=== PATIENT | male | born 1950 | race Caucasian/White ===

== ENCOUNTER 2018-02-08 08:37 | Inpatient (IN) | payer OTHER, MEDICARE, SELFPAY ==
[2018-02-08] VITALS (17 sets, daily range): BP systolic 133–189; BP diastolic 62–98; PULSE 56–96; RESP 14–20; TEMP 36.4–37; O2SAT 93–100; BMI 35.9; BMI 38.8
--- NOTE | 2018-02-08 08:41 | ED.RN ---
called for ekg from triage. pt to room 1. triage completed by this rn after pt taken to room
--- NOTE | 2018-02-08 08:42 | NURSING ---
NO OLD EKGS
--- NOTE | 2018-02-08 08:43 | EKG12_ITS ---
Test Reason : CP Blood Pressure : / mmHG Vent. Rate : 093 BPM Atrial Rate : 093 BPM P-R Int : 228 ms QRS Dur : 082 ms QT Int : 382 ms P-R-T Axes : 041 049 -09 degrees QTc Int : 474 ms Sinus rhythm with 1st degree A-V block Low voltage QRS Borderline ECG Confirmed by PURNIMA LIN, JONATHON ([id number]), industrial editor SYEDA TORRES ([id number] on 02/10/2018 11:57:46 AM Referred By: VITO Confirmed By:JONATHON FELTON MD
--- NOTE | 2018-02-08 08:53 | RAD_ITS ---
STUDY: X-RAY CHEST REASON FOR EXAM: Male, 67 years old. Chest pain. TECHNIQUE: Single AP portable view of the chest. COMPARISON: None. FINDINGS: EKG electrodes are seen. The lungs are clear and expanded. There is no demonstrated pleural abnormality. There is mild cardiac enlargement. Normal mediastinum and chika. Normal visualized pulmonary arteries. There is atherosclerotic calcification of the aortic arch with tortuosity. There are diffuse degenerative changes of the visualized thoracic spine. Normal visualized ribs, clavicles, and shoulders. There is no demonstrated abnormality of the visualized soft tissue structures of the upper abdomen. RAD/Chest 1 View (Portable) IMPRESSION: Mild cardiomegaly. The lungs are clear. Electronically Signed: Yang Walker MD at 9:10 EST Tel [phone], Service support ,
[2018-02-08 09:13] LABS: Absolute Lymphocyte Count 1.46 X10^3/ul (0.83-4.51); Basophil# 0.04 X10^3/uL; Basophil% 0.7 % (0-1); Eosinophil# 0.14 X10^3/uL; Eosinophils% 2.3 % (0-5); Hematocrit 48.7 % (40-54); Hemoglobin 16.6 g/dl (13.0-16.5); Lymphocyte # 1.46 X10^3/ul (4.0); Lymphocyte % 24.1 % (19-41); Mean Corp Hgb Conc 34.1 g/gl (32-36); Mean Corpuscular Hgb 31.4 pg (27.0-32.0); Mean Corpuscular Volume 92.2 fL (80-94); Mean Platelet Vol. 10.4 fl (6.2-12.0); Monocyte% 6.6 % (0-10); Neutrophil # 4.01 X10^3/uL (2.7-7.7); Platelet Count 194 K/mm3 (150-450); RBC Distribution Width CV 12.3 % (11.6-14.6); RBC Distribution Width SD 41.5 fl (35.1-43.9); Red Blood Count 5.28 M/mm3 (4.6-6.2); White Blood Count 6.1 K/mm3 (4.4-11.0)
[2018-02-08 09:15] LABS: POSITIVE COUNT NO; POSITIVE DIFFERENTIAL NO; POSITIVE MORPHOLOGY NO
[2018-02-08] MEDS: Aspirin 81 MG TAB.CHEW 324 MG PO (09:29)
[2018-02-08] MEDS: cloNIDine HCl 0.1 MG Tablet 0.2 MG PO (09:29)
[2018-02-08] MEDS: Morphine 4 MG/ML Syringe IV (09:29)
[2018-02-08] MEDS: Ondansetron 4 MG/2 ML Vial IV (09:29)
[2018-02-08 09:30] LABS: Anion Gap 12 (5-15); BUN 10 mg/dL (7-18); BUN/Creat Ratio 7.3 RATIO (10-20); Calcium,Total 8.9 mg/dL (8.5-10.1); Chloride 103 mmol/L (98-107); Creatinine, Serum 1.37 mg/dL (0.70-1.30); EST Glomerular Filtration Rate 55 mL/min (>60); Est Glom Filt Rate - Afr Amer 66 mL/min (>60); Estimated Creatinine Clearance 52.54 ml/min; Glucose 115 mg/dL (74-106); Potassium 4.1 mmol/L (3.5-5.1); Sodium Level 140 mmol/L (136-145)
--- NOTE | 2018-02-08 10:26 | NURSING ---
DR LEBRON FOR ER
--- NOTE | 2018-02-08 10:29 | ED.DCSUM_ITS ---
- ER Visit Summary Date of Service: 02/08/18 Chief Complaint: [] cp On and off for 3 weeks worse today History of Present Illness: The patient is a 67 M [] hypertension hyperlipidemia reports for the last 3 weeks he has had intermittent chest pain for unspecified reasons. He has history of hypertension hyperlipidemia is well controlled he is had no fever no cough no exertional symptoms today had another episode of chest pain that persisted he came in for evaluation, on arrival however his chest pain is markedly improved he has no history of GA PE or DVT his bowel bladder habits normal his review of systems are negative for fever cough numbness weakness or paresthesias Physical Examination: [] 180/93 General, no distress resting comfortably HEENT is generally unremarkable The neck is supple no adenopathy Cardiovascular, regular rate and rhythm Lungs, clear bilateral Abdomen, soft nontender Extremities, no clubbing cyanosis or edema Neurologic, awake alert answering questions appropriately moving all 4 extremities Test Results: [] Emergency Department Course and Treatment: [] EKG shows a sinus rhythm nothing acute, there was one episode on the monitor that could have been artifact versus a narrow complex 10 beat run were trying to determine that of the monitor retrieval system staff are trying to access that system if there is any signs of a dysrhythmia will be on the chart his vital signs and all labs are unremarkable except his troponin returns elevated to 0.07 he remains asymptomatic I spoke with the hospitalist we were contacting cardiology the plan at this time is to admit for further management Treatment Plan: [] Disposition: [] Admit stable Impression: [] chest pain, abnormal troponin, history of hypertension hyperlip idemia This note was generated with Viki dictation software. It may contain incorrect words, spelling, and punctuation that were not noted in review of the chart prior to signing ED Disposition - Plan for ED Patient: Chief Complaint: Chest Pain Referrals: Adrian Carlton MD [Primary Care Provider] -
--- NOTE | 2018-02-08 10:37 | NURSING ---
DR CAMPOS FOR ER DOC
--- NOTE | 2018-02-08 10:37 | NURSING ---
115 HAWAE CP, ABNORMAL TROP, HYPERTENSION
--- NOTE | 2018-02-08 10:38 | HP.PCM_ITS ---
Problem List (1) Chest pain Status: Acute (2) Essential (primary) hypertension Status: Chronic (3) Sleep apnea with use of continuous positive airway pressure (CPAP) Status: Chronic (4) BMI over 35 Status: Chronic History of Present Illness Date of Admission: 02/08/18 Chief Complaint: Chest pain The patient is a 67 year old M past medical history significant for essential hypertension (previously on DEIDRE inhibitors which he voluntarily quit because of persistent cough), obstructive sleep apnea on CPAP at night who presented with chest pain. Onset of symptoms 3 weeks prior to patient's admission. Chest pain has been intermittent. Patient initially thought he had bronchitis prescribed Z-Paulino by PCP however symptoms did not improve. Pain is described as tightness located in the retrosternal region. Patient did not relate the pain to any activity. Denied any radiation of the pain. Denied any lightheadedness no nausea no vomiting. He presented to the emergency department where his initial set of cardiac enzymes came back in the indeterminate zone. EKG however did not show any features consistent with ischemia. He was admitted to a monitored bed for subsequent management Past Medical History Past Medical History (Chronic Problems): Chronic Problems Essential (primary) hypertension (Chronic) Sleep apnea with use of continuous positive airway pressure (CPAP) (Chronic) BMI over 35 (Chronic) Allergies No Known Allergies Allergy (Verified 02/08/18 08:41) Home Medications: Ambulatory Orders Medication Instructions Recorded NK 02/08/18 Smoking Status: Former smoker - *Family History Paternal History Items: - - Parkinson's disease Review of Systems Constitutional: Denies: Anorexia, Chills, Fever, Night Sweats, Weight Change HEENT: Denies: Head Aches, Sinus Congestion, Sinus Drainage Cardiovascular: Reports: Chest Pain, Chest Tightness. Denies: Orthopnea, Palpitations, Paroxysmal Noc. Dyspnea Respiratory: Denies: Cough, Shortness of breath at rest, Shortness of breath upon exertion, Sputum production Gastrointestinal: Denies: Abdominal Pain, Hematemesis, Hematochezia, Nausea, Melena, Vomiting Genitourinary: Denies: Dysuria, Frequency, Hematuria, Urgency Musculoskeletal: Denies: Joint Pain, Joint Tenderness Skin: Denies: Rash Neurological: Denies: Focal weakness, Numbness, Tingling Psychiatric: Denies: Homicidal Ideations, Suicidal Ideations Hematologic/ Lymphatic: Denies: Easy Bruising, Easy Bleeding VTE Information - Inpt Only VTE Present on Admission: No VTE Mechan Device Prophylaxis: Knee High LINH Hose VTE Pharm Prophylaxis ordered?: Yes Patient Problems: Active and Suspected Problems Chest pain (Acute) Objective: GENERAL: cooperative HEENT: Atraumatic; moist oral mucosa EYES; Anicteric, Normal Conjunctiva NECK; supple, normal thyroid, no distended JVD. RESPIRATORY: Diminished to auscultation bilaterally, CARDIOVASCULAR: Regular S1 S2, no audible murmurs GI: soft, non-tender, normoactive bowel sounds, : No Renal angle tenderness; EXTREMITIES: No edema, no clubbing, no cyanosis. MUSCULOSKELETAL: No Joint Tenderness; no muscle waisting NEURO: Awake; no lateralizing signs. SKIN: No Rash PSYCH; Normal affect - Physical Exam Vital Signs Temp Pulse Resp BP Pulse Ox 97.5 F L 90 18 189/93 H 93 02/08/18 08:38 02/08/18 10:09 02/08/18 10:09 02/08/18 10:09 02/08/18 10:09 Oxygen Flow Rate (L/min) 2 Oxygen Delivery Method Nasal Cannula Weight: 113.398 kg Body Mass Index (BMI) 35.9 Laboratory Tests Past 24 Hrs 02/08/18 02/08/18 09:00 09:00 WBC 6.1 RBC 5.28 Hgb 16.6 H Hct 48.7 MCV 92.2 MCH 31.4 MCHC 34.1 RDW 12.3 RDW Differential 41.5 Plt Count 194 MPV 10.4 Immature Gran % (Auto) 0.300 Neut % (Auto) 66.0 Lymph % (Auto) 24.1 [place] % (Auto) 6.6 Eos % (Auto) 2.3 Baso % (Auto) 0.7 Absolute Neuts (auto) 4.0 Absolute Lymphs (auto) 1.46 Total Counted Not Reportable Sodium 140 Potassium 4.1 Chloride 103 Carbon Dioxide 25.0 Anion Gap 12 BUN 10 Creatinine 1.37 H Estim Creat Clear Calc 52.54 Est GFR (MDRD) Af Amer 66 Est GFR (MDRD) Non-Af 55 L BUN/Creatinine Ratio 7.3 L Glucose 115 H Calcium 8.9 Troponin I 0.067 H Assessment/Plan All Active Problems Chest pain (Acute) Patient is a 67-year-old gentleman presenting with chest pain 1. Chest pain: Patient has been admitted to a monitored bed treatment initiated with low molecular weight heparin, statin therapy, aspirin as well as beta- blockers. Subsequent serial cardiac enzymes ordered in addition to 2D echo. Consultation was placed to cardiology Case discussed with Dr. Pichardo 2. Essential hypertension: Patient was previously on DEIDRE inhibitors which he did quit because of persistent cough did initiate beta-blockers on admission in addition to hydralazine as needed 3. Obstructive sleep apnea patient is on CPAP at night 4. Morbid obesity with BMI of 35.9 lifestyle modification including weight loss advised 5. DVT prophylaxis on Lovenox Code Visit OBSV E&M: 14087 Initial observation care L3
--- NOTE | 2018-02-08 10:45 | NURSING ---
DR LEBRON IN ROOM
--- NOTE | 2018-02-08 11:07 | ECHOD_ITS ---
Reason For Study: Chest Pain Procedure This was a 2D Doppler, Color Flow transthoracic echocardiogram. Technically difficult due to patient body habitus. Contrast injection was performed. Exam performed portable in patient room. Left Ventricle Normal LV size. Moderate concentric left ventricular hypertrophy. Left ventricular systolic function is normal. The estimated ejection fraction is 60 %. Stage 1 diastolic dysfunction. No regional wall motion abnormalities noted. Right Ventricle Normal right ventricle. Normal systolic function. Atria The left atrium is not well visualized. The right atrium is not well visualized. Mitral Valve Mitral valve not well visualized. Tricuspid Valve The tricuspid valve is not well visualized. Aortic Valve The aortic valve is not well visualized. Pulmonic Valve The pulmonic valve is not well visualized. Great Vessels Normal aortic root. The pulmonary artery is normal size. Normal inferior vena cava. Pericardium/Pleural No pericardial effusion. Medication Diluted definity 6ml given slow IV push to enhance endocardial definition. MMode/2D Measurements & Calculations LVIDd: 3.9 cm IVSd: 1.6 cm LVOT diam: 2.0 cm LVIDs: 2.5 cm LVPWd: 1.7 cm FS: 34.8 % LVOT area: 3.1 cm2 Ao root diam: 3.5 cm Time Measurements MV dec time: 0.28 sec Doppler Measurements & Calculations MV E max conor: 81.5 cm/sec Lat Peak E' Conro: 7.6 cm/sec Med Peak E' Conor: 10.6 cm/sec MV A max conor: 112.1 cm/sec E/E' lat: 10.8 E/E' med: 7.7 MV E/A: 0.73 MV V2 max: 123.3 cm/sec MV P1/2t max conor: 83.8 cm/sec Ao V2 max: 210.3 cm/sec MV max P.1 mmHg MV P1/2t: 108.5 msec Ao max P.8 mmHg MV V2 mean: 62.0 cm/sec Ao V2 mean: 131.4 cm/sec MV mean P.8 mmHg MV dec slope: 226.2 cm/sec2 Ao mean P.3 mmHg MV V2 VTI: 34.5 cm MVA(P1/2t): 2.0 cm2 Ao V2 VTI: 40.2 cm MVA(VTI): 2.4 cm2 UNIQUE(I,D): 2.1 cm2 UNIQUE(V,D): 1.9 cm2 LV V1 max: 132.7 cm/sec SV(LVOT): 82.9 ml PA V2 max: 85.7 cm/sec LV V1 max P.1 mmHg LV V1 mean P.7 mmHg LV V1 mean: 87.2 cm/sec LV V1 VTI: 27.0 cm Interpretation Summary Normal LV size. Moderate concentric left ventricular hypertrophy. Left ventricular systolic function is normal. The estimated ejection fraction is 60 %. Stage 1 diastolic dysfunction. Contrast injection was performed. Ordering Physician: Christian Solano Referring Physician: Adrian Carlton Performed By: Hola Lam RCS
--- NOTE | 2018-02-08 11:39 | PCM.CONS.C ---
Problem List (1) Chest pain Status: Acute (2) Essential (primary) hypertension Status: Chronic (3) Sleep apnea with use of continuous positive airway pressure (CPAP) Status: Chronic (4) BMI over 35 Status: Chronic Reason for Consult Date of Consultation: 02/08/18 History of Present Illness: The patient is a 67 year old M, morbidly obese, nondiabetic, former smoker who quit around 35 years ago, with obstructive sleep apnea diagnosed about 6 years ago and compliant with CPAP, no previous coronary artery disease, who previously developed what sounds like bronchitis and was prescribed a Z-Paulino which resolved his chest pressure symptoms. Over the last 2 weeks or so the patient has had left-sided chest tightness which he describes as a heaviness, non-pleuritic, and nonexertional. This morning he noted his symptoms to a nurse coworker, and he was noted to be diaphoretic as well. His blood pressure was found to be in the 180s and he was sent to the emergency room here [facility]. In the emergency room an EKG was performed which showed normal sinus rhythm, low voltage, first-degree AV block, no acute changes. Initial troponin was 0.067, and the patient's blood pressure has been treated but not optimized as of yet. The patient is currently chest pain-free. On further history he has never had a heart catheterization, is a nondiabetic, no positive family history of premature coronary disease. Patient had recently been started on lisinopril 10 mg daily by his PCP for hypertension, but discontinued it due to dry hacking cough. [] Past Medical History Allergies/Adverse Reactions: Allergies No Known Allergies Allergy (Verified 02/08/18 08:41) Home Medications: Ambulatory Orders Medication Instructions Recorded NK 02/08/18 Past Medical History (Chronic Problems): Chronic Problems Essential (primary) hypertension (Chronic) Sleep apnea with use of continuous positive airway pressure (CPAP) (Chronic) BMI over 35 (Chronic) - *Family History Paternal History Items: - - Parkinson's disease Smoking Status: Former smoker Review of Systems - Review of Systems General: Denies: Fever, Night Sweats, Fatigue Cardiovascular: Reports: Chest Discomfort, Chest Discomfort at Rest, Chest Pressure, Chest Tightness, Shortness of Breath. Denies: Orthopnea, PND, Peripheral Edema, Palpitations, Lightheadedness, Dizziness, Near Syncope, Syncope Respiratory: Denies: Cough, Sputum Production, Hemoptysis Gastrointestinal: Denies: Hematemesis, Hematochezia, Melena Genitourinary: Denies: Dysuria, Hematuria Skin: Denies: Rash Subjectve: Patient laying in bed, no acute distress. Objective: Vital Signs Temp Pulse Resp BP Pulse Ox 98.0 F 88 14 162/92 H 97 02/08/18 11:10 02/08/18 11:10 02/08/18 11:10 02/08/18 11:10 02/08/18 11:10 Oxygen Flow Rate (L/min) 2 Oxygen Delivery Method Nasal Cannula Weight: 270 lb 8.115 oz Body Mass Index (BMI) 38.8 General: Awake, Alert, Oriented x 3 HEENT: PERRL, EOMI, Sclera Non Icteric Neck: Supple, Good ROM, No Lymph Node Enlargement Lungs: Clear to auscultation Cardiovascular: Regular Rhythm, Normal S1, Normal S2, No Murmurs, No Rubs, No Gallops 02/08/18 09:00: WBC 6.1, RBC 5.28, Hgb 16.6 H, Hct 48.7, MCV 92.2, MCH 31.4, MCHC 34.1, RDW 12.3, RDW Differential 41.5, Plt Count 194, MPV 10.4, Immature Gran % (Auto) 0.300, Neut % (Auto) 66.0, Lymph % (Auto) 24.1, [place] % (Auto) 6.6, Eos % (Auto) 2.3, Baso % (Auto) 0.7, Absolute Neuts (auto) 4.0, Total Counted Not Reportable 02/08/18 09:00: Sodium 140, Potassium 4.1, Chloride 103, Carbon Dioxide 25.0, Anion Gap 12, BUN 10, Creatinine 1.37 H, Est GFR (MDRD) Af Amer 66, Est GFR (MDRD) Non-Af 55 L, BUN/Creatinine Ratio 7.3 L, Glucose 115 H, Calcium 8.9, Troponin I 0.067 H Rhythm: EKG: As above ECHO: Pending Stress Test: Pending Cardiac Cath: PCI: CT Surgery: Holter monitor: EPS: PPM: CXR: Chest CT Scan: Assessment/Plan 1. chest pain: Patient presents with atypical, nonexertional chest tightness, which is nonradiating, with mild associated shortness of breath and diaphoresis superimposed upon significant hypertension with systolic pressures at least in the 180s. Patient was treated with baby aspirin, sublingual nitroglycerin, and his EKG showed no acute changes. He is currently chest pain-free. His blood pressure is not quite optimized. At this point I recommend baby aspirin 81 mg p.o. daily, starting him on Lopressor 25 mg p.o. twice daily, and Hyzaar 50 mg / 12.5 mg p.o. daily. In addition recommend a 2D echo with Doppler, and if his LV function is normal, would recommend a walking treadmill echocardiogram assuming his troponins are negative x3. If his troponins escalate, or if his LV function is found to be abnormal, I would forego the stress test and refer him for catheterization. Should the patient require catheterization or if his troponins become abnormal, I would recommend loading him with Plavix 300 mg x1 followed by 75 mg a day. Assuming the patient does not develop a dry cough from Cozaar as needed with lisinopril, and will continue his Hyzaar medications going forward particular given his diastolic blood pressure. 2. Hyperlipidemia: Recommend obtaining a fasting lipid profile. His LDL is greater than 130 would recommend treating with statin based medications. 3. Obstructive sleep apnea: Patient is just started a new CPAP mask as his other ones were not successful although he has had CPAP for the past 6 years. This may assist with his hypertension as well. 4. Discussed with Dr. Solano. Thank you very much for the opportunity to participate in the cardiac care of your patient. Consultation time took place between 11 and 11:30 AM. Code Visit Inpatient E&M: 00121 Init Hosp L2
--- NOTE | 2018-02-08 12:09 | CASEMGMT ---
According to the MMO website, the following are in-network tertiary facilities: [facility], [facility], [facility], [facility], [facility], [place], [facility], and . Carolee HDZ CM
[2018-02-08] MEDS: hydroCHLOROthiazide 12.5mg 12.5 MG PO (13:45)
[2018-02-08] MEDS: Metoprolol Tartrate 25 MG Tablet PO ×2 (13:45→23:20)
[2018-02-08] MEDS: Losartan Potassium 50 MG Tablet PO (13:45)
[2018-02-08 15:39] LABS: Thyroid Stim Hormone (TSH) 1.24 uIU/mL (0.358-3.74)
[2018-02-08] MEDS: Clopidogrel Bisulfate 300 MG Tablet PO (16:20)
[2018-02-08 17:08] LABS: BNP,B-Type NATRIURETIC PEPTIDE 76.5 pg/mL (0-100)
[2018-02-08 17:11] LABS: D-Dimer Quantitative (DVT/PE) 0.31 FEU/ug/m (0.27-0.49)
[2018-02-08] MEDS: Nitroglycerin Oint 1 INCH PACKET TRANSDERM. ×2 (17:14→23:21)
[2018-02-08] MEDS: Famotidine 20 MG Tablet PO (22:05)
[2018-02-08] MEDS: Enoxaparin 120 MG/0.8 ML Syringe 110 MG SC (22:05)
[2018-02-08] MEDS: Atorvastatin Calcium 80 MG Tablet PO (22:05)
[2018-02-09] VITALS (17 sets, daily range): BP systolic 128–152; BP diastolic 62–83; PULSE 47–65; RESP 12–20; TEMP 36.6–37; O2SAT 93–98
[2018-02-09] MEDS: Nitroglycerin Oint 1 INCH PACKET TRANSDERM. ×3 (05:24→17:35)
[2018-02-09 07:45] LABS: AST(SGOT) 19 U/L (15-37); Alanine Aminotransfer ALT/SGPT 27 U/L (16-61); Alkaline Phosphatase 77 U/L (45-117); Anion Gap 7 (5-15); BUN 12 mg/dL (7-18); BUN/Creat Ratio 11.1 RATIO (10-20); Calcium,Total 8.2 mg/dL (8.5-10.1); Chloride 102 mmol/L (98-107); Creatinine, Serum 1.08 mg/dL (0.70-1.30); EST Glomerular Filtration Rate 72 mL/min (>60); Est Glom Filt Rate - Afr Amer 87 mL/min (>60); Estimated Creatinine Clearance 66.65 ml/min; Globulin 3.5 g/dL (2.2-4.2); Glucose 108 mg/dL (74-106); Potassium 4.4 mmol/L (3.5-5.1); Protein, Total 6.5 g/dL (6.4-8.2); Sodium Level 136 mmol/L (136-145)
--- NOTE | 2018-02-09 09:04 | PN_ITS ---
Patient Problems: Active and Suspected Problems Chest pain (Acute) Subjective: Patient is a 67-year-old gentleman presenting with chest pain patient was admitted to a monitored bed for subsequent evaluation and management. Serial cardiac enzymes obtained came back consistent with acute non-STEMI. Patient was reported to be bradycardic during the evening his metoprolol dose subsequently adjusted Objective: GENERAL: cooperative HEENT: Atraumatic; moist oral mucosa EYES; Anicteric, Normal Conjunctiva NECK; supple, normal thyroid, no distended JVD. RESPIRATORY: Diminished to auscultation bilaterally, CARDIOVASCULAR: Regular S1 S2, no audible murmurs GI: soft, non-tender, normoactive bowel sounds, : No Renal angle tenderness; EXTREMITIES: No edema, no clubbing, no cyanosis. MUSCULOSKELETAL: No Joint Tenderness; no muscle waisting NEURO: Awake; no lateralizing signs. SKIN: No Rash PSYCH; Normal affect Vitals/I&O's: Vital Signs Temp Pulse Resp BP Pulse Ox 98.4 F 54 L 13 139/75 H 93 02/09/18 05:15 02/09/18 07:00 02/09/18 05:15 02/09/18 05:15 02/09/18 07:05 Oxygen Flow Rate (L/min) 2 Oxygen Delivery Method Room Air Weight: 122.7 kg Body Mass Index (BMI) 38.8 Intake and Output for Last 24 Hours 02/07/18 02/08/18 02/09/18 23:59 23:59 23:59 Intake Total 1470 / 1470 200 / 200 Balance 1470 / 1470 200 / 200 Laboratory Results 02/08/18 09:00: WBC 6.1, RBC 5.28, Hgb 16.6 H, Hct 48.7, MCV 92.2, MCH 31.4, MCHC 34.1, RDW 12.3, RDW Differential 41.5, Plt Count 194, MPV 10.4, Immature Gran % (Auto) 0.300, Neut % (Auto) 66.0, Lymph % (Auto) 24.1, [place] % (Auto) 6.6, Eos % (Auto) 2.3, Baso % (Auto) 0.7, Absolute Neuts (auto) 4.0, Absolute Lymphs (auto) 1.46, Total Counted Not Reportable 02/08/18 09:00: Sodium 140, Potassium 4.1, Chloride 103, Carbon Dioxide 25.0, Anion Gap 12, BUN 10, Creatinine 1.37 H, Estim Creat Clear Calc 52.54, Est GFR (MDRD) Af Amer 66, Est GFR (MDRD) Non-Af 55 L, BUN/Creatinine Ratio 7.3 L, Glucose 115 H, Calcium 8.9, Troponin I 0.067 H 02/08/18 12:40: TSH 1.24 02/08/18 12:40: Troponin I 0.141 H 02/08/18 14:59: D-Dimer Quant (PE/DVT) 0.31 02/08/18 14:59: B-Natriuretic Peptide 76.5 02/08/18 15:00: Troponin I 0.265 H 02/08/18 18:20: Troponin I 0.508 H 02/08/18 22:09: Troponin I 0.680 H* 02/09/18 05:27: Sodium 136, Potassium 4.4, Chloride 102, Carbon Dioxide 27.0, Anion Gap 7, BUN 12, Creatinine 1.08, Estim Creat Clear Calc 66.65, Est GFR (MDRD) Af Amer 87, Est GFR (MDRD) Non-Af 72, BUN/Creatinine Ratio 11.1, Glucose 108 H, Calcium 8.2 L, Total Bilirubin 0.40, Direct Bilirubin 0.10, AST 19, ALT 27, Alkaline Phosphatase 77, Troponin I 0.731 H*, Total Protein 6.5, Albumin 3.0 L, Globulin 3.5 Current Medications Al Hydroxide/Mg Hydroxide (Mylanta Ii) 30 ml PO Q6H PRN PRN PRN Reason: Gastric burning Aspirin (Ecotrin) 81 mg PO DAILY@0800 [facility] Atorvastatin Calcium (Lipitor) 80 mg PO QHS [facility] Last Admin: 02/08/18 22:05 Dose: 80 mg Clopidogrel Bisulfate (Plavix) 75 mg PO DAILY [facility] Enoxaparin Sodium (Lovenox) 110 mg 1 mg/kg (110 mg) SC Q12 [facility] Last Admin: 02/08/18 22:05 Dose: 110 mg Famotidine (Pepcid) 20 mg PO BID [facility] Last Admin: 02/08/18 22:05 Dose: 20 mg Hydrochlorothiazide (Hydrochlorothiazide) 12.5 mg PO DAILY [facility] Last Admin: 02/08/18 13:45 Dose: 12.5 mg Losartan Potassium (Cozaar) 50 mg PO DAILY [facility] Last Admin: 02/08/18 13:45 Dose: 50 mg Magnesium Hydroxide (Milk Of Magnesia) 30 ml PO DAILY PRN PRN Reason: Constipation Metoprolol Tartrate (Lopressor (Beta Brandan)) 12.5 mg PO BID [facility] Nitroglycerin (Nitrostat) 0.4 mg SUBLINGUAL Q5M PRN PRN Reason: CHEST PAIN Nitroglycerin (Nitrobid) 1 inch TRANSDERM. Q6 [facility] Last Admin: 02/09/18 05:24 Dose: 1 inch Ondansetron HCl (Zofran) 4 mg IV Q8H PRN PRN PRN Reason: NAUSEA Psyllium Hydrophilic Mucilloid (Metamucil) 1 packet PO DAILY PRN PRN PRN Reason: CONSTIPATION Sodium Chloride () 5 - 30 ml IV UD PRN PRN Reason: SALINE FLUSH Zolpidem Tartrate (Ambien (Generic)) 5 mg PO QHS PRN PRN PRN Reason: INSOMNIA Medical Necessity - Tobacco Use Smoking Status: Former smoker Assessment/Plan All Active Problems Chest pain (Acute) Patient is a 67-year-old gentleman presenting with chest pain patient was admitted to a monitored bed for subsequent evaluation and management. Serial cardiac enzymes obtained came back consistent with acute non-STEMI. 1. Acute non-STEMI: Patient admitted to monitored bed where he is currently being managed per protocol with low molecular weight heparin, statin therapy, beta blockers, ARB, dual antiplatelet consultation was placed to cardiology Case discussed with Dr. Pichardo plan is for patient to undergo left heart catheterization on 02/10/2018 2. Essential hypertension: Patient was previously on DEIDRE inhibitors which he di d quit because of persistent cough did initiate beta-blockers (dose adjusted in view of bradycardia) Dr. Pichardo added HCTZ as well as Cozaar 3. Obstructive sleep apnea patient is on CPAP at night 4. Morbid obesity with BMI of 38 lifestyle modification including weight loss advised 5. DVT prophylaxis on Lovenox Active Medications Al Hydroxide/Mg Hydroxide (Mylanta Ii) 30 ml PO Q6H PRN PRN PRN Reason: Gastric burning Aspirin (Ecotrin) 81 mg PO DAILY@0800 [facility] Atorvastatin Calcium (Lipitor) 80 mg PO QHS [facility] Last Admin: 02/08/18 22:05 Dose: 80 mg Clopidogrel Bisulfate (Plavix) 75 mg PO DAILY [facility] Enoxaparin Sodium (Lovenox) 110 mg 1 mg/kg (110 mg) SC Q12 [facility] Last Admin: 02/08/18 22:05 Dose: 110 mg Famotidine (Pepcid) 20 mg PO BID [facility] Last Admin: 02/08/18 22:05 Dose: 20 mg Hydrochlorothiazide (Hydrochlorothiazide) 12.5 mg PO DAILY [facility] Last Admin: 02/08/18 13:45 Dose: 12.5 mg Losartan Potassium (Cozaar) 50 mg PO DAILY [facility] Last Admin: 02/08/18 13:45 Dose: 50 mg Magnesium Hydroxide (Milk Of Magnesia) 30 ml PO DAILY PRN PRN Reason: Constipation Metoprolol Tartrate (Lopressor (Beta Brandan)) 12.5 mg PO BID [facility] Nitroglycerin (Nitrostat) 0.4 mg SUBLINGUAL Q5M PRN PRN Reason: CHEST PAIN Nitroglycerin (Nitrobid) 1 inch TRANSDERM. Q6 [facility] Last Admin: 02/09/18 05:24 Dose: 1 inch Ondansetron HCl (Zofran) 4 mg IV Q8H PRN PRN PRN Reason: NAUSEA Psyllium Hydrophilic Mucilloid (Metamucil) 1 packet PO DAILY PRN PRN PRN Reason: CONSTIPATION Sodium Chloride () 5 - 30 ml IV UD PRN PRN Reason: SALINE FLUSH Zolpidem Tartrate (Ambien (Generic)) 5 mg PO QHS PRN PRN PRN Reason: INSOMNIA Code Visit Inpatient E&M: 24374 [facility] Hosp L3
[2018-02-09] MEDS: Aspirin E.C. 81 MG Tablet PO (09:06)
[2018-02-09] MEDS: Famotidine 20 MG Tablet PO ×2 (09:06→21:46)
[2018-02-09] MEDS: Clopidogrel Bisulfate 75 MG Tablet PO (09:06)
[2018-02-09] MEDS: Metoprolol Tartrate 25 MG Tablet 12.5 MG PO ×2 (09:07→21:44)
[2018-02-09] MEDS: hydroCHLOROthiazide 12.5mg 12.5 MG PO (09:08)
[2018-02-09] MEDS: Losartan Potassium 50 MG Tablet PO (09:08)
[2018-02-09] MEDS: Enoxaparin 120 MG/0.8 ML Syringe 110 MG SC ×2 (09:13→21:47)
--- NOTE | 2018-02-09 09:19 | PCM.PN.CARD ---
Subjectve: The patient was seen and evaluated. Appears to be doing well. No chest pain since admission. Objective: Vital Signs Temp Pulse Resp BP Pulse Ox 98.4 F 65 13 139/75 H 93 02/09/18 05:15 02/09/18 09:07 02/09/18 05:15 02/09/18 05:15 02/09/18 07:05 Oxygen Flow Rate (L/min) 2 Oxygen Delivery Method Room Air Weight: 270 lb 8.115 oz Body Mass Index (BMI) 38.8 Intake and Output for Last 24 Hours 02/07/18 02/08/18 02/09/18 23:59 23:59 23:59 Intake Total 1470 / 1470 200 / 200 Balance 1470 / 1470 200 / 200 General: Awake, Alert, Oriented x 3 HEENT: PERRL, EOMI, Sclera Non Icteric Neck: Supple, Good ROM, No Lymph Node Enlargement Lungs: Clear to auscultation Cardiovascular: Regular Rhythm, Normal S1, Normal S2, No Murmurs, No Rubs, No Gallops Vascular: No Carotid Bruits, Normal Femoral Pulses, Normal Radial Pulses, Normal Dorsalis Pedal Pulse, Normal Posterior Tibial Pulses Abdomen: Bowel Sounds Present, Soft, Non Tender, No HSM, No Organomegaly Extremities: No Cyanosis, No Clubbing, No edema Lymphatic: No Lymph Node Enlargement Neurological: No Focal Motor or Sensory Deficit Psych/Mental Status: Appropriate 02/08/18 09:00: Sodium 140, Potassium 4.1, Chloride 103, Carbon Dioxide 25.0, Anion Gap 12, BUN 10, Creatinine 1.37 H, Est GFR (MDRD) Af Amer 66, Est GFR (MDRD) Non-Af 55 L, BUN/Creatinine Ratio 7.3 L, Glucose 115 H, Calcium 8.9, Troponin I 0.067 H 02/08/18 12:40: Troponin I 0.141 H 02/08/18 14:59: D-Dimer Quant (PE/DVT) 0.31 02/08/18 14:59: B-Natriuretic Peptide 76.5 02/08/18 15:00: Troponin I 0.265 H 02/08/18 18:20: Troponin I 0.508 H 02/08/18 22:09: Troponin I 0.680 H* 02/09/18 05:27: Sodium 136, Potassium 4.4, Chloride 102, Carbon Dioxide 27.0, Anion Gap 7, BUN 12, Creatinine 1.08, Est GFR (MDRD) Af Amer 87, Est GFR (MDRD) Non-Af 72, BUN/Creatinine Ratio 11.1, Glucose 108 H, Calcium 8.2 L, Total Bilirubin 0.40, Direct Bilirubin 0.10, Troponin I 0.731 H* Rhythm: EKG: ECHO: Stress Test: Cardiac Cath: PCI: CT Surgery: Holter monitor: EPS: PPM: CXR: Chest CT Scan: Medical Necessity - Tobacco Use Smoking Status: Former smoker Assessment/Plan 1. Chest pain- NSTEMI Patient presents with typical, nonexertional chest tightness, which is nonradiating, with mild associated shortness of breath and diaphoresis superimposed upon significant hypertension with systolic pressures at least in the 180s. Patient was treated with baby aspirin, sublingual nitroglycerin, and his EKG showed no acute changes. He is currently chest pain-free. Recommendation at this time would be to proceed with a cardiac catheterization. The risk benefits and alternatives have been explained to him he understands and agrees to proceed. Patient has received loading dose of Plavix and follow-up Plavix. Will continue with low-dose beta-jose g and adjust as appropriate 2. Hyperlipidemia: Will start high intensity statin. 3. Obstructive sleep apnea: Patient is just started a new CPAP mask as his other ones were not successful although he has had CPAP for the past 6 years. This may assist with his hypertension as well. Thank you for allowing me to participate in the care of your patient. Please don't hesitate to call if any issues arise
--- NOTE | 2018-02-09 09:22 | PN.CARD_ITS ---
Subjectve: The patient was seen and evaluated. Appears to be doing well. No chest pain since admission. Objective: Vital Signs Temp Pulse Resp BP Pulse Ox 98.4 F 65 13 139/75 H 93 02/09/18 05:15 02/09/18 09:07 02/09/18 05:15 02/09/18 05:15 02/09/18 07:05 Oxygen Flow Rate (L/min) 2 Oxygen Delivery Method Room Air Weight: 270 lb 8.115 oz Body Mass Index (BMI) 38.8 Intake and Output for Last 24 Hours 02/07/18 02/08/18 02/09/18 23:59 23:59 23:59 Intake Total 1470 / 1470 200 / 200 Balance 1470 / 1470 200 / 200 General: Awake, Alert, Oriented x 3 HEENT: PERRL, EOMI, Sclera Non Icteric Neck: Supple, Good ROM, No Lymph Node Enlargement Lungs: Clear to auscultation Cardiovascular: Regular Rhythm, Normal S1, Normal S2, No Murmurs, No Rubs, No Gallops Vascular: No Carotid Bruits, Normal Femoral Pulses, Normal Radial Pulses, Normal Dorsalis Pedal Pulse, Normal Posterior Tibial Pulses Abdomen: Bowel Sounds Present, Soft, Non Tender, No HSM, No Organomegaly Extremities: No Cyanosis, No Clubbing, No edema Lymphatic: No Lymph Node Enlargement Neurological: No Focal Motor or Sensory Deficit Psych/Mental Status: Appropriate 02/08/18 09:00: Sodium 140, Potassium 4.1, Chloride 103, Carbon Dioxide 25.0, Anion Gap 12, BUN 10, Creatinine 1.37 H, Est GFR (MDRD) Af Amer 66, Est GFR (MDRD) Non-Af 55 L, BUN/Creatinine Ratio 7.3 L, Glucose 115 H, Calcium 8.9, Troponin I 0.067 H 02/08/18 12:40: Troponin I 0.141 H 02/08/18 14:59: D-Dimer Quant (PE/DVT) 0.31 02/08/18 14:59: B-Natriuretic Peptide 76.5 02/08/18 15:00: Troponin I 0.265 H 02/08/18 18:20: Troponin I 0.508 H 02/08/18 22:09: Troponin I 0.680 H* 02/09/18 05:27: Sodium 136, Potassium 4.4, Chloride 102, Carbon Dioxide 27.0, Anion Gap 7, BUN 12, Creatinine 1.08, Est GFR (MDRD) Af Amer 87, Est GFR (MDRD) Non-Af 72, BUN/Creatinine Ratio 11.1, Glucose 108 H, Calcium 8.2 L, Total Bilirubin 0.40, Direct Bilirubin 0.10, Troponin I 0.731 H* Rhythm: EKG: ECHO: Stress Test: Cardiac Cath: PCI: CT Surgery: Holter monitor: EPS: PPM: CXR: Chest CT Scan: Medical Necessity - Tobacco Use Smoking Status: Former smoker Assessment/Plan 1. Chest pain- NSTEMI Patient presents with typical, nonexertional chest tightness, which is nonradiating, with mild associated shortness of breath and diaphoresis superimposed upon significant hypertension with systolic pressures at least in the 180s. Patient was treated with baby aspirin, sublingual nitroglycerin, and his EKG showed no acute changes. He is currently chest pain- free. * Recommendation at this time would be to proceed with a cardiac catheterization. The risk benefits and alternatives have been explained to him he understands and agrees to proceed. * Patient has received loading dose of Plavix and follow-up Plavix. * Will continue with low-dose beta-jose g and adjust as appropriate 2. Hyperlipidemia: * Will start high intensity statin. 3. Obstructive sleep apnea: Patient is just started a new CPAP mask as his other ones were not successful although he has had CPAP for the past 6 years. This may assist with his hypertension as well. Thank you for allowing me to participate in the care of your patient. Please don't hesitate to call if any issues arise
[2018-02-09] MEDS: Atorvastatin Calcium 80 MG Tablet PO (21:48)
[2018-02-09 22:17] LABS: Bacteria 0 SEEN /hpf (None Seen); Mucous, Urine 0 SEEN /hpf (<or=2+); Red Blood Cells-Urine 0 SEEN /hpf (0-5); Squamous Epithelial Cells - UA 0 SEEN /hpf (0-5); White Blood Cells 0 SEEN /hpf (0-5)
[2018-02-09 22:19] LABS: Color, Urine Yellow (Yellow); Glucose, Dipstick Normal (Normal); Ketone-Dipstick Negative (Negative); Leukocyte Esterase-Dipstick Negative /ul (Negative); Nitrite-Dipstick Negative (Negative); Occult Blood-Urine Negative /ul (Negative); Protein-Dipstick Negative (Negative); Specific Gravity, Urine 1.015 (1.002-1.030); Urine Bilirubin Dipstick Negative (Negative); Urine Clarity Clear (Clear); Urine Urobilinogen Normal (Normal)
[2018-02-10] VITALS (84 sets, daily range): BP systolic 90–203; BP diastolic 50–99; PULSE 48–78; RESP 12–20; TEMP 36.3–37.1; O2SAT 93–100
[2018-02-10] MEDS: Nitroglycerin Oint 1 INCH PACKET TRANSDERM. ×3 (00:49→14:24)
--- NOTE | 2018-02-10 05:55 | EKG12_ITS ---
Test Reason : AM EKG Blood Pressure : / mmHG Vent. Rate : 053 BPM Atrial Rate : 053 BPM P-R Int : 232 ms QRS Dur : 084 ms QT Int : 454 ms P-R-T Axes : 021 -12 000 degrees QTc Int : 426 ms Sinus bradycardia with 1st degree A-V block Low voltage QRS Inferior infarct , age undetermined Abnormal ECG Confirmed by PURNIMA LIN, JONATHON ([id number]), photographic editor OR[place]O GILBERT ([id number]) on 02/13/2018 2:23:19 PM Referred By: DR LEBRON Confirmed By:JONATHON FELTON MD
[2018-02-10 06:14] LABS: Absolute Lymphocyte Count 1.34 X10^3/ul (0.83-4.51); Basophil# 0.03 X10^3/uL; Basophil% 0.6 % (0-1); Eosinophil# 0.23 X10^3/uL; Eosinophils% 4.5 % (0-5); Hemoglobin 15.1 g/dl (13.0-16.5); Lymphocyte # 1.34 X10^3/ul (4.0); Lymphocyte % 26.1 % (19-41); Mean Corp Hgb Conc 33.6 g/gl (32-36); Mean Corpuscular Hgb 31.4 pg (27.0-32.0); Mean Corpuscular Volume 93.6 fL (80-94); Mean Platelet Vol. 10.4 fl (6.2-12.0); Monocyte# 0.57 X10^3/uL; Monocyte% 11.1 % (0-10); Neutrophil # 2.95 X10^3/uL (2.7-7.7); Neutrophil % 57.5 % (47-70); Platelet Count 181 K/mm3 (150-450); RBC Distribution Width CV 12.3 % (11.6-14.6); RBC Distribution Width SD 41.7 fl (35.1-43.9); Red Blood Count 4.81 M/mm3 (4.6-6.2); White Blood Count 5.1 K/mm3 (4.4-11.0)
[2018-02-10 06:17] LABS: POSITIVE COUNT NO; POSITIVE DIFFERENTIAL NO; POSITIVE MORPHOLOGY NO
[2018-02-10 06:20] LABS: International Normalized Ratio 1.1; Prothrombin Time (Protime)PT. 14.1 SECONDS (11.7-14.9)
[2018-02-10 06:21] LABS: Partial Thromboplast Time 39.7 Seconds (24.1-36.2)
[2018-02-10 06:48] LABS: Anion Gap 8 (5-15); BUN 15 mg/dL (7-18); Calcium,Total 8.7 mg/dL (8.5-10.1); Chloride 103 mmol/L (98-107); Creatinine, Serum 1.15 mg/dL (0.70-1.30); EST Glomerular Filtration Rate 67 mL/min (>60); Est Glom Filt Rate - Afr Amer 81 mL/min (>60); Glucose 117 mg/dL (74-106); Potassium 4.3 mmol/L (3.5-5.1); Sodium Level 139 mmol/L (136-145)
[2018-02-10] MEDS: 0.9% Normal Saline 1,000 ML 15 ML IV (06:48)
[2018-02-10] MEDS: 0.9% NaCl Peripheral Flush Adult/Peds IV ×2 (06:50→09:25)
[2018-02-10] MEDS: Clopidogrel Bisulfate 75 MG Tablet PO (06:50)
[2018-02-10] MEDS: Losartan Potassium 50 MG Tablet PO (06:51)
[2018-02-10] MEDS: Aspirin E.C. 81 MG Tablet PO (06:51)
--- NOTE | 2018-02-10 07:26 | PN_ITS ---
Patient Problems: Active and Suspected Problems Chest pain (Acute) Subjective: Patient seen scheduled to undergo left heart catheterization this a.m. Had a relatively uneventful night. Objective: GENERAL: cooperative HEENT: Atraumatic; moist oral mucosa EYES; Anicteric, Normal Conjunctiva NECK; supple, normal thyroid, no distended JVD. RESPIRATORY: Diminished to auscultation bilaterally, CARDIOVASCULAR: Regular S1 S2, no audible murmurs GI: soft, non-tender, normoactive bowel sounds, : No Renal angle tenderness; EXTREMITIES: No edema, no clubbing, no cyanosis. MUSCULOSKELETAL: No Joint Tenderness; no muscle waisting NEURO: Awake; no lateralizing signs. SKIN: No Rash PSYCH; Normal affect Vitals/I&O's: Vital Signs Temp Pulse Resp BP Pulse Ox 97.4 F L 51 L 18 158/82 H 98 02/10/18 06:45 02/10/18 06:53 02/10/18 06:45 02/10/18 06:51 02/10/18 06:45 Oxygen Flow Rate (L/min) 2 Oxygen Delivery Method Room Air Weight: 122.7 kg Body Mass Index (BMI) 38.8 Intake and Output for Last 24 Hours 02/08/18 02/09/18 02/10/18 23:59 23:59 23:59 Intake Total 1470 / 1470 1050 / 1050 Balance 1470 / 1470 1050 / 1050 Laboratory Results 02/09/18 05:27: Sodium 136, Potassium 4.4, Chloride 102, Carbon Dioxide 27.0, Anion Gap 7, BUN 12, Creatinine 1.08, Estim Creat Clear Calc 66.65, Est GFR (MDRD) Af Amer 87, Est GFR (MDRD) Non-Af 72, BUN/Creatinine Ratio 11.1, Glucose 108 H, Calcium 8.2 L, Total Bilirubin 0.40, Direct Bilirubin 0.10, AST 19, ALT 27, Alkaline Phosphatase 77, Troponin I 0.731 H*, Total Protein 6.5, Albumin 3.0 L, Globulin 3.5 02/09/18 22:05: Urine Color Yellow, Urine Clarity Clear, Urine pH 5.0, Ur Specific [place] 1.015, Urine Protein Negative, Urine Glucose (UA) Normal, Urine Ketones Negative, Urine Occult Blood Negative, Urine Nitrite Negative, Urine Bilirubin Negative, Urine Urobilinogen Normal, Ur Leukocyte Esterase Negative, Urine RBC 0 SEEN, Urine WBC 0 SEEN, Ur Squamous Epith Cells 0 SEEN, Urine Bacteria 0 SEEN, Urine Mucus 0 SEEN 02/10/18 05:45: WBC 5.1, RBC 4.81, Hgb 15.1, Hct 45.0, MCV 93.6, MCH 31.4, MCHC 33.6, RDW 12.3, RDW Differential 41.7, Plt Count 181, MPV 10.4, Immature Gran % (Auto) 0.200, Neut % (Auto) 57.5, Lymph % (Auto) 26.1, [place] % (Auto) 11.1 H, Eos % (Auto) 4.5, Baso % (Auto) 0.6, Absolute Neuts (auto) 3.0, Absolute Lymphs (auto) 1.34, Total Counted Not Reportable 02/10/18 05:45: PT 14.1, INR 1.1, APTT 39.7 H 02/10/18 05:45: Sodium 139, Potassium 4.3, Chloride 103, Carbon Dioxide 28.0, Anion Gap 8, BUN 15, Creatinine 1.15, Estim Creat Clear Calc 62.60, Est GFR (MDRD) Af Amer 81, Est GFR (MDRD) Non-Af 67, BUN/Creatinine Ratio 13.0, Glucose 117 H, Calcium 8.7 Current Medications Al Hydroxide/Mg Hydroxide (Mylanta Ii) 30 ml PO Q6H PRN PRN PRN Reason: Gastric burning Aspirin (Ecotrin) 81 mg PO DAILY@0800 [facility] Last Admin: 02/10/18 06:51 Dose: 81 mg Atorvastatin Calcium (Lipitor) 80 mg PO QHS [facility] Last Admin: 02/09/18 21:48 Dose: 80 mg Clopidogrel Bisulfate (Plavix) 75 mg PO DAILY [facility] Last Admin: 02/10/18 06:50 Dose: 75 mg Enoxaparin Sodium (Lovenox) 110 mg 1 mg/kg (110 mg) SC Q12 [facility] Last Admin: 02/09/18 21:47 Dose: 110 mg Famotidine (Pepcid) 20 mg PO BID [facility] Last Admin: 02/09/18 21:46 Dose: 20 mg Hydrochlorothiazide (Hydrochlorothiazide) 12.5 mg PO DAILY [facility] Last Admin: 02/09/18 09:08 Dose: 12.5 mg Sodium Chloride () 1,000 mls @ 15 mls/hr IV .Q48H [facility] Last Admin: 02/10/18 06:48 Dose: 15 mls/hr Losartan Potassium (Cozaar) 50 mg PO DAILY [facility] Last Admin: 02/10/18 06:51 Dose: 50 mg Magnesium Hydroxide (Milk Of Magnesia) 30 ml PO DAILY PRN PRN Reason: Constipation Metoprolol Tartrate (Lopressor (Beta Brandan)) 12.5 mg PO BID [facility] Last Admin: 02/10/18 06:53 Dose: Not Given Nitroglycerin (Nitrostat) 0.4 mg SUBLINGUAL Q5M PRN PRN Reason: CHEST PAIN Nitroglycerin (Nitrobid) 1 inch TRANSDERM. Q6 [facility] Last Admin: 02/10/18 06:51 Dose: 1 inch Ondansetron HCl (Zofran) 4 mg IV Q8H PRN PRN PRN Reason: NAUSEA Psyllium Hydrophilic Mucilloid (Metamucil) 1 packet PO DAILY PRN PRN PRN Reason: CONSTIPATION Sodium Chloride () 5 - 30 ml IV UD PRN PRN Reason: SALINE FLUSH Last Admin: 02/10/18 06:50 Dose: 5 ml Zolpidem Tartrate (Ambien (Generic)) 5 mg PO QHS PRN PRN PRN Reason: INSOMNIA Medical Necessity - Tobacco Use Smoking Status: Former smoker Assessment/Plan All Active Problems Chest pain (Acute) Patient is a 67-year-old gentleman presenting with chest pain patient was admitted to a monitored bed for subsequent evaluation and management. Serial cardiac enzymes obtained came back consistent with acute non-STEMI. 1. Acute non-STEMI: Patient admitted to monitored bed where he is currently being managed per protocol with low molecular weight heparin, statin therapy, beta blockers, ARB, dual antiplatelet consultation was placed to cardiology Case discussed with Dr. Pichardo plan is for patient to undergo left heart catheterization on 02/10/2018 2. Essential hypertension: Patient was previously on DEIDRE inhibitors which he did quit because of persistent cough did initiate beta-blockers (dose adjusted in view of bradycardia) Dr. Pichardo added HCTZ as well as Cozaar 3. Obstructive sleep apnea patient is on CPAP at night 4. Morbid obesity with BMI of 38 lifestyle modification including weight loss advised 5. DVT prophylaxis on Lovenox Code Visit Inpatient E&M: 50925 [facility]s Hosp L2
--- NOTE | 2018-02-10 09:26 | NURSING ---
Called report to [facility] in laboratory helper
--- NOTE | 2018-02-10 10:42 | CASEMGMT ---
Insurance Review for [facility] Insurance if transfer is recommended is as follows: Kala Truong, [facility], [facility], [facility], [facility], [place] Reina [employer]ILDER CM
--- NOTE | 2018-02-10 10:50 | NURSING ---
Called report to [facility] in ICU
--- NOTE | 2018-02-10 10:53 | EKG12_ITS ---
Test Reason : Blood Pressure : / mmHG Vent. Rate : 056 BPM Atrial Rate : 056 BPM P-R Int : 228 ms QRS Dur : 086 ms QT Int : 454 ms P-R-T Axes : 045 001 009 degrees QTc Int : 438 ms Sinus bradycardia with 1st degree A-V block Otherwise normal ECG When compared with ECG of 10-FEB-2018 05:40, MANUAL COMPARISON REQUIRED, DATA IS UNCONFIRMED Confirmed by PURNIMA LIN, JONATHON ([id number]), proposal editor [place] GILBERT ([id number]) on 02/14/2018 4:14:10 PM Referred By: Confirmed By:JONATHON FELTON MD
--- NOTE | 2018-02-10 10:59 | CL.I_ITS ---
Patient Name: SANJEEV FARMER Study Date: 02/10/2018 Performing: Johnathan Pichardo MD Ht: 70 inches 178 cm : 1950 Wt: 271.5 lbs 123 kg Age: 67 Gender: male BSA: 2.38 PROCEDURE(S) PERFORMED [id number]/LV [id number] W OR WO PTCA, SINGLE CORONARY ARTERY CLINICAL PROFILE AND CO-MORBIDITIES Indications: ACS > 24 hrs, New Onset Angina <= 2 months, Suspected CAD Heart Failure: None Stress/Imaging Stress/Image Study Performed: No Angina Classification Anginal Classification w/in 2 Weeks: CCS IV CAD Presentations: Unstable angina. Non-STEMI. Symptom onset Date/Time: 02/08/2018 Time Not Avail able Comorbidities/Risk Factors: Hypertension Dyslipidemia CONCLUSIONS Normal LV size, wall motion,and systolic function Single vessel CAD of the proximal RCA Non obstructive coronary arteries Successful PTCA/RUPA proximal RCA with a 3.5 x 16 Promus Synergy, post dilated with a 3.75 x 8 NC ball oon; 85%-->0%, no dissection. RECOMMENDATIONS Referred for immediate PCI Highly recommend quitting all tobacco products Follow up with primary job estimator Risk factor modification ASA Indefinitley Plavix for at least 12 months Routine post interventional care Refer for Outpatient Cardiac Rehab Manual sheath removal per protocol Follow up with Dr. Pichardo Medical management of mid/distal RCA lesions unless or until pt has recurrent symptoms or evidence of inferior ischemia. Successful Mynx closure procedure. DESCRIPTION OF PROCEDURE The patient arrived to the procedure lab. The risks and benefits of the procedure as well as a full d escription of our services here and lack of surgical backup were fully explained to the patient and/o r their significant other prior to the catheterization. The Timeout was completed, verifying the ana ect patient and procedure. The patient's procedural site was prepped and draped in the usual fashion. Local anesthetic was given subcutaneously to right groin region with Lidocaine 2%. Using a modified Seldinger technique, arterial access was obtained via the right femoral artery, a 4Fr sheath was inse rted. Left Coronary Artery selective angiography was performed in multiple views using a 4 Fr. JL5 c atheter. Right Coronary Artery selective angiography was then performed in multiple views using a 4 F r. 3DRC catheter. LV to AO pullback pressures were then recorded. Left Ventriculography was performed in BROWNLEE projection using a 4 Fr. Pigtail catheterThe images were reviewed and options discussed. A decision was then made to proceed with an Intervention, IVUS or other adjunct procedure. Arterial sheath was exchanged for a 6 Fr Sheath. HS 2 Guide catheter was inserted and engaged int o the RCA. BMW Guide wire was advanced to the RCA. 2.0x12 emerge Balloon catheter was advanced across lesion in the right coronary, proximal. PTCA balloon inflated at 10 atms for 17 secs. PTCA balloon i nflated at 10 atms for 9 secs. 3.5x16 synergy Drug Eluting stent was advanced across the lesion in th e right coronary, proximal. Angiogram performed post stent deployment. 3.75x8 NC Emerge Balloon ani ter was advanced across lesion in the right coronary, proximal. Angiogram performed post stent deploy ment. The arterial sheath was pulled and a Mynx closure device was deployed for hemostasis CORONARY ANGIOGRAPHY DOMINANCE: Right Dominant LEFT HEART ASSESSMENT Left Ventricular Ejection Fraction: by LV Gram 65 % LVEDP: 20 mmHg Normal Left Ventricular systolic function Normal LV wall motion LEFT MAIN: Angiographically normal LEFT ANTERIOR DECENDING ARTERY: Mild luminal irregularities less than 30% OSTIAL LAD: 20 % Stenosis CIRCUMFLEX ARTERY: Mild luminal irregularities less than 30% RIGHT CORONARY ARTERY: PROX RCA: 85 % Stenosis MID RCA: Mild luminal irregularities less than 30% DISTAL RCA: 50 % Stenosis INTERVENTION INFORMATION LESION SITE: RCA (Proximal) Lesion Complexity: Non-High/Non-C, lesion at bifurcation: No, thrombus present: No, lesion length: 16 mm, culprit lesion: Yes Pre Stenosis: 85 % Pre intervention MELITON flow: 3 PROCEDURE: Drug Eluting Stent with pre and post dilatation Post Stenosis: 0 % Post intervention MELITON flow: 3 Lesion Devices: Cavazos .014 BMW Vanleer Straight 190cm Medtronic 6 Fr HSII 100cm Guide Catheter Jason Sci EMERGE MR 2.00x12 BALLOON Jason Sci Synergy MR RUPA 3.50x16 Jason Sci NC EMERGE MR 3.75x08 BALLOON COMPLICATIONS No Complications PROCEDURE MEDICATIONS Versed 1 mg IV Oxygen: 2 L/min via nasal cannula Heparin 6000 unit(s) IV 02/10/2018 10:18:52 Nitro 200 mcg IC 02/10/2018 10:20:37 Nitro 200 mcg IC 02/10/2018 10:20:37 IV Bolus: .9 NaCl 250 ml total 02/10/2018 10:38:21 SUMMARY OF HEMODYNAMIC DATA Time AIR REST ECG 09:57:07 AO 140/75 (101) SA 10:10:24 LV 168/-9, 25 10:16:29 LV 167/-15, 21 10:16:36 LVp 166/-16, 20 10:16:41 AOp 165/70 (107) 10:16:46 Signed By Johnathan Pichardo MD On 02/10/2018 10:58:05 AM Johnathan Pichardo MD
--- NOTE | 2018-02-10 11:10 | NURSING ---
in ICU 201 per bed/monitor from laborer cement gun placing, laborer cement gun placing staff in attendance.
--- NOTE | 2018-02-10 11:16 | PN_ITS ---
Patient Problems: Active and Suspected Problems Chest pain (Acute) Subjective: Patient seen and examined. No further chest pain since admission. Underwent cardiac catheterization this morning with PTCA to proximal RCA. - Physical Exam General: Alert, Oriented x3, Cooperative HEENT: Atraumatic, PERRLA, EOMI, Normocephalic Neck: Supple, No JVD, Negative Carotid Bruits Lungs: Clear to auscultation, Normal air movement Cardiovascular: Regular rate, Regular Rhythm, Normal S1, Normal S2, No murmurs Abdomen: Bowel Sounds Present, Soft, Non Tender, Non-Distended, Obese Extremities: No clubbing, No cyanosis, No edema Skin: No rashes, No breakdown, - - Chronic skin changes bilateral lower extremities with hyperpigmentation Musculoskeletal: No Tenderness to Palpation of Joints or Extremities Neurological: Cranial nerves II-XII grossly intact, Neuro grossly intact Psych/Mental Status: Normal Affect, Appropriate Vital Signs Temp Pulse Resp BP Pulse Ox 98.3 F 57 L 16 154/82 H 97 02/10/18 09:26 02/10/18 09:26 02/10/18 09:26 02/10/18 09:26 02/10/18 09:26 Oxygen Flow Rate (L/min) 2 Oxygen Delivery Method Room Air Weight: 270 lb 8.115 oz Body Mass Index (BMI) 38.8 Intake and Output for Last 24 Hours 02/08/18 02/09/18 02/10/18 23:59 23:59 23:59 Intake Total 1470 / 1470 1050 / 1050 Balance 1470 / 1470 1050 / 1050 Laboratory Tests Past 24 Hrs 02/09/18 02/10/18 02/10/18 22:05 05:45 05:45 WBC 5.1 RBC 4.81 Hgb 15.1 Hct 45.0 MCV 93.6 MCH 31.4 MCHC 33.6 RDW 12.3 RDW Differential 41.7 Plt Count 181 MPV 10.4 Immature Gran % (Auto) 0.200 Neut % (Auto) 57.5 Lymph % (Auto) 26.1 [place] % (Auto) 11.1 H Eos % (Auto) 4.5 Baso % (Auto) 0.6 Absolute Neuts (auto) 3.0 Absolute Lymphs (auto) 1.34 Total Counted Not Reportable PT 14.1 INR 1.1 APTT 39.7 H Sodium Potassium Chloride Carbon Dioxide Anion Gap BUN Creatinine Estim Creat Clear Calc Est GFR (MDRD) Af Amer Est GFR (MDRD) Non-Af BUN/Creatinine Ratio Glucose Calcium Urine Color Yellow Urine Clarity Clear Urine pH 5.0 Ur Specific [place] 1.015 Urine Protein Negative Urine Glucose (UA) Normal Urine Ketones Negative Urine Occult Blood Negative Urine Nitrite Negative Urine Bilirubin Negative Urine Urobilinogen Normal Ur Leukocyte Esterase Negative Urine RBC 0 SEEN Urine WBC 0 SEEN Ur Squamous Epith Cells 0 SEEN Urine Bacteria 0 SEEN Urine Mucus 0 SEEN 02/10/18 05:45 WBC RBC Hgb Hct MCV MCH MCHC RDW RDW Differential Plt Count MPV Immature Gran % (Auto) Neut % (Auto) Lymph % (Auto) [place] % (Auto) Eos % (Auto) Baso % (Auto) Absolute Neuts (auto) Absolute Lymphs (auto) Total Counted PT INR APTT Sodium 139 Potassium 4.3 Chloride 103 Carbon Dioxide 28.0 Anion Gap 8 BUN 15 Creatinine 1.15 Estim Creat Clear Calc 62.60 Est GFR (MDRD) Af Amer 81 Est GFR (MDRD) Non-Af 67 BUN/Creatinine Ratio 13.0 Glucose 117 H Calcium 8.7 Urine Color Urine Clarity Urine pH Ur Specific [place] Urine Protein Urine Glucose (UA) Urine Ketones Urine Occult Blood Urine Nitrite Urine Bilirubin Urine Urobilinogen Ur Leukocyte Esterase Urine RBC Urine WBC Ur Squamous Epith Cells Urine Bacteria Urine Mucus Medical Necessity - Tobacco Use Smoking Status: Former smoker Assessment/Plan All Active Problems Chest pain (Acute) 1. NSTEMI/CAD s/p PTCA of proximal RCA-patient underwent cardiac catheterization with stenting to proximal RCA with Dr. Pichardo. Continue aspirin, Plavix, statin, metoprolol. Outpatient follow-up with Dr. Pichardo. 2. Hypertension-stable. Started on HCTZ, metoprolol, Cozaar. 3. Obstructive sleep apnea-continue CPAP nightly. 4. Morbid obesity-encouraged diet and lifestyle modifications. 5. Elevated glucose with prior borderline hemoglobin A1c 6.3% July 2016. Repeat hemoglobin A1c. DVT prophylaxis-Lovenox This patient was seen by MICHAEL Hall under the supervision of Dr. Solano.
[2018-02-10] MEDS: 0.9% Normal Saline 1,000 ML 150 ML IV (11:33)
[2018-02-10 12:20] LABS: Hemoglobin A1c 6.2 % (4.2-6.3)
[2018-02-10] MEDS: Famotidine 20 MG Tablet PO ×2 (12:48→21:40)
[2018-02-10] MEDS: hydroCHLOROthiazide 12.5mg 12.5 MG PO (12:48)
--- NOTE | 2018-02-10 13:25 | CASEMGMT ---
WILDER BARRIENTOS INITIAL ASSESSMENT Face to Face with patient for initial transition planning/care coordination assessment. WILDER BARRIENTOS introduced self and role at [facility]. Pt resting quietly in bed. Awake/alert, willing to participate in assessment. Care providers, pharmacy, and demographics verified. PCP: Dr Adrian Carlton Specialists: Lorna Concepcion [facility]acy:[facility]. Insurance: MMO primary, MCR A Only Prescription Benefit: Yes. MMO Living Will/HPOA: Does not have either. Given AD info packet. [facility] is not interested in talking with SW at this time. LNOK: , Mirta. Living Arrangements: Lives with in 2 story home. 3 steps to enter. has bathroom on main floor and shower is on 2nd floor. Has flight of stairs w/approx 20 steps. States able to navigate. States can sleep on main floor if needed. Transportation: Drives and pt able to provide transportation on d/c. DME: Has rails/grab bars, hand-held shower, cane which he uses just on occasion, and Bipap. Denies DME needs. HHC: [facility] has never used HHC or been to a SNF. Pt wishes to return home and denies needs or concerns on discharge. D/C Plan: Home on Plavix post PCI, with support, and discharge plans in place. CM to follow for any further discharge planning needs that may arise. Venu GHOTRA RN, CM
[2018-02-10] MEDS: Labetalol 100 MG/20 ML Vial IV (13:38)
[2018-02-10 15:26] LABS: ACT Activated Clotting Time 202 sec (74-137)
[2018-02-10] MEDS: Atorvastatin Calcium 80 MG Tablet PO (21:40)
[2018-02-10] MEDS: Zolpidem Tartrate 5 MG Tablet PO (23:41)
[2018-02-11] VITALS (14 sets, daily range): BP systolic 136–194; BP diastolic 54–81; PULSE 59–65; RESP 12–18; TEMP 36.6–36.8; O2SAT 94–100
[2018-02-11 04:54] LABS: Hematocrit 43.3 % (40-54); Hemoglobin 14.3 g/dl (13.0-16.5); Mean Corpuscular Hgb 31.5 pg (27.0-32.0); Mean Corpuscular Volume 95.4 fL (80-94); Mean Platelet Vol. 10.5 fl (6.2-12.0); Platelet Count 161 K/mm3 (150-450); RBC Distribution Width CV 12.4 % (11.6-14.6); RBC Distribution Width SD 42.8 fl (35.1-43.9); Red Blood Count 4.54 M/mm3 (4.6-6.2); White Blood Count 7.5 K/mm3 (4.4-11.0)
[2018-02-11 05:02] LABS: Scan Indicated on CBC? Y/N NO
[2018-02-11 05:03] LABS: Anion Gap 11 (5-15); BUN 13 mg/dL (7-18); BUN/Creat Ratio 13.1 RATIO (10-20); Calcium,Total 8.6 mg/dL (8.5-10.1); Chloride 104 mmol/L (98-107); EST Glomerular Filtration Rate 79 mL/min (>60); Est Glom Filt Rate - Afr Amer 96 mL/min (>60); Estimated Creatinine Clearance 71.99 ml/min; Glucose 104 mg/dL (74-106); Potassium 4.2 mmol/L (3.5-5.1); Sodium Level 139 mmol/L (136-145)
[2018-02-11] MEDS: Losartan Potassium 100 MG Tablet PO (05:40)
--- NOTE | 2018-02-11 07:46 | PN_ITS ---
Patient Problems: Active and Suspected Problems Chest pain (Acute) Subjective: Patient underwent left heart catheterization findings included an 85% proximal RCA lesion for which he underwent PTCA/RUPA. Patient subsequently admitted to the intensive care unit. Patient blood pressure control still remains labile with systolic of 190. Objective: GENERAL: cooperative HEENT: Atraumatic; moist oral mucosa EYES; Anicteric, Normal Conjunctiva NECK; supple, normal thyroid, no distended JVD. RESPIRATORY: Diminished to auscultation bilaterally, CARDIOVASCULAR: Regular S1 S2, no audible murmurs GI: soft, non-tender, normoactive bowel sounds, : No Renal angle tenderness; EXTREMITIES: No edema, no clubbing, no cyanosis. MUSCULOSKELETAL: No Joint Tenderness; no muscle waisting NEURO: Awake; no lateralizing signs. SKIN: No Rash PSYCH; Normal affect Vitals/I&O's: Vital Signs Temp Pulse Resp BP Pulse Ox 98 F 59 L 17 181/74 H 95 02/11/18 00:00 02/11/18 06:00 02/11/18 06:00 02/11/18 06:00 02/11/18 06:00 Oxygen Flow Rate (L/min) 2 Oxygen Delivery Method Room Air Weight: 122.7 kg Body Mass Index (BMI) 38.8 Intake and Output for Last 24 Hours 02/09/18 02/10/18 02/11/18 23:59 23:59 23:59 Intake Total 1050 / 1050 1577 / 1577 526 / 526 Output Total 500 / 500 1200 / 1200 Balance 1050 / 1050 1077 / 1077 -674 / -674 Laboratory Results 02/10/18 05:45: Hemoglobin A1c 6.2 02/10/18 10:35: Activated Clotting Time 202 H 02/11/18 04:35: Sodium 139, Potassium 4.2, Chloride 104, Carbon Dioxide 24.0, Anion Gap 11, BUN 13, Creatinine 1.00, Estim Creat Clear Calc 71.99, Est GFR (MDRD) Af Amer 96, Est GFR (MDRD) Non-Af 79, BUN/Creatinine Ratio 13.1, Glucose 104, Calcium 8.6 02/11/18 04:35: WBC 7.5, RBC 4.54 L, Hgb 14.3, Hct 43.3, MCV 95.4 H, MCH 31.5, MCHC 33.0, RDW 12.4, RDW Differential 42.8, Plt Count 161, MPV 10.5 Current Medications Acetaminophen (Tylenol) 650 mg PO Q6H PRN PRN PRN Reason: Mild Pain (0-2/10) Al Hydroxide/Mg Hydroxide (Mylanta Ii) 30 ml PO Q6H PRN PRN PRN Reason: Gastric burning Aspirin (Ecotrin) 81 mg PO DAILY@0800 PENDING SALE TO [facility] Last Admin: 02/10/18 06:51 Dose: 81 mg Atorvastatin Calcium (Lipitor) 80 mg PO QHS PENDING SALE TO [facility] Last Admin: 02/10/18 21:40 Dose: 80 mg Atropine Sulfate () 0.5 mg IV UD PRN PRN Reason: HR <50 bpm Clopidogrel Bisulfate (Plavix) 75 mg PO DAILY PENDING SALE TO [facility] Last Admin: 02/10/18 06:50 Dose: 75 mg Famotidine (Pepcid) 20 mg PO BID PENDING SALE TO [facility] Last Admin: 02/10/18 21:40 Dose: 20 mg Heparin Sodium (Beef Lung) (Heparin 500 Unit/5 Ml (100/Ml)) 500 unit IV UD PRN PRN Reason: HEPARIN FLUSH Hydrochlorothiazide (Hydrochlorothiazide) 12.5 mg PO DAILY PENDING SALE TO [facility] Last Admin: 02/10/18 12:48 Dose: 12.5 mg Sodium Chloride () 250 mls @ 15 mls/hr IV .[id number] PRN PRN Reason: SALINE FLUSH Nitroglycerin/Dextrose 25 mg/ (N/A) 250 mls @ 3 mls/hr IV .[id number] PENDING SALE TO [facility] Last Admin: 02/10/18 20:34 Dose: 3 mls/hr Lorazepam (Ativan) 1 mg PO Q6H PRN PRN PRN Reason: BACK SPASMS/ANXIETY Losartan Potassium (Cozaar) 50 mg PO DAILY PENDING SALE TO [facility] Last Admin: 02/11/18 04:54 Dose: Not Given Magnesium Hydroxide (Milk Of Magnesia) 30 ml PO DAILY PRN PRN Reason: Constipation Metoclopramide HCl (Reglan) 5 mg IV Q6H PRN PRN Reason: NAUSEA/VOMITING Metoprolol Tartrate (Lopressor (Beta Brandan)) 12.5 mg PO BID PENDING SALE TO [facility] Last Admin: 02/10/18 23:38 Dose: Not Given Morphine Sulfate () 2 mg IV Q4H PRN PRN PRN Reason: Mild back pain (0-2/10) Nitroglycerin (Nitrostat) 0.4 mg SUBLINGUAL Q5M PRN PRN Reason: CHEST PAIN Ondansetron HCl (Zofran) 4 mg IV Q8H PRN PRN PRN Reason: NAUSEA Psyllium Hydrophilic Mucilloid (Metamucil) 1 packet PO DAILY PRN PRN PRN Reason: CONSTIPATION Sodium Chloride () 5 - 30 ml IV UD PRN PRN Reason: SALINE FLUSH Last Admin: 02/10/18 09:25 Dose: 10 ml Sodium Chloride () 500 ml IV BOLUS PRN PRN Reason: VASO-VAGAL PROTOCOL Zolpidem Tartrate (Ambien (Generic)) 5 mg PO QHS PRN PRN PRN Reason: INSOMNIA Last Admin: 02/10/18 23:41 Dose: 5 mg Medical Necessity - Tobacco Use Smoking Status: Former smoker Assessment/Plan All Active Problems Chest pain (Acute) Patient is a 67-year-old gentleman presenting with chest pain patient was admitted to a monitored bed for subsequent evaluation and management. Serial c ardiac enzymes obtained came back consistent with acute non-STEMI. 1. Acute non-STEMI: Patient admitted to monitored bed where he is currently being managed per protocol with low molecular weight heparin, statin therapy, beta blockers, ARB, dual antiplatelet consultation was placed to cardiology Case discussed with Dr. Pichardo . Patient underwent left heart catheterization findings included an 85% proximal RCA lesion for which he underwent PTCA/RUPA. Patient subsequently admitted to the intensive care unit 2. Accelerated hypertension: Patient was previously on DEIDRE inhibitors which he did quit because of persistent cough did initiate beta-blockers (dose adjusted in view of bradycardia) Dr. Pichardo added HCTZ as well as Cozaar 3. Obstructive sleep apnea patient is on CPAP at night 4. Morbid obesity with BMI of 38 lifestyle modification including weight loss advised 5. DVT prophylaxis on Lovenox Active Medications Acetaminophen (Tylenol) 650 mg PO Q6H PRN PRN PRN Reason: Mild Pain (0-2/10) Al Hydroxide/Mg Hydroxide (Mylanta Ii) 30 ml PO Q6H PRN PRN PRN Reason: Gastric burning Aspirin (Ecotrin) 81 mg PO DAILY@0800 PENDING SALE TO [facility] Last Admin: 02/11/18 08:30 Dose: 81 mg Atorvastatin Calcium (Lipitor) 80 mg PO QHS PENDING SALE TO [facility] Last Admin: 02/10/18 21:40 Dose: 80 mg Atropine Sulfate () 0.5 mg IV UD PRN PRN Reason: HR <50 bpm Clopidogrel Bisulfate (Plavix) 75 mg PO DAILY PENDING SALE TO [facility] Last Admin: 02/11/18 08:30 Dose: 75 mg Famotidine (Pepcid) 20 mg PO BID PENDING SALE TO [facility] Last Admin: 02/11/18 08:30 Dose: 20 mg Heparin Sodium (Beef Lung) (Heparin 500 Unit/5 Ml (100/Ml)) 500 unit IV UD PRN PRN Reason: HEPARIN FLUSH Hydrochlorothiazide (Hydrochlorothiazide) 12.5 mg PO DAILY PENDING SALE TO [facility] Last Admin: 02/11/18 08:31 Dose: 12.5 mg Sodium Chloride () 250 mls @ 15 mls/hr IV .[id number] PRN PRN Reason: SALINE FLUSH Nitroglycerin/Dextrose 25 mg/ (N/A) 250 mls @ 3 mls/hr IV .[id number] PENDING SALE TO [facility] Last Admin: 02/10/18 20:34 Dose: 3 mls/hr Lorazepam (Ativan) 1 mg PO Q6H PRN PRN PRN Reason: BACK SPASMS/ANXIETY Losartan Potassium (Cozaar) 50 mg PO DAILY PENDING SALE TO [facility] Last Admin: 02/11/18 04:54 Dose: Not Given Magnesium Hydroxide (Milk Of Magnesia) 30 ml PO DAILY PRN PRN Reason: Constipation Metoclopramide HCl (Reglan) 5 mg IV Q6H PRN PRN Reason: NAUSEA/VOMITING Metoprolol Tartrate (Lopressor (Beta Brandan)) 12.5 mg PO BID PENDING SALE TO [facility] Last Admin: 02/11/18 08:30 Dose: 12.5 mg Morphine Sulfate () 2 mg IV Q4H PRN PRN PRN Reason: Mild back pain (0-2/10) Nitroglycerin (Nitrostat) 0.4 mg SUBLINGUAL Q5M PRN PRN Reason: CHEST PAIN Ondansetron HCl (Zofran) 4 mg IV Q8H PRN PRN PRN Reason: NAUSEA Psyllium Hydrophilic Mucilloid (Metamucil) 1 packet PO DAILY PRN PRN PRN Reason: CONSTIPATION Sodium Chloride () 5 - 30 ml IV UD PRN PRN Reason: SALINE FLUSH Last Admin: 02/10/18 09:25 Dose: 10 ml Sodium Chloride () 500 ml IV BOLUS PRN PRN Reason: VASO-VAGAL PROTOCOL Zolpidem Tartrate (Ambien (Generic)) 5 mg PO QHS PRN PRN PRN Reason: INSOMNIA Last Admin: 02/10/18 23:41 Dose: 5 mg Code Visit Inpatient E&M: [id number] Subs Hosp L3
[2018-02-11] MEDS: Metoprolol Tartrate 25 MG Tablet 12.5 MG PO (08:30)
[2018-02-11] MEDS: Clopidogrel Bisulfate 75 MG Tablet PO (08:30)
[2018-02-11] MEDS: Aspirin E.C. 81 MG Tablet PO (08:30)
[2018-02-11] MEDS: Famotidine 20 MG Tablet PO (08:30)
[2018-02-11] MEDS: hydroCHLOROthiazide 12.5mg 12.5 MG PO ×2 (08:31→09:47)
--- NOTE | 2018-02-11 09:24 | DCINST_ITS ---
- Discharge Diagnoses Current Active Problems: Current Active and Chronic Problems Chest pain (Acute) Essential (primary) hypertension (Chronic) Sleep apnea with use of continuous positive airway pressure (CPAP) (Chronic) BMI over 35 (Chronic) You will use the following diet at home:: Cardiac Discharge Activity: Return to Normal Activity Allergies/Adverse Reactions: Allergies No Known Allergies Allergy (Verified 02/08/18 08:41) Medications to take at Discharge Amlodipine [Norvasc] 10 mg PO DAILY #90 tablet 02/11/18 Aspirin E.C. [Ecotrin] 81 mg PO DAILY@0800 #90 tablet 02/11/18 Atorvastatin Calcium [Lipitor] 80 mg PO QHS #90 tablet 02/11/18 Clopidogrel Bisulfate [Plavix] 75 mg PO DAILY #90 tablet 02/11/18 Hydrochlorothiazide [Hctz] 25 mg PO DAILY #90 tablet 02/11/18 Losartan Potassium [Cozaar] 50 mg PO DAILY #90 tablet 02/11/18 Metoprolol Tartrate [Lopressor (beta jose g)] 12.5 mg PO BID #90 tablet 02/11/18 The following prescriptions were given: Amlodipine [Norvasc] 10 mg PO DAILY #90 tablet Aspirin E.C. [Ecotrin] 81 mg PO DAILY@0800 #90 tablet Atorvastatin Calcium [Lipitor] 80 mg PO QHS #90 tablet Clopidogrel Bisulfate [Plavix] 75 mg PO DAILY #90 tablet Hydrochlorothiazide [Hctz] 25 mg PO DAILY #90 tablet Losartan Potassium [Cozaar] 50 mg PO DAILY #90 tablet Metoprolol Tartrate [Lopressor (beta jose g)] 12.5 mg PO BID #90 tablet Primary Care Physician: Adrian Carlton MD [Primary Care Provider] - Please follow up with your Primary Care Physician in: in 5-7 days Test Results: Test results from this visit will be discussed in further detail at your follow- up appointment, if applicable. Please Follow Up With: Bowen Story MD When: in 2-3 weeks Proposed Discharge Date: 02/11/18
--- NOTE | 2018-02-11 09:24 | PCM.DC.SUM ---
Discharge Date and Diagnosis - Problem List Patient Problems: Active and Suspected Problems NSTEMI (non-ST elevated myocardial infarction) (Acute) Chest pain (Acute) Date of Admission: 02/08/18 Date of Discharge: 02/11/18 - Primary Discharge Diagnosis Active and Suspected Problems NSTEMI (non-ST elevated myocardial infarction) (Acute) Chest pain (Acute) - Secondary Discharge Diagnosis Chronic Problems Essential (primary) hypertension (Chronic) Sleep apnea with use of continuous positive airway pressure (CPAP) (Chronic) BMI over 35 (Chronic) Hospital Course and Treatment Imaging Results: Clinical Impression(s) from Imaging Studies Chest X-Ray 02/08/18 08:53 IMPRESSION: Mild cardiomegaly. The lungs are clear. Electronically Signed: Yang Walker MD at 9:10 EST Tel [phone], Service support , Summary of Care Provided: Patient is a 67-year-old gentleman presenting with chest pain patient was admitted to a monitored bed for subsequent evaluation and management. Serial cardiac enzymes obtained came back consistent with acute non-STEMI. 1. Acute non-STEMI: Patient admitted to monitored bed where he is currently being managed per protocol with low molecular weight heparin, statin therapy, beta blockers, ARB, dual antiplatelet consultation was placed to cardiology Case discussed with Dr. Pichardo . Patient underwent left heart catheterization findings included an 85% proximal RCA lesion for which he underwent PTCA/RUPA. 2. Accelerated hypertension: Patient was previously on CRISTHIAN inhibitors which he did quit because of persistent cough did initiate beta-blockers (dose adjusted in view of bradycardia) Dr. Pichardo added HCTZ as well as Cozaar 3. Obstructive sleep apnea patient is on CPAP at night 4. Morbid obesity with BMI of 38 lifestyle modification including weight loss advised 5. DVT prophylaxis on Lovenox Patient Problems: Active and Suspected Problems NSTEMI (non-ST elevated myocardial infarction) (Acute) Chest pain (Acute) - Physical Exam General: Alert HEENT: Atraumatic Neck: Supple Lungs: Clear to auscultation Neurological: Neuro grossly intact Psych/Mental Status: Normal Affect Vital Signs Temp Pulse Resp BP Pulse Ox 98.2 F 65 14 190/64 H 96 02/11/18 08:00 02/11/18 09:00 02/11/18 09:00 02/11/18 09:00 02/11/18 09:00 Oxygen Flow Rate (L/min) 2 Oxygen Delivery Method Room Air Weight: 122.7 kg Body Mass Index (BMI) 38.8 Intake and Output for Last 24 Hours 02/09/18 02/10/18 02/11/18 23:59 23:59 23:59 Intake Total 1050 / 1050 1577 / 1577 526 / 526 Output Total 500 / 500 1200 / 1200 Balance 1050 / 1050 1077 / 1077 -674 / -674 Laboratory Tests Past 24 Hrs 02/10/18 02/10/18 02/11/18 05:45 10:35 04:35 WBC RBC Hgb Hct MCV MCH MCHC RDW RDW Differential Plt Count MPV Activated Clotting Time 202 H Sodium 139 Potassium 4.2 Chloride 104 Carbon Dioxide 24.0 Anion Gap 11 BUN 13 Creatinine 1.00 Estim Creat Clear Calc 71.99 Est GFR (MDRD) Af Amer 96 Est GFR (MDRD) Non-Af 79 BUN/Creatinine Ratio 13.1 Glucose 104 Hemoglobin A1c 6.2 Calcium 8.6 02/11/18 04:35 WBC 7.5 RBC 4.54 L Hgb 14.3 Hct 43.3 MCV 95.4 H MCH 31.5 MCHC 33.0 RDW 12.4 RDW Differential 42.8 Plt Count 161 MPV 10.5 Activated Clotting Time Sodium Potassium Chloride Carbon Dioxide Anion Gap BUN Creatinine Estim Creat Clear Calc Est GFR (MDRD) Af Amer Est GFR (MDRD) Non-Af BUN/Creatinine Ratio Glucose Hemoglobin A1c Calcium Discharge Diet: Low fat/ Low Cholesterol Discharge Activity: Return to Normal Activity Home Medications: Medications to take at Discharge Amlodipine [Norvasc] 10 mg PO DAILY #90 tablet 02/11/18 Aspirin E.C. [Ecotrin] 81 mg PO DAILY@0800 #90 tablet 02/11/18 Atorvastatin Calcium [Lipitor] 80 mg PO QHS #90 tablet 02/11/18 Clopidogrel Bisulfate [Plavix] 75 mg PO DAILY #90 tablet 02/11/18 Hydrochlorothiazide [Hctz] 25 mg PO DAILY #90 tablet 02/11/18 Losartan Potassium [Cozaar] 50 mg PO DAILY #90 tablet 02/11/18 Metoprolol Tartrate [Lopressor (beta brandan)] 12.5 mg PO BID #90 tablet 02/11/18 Following Prescrptions Were Given to Patient: Amlodipine [Norvasc] 10 mg PO DAILY #90 tablet Aspirin E.C. [Ecotrin] 81 mg PO DAILY@0800 #90 tablet Atorvastatin Calcium [Lipitor] 80 mg PO QHS #90 tablet Clopidogrel Bisulfate [Plavix] 75 mg PO DAILY #90 tablet Hydrochlorothiazide [Hctz] 25 mg PO DAILY #90 tablet Losartan Potassium [Cozaar] 50 mg PO DAILY #90 tablet Metoprolol Tartrate [Lopressor (beta brandan)] 12.5 mg PO BID #90 tablet Primary Care Physician: Adrian Carlton MD [Primary Care Provider] - Please follow up with your Primary Care Physician in: in 5-7 days Please Follow Up With: Bowen Story MD When: in 2-3 weeks Disposition: Home Minutes spent on discharge:: 45 Patient Condition:: Stable Medical Necessity - Tobacco Use Smoking Status: Former smoker Meaningful Use Info Meaningful Use Diagnoses (Choose all that apply): AMI - AMI Aspirin given w/in 24hrs of arrival?: Yes ASA at discharge?: Yes Statins at discharge?: Yes Cristhian/ARB at discharge?: Yes Beta Brandan at discharge?: Yes Done w/ Acute ND measure.: Yes Code Visit Inpatient E&M: 99879 Disch Hosp
--- NOTE | 2018-02-11 09:38 | PN.CARD_ITS ---
Subjectve: Patient seen and evaluated. Has no complaints. Doing well. Objective: Vital Signs Temp Pulse Resp BP Pulse Ox 98.2 F 65 14 190/64 H 96 02/11/18 08:00 02/11/18 09:00 02/11/18 09:00 02/11/18 09:00 02/11/18 09:00 Oxygen Flow Rate (L/min) 2 Oxygen Delivery Method Room Air Weight: 270 lb 8.115 oz Body Mass Index (BMI) 38.8 Intake and Output for Last 24 Hours 02/09/18 02/10/18 02/11/18 23:59 23:59 23:59 Intake Total 1050 / 1050 1577 / 1577 526 / 526 Output Total 500 / 500 1200 / 1200 Balance 1050 / 1050 1077 / 1077 -674 / -674 General: Awake, Alert, Oriented x 3 HEENT: PERRL, EOMI, Sclera Non Icteric Neck: Supple, Good ROM, No Lymph Node Enlargement Lungs: Clear to auscultation Cardiovascular: Regular Rhythm, Normal S1, Normal S2, No Murmurs, No Rubs, No Gallops Vascular: No Carotid Bruits, Normal Femoral Pulses, Normal Radial Pulses, Normal Dorsalis Pedal Pulse, Normal Posterior Tibial Pulses Abdomen: Bowel Sounds Present, Soft, Non Tender, No HSM, No Organomegaly Extremities: No Cyanosis, No Clubbing, No edema Neurological: No Focal Motor or Sensory Deficit 02/10/18 05:45: Hemoglobin A1c 6.2 02/11/18 04:35: Sodium 139, Potassium 4.2, Chloride 104, Carbon Dioxide 24.0, An ion Gap 11, BUN 13, Creatinine 1.00, Est GFR (MDRD) Af Amer 96, Est GFR (MDRD) Non-Af 79, BUN/Creatinine Ratio 13.1, Glucose 104, Calcium 8.6 02/11/18 04:35: WBC 7.5, RBC 4.54 L, Hgb 14.3, Hct 43.3, MCV 95.4 H, MCH 31.5, MCHC 33.0, RDW 12.4, RDW Differential 42.8, Plt Count 161, MPV 10.5 Rhythm: EKG: ECHO: Stress Test: Cardiac Cath: PCI: CT Surgery: Holter monitor: EPS: PPM: CXR: Chest CT Scan: Medical Necessity - Tobacco Use Smoking Status: Former smoker Assessment/Plan 1. Chest pain- NSTEMI Underwent cardiac catheterization which demonstrated high-grade proximal right coronary artery for which he received a drug-eluting stent. This morning appears to be doing well with no EKG changes Hemoglobin within normal limits as well as creatinine. No groin abnormalities noted. Will discharge for outpatient follow-up 2. Hyperlipidemia: * Will start high intensity statin. 3. Obstructive sleep apnea: Patient is just started a new CPAP mask as his other ones were not successful although he has had CPAP for the past 6 years. This may assist with his hypertension as well. 4. Hypertension * Pressure was noted to be elevated through the night as well * Will increase Cozaar to 100 mg a day * Chlor thiazide 25 mg a day * Norvasc 10 mg a day in addition * Continue beta-jose g Thank you for allowing me to participate in the care of your patient. Please don't hesitate to call if any issues arise
[2018-02-11] MEDS: amLODIPine 10 MG Tablet PO (09:47)
--- NOTE | 2018-02-11 10:00 | EKG12_ITS ---
Test Reason : AM EKG Blood Pressure : / mmHG Vent. Rate : 061 BPM Atrial Rate : 061 BPM P-R Int : 228 ms QRS Dur : 084 ms QT Int : 442 ms P-R-T Axes : 041 002 008 degrees QTc Int : 444 ms Sinus rhythm with 1st degree A-V block Low voltage QRS Inferior infarct , age undetermined Abnormal ECG When compared with ECG of 10-FEB-2018 05:40, MANUAL COMPARISON REQUIRED, DATA IS UNCONFIRMED Confirmed by PURNIMA LIN, JONATHON ([id number]), editor newspaper [place] GILBERT ([id number]) on 02/14/2018 4:14:18 PM Referred By: DR LEBRON Confirmed By:JONATHON FELTON MD
--- NOTE | 2018-02-13 11:10 | CRPHASE1 ---
Patient Data/Charges Phase II Referral:: [facility] Start Phase II:: FOLLOWING OFFICE VISIT WITH MANAGER [facility]AMP Risk Factors/Lifestyle Laboratory Values: Cardiac Rehab Phase I Labs Hemoglobin A1c 6.2 % (4.2-6.3) 02/10/18 05:45 Comments:: NOT SEEN. PT ALREADY DISCHARGED. CR BOOKLET GIVEN. Discharge/Home/Social Eval Discharge Disposition: Home
--- NOTE | 2018-02-13 11:13 | CRPHASE1_ITS ---
Patient Data/Charges Phase II Referral:: [facility] Start Phase II:: FOLLOWING OFFICE VISIT WITH INCLUSION SPECIALIST Risk Factors/Lifestyle Laboratory Values: Cardiac Rehab Phase I Labs Hemoglobin A1c 6.2 % (4.2-6.3) 02/10/18 05:45 Comments:: NOT SEEN. PT ALREADY DISCHARGED. CR BOOKLET GIVEN. Discharge/Home/Social Eval Discharge Disposition: Home
--- NOTE | 2018-02-13 11:13 | CRPH1.INSTRU ---
General Education CAD and cardiac anatomy and function:: Not instructed Explanation of diagnoses and procedures:: Not instructed Sign/Symptoms of DE:: Not instructed Antiplatelet therapy: Not instructed Proper use of NTG-SL: Not instructed Emergency procedures and activation of EMS: Not instructed Compliance of all prescribed medications: Not instructed - PT DISCHARGED - NOT SEEN. CR BOOKLET GIVEN. SPOKE WITH PT ON PHONE Smoking Nicotine/Smoking Response Code:: Not instructed Dyslipidemia Dyslipidemia Response Code:: Not instructed Overweight/Obesity Overweight/Obesity:: Not instructed Hypertension Hypertension:: Not instructed Heart Disease Heart Disease Response Code:: Not instructed Diabetes Diabetes:: Not instructed Metabolic Syndrome Metabolic Syndrome Response Code:: Not instructed Sedentary Sedentary Response Code:: Not instructed Stress Stress Response Code:: Not instructed
--- NOTE | 2018-02-13 11:16 | CRPH1.INST_ITS ---
General Education CAD and cardiac anatomy and function:: Not instructed Explanation of diagnoses and procedures:: Not instructed Sign/Symptoms of SC:: Not instructed Antiplatelet therapy: Not instructed Proper use of NTG-SL: Not instructed Emergency procedures and activation of EMS: Not instructed Compliance of all prescribed medications: Not instructed - PT DISCHARGED - NOT SEEN. CR BOOKLET GIVEN. SPOKE WITH PT ON PHONE Smoking Nicotine/Smoking Response Code:: Not instructed Dyslipidemia Dyslipidemia Response Code:: Not instructed Overweight/Obesity Overweight/Obesity:: Not instructed Hypertension Hypertension:: Not instructed Heart Disease Heart Disease Response Code:: Not instructed Diabetes Diabetes:: Not instructed Metabolic Syndrome Metabolic Syndrome Response Code:: Not instructed Sedentary Sedentary Response Code:: Not instructed Stress Stress Response Code:: Not instructed
== END 2018-02-11 11:12 | disposition home or self-care (01) | DRG 247 ==
LOC: ED 10:38 → PCU 10:49 → ICU 02-10 10:47
PROVIDERS: Internal Medicine Cardiovascular Disease; Nurse Practitioner Family; Admitting Provider Internal Medicine; Emergency Provider Emergency Medicine; Family Provider Family Medicine; PCP Family Medicine; Visit Provider Internal Medicine
DX: I21.4 Non-ST elevation (NSTEMI) myocardial infarction (principal); Z68.38 Body mass index [BMI] 38.0-38.9, adult; E66.01 Morbid (severe) obesity due to excess calories; G47.33 Obstructive sleep apnea (adult) (pediatric); I10 Essential (primary) hypertension; Z87.891 Personal history of nicotine dependence; R00.1 Bradycardia, unspecified; I25.110 Atherosclerotic heart disease of native coronary artery with unstable angina pectoris
CPT/HCPCS: 36415; 71045; 80048; 80076; 81001; 83036; 83880; 84443; 84484; 85025; 85027; 85347; 85379; 85610; 85730; 92928; 93005; 93306; 93458; 99152; 99153; 99251; 99285; C1760; J7030; Q9957; A4216; C1725; C1769; C1874; C1887; C1894; C8929; C9600; G0463; J2405; Q9967

== ENCOUNTER → 2018-03-23 09:26 | Outpatient (CLI) | payer OTHER, MEDICARE, SELFPAY ==
[2018-03-01 16:16] VITALS: BMI 36.3
--- NOTE | 2018-03-23 09:45 | PCM.CR.HP2 ---
CR - History & Physical - General Arrival date:: 03/23/18 Arrival time:: 09:46 Date of Referral:: 03/23/18 Date of CR Evaluation:: 03/23/18 Referring Physician: Dr. Jessica Story Primary Diagnosis: NSTEMI, PCI - History of Present Cardiac Event Onset Date: Enter Onset Date of cardiac illnesses in Comment field below Current stable Angina Pectoris:: No Acute Myocardial Infarction within 12 months:: Yes - 02/08/18 NSTEMI Coronary Artery Bypass Graft:: No Heart valve replacement or repair:: No PTCA or coronary stenting:: Yes - 02/08/18 Heart or Heart-Lung Transplant:: No Heart Failure EF <35%:: No Type of Symptoms:: chest tightness Interventions with present event:: PCI, echocardiogram Were there any complications?: no - Medications Home Medications: Ambulatory Orders Medication Instructions Recorded amlodipine 10 mg tablet 10 mg PO DAILY #90 tab 03/01/18 atorvastatin 80 mg tablet 80 mg PO QHS #90 tab 03/01/18 clopidogrel 75 mg tablet 75 mg PO DAILY #90 tab 03/01/18 hydrochlorothiazide 25 mg tablet 25 mg PO DAILY #90 tab 03/01/18 losartan 50 mg tablet 50 mg PO DAILY #90 tab 03/01/18 metoprolol tartrate 25 mg tablet 12.5 mg PO BID #90 tab 03/01/18 aspirin 81 mg tablet,delayed 81 mg PO DAILY@0800 #90 tab 03/20/18 release - Allergies Allergies/Adverse Reactions: Allergies atorvastatin [From Lipitor] Adverse Reaction (Intermediate, Verified 03/01/18 16:17) myalgias rosuvastatin [From Crestor] Adverse Reaction (Intermediate, Verified 03/01/18 16:17) myalgias simvastatin [From Zocor] Adverse Reaction (Intermediate, Verified 03/01/18 16:17) myalgias - Sleep Disorder Evaluation Hx of Sleep Apnea: Yes Do you snore loudly (louder than talking or can be heard through closed doors)?: Yes Do you often feel tired/ fatigued/ sleepy during daytime?: Yes Has anyone observed you stop breathing during sleep?: Yes History of Hypertension (for STOP score): Yes - needs a second opinion on this STOP Results: Positive Advanced Directives - Advanced Directives Power of Network Engineering Advisor: Yes Living Will: No Advance Directives Information Provided: Yes Advance Directives on File: No DNR Order?:: No - MOLST See MOLST form: No Past Medical History - Past Medical Illness Medical History: Past Medical History (Last Reviewed 03/01/18 @ 16:44 by Bowen Story MD) NSTEMI (non-ST elevated myocardial infarction) (Resolved) I21.4 Chest pain (Resolved) R07.9 Essential (primary) hypertension (Chronic) I10 Sleep apnea with use of continuous positive airway pressure (CPAP) (Chronic) G47.30 BMI over 35 (Chronic) - Past Surgical History Surgical History: Past Surgical History (Last Reviewed 03/01/18 @ 16:44 by Bowen Story MD) History of coronary artery stent placement (Resolved) Onset Date: 02/05/18 Z95.5 PTCA/RUPA proximal RCA Surgical History: - - right knee surgery Social History - Smoking History Smoking Status: Former smoker Years Smokin Packs Smoked per Day: 1 Hx Smoking Cessation Date: quit 30 years ago Hx Tobacco Use: Yes - quit chew and cigar occas when had this event Hx Smoking Exposure: No - Alcohol Use Alcohol Usage: Yes - 1 glass red wine daily - Substance Abuse Hx Substance Use: No - Occupation Occupation (List type of work in comments):: Employed Hours worked per day:: 7 - Hobbies, Recreation, Social Activities Hobbies: Sports Recreational Activities: I am able to engage in most, but not all activities Social Environment - Status Marital Status: - Current Living Arrangements Living Environment:: Family - daughter lives with him, Spouse - Children How many children do you have?: 3 Do any of your children live nearby?: Yes - Safety Do you feel safe in your surroundings?: Yes - Assistance Do you need any assistance at home?: no Review of Systems - Review of Systems Hints: Right click = Denies (Slash). Left click = Reports ([place]) Review of Present Symptoms: Reports: Shortness of Breath at Rest - slight at times, Fatigue, Appetite - Normal, Appetite - Special Diet - cardiac, Sleep - Normal. Denies: Shortness of Breath with Exertion, PVD, Operative Discomfort, Angina, Wound Healing, Dizziness/Lightheadedness, Heart Arrhythmia/Irregularities, Sexual Changes - Pain Is Patient Pain Free?: Yes Risk Factor Assessment - Chief Complaint Chief Complaint: cardiac rehab post stent - Pulse Pulse Rate: 63 Pulse Rhythm: Regular - Hypertension How long have you been treated?: 2 years On medication(s)?: yes Blood Pressure Sitting - Right Arm: 140/72 Blood Pressure Sitting - Left Arm: 164/82 - Diabetes Nutrition Referral for Diabetes: No - Obesity Height: 5 ft 10 in Weight:: 253 lb Weight in Pounds: 253.0 lbs Body Mass Index (BMI): 36.3 Desired Body Weight: 200 Realistic Weight Goal (Loss of 1-2 lbs/week): 240 Nutritional Referral for Obesity: Yes - Physical Inactivity Physical Inactivity: None - Risk Stratification Risk Guidelines: Lowest Risk: Risk Factor for Diabetes, Risk Factor for Depression, Moderate Risk: Risk Factor for Smoking, Risk Factor for Dyslipidemia, Risk Factor for Hypertension, Highest Risk: Risk Factor for Obesity, Risk Factor for Sedentary Lifestyle - For Smoking Smoking Risk Guidelines: Smoking Low Risk: None or quit greater than 6 months ago. Smoking Moderate Risk: Smoker or quit 6 months or less ago. Smoking High Risk: Smoker - For Dyslipidemia Dyslipidemia Risk Guidelines: Low Risk: Moderate Risk: High Risk: 15-25% fat 25.1-29% fat >/= 30% fat. <7% sat fat 7-9% sat fat >9% sat fat. <150 mg chol 150-299 mg chol >/= 300 mg chol. LDL <100 LDL 100-129 LDL >/= 130. Chol/HDL ratio <5.0 Chol/HDL ratio 5.0-6.0 Chol/HDL ratio >6.0. Triglycerides <100 Triglycerides 100-149 Triglycerides >/= 150 - For Diabetes Mellitus Diabetes Risk Guidelines: Diabetes Low Risk: HgA1c <6.5% and/or FBG <120. Diabetes Moderate Risk: HgA1c 6.6-7.9% and/or FBG 120-180. Diabetes High Risk: HgA1c >/= 8% and/or FBG >180 - For Obesity/Overweight Obesity/Overweight Risk Guidelines: Obesity Low Risk: BMI <25.0. Obesity Moderate Risk: BMI 25-29.9. Obesity High Risk: BMI >/= 30.0 - For Hypertension Hypertension Risk Guidelines: Hypertension Low Risk: Systolic <120 and Diastolic <80. Hypertension Moderate Risk: Systolic 120-139 and Diastolic 80-89. Hypertension High Risk: Systolic >/= 140 and Diastolic >/= 90 - For Sedentary Lifestyle Sedentary Lifestyle Risk Guidelines: Sedentary Lifestyle Low Risk: >/= 1,500 kcal/week. Sedentary Lifestyle Moderate Risk: 700-1,499 kcal/week. Sedentary Lifestyle High Risk: < 700 kcal/week - For Depression Depression Risk Guidelines: Depression Low Risk: Not clinically depressed. Depression Moderate Risk: Mildly depressed. Depression High Risk: Clinically depressed Motivation - Motivation to Participate On a scale of 1 to 10, how prepared are you to commit to attending program?: 9
[2018-03-23 10:10] VITALS: BP 140/72; BP 164/82; PULSE 63; BMI 36.3
--- NOTE | 2018-03-23 11:00 | PCM.CR.ITP ---
General Information - General Information Admitting Diagnosis: PCI, NSTEMI - Education/Goals Barriers to Learning: None Individual Counseling: Initial Assessment: Nicotine/Smoking, Abnormal Cholesterol Levels, High Blood Pressure, Overweight/Obesity, Hypertension, Sedentary Lifestyle, Family History of Heart Disease (under 65 years) Cardiac Rehabilitation Goals: 1. Maintain the individual as the primary focus of care. 2. To improve the patient's quality of life. 3. Identification of cardiac risk factors and provide cardiac risk factor management. 4. Enhance the psychosocial status of the patient. 5. Reconditioning enough to allow the patient to resume customary activities. 6. Control symptoms of cardiac disease Scale for measuring improvement of personal goals: Enter appropriate number in Comments. 2 = Unchanged. 3 = Slightly Better. 4 = Moderate Improvement. 5 = Met my Goal Personal Goals: Initial Assessment: Improve energy level, Participate in home exercise program, Improve knowledge of cardiac disease, Improve muscle strength and endurance, Improve diet and eating habits (eat healthier), Control risk factors (learn risk factor modification) Exercise - Initial Assessment - Visit Date of Eval: 03/23/18 - Stages of Change Stages of Change:: Action - Exercise Prescription Mode:: Treadmill, Biodyne, Rower, Airdyne, NuStep - Hypertension Do any of the following apply?: Yes - Intervention Home Exercise/Activity Goal:: Moderate Exercise 30 min/day x 5 days/wk - Education Goals:: Warm-up, RPE WIL Scale, S/S, Safe Exercise, Self-Monitoring - Exercise Program Goals Exercise Program Goals: Aerobic Activity >30 min Nutrition - Initial Assessment - Program Goals Nutrition Program Goals: LDL <70. Total Cholesterol <200. HDL >45. Triglycerides <150. HgbA1C <7%. BMI <25 - Visit Date of Assessment:: 03/23/18 - Stages of Change Stages of Change:: Action - Diabetes Diabetes:: No - Weight Management Height: 5 ft 10 in Weight:: 253 lb Weight Goal (kg):: 240 lb Body Fat %:: 36.3 Goal % Body Fat:: 24 - Intervention Referral to dietitian:: Yes Referral to Diabetic Clinic:: No Will attend diet classes:: Yes - Education Gave educational materials for:: Relate diabetes to coronary artery disease, Healthy eating Tobacco - Initial Assessment - Program Goals Tobacco Program Goals: Complete smoking cessation. Attend education classes. Improve Knowledge Test score - Stage of Change Stages of Change:: Maintenance - Learning Barriers Learning Barriers: Ready to Learn - Family Support Do you have family support?: Yes - Tobacco Use Tobacco Use: Chew How long ago did you quit using tobacco products?: Less than 6 months ago Do you use smokeless tobacco?: Yes - quit cigars and chew (occas to rare use) after current event - Intervention Smoking Cessation Referral:: Yes Individual Education/Counseling:: Yes Education Schedule Given:: Yes - Education Gave educational material for:: Tobacco triggers, Coronary artery disease, Risk factors, Sexuality, Medical compliance, Cardiac A&P, Angina signs & symptoms Psychosocial - Initial Assess - Target Goals Target Goals: Assess presence or absence of depression. Using a valid screening tool, maximizes coping skills. Positive support system - Stages of Change Stages of Change:: Maintenance - Psychosocial Test Tool Used:: HANDS Depression Questionnaire - Intervention PS - Interventions: Yes Attend Stress Management Classes, Yes Uses Stress Management Skills, No Referral to Mental Health, No Referral to [facility] Case Management, No Referral to Physician - Education Gave educational materials for:: Coping techniques, Signs & symptoms of depression, Stress management, Relaxation techniques - Patient/Program Goal Preventative Medication(s):: Aspirin, DEIDRE inhibitor, Clopidogrel, Beta jose g, Statin/lipid - Assistive Devices Assistive Devices:: None Fall Risk Assessed:: Yes Patient Health Questionnaire Initial Assessment 1. Little interest or pleasure in doing things: Several days 2. Feeling down, depressed, or hopeless: Not at all 3. Trouble falling or staying asleep, or sleeping too much: Not at all 4. Feeling tired or having little energy: Nearly every day 5. Poor appetite or overeating: Not at all 6. Feeling bad about yourself -- or that you are a failure or have let yourself or your family down: Not at all 7. Trouble concentrating on things, such as reading the newspaper or watching television: Several days 8. Moving or speaking so slowly that other people could have noticed. Or the opposite - being so fidgety or restless that you have been moving around a lot more than usual: Not at all 9. Thoughts that you would be better off , or of hurting yourself in some way: Not at all How difficult have these problems made it for you to do your work, take care of things at home, or get along with other people?: Not difficult at all Total Score: 5 ETHAN-Q SV Test - Statements CAD is a disease of the arteries in the heart: False Examples of risk factors for heart disease: True Angina is chest pain or discomfort: True The benefits of resistance training include: True Eating more meat and dairy products: False Anti-platelet medications such as aspirin are important: True The only effective way to manage stress: False An exercise warm-up slowly increases heart rate: True Prepared, processed foods usually have high sodium: True Depression is common after a heart attack: True The statin medications lower cholesterol: True To control blood pressure, lower the amount of sodium: True If someone gets chest discomfort during walking: False Transfats are partially hydrogenated vegetable oils: True Sleep apnea that is not treated increases the risk: False To control cholesterol, one should become a vegetarian: False Someone knows if he/she is exercising at the right level: True Diabetes cannot be prevented with exercise & health eating: False Stress is a large risk for heart attack: True A diet that can help lower blood pressure is rich in: True - Total Score Total Correct Responses: 20 Self-Efficacy Initial Assessment We would like to know how confident you are in doing certain activities. Please select your confidence level for:: Select your confidence level for the following using the scale 1-10 where 1 is not at all confident and 10 is totally confident. Your score is the average of all 6 responses. Fatigue: How confident are you that you can keep the fatigue caused by your disease from interfering with the things you want to do? Select Number: 9 Physical Discomfort or Pain: How confident are you that you can keep the physical discomfort or pain of your disease from interfering with the things you want to do? Select Number: 9 Emotional Distress: How confident are you that you can keep the emotional distress caused by your disease from interfering with the things you want to do? Select Number: 9 Other Symptoms or Health Problems: How confident are you that you can keep other symptoms or health problems from interfering with the things you want to do? Select Number: 9 Different Tasks and Activities: How confident are you that you can do the different tasks and activities needed to manage your health condition so as to reduce your need to see a doctor? Select Number: 9 Medication: How confident are you that you can do things other than just taking medication to reduce how much your illness affects your everyday life? Select Number: 9 Total Score:: 9 Nutrition Survey - Nutrition Survey Instructions Scoring Instructions: Scoring is as follows: Yes = 1 points. No = 0 point. Patient score that is >/=12 is considered to be at potential nutritional risk and could benefit from a referral to a registered dietitian. - Nutrition Survey Initial Have you lost >10 lbs over the past 2 months without trying?: Yes Are you following a special diet at home for diabetes, low fat, or low salt?: Yes Are you interested in meeting with a dietitian for help understanding your diet?: Yes Do you eat less than 3 meals a day?: Yes Do you eat fatty meats (argueta, sausage, ribs, etc), fried foods, desserts, large amounts of salad dressings, margarine, butter, or cheese most days?: No Do you have food allergies? [Enter types in comment field]: No Do you eat in restaurants more than 3 times a week?: No Do you season food with salt, seasoning salt, or garlic salt?: No Do you used canned, boxed, frozen meals, or soups, seasoning packets?: No Total Score:: 4
== END ==
PROVIDERS: Family Provider Family Medicine; PCP Family Medicine; Referring Provider Internal Medicine Cardiovascular Disease; Visit Provider Internal Medicine Cardiovascular Disease
DX: I25.2 Old myocardial infarction (principal)

== ENCOUNTER 2018-04-19 06:30 | Outpatient (RCR) | payer OTHER, MEDICARE, SELFPAY ==
[2018-03-23 10:10] VITALS: BMI 36.3
== END 2018-04-20 23:59 ==
LOC: CR 06:30
PROVIDERS: Family Provider Family Medicine; PCP Family Medicine; Referring Provider Internal Medicine Cardiovascular Disease; Visit Provider Internal Medicine Cardiovascular Disease
DX: I21.4 Non-ST elevation (NSTEMI) myocardial infarction (principal); Z95.5 Presence of coronary angioplasty implant and graft
CPT/HCPCS: 93798

== ENCOUNTER → 2018-04-28 07:30 | Outpatient (CLI) | payer OTHER, SELFPAY ==
[2018-03-23 10:10] VITALS: BMI 36.3
--- NOTE | 2018-04-28 13:48 | SLEEP ---
Pt is a cardiac rehab patient that contacted me after the sleep cardiac rehab lecture. Mr. Guerrero is s/p stent x 1 and is currently in the middle of his initial cardiac rehab program. He has been wearing CPAP 11 for 6 years. His initial split night study was done at [facility] in 2011. He had consult and f/u titration with Dr. Rothman. He had a retitration at Dr. Rothman's in 2016. Per the pt, he is still on CPAP 11. He was wearing PAP successfully until right before his cardiac event. He stopped wearing PAP then had an M.I. He can't explain exactly why her stopped after so many years of wearing PAP. He felt as though, all of a sudden, all masks were uncomfortable. He has tried several masks from [employer] and is unable to sleep with any of them. He currently wears the Dreamwear medium frame/ medium cushion NASAL mask interface. The pt prefers to sleep supine and he has been sleeping in the supine position for the past month and a half without wearing PAP. Per his , he snores with or without the mask on. His mouth is dropping open when using the nasal mask. The patient was fit with both the Dreamwear medium frame/ medium cushion full face mask and the medium F&P Simplus full face mask. He prefers the medium Simplus. We had a lengthy discussion about the pathophysiology of LARRY and the association between LARRY and CAD. I demonstrated the proper way to fit and adjust the Dreamwear headgear and the medium Simplus. I will call him on Tuesday of next week to see which mask he wants to use, if he was able to use his PAP. I encourage him to sleep off supine with at least 2 pillows. We discussed why side sleep is better than supine for LARRY. We discussed positional therapy techniques and he is agreeable. CPAP of 11 may not be therapeutic anymore for him and/or his central sleep apnea is now worse than his LARRY. He has had major health changes since his last titration. He may benefit from a bilevel titration. He consults with Paul FERRO at [facility] on 07/28/18. If he does not do well this weekend, I may request a titration order from his primary care, Dr. Adrian Carlton at [facility].
== END ==
PROVIDERS: Family Provider Family Medicine; PCP Family Medicine; Referring Provider Internal Medicine Cardiovascular Disease; Visit Provider Internal Medicine Cardiovascular Disease
DX: G47.33 Obstructive sleep apnea (adult) (pediatric) (principal); G47.31 Primary central sleep apnea

== ENCOUNTER 2018-05-17 06:30 | Outpatient (RCR) | payer OTHER, SELFPAY ==
[2018-03-23 10:10] VITALS: BMI 36.3
--- NOTE | 2018-04-26 08:29 | CR.ITP_ITS ---
General Information - General Information Admitting Diagnosis: PCI W/Stent - Education/Goals Cardiac Rehabilitation Goals: 1. Maintain the individual as the primary focus of care. 2. To improve the patient's quality of life. 3. Identification of cardiac risk factors and provide cardiac risk factor management. 4. Enhance the psychosocial status of the patient. 5. Reconditioning enough to allow the patient to resume customary activities. 6. Control symptoms of cardiac disease Scale for measuring improvement of personal goals: Enter appropriate number in Comments. 2 = Unchanged. 3 = Slightly Better. 4 = Moderate Improvement. 5 = Met my Goal Exercise - 30-day Assessment - Visit Date of Eval: 04/26/18 Session #:: 13 - Stages of Change Stages of Change:: Action - Exercise Prescription Mode:: Treadmill, Rower, Airdyne Frequency (x/week): 3 Duration:: 30-45 METs - Progression: 0.5-1 MET as tolerated: 5 Target Heart Rate:: 113-120 Max HR 116 - Hypertension Resting Blood Pressure:: 128/70 Peak Exercise Blood Pressure:: 164/100 - Intervention Home Exercise/Activity Goal:: Sitting Time <3 hrs/day - Education Goals:: Warm-up, RPE WIL Scale, S/S, Safe Exercise, Self-Monitoring - Exercise Program Goals Exercise Program Goals: Aerobic Activity >30 min, B/P <130/80 Nutrition - 30-Day Assessment - Program Goals Nutrition Program Goals: LDL <70. Total Cholesterol <200. HDL >45. Triglycerides <150. HgbA1C <7%. BMI <25 - Visit Date of Eval: 04/26/18 - Stages of Change Stages of Change:: Action - Weight Management Weight:: 119.068 kg - Intervention Referral to dietitian:: No Referral to Diabetic Clinic:: No Will attend diet classes:: Yes - Education Attended class for:: Signs & symptoms of hypoglycemia, Signs & symptoms of hyperglycemia, Relate diabetes to coronary artery disease, Healthy eating Tobacco - Initial Assessment - Program Goals Tobacco Program Goals: Complete smoking cessation. Attend education classes. Improve Knowledge Test score - Learning Barriers Learning Barriers: Ready to Learn Tobacco - 30-Day Assessment - Program Goals Tobacco Program Goals: Complete smoking cessation. Attend education classes. Improve Knowledge Test score - Stage of Change Stages of Change:: Action - Learning Barriers Learning Barriers: Participates in education - Tobacco Use Do you use smokeless tobacco?: No - Pt quit - Intervention Smoking Cessation Referral:: No Individual Education/Counseling:: No Education Schedule Given:: Yes - Education Attended class for:: Tobacco triggers, Coronary artery disease, Risk factors, Sexuality, Medical compliance, Cardiac A&P, Angina signs & symptoms Psychosocial - Initial Assess - Target Goals Target Goals: Assess presence or absence of depression. Using a valid screening tool, maximizes coping skills. Positive support system - Psychosocial Test Tool Used:: HANDS Depression Questionnaire - Assistive Devices Fall Risk Assessed:: Yes Psychosocial - 30-Day Assess - Target Goals Target Goals: Assess presence or absence of depression. Using a valid screening tool, maximizes coping skills. Positive support system - Stages of Change Stages of Change:: Action - Psychosocial Test Tool Used:: HANDS Depression Questionnaire - Intervention PS - Interventions: Yes Attend Stress Management Classes, Yes Uses Stress Management Skills, No Referral to Mental Health, No Referral to [facility] Case Management, No Referral to Physician - Education Attended classes for:: Coping techniques, Signs & symptoms of depression, Stress management, Relaxation techniques - Assistive Devices Assistive Devices:: None Fall Risk Assessed:: Yes Patient Health Questionnaire 30-Day Re-eval Assessment 1. Little interest or pleasure in doing things: Several days 2. Feeling down, depressed, or hopeless: Not at all 3. Trouble falling or staying asleep, or sleeping too much: Nearly every day 4. Feeling tired or having little energy: Not at all 5. Poor appetite or overeating: Not at all 6. Feeling bad about yourself -- or that you are a failure or have let yourself or your family down: Not at all 7. Trouble concentrating on things, such as reading the newspaper or watching television: Several days 8. Moving or speaking so slowly that other people could have noticed. Or the opp osite - being so fidgety or restless that you have been moving around a lot more than usual: Not at all 9. Thoughts that you would be better off , or of hurting yourself in some way: Not at all How difficult have these problems made it for you to do your work, take care of things at home, or get along with other people?: Not difficult at all Total Score: 5 Self-Efficacy 30-Day Re-eval Assessment We would like to know how confident you are in doing certain activities. Please select your confidence level for:: Select your confidence level for the following using the scale 1-10 where 1 is not at all confident and 10 is totally confident. Your score is the average of all 6 responses. Fatigue: How confident are you that you can keep the fatigue caused by your disease from interfering with the things you want to do? Select Number: 9 Physical Discomfort or Pain: How confident are you that you can keep the physical discomfort or pain of your disease from interfering with the things you want to do? Select Number: 9 Emotional Distress: How confident are you that you can keep the emotional distress caused by your disease from interfering with the things you want to do? Select Number: 9 Other Symptoms or Health Problems: How confident are you that you can keep other symptoms or health problems from interfering with the things you want to do? Select Number: 9 Different Tasks and Activities: How confident are you that you can do the different tasks and activities needed to manage your health condition so as to reduce your need to see a doctor? Select Number: 9 Medication: How confident are you that you can do things other than just taking medication to reduce how much your illness affects your everyday life? Select Number: 9 Total Score:: 9
[2018-04-26 08:32] VITALS: BP 128/70; BP 164/100
== END 2018-05-18 23:59 ==
LOC: CR 06:30
PROVIDERS: Family Provider Family Medicine; PCP Family Medicine; Referring Provider Internal Medicine Cardiovascular Disease; Visit Provider Internal Medicine Cardiovascular Disease
DX: I21.4 Non-ST elevation (NSTEMI) myocardial infarction (principal); Z95.5 Presence of coronary angioplasty implant and graft
CPT/HCPCS: 93798

== ENCOUNTER 2018-06-16 06:30 | Outpatient (RCR) | payer OTHER, SELFPAY ==
[2018-03-23 10:10] VITALS: BMI 36.3
[2018-05-19 01:17] VITALS: BP 128/70; BP 164/100
--- NOTE | 2018-05-24 08:23 | PCM.CR.ITP ---
General Information - General Information Admitting Diagnosis: PCI W/Stent - Education/Goals Cardiac Rehabilitation Goals: 1. Maintain the individual as the primary focus of care. 2. To improve the patient's quality of life. 3. Identification of cardiac risk factors and provide cardiac risk factor management. 4. Enhance the psychosocial status of the patient. 5. Reconditioning enough to allow the patient to resume customary activities. 6. Control symptoms of cardiac disease Scale for measuring improvement of personal goals: Enter appropriate number in Comments. 2 = Unchanged. 3 = Slightly Better. 4 = Moderate Improvement. 5 = Met my Goal Exercise - 60-Day Assessment - Visit Date of Eval: 05/24/18 Session #:: 25 - Stages of Change Stages of Change:: Action - Physician Prescribed Exercise Modalities: Treadmill, Rower, Airdyne Frequency (days/week): 3 Duration (Minutes):: 30-45 Intensity: 60-80% age predicted maximum heart rate reserve METs - Progression: 0.5-1.0 MET, RPE 11-14 WEEK: 6.5 Target Heart Rate:: 122-130 Max HR 112 - Hypertension Resting Blood Pressure:: 120/68 Peak Exercise Blood Pressure:: 128/80 - Intervention Home Exercise/Activity Goal:: Sitting Time <3 hrs/day - Education Goals:: Warm-up, RPE WIL Scale, S/S, Safe Exercise, Self-Monitoring - Exercise Program Goals Exercise Program Goals: Aerobic Activity >30 min, B/P <130/80 Nutrition - 60-Day Assessment - Program Goals Nutrition Program Goals: LDL <70. Total Cholesterol <200. HDL >45. Triglycerides <150. HgbA1C <7%. BMI <25 - Visit Date of Eval: 05/24/18 - Stages of Change Stages of Change:: Action - Lipids Has the patient seen the dietitian?: No - Weight Management Weight:: 119.975 kg - Intervention Referral to dietitian:: No Referral to Diabetic Clinic:: No Will attend diet classes:: Yes - Education Attended class for:: Signs & symptoms of hypoglycemia, Signs & symptoms of hyperglycemia, Relate diabetes to coronary artery disease, Healthy eating Tobacco - Initial Assessment - Program Goals Tobacco Program Goals: Complete smoking cessation. Attend education classes. Improve Knowledge Test score - Learning Barriers Learning Barriers: Ready to Learn Tobacco - 60-Day Assessment - Program Goals Tobacco Program Goals: Complete smoking cessation. Attend education classes. Improve Knowledge Test score - Stage of Change Stages of Change:: Action - Learning Barriers Learning Barriers: Participates in education - Family Support Do you have family support?: Yes - Tobacco Use Tobacco Use: Non-smoker - Intervention Smoking Cessation Referral:: No Individual Education/Counseling:: No Education Schedule Given:: Yes - Education Attended class for:: Tobacco triggers, Coronary artery disease, Risk factors, Sexuality, Medical compliance, Cardiac A&P, Angina signs & symptoms Psychosocial - Initial Assess - Target Goals Target Goals: Assess presence or absence of depression. Using a valid screening tool, maximizes coping skills. Positive support system - Psychosocial Test Tool Used:: HANDS Depression Questionnaire - Assistive Devices Fall Risk Assessed:: Yes Psychosocial - 60-Day Assess - Target Goals Target Goals: Assess presence or absence of depression. Using a valid screening tool, maximizes coping skills. Positive support system - Stages of Change Stages of Change:: Action - Psychosocial Test Tool Used:: HANDS Depression Questionnaire - Intervention PS - Interventions: Yes Attend Stress Management Classes, Yes Uses Stress Management Skills, No Referral to Mental Health, No Referral to [facility] Case Management, No Referral to Physician - Education Attended classes for:: Coping techniques, Signs & symptoms of depression, Stress management, Relaxation techniques - Assistive Devices Assistive Devices:: None Fall Risk Assessed:: Yes Patient Health Questionnaire 60-Day Re-eval Assessment 1. Little interest or pleasure in doing things: Several days 2. Feeling down, depressed, or hopeless: Not at all 3. Trouble falling or staying asleep, or sleeping too much: Nearly every day 4. Feeling tired or having little energy: Not at all 5. Poor appetite or overeating: Not at all 6. Feeling bad about yourself -- or that you are a failure or have let yourself or your family down: Not at all 7. Trouble concentrating on things, such as reading the newspaper or watching television: Several days 8. Moving or speaking so slowly that other people could have noticed. Or the opposite - being so fidgety or restless that you have been moving around a lot more than usual: Not at all 9. Thoughts that you would be better off , or of hurting yourself in some way: Not at all How difficult have these problems made it for you to do your work, take care of things at home, or get along with other people?: Not difficult at all Total Score: 5 Self-Efficacy 60-Day Re-eval Assessment We would like to know how confident you are in doing certain activities. Please select your confidence level for:: Select your confidence level for the following using the scale 1-10 where 1 is not at all confident and 10 is totally confident. Your score is the average of all 6 responses. Fatigue: How confident are you that you can keep the fatigue caused by your disease from interfering with the things you want to do? Select Number: 9 Physical Discomfort or Pain: How confident are you that you can keep the physical discomfort or pain of your disease from interfering with the things you want to do? Select Number: 9 Emotional Distress: How confident are you that you can keep the emotional distress caused by your disease from interfering with the things you want to do? Select Number: 9 Other Symptoms or Health Problems: How confident are you that you can keep other symptoms or health problems from interfering with the things you want to do? Select Number: 9 Different Tasks and Activities: How confident are you that you can do the different tasks and activities needed to manage your health condition so as to reduce your need to see a doctor? Select Number: 9 Medication: How confident are you that you can do things other than just taking medication to reduce how much your illness affects your everyday life? Select Number: 9 Total Score:: 9
[2018-05-24 08:31] VITALS: BP 120/68; BP 128/80
== END 2018-06-18 23:59 ==
LOC: CR 06:30
PROVIDERS: Family Provider Family Medicine; PCP Family Medicine; Referring Provider Internal Medicine Cardiovascular Disease; Visit Provider Internal Medicine Cardiovascular Disease
DX: I21.4 Non-ST elevation (NSTEMI) myocardial infarction (principal); Z95.5 Presence of coronary angioplasty implant and graft
CPT/HCPCS: 93798

== ENCOUNTER → 2018-08-21 | Outpatient (CLI) | payer OTHER, SELFPAY ==
[2018-03-23 10:10] VITALS: BMI 36.3
[2018-08-21 10:53] LABS: Absolute Lymphocyte Count 1.22 X10^3/ul (0.83-4.51); Absolute Neutrophil Count 3.1 X10^3/uL (2.0-7.7); Basophil# 0.04 X10^3/uL; Basophil% 0.7 % (0-1); Eosinophils% 5.6 % (0-5); Hematocrit 42.4 % (40-54); Hemoglobin 14.3 g/dl (13.0-16.5); Lymphocyte # 1.22 X10^3/ul (4.0); Lymphocyte % 22.6 % (19-41); Mean Corp Hgb Conc 33.7 g/gl (32-36); Mean Corpuscular Hgb 30.6 pg (27.0-32.0); Mean Corpuscular Volume 90.6 fL (80-94); Mean Platelet Vol. 10.3 fl (6.2-12.0); Monocyte# 0.74 X10^3/uL; Monocyte% 13.7 % (0-10); Neutrophil # 3.08 X10^3/uL (2.7-7.7); Neutrophil % 57.2 % (47-70); Platelet Count 171 K/mm3 (150-450); RBC Distribution Width CV 12.3 % (11.6-14.6); RBC Distribution Width SD 40.1 fl (35.1-43.9); Red Blood Count 4.68 M/mm3 (4.6-6.2); White Blood Count 5.4 K/mm3 (4.4-11.0)
[2018-08-21 11:01] LABS: POSITIVE COUNT NO; POSITIVE DIFFERENTIAL NO; POSITIVE MORPHOLOGY NO
[2018-08-21 11:17] LABS: ALB/GLOB Ratio 0.9 RATIO (0.9-2.4); AST(SGOT) 19 U/L (15-37); Alanine Aminotransfer ALT/SGPT 42 U/L (16-61); Albumin, Serum 3.5 g/dL (3.2-5.0); Alkaline Phosphatase 95 U/L (45-117); Anion Gap 9 (5-15); BUN 16 mg/dL (7-18); Bilirubin, Direct 0.16 mg/dL (0.00-0.30); Calcium,Total 8.7 mg/dL (8.5-10.1); Chloride 103 mmol/L (98-107); Cholesterol 137 mg/dL (200); EST Glomerular Filtration Rate 79 mL/min (>60); Est Glom Filt Rate - Afr Amer 95 mL/min (>60); Globulin 3.9 g/dL (2.2-4.2); Glucose 123 mg/dL (74-106); High Density Lipoprotein 45 mg/dL; Potassium 4.3 mmol/L (3.5-5.1); Protein, Total 7.4 g/dL (6.4-8.2); Sodium Level 140 mmol/L (136-145); Thyroid Stim Hormone (TSH) 1.55 uIU/mL (0.358-3.74); Triglycerides 143 mg/dL; Very Low Density Lipoprotein 29 mg/dL (5-40)
== END | disposition home or self-care (01) ==
LOC: MTLAB 07:44
PROVIDERS: Family Provider Family Medicine; PCP Family Medicine; Referring Provider Nurse Practitioner Family; Visit Provider Nurse Practitioner Family
DX: E78.5 Hyperlipidemia, unspecified (principal); I10 Essential (primary) hypertension
CPT/HCPCS: 36415; 80053; 80061; 82248; 84443; 85025

== ENCOUNTER → 2018-09-20 20:07 | Outpatient (CLI) | payer OTHER, SELFPAY ==
[2018-03-23 10:10] VITALS: BMI 36.3
[2018-08-29 15:09] VITALS: BMI 37.8
== END ==
PROVIDERS: Family Provider Family Medicine; PCP Family Medicine; Referring Provider Nurse Practitioner Family; Visit Provider Nurse Practitioner Family
DX: G47.33 Obstructive sleep apnea (adult) (pediatric) (principal)
CPT/HCPCS: 95811

== ENCOUNTER → 2019-01-09 11:45 | Outpatient (CLI) | payer OTHER, SELFPAY ==
[2018-11-10 08:34] VITALS: BMI 38.9
--- NOTE | 2019-01-09 12:04 | EKG12_ITS ---
Test Reason : PREOP Blood Pressure : / mmHG Vent. Rate : 068 BPM Atrial Rate : 068 BPM P-R Int : 228 ms QRS Dur : 082 ms QT Int : 434 ms P-R-T Axes : 053 -21 007 degrees QTc Int : 461 ms Sinus rhythm with 1st degree A-V block Possible Inferior infarct , age undetermined Abnormal ECG Confirmed by PURNIMA LIN, JONATHON ([id number]), research editor SYEDA TORRES ([id number] on 01/12/2019 10:47:56 AM Referred By: Josue Buckley Confirmed By:JONATHON FELTON MD
[2019-01-09 12:58] LABS: Hematocrit 40.1 % (40-54); Hemoglobin 13.3 g/dL (13.0-16.5); Mean Corp Hgb Conc 33.2 g/dL (32-36); Mean Corpuscular Hgb 30.3 pg (27.0-32.0); Mean Corpuscular Volume 91.3 fL (80-94); Mean Platelet Vol. 10.6 fl (6.2-12.0); Platelet Count 225 K/mm3 (150-450); RBC Distribution Width CV 11.9 % (11.6-14.6); Red Blood Count 4.39 M/mm3 (4.6-6.2); White Blood Count 7.6 K/mm3 (4.4-11.0)
[2019-01-09 13:51] LABS: Anion Gap 7 (5-15); BUN 15 mg/dL (7-18); BUN/Creat Ratio 15.7 RATIO (10-20); Calcium,Total 9.1 mg/dL (8.5-10.1); Chloride 104 mmol/L (98-107); Creatinine, Serum 0.95 mg/dL (0.70-1.30); EST Glomerular Filtration Rate 83 mL/min (>60); Est Glom Filt Rate - Afr Amer 100 mL/min (>60); Glucose 124 mg/dL (74-106); Potassium 3.9 mmol/L (3.5-5.1); Sodium Level 137 mmol/L (136-145)
== END ==
PROVIDERS: Family Provider Family Medicine; PCP Family Medicine; Referring Provider Physician Assistant; Visit Provider Physician Assistant
DX: Z01.810 Encounter for preprocedural cardiovascular examination (principal); Z01.818 Encounter for other preprocedural examination; E11.9 Type 2 diabetes mellitus without complications
CPT/HCPCS: 36415; 80048; 85027; 93005

== ENCOUNTER → 2019-02-22 09:00 | Outpatient (CLI) | payer OTHER, SELFPAY ==
[2018-11-10 08:34] VITALS: BMI 38.9
== END ==
PROVIDERS: Family Provider Family Medicine; PCP Family Medicine; Referring Provider Nurse Practitioner Family; Visit Provider Nurse Practitioner Family
DX: G47.33 Obstructive sleep apnea (adult) (pediatric) (principal)
CPT/HCPCS: 98960; G0463

== ENCOUNTER → 2019-10-15 07:46 | Outpatient (CLI) | payer OTHER, SELFPAY ==
[2019-09-04 14:39] VITALS: BMI 38.0
[2019-10-15 09:12] LABS: AST(SGOT) 14 U/L (15-37); Alanine Aminotransfer ALT/SGPT 32 U/L (16-61); Albumin, Serum 3.5 g/dL (3.2-5.0); Alkaline Phosphatase 83 U/L (45-117); Anion Gap 6 (5-15); BUN 15 mg/dL (7-18); BUN/Creat Ratio 13.2 RATIO (10-20); Bilirubin, Direct 0.16 mg/dL (0.00-0.30); Calcium,Total 8.4 mg/dL (8.5-10.1); Chloride 105 mmol/L (98-107); Cholesterol 142 mg/dL (200); Creatinine, Serum 1.14 mg/dL (0.70-1.30); EST Glomerular Filtration Rate 67 mL/min (>60); Est Glom Filt Rate - Afr Amer 81 mL/min (>60); Globulin 3.6 g/dL (2.2-4.2); Glucose 138 mg/dL (74-106); High Density Lipoprotein 39 mg/dL; Potassium 3.7 mmol/L (3.5-5.1); Protein, Total 7.1 g/dL (6.4-8.2); Sodium Level 136 mmol/L (136-145); Thyroid Stim Hormone (TSH) 1.79 uIU/mL (0.358-3.74); Triglycerides 95 mg/dL; Very Low Density Lipoprotein 19 mg/dL (5-40)
== END ==
PROVIDERS: PCP Family Medicine; Referring Provider Internal Medicine Cardiovascular Disease; Visit Provider Internal Medicine Cardiovascular Disease
DX: E78.00 Pure hypercholesterolemia, unspecified (principal); Z95.5 Presence of coronary angioplasty implant and graft; I10 Essential (primary) hypertension; I21.4 Non-ST elevation (NSTEMI) myocardial infarction; I25.10 Atherosclerotic heart disease of native coronary artery without angina pectoris
CPT/HCPCS: 36415; 80048; 80061; 80076; 84443

== ENCOUNTER → 2020-06-17 14:34 | Outpatient (CLI) | payer OTHER, SELFPAY ==
[2020-06-17 13:53] VITALS: BMI 38.9
[2020-06-17 16:12] LABS: BNP,B-Type NATRIURETIC PEPTIDE 49.5 pg/mL (0-100)
[2020-06-17 16:13] LABS: AST(SGOT) 20 U/L (15-37); Alanine Aminotransfer ALT/SGPT 41 U/L (16-61); Albumin, Serum 3.9 g/dL (3.2-5.0); Alkaline Phosphatase 78 U/L (45-117); Bilirubin, Direct 0.11 mg/dL (0.00-0.30); Cholesterol 205 mg/dL (200); Globulin 3.6 g/dL (2.2-4.2); High Density Lipoprotein 43 mg/dL; Protein, Total 7.5 g/dL (6.4-8.2); Triglycerides 170 mg/dL; Very Low Density Lipoprotein 34 mg/dL (5-40)
== END ==
PROVIDERS: PCP Family Medicine; Referring Provider Internal Medicine Cardiovascular Disease; Visit Provider Internal Medicine Cardiovascular Disease
DX: E78.5 Hyperlipidemia, unspecified (principal); R06.00 Dyspnea, unspecified
CPT/HCPCS: 36415; 80061; 80076; 83880

== ENCOUNTER → 2020-06-25 12:47 | Outpatient (CLI) | payer OTHER, SELFPAY ==
[2020-06-17 13:53] VITALS: BMI 38.9
--- NOTE | 2020-06-25 12:52 | ECHOCS_ITS ---
Reason For Study: CAD Procedure This was a 2D Doppler, Color Flow transthoracic echocardiogram. The study was technically difficult. Exam performed in department. Left Ventricle Normal LV size. Moderate concentric left ventricular hypertrophy. The estimated ejection fraction is 55 %. Mild segmental systolic dysfunction (see wall motion). Infero-Basal: Mildly hypokinetic. Right Ventricle Normal RV size. Normal systolic function. Atria Normal left atrium. Normal right atrium. Mitral Valve Normal mitral valve. Tricuspid Valve Normal tricuspid valve. Aortic Valve Trisinus/trileaflet aortic valve. Mild focal aortic valve calcification. Peak aortic valve gradient 29 mmHg. Mean aortic valve gradient 15 mmHg. Mild aortic stenosis. Mild (1+) aortic valve insufficiency. Pulmonic Valve Normal pulmonic valve. Great Vessels Normal aortic root. The pulmonary artery is normal size. Normal inferior vena cava. Pericardium/Pleural No pericardial effusion. Medication 22 gauge I.V. with prn adaptor inserted into right arm. Diluted definity 3ml given slow IV push to enhance endocardial definition. MMode/2D Measurements & Calculations LVIDd: 4.7 cm IVSd: 1.3 cm LVOT diam: 2.1 cm LVIDs: 3.1 cm LVPWd: 1.3 cm FS: 34.4 % LVOT area: 3.6 cm2 Ao root diam: 3.6 cm LA dimension(2D): 5.1 cm Doppler Measurements & Calculations MV E max conor: 69.6 cm/sec Lat Peak E' Conor: 7.6 cm/sec Med Peak E' Conor: 9.0 cm/sec MV A max conor: 101.3 cm/sec E/E' lat: 9.2 E/E' med: 7.7 MV E/A: 0.69 Ao V2 max: 271.2 cm/sec AI max conor: 410.7 cm/sec LV V1 max: 124.5 cm/sec Ao max P.4 mmHg AI max P.5 mmHg LV V1 max P.2 mmHg Ao V2 mean: 183.9 cm/sec LV V1 mean P.4 mmHg Ao mean P.2 mmHg AI dec slope: 291.3 cm/sec2 LV V1 mean: 87.8 cm/sec Ao V2 VTI: 56.3 cm AI P1/2t: 413.0 msec LV V1 VTI: 29.1 cm UNIQUE(I,D): 1.9 cm2 UNIQUE(V,D): 1.7 cm2 SV(LVOT): 105.0 ml PA V2 max: 89.6 cm/sec ECHO/Echo Complete W/ Contrast Interpretation Summary Normal LV size. The estimated ejection fraction is 55 %. Mild segmental systolic dysfunction (see wall motion). Moderate concentric left ventricular hypertrophy. Mild aortic stenosis. Mild (1+) aortic valve insufficiency. Infero-Basal: Mildly hypokinetic Contrast injection was performed. Ordering Physician: Bowen Story Referring Physician: Adrian Beach Performed By: Lydia Demarco RDCS
== END ==
PROVIDERS: PCP Family Medicine; Referring Provider Internal Medicine Cardiovascular Disease; Visit Provider Internal Medicine Cardiovascular Disease
DX: I25.10 Atherosclerotic heart disease of native coronary artery without angina pectoris (principal)
CPT/HCPCS: 93306; Q9957; A4216; C8929

== ENCOUNTER → 2021-01-05 15:14 | Outpatient (CLI) | payer OTHER, SELFPAY ==
[2021-01-05 18:18] LABS: AST(SGOT) 19 U/L (15-37); Alanine Aminotransfer ALT/SGPT 37 U/L (16-61); Albumin, Serum 3.5 g/dL (3.2-5.0); Alkaline Phosphatase 76 U/L (45-117); Bilirubin, Direct 0.11 mg/dL (0.00-0.30); Cholesterol 195 mg/dL (200); High Density Lipoprotein 37 mg/dL; Protein, Total 7.5 g/dL (6.4-8.2); Triglycerides 197 mg/dL; Very Low Density Lipoprotein 39 mg/dL (5-40)
== END ==
PROVIDERS: PCP Family Medicine; Referring Provider Physician Assistant Medical; Visit Provider Physician Assistant Medical
DX: E78.00 Pure hypercholesterolemia, unspecified (principal); E78.5 Hyperlipidemia, unspecified
CPT/HCPCS: 36415; 80061; 80076

== ENCOUNTER → 2021-10-12 | Outpatient (CLI) | payer OTHER, SELFPAY ==
[2021-10-12 08:20] LABS: AST(SGOT) 29 U/L (15-37); Alanine Aminotransfer ALT/SGPT 43 U/L (16-61); Albumin, Serum 3.3 g/dL (3.2-5.0); Alkaline Phosphatase 71 U/L (45-117); Bilirubin, Direct 0.13 mg/dL (0.00-0.30); Cholesterol 242 mg/dL (200); High Density Lipoprotein 34 mg/dL; Protein, Total 7.3 g/dL (6.4-8.2); Triglycerides 168 mg/dL; Very Low Density Lipoprotein 34 mg/dL (5-40)
== END | disposition home or self-care (01) ==
LOC: LAB 07:22
PROVIDERS: PCP Family Medicine; Referring Provider Physician Assistant Medical; Visit Provider Physician Assistant Medical
DX: E78.00 Pure hypercholesterolemia, unspecified (principal); E78.5 Hyperlipidemia, unspecified
CPT/HCPCS: 36415; 80061; 80076

== ENCOUNTER → 2021-10-15 | Outpatient (CLI) | payer OTHER, SELFPAY ==
--- NOTE | 2021-10-16 07:01 | PFT ---
INTRODUCTION: The patient is a 71-year-old male who presents for pulmonary function studies secondary to a diagnosis of dyspnea. Respiratory therapy reported good patient effort. Bronchodilators were used during testing. INTERPRETATION: Forced expiration spirometry demonstrates the presence of a moderate large airways obstructive ventilatory defect. There was a significant response to aerosolized bronchodilators. Spirograms are of good quality and plateau gradually indicating slow emptying of the lungs. Body plethysmography was performed and revealed an elevated RV to 120% predicted, indicative of underlying air trapping. Diffusing capacity by single breath CO is mildly reduced at 65% of predicted. IMPRESSION: Fully reversible moderate large airways obstructive ventilatory impairment with associated air trapping and mild reduction in diffusing capacity.
== END | disposition home or self-care (01) ==
LOC: PSN 06:48
PROVIDERS: PCP Family Medicine; Referring Provider Nurse Practitioner Acute Care; Visit Provider Nurse Practitioner Acute Care
DX: R06.00 Dyspnea, unspecified (principal)
CPT/HCPCS: 94060; 94726; 94729

== ENCOUNTER → 2021-10-20 | Outpatient (CLI) | payer OTHER, SELFPAY ==
[2021-10-20 17:20] LABS: Anion Gap 5 (5-15); BUN 22 mg/dL (7-18); BUN/Creat Ratio 17.6 RATIO (10-20); Calcium,Total 9.1 mg/dL (8.5-10.1); Chloride 103 mmol/L (98-107); Creatinine, Serum 1.25 mg/dL (0.70-1.30); EST Glomerular Filtration Rate 60 mL/min (>60); Est Glom Filt Rate - Afr Amer 73 mL/min (>60); Glucose 105 mg/dL (74-106); Magnesium 1.9 mg/dL (1.6-2.6); Potassium 3.6 mmol/L (3.5-5.1); Sodium Level 138 mmol/L (136-145); Thyroid Stim Hormone (TSH) 1.49 uIU/mL (0.358-3.74)
== END | disposition home or self-care (01) ==
LOC: LAB 15:15
PROVIDERS: Visit Provider Internal Medicine Cardiovascular Disease
DX: I10 Essential (primary) hypertension (principal); Z95.5 Presence of coronary angioplasty implant and graft
CPT/HCPCS: 36415; 80048; 83735; 84443

== ENCOUNTER → 2021-12-14 | Outpatient (CLI) | payer OTHER, SELFPAY ==
--- NOTE | 2021-12-14 06:03 | ECHOCS_ITS ---
Reason For Study: DYSPNEA Procedure This was a 2D Doppler, Color Flow transthoracic echocardiogram. The study was technically limited. Limited views were obtained. Contrast injection was performed. Exam performed in department. Left Ventricle Normal LV size. Left ventricular systolic function is normal. The estimated ejection fraction is 55 %. Infero-Basal: Hypokinetic. Right Ventricle Normal RV size. Normal systolic function. Atria Normal left atrium. Normal right atrium. Mitral Valve Mitral valve not well visualized. Tricuspid Valve The tricuspid valve is not well visualized. Aortic Valve The aortic valve is not well visualized. Pulmonic Valve The pulmonic valve is not well visualized. Great Vessels Normal aortic root. Pericardium/Pleural No pericardial effusion. Medication 22 gauge I.V. with prn adaptor inserted into right arm. Diluted definity 2ml given slow IV push to enhance endocardial definition. MMode/2D Measurements & Calculations Ao root diam: 3.9 cm LA dimension(2D): 4.3 cm Time Measurements MV dec time: 0.20 sec Doppler Measurements & Calculations MV E max conor: 89.7 cm/sec Lat Peak E' Conor: 7.1 cm/sec Med Peak E' Conor: 7.7 cm/sec MV A max conor: 110.3 cm/sec E/E' lat: 12.6 E/E' med: 11.6 MV E/A: 0.81 MV V2 max: 99.4 cm/sec Ao V2 max: 157.6 cm/sec MV max P.0 mmHg MV dec slope: 458.8 cm/sec2 Ao max P.1 mmHg MV V2 mean: 53.2 cm/sec Ao V2 mean: 108.3 cm/sec MV mean P.3 mmHg Ao mean P.6 mmHg MV V2 VTI: 32.8 cm Ao V2 VTI: 36.8 cm LV V1 max: 90.5 cm/sec PA V2 max: 99.7 cm/sec LV V1 max P.3 mmHg PA V2 mean: 67.1 cm/sec LV V1 mean P.9 mmHg LV V1 mean: 64.8 cm/sec LV V1 VTI: 23.2 cm ECHO/Echo Complete W/ Contrast Interpretation Summary Normal LV size. Left ventricular systolic function is normal. The estimated ejection fraction is 55 %. Infero-Basal: Hypokinetic Contrast injection was performed. Ordering Physician: Bowen Story Referring Physician: Bowen Story Performed By: Silvia Maldonado RCS
--- NOTE | 2021-12-14 10:54 | STRESSREP ---
Stress Test Report Pharmacologic myocardial perfusion stress test. 71-year-old man with a history of shortness of breath. Stress protocol: Resting EKG demonstrates normal sinus rhythm with a rate of 64 bpm normal intervals are noted resting blood pressure is 118/62 mmHg. 0.4 mg of regadenoson was infused per usual protocol followed by Intravenous saline flush injection continuous EKG monitoring was performed. The maximum heart rate attained was 84 bpm which was 57% of max impacted heart rate the maximum workload was 1 metabolic equivalent. At rest there were no ST or T wave changes noted to suggest abnormal flow reserve. At peak infusion nonspecific ST changes were noted with did not meet the criteria for abnormal flow reserve. Myocardial perfusion protocol. 14.3 mCi of technetium 99m sestamibi was injected at rest. 0.4 mg of regadenoson was infused per usual protocol and at peak infusion 44.6 mCi of technetium 99m sestamibi was injected stress images were obtained stress and rest images were reconstructed and compared in the short axis vertical and horizontal long axis. Gated images were also obtained. Perfusion SPECT analysis: Review of the stress images demonstrate normal uptake of tracer noted in all areas of the myocardium. The resting images similar demonstrate normal uptake of tracer noted in all areas of the myocardium. No reversibility is noted to suggest ischemia and no previous infarct is noted. Gated SPECT analysis: The gated ejection fraction is 76%. Conclusion: Normal pharmacologic myocardial perfusion stress test. Preserved ejection fraction.
== END | disposition home or self-care (01) ==
PROVIDERS: PCP Family Medicine; Referring Provider Internal Medicine Cardiovascular Disease; Visit Provider Internal Medicine Cardiovascular Disease
DX: R06.00 Dyspnea, unspecified (principal); R06.02 Shortness of breath; I10 Essential (primary) hypertension; Z95.5 Presence of coronary angioplasty implant and graft
CPT/HCPCS: 78452; 93017; 93306; A9500; Q9957; A4216; C8929; J2785

== ENCOUNTER → 2022-06-03 | Outpatient (CLI) | payer OTHER, SELFPAY ==
[2022-06-03 13:52] LABS: AST(SGOT) 22 U/L (15-37); Alanine Aminotransfer ALT/SGPT 41 U/L (16-61); Albumin, Serum 3.5 g/dL (3.2-5.0); Alkaline Phosphatase 94 U/L (45-117); Bilirubin, Direct 0.16 mg/dL (0.00-0.30); Cholesterol 216 mg/dL (200); High Density Lipoprotein 36 mg/dL; Protein, Total 7.5 g/dL (6.4-8.2); Triglycerides 233 mg/dL; Very Low Density Lipoprotein 47 mg/dL (5-40)
== END | disposition home or self-care (01) ==
PROVIDERS: PCP Family Medicine; Referring Provider Physician Assistant Medical; Visit Provider Physician Assistant Medical
DX: I25.10 Atherosclerotic heart disease of native coronary artery without angina pectoris (principal); Z95.5 Presence of coronary angioplasty implant and graft; I10 Essential (primary) hypertension; E78.5 Hyperlipidemia, unspecified
CPT/HCPCS: 36415; 80061; 80076

== ENCOUNTER → 2022-07-08 | Outpatient (CLI) | payer OTHER, SELFPAY ==
[2022-07-08 15:43] LABS: Absolute Neutrophil Count 4.9 X10^3/uL (2.0-7.7); Basophil# 0.09 X10^3/uL; Basophil% 1.2 % (0-1); Eosinophil# 0.38 X10^3/uL; Eosinophils% 4.9 % (0-5); Hemoglobin 14.7 g/dL (13.0-16.5); Lymphocyte % 21.9 % (19-41); Mean Corpuscular Hgb 31.5 pg (27.0-32.0); Mean Corpuscular Volume 98.7 fL (80-94); Mean Platelet Vol. 10.7 fl (6.2-12.0); Monocyte# 0.66 X10^3/uL; Monocyte% 8.5 % (0-10); NRBC Flagged by Analyzer 0 % (0-5); Neutrophil % 63.2 % (47-70); Platelet Count 243 K/mm3 (150-450); RBC Distribution Width CV 12.9 % (11.6-14.6); RBC Distribution Width SD 46.4 fl (35.1-43.9); Red Blood Count 4.66 M/mm3 (4.6-6.2); White Blood Count 7.8 K/mm3 (4.4-11.0)
[2022-07-08 15:48] LABS: ALB/GLOB Ratio 0.9 RATIO (0.9-2.4); AST(SGOT) 28 U/L (15-37); Alanine Aminotransfer ALT/SGPT 51 U/L (16-61); Albumin, Serum 3.5 g/dL (3.2-5.0); Alkaline Phosphatase 89 U/L (45-117); Anion Gap 4 (5-15); BUN 15 mg/dL (7-18); BUN/Creat Ratio 14.4 RATIO (10-20); Chloride 104 mmol/L (98-107); Creatinine, Serum 1.04 mg/dL (0.70-1.30); EST Glomerular Filtration Rate 74 mL/min (>60); Est Glom Filt Rate - Afr Amer 90 mL/min (>60); Globulin 3.9 g/dL (2.2-4.2); Glucose 154 mg/dL (74-106); Potassium 4.7 mmol/L (3.5-5.1); Protein, Total 7.4 g/dL (6.4-8.2); Sodium Level 134 mmol/L (136-145)
== END | disposition home or self-care (01) ==
PROVIDERS: PCP Family Medicine; Referring Provider Family Medicine; Visit Provider Family Medicine
DX: Z01.818 Encounter for other preprocedural examination (principal)
CPT/HCPCS: 36415; 80053; 85025

== ENCOUNTER → 2022-07-16 | Outpatient (CLI) | payer OTHER, SELFPAY ==
[2022-07-16 16:58] LABS: Hemoglobin A1c 6.2 % (3.8-5.6)
== END | disposition home or self-care (01) ==
LOC: MTLAB 12:45
PROVIDERS: PCP Family Medicine; Referring Provider Family Medicine; Visit Provider Family Medicine
DX: R73.9 Hyperglycemia, unspecified (principal)
CPT/HCPCS: 36415; 83036

== ENCOUNTER → 2022-08-19 | Outpatient (CLI) | payer OTHER, SELFPAY ==
--- NOTE | 2022-08-19 13:14 | CT_ITS ---
CT RIGHT LOWER EXTREMITY WITH 3-D IMAGING CLINICAL INDICATION: POST TRAUMATIC OSTEOARTHRITIS TECHNIQUE: Axial CT images of the RIGHT lower extremity was performed without IV contrast material. Coronal and sagittal reformats were provided. RADIATION DOSAGE (If Supplied By Facility): CTDIvol = ( 18.76 ) mGy, DLP = ( 1475.06 ) mGycm COMPARISON: FINDINGS: Bones: Imaging of the right hip joint was obtained. There is evidence of a acetabular spur along the superior lateral aspect of the acetabulum. Mild degree of joint space narrowing. Imaging of the right knee joint was obtained. There is a [id number] degree of joint space narrowing involving the medial compartment of knee joint with subchondral geodes along the medial femoral condyle with degenerative spur formation. There are 2 tiny well-corticated bony densities in the joint space suggestive joint mice. Minimal joint effusion. Soft Tissues: The deep soft tissue structures are unremarkable. The superficial soft tissues are unremarkable without evidence of edema, hematoma, or foreign body. CT/Extremity Lower without Contra IMPRESSION: Moderate to marked degree of joint space narrowing involving the medial compartment of knee joint with subchondral geodes along the medial femoral condyle with degenerative spur formation. Electronically Signed: Yang Walker MD at 13:58 EDT ,
[2022-08-19 13:42] LABS: Absolute Lymphocyte Count 1.33 X10^3/uL (0.83-4.51); Absolute Neutrophil Count 4.9 X10^3/uL (2.0-7.7); Basophil# 0.07 X10^3/uL; Eosinophil# 0.29 X10^3/uL; Hematocrit 45.3 % (40-54); Hemoglobin 15.2 g/dL (13.0-16.5); Lymphocyte # 1.33 X10^3/ul (0.83-4.51); Lymphocyte % 18.3 % (19-41); Mean Corp Hgb Conc 33.6 g/dL (32-36); Mean Corpuscular Hgb 31.7 pg (27.0-32.0); Mean Corpuscular Volume 94.6 fL (80-94); Mean Platelet Vol. 10.2 fl (6.2-12.0); Monocyte# 0.64 X10^3/uL; Monocyte% 8.8 % (0-10); NRBC Flagged by Analyzer 0 % (0-5); Neutrophil # 4.92 X10^3/uL (2.7-7.7); Neutrophil % 67.6 % (47-70); Platelet Count 220 K/mm3 (150-450); RBC Distribution Width CV 12.8 % (11.6-14.6); RBC Distribution Width SD 44.1 fl (35.1-43.9); Red Blood Count 4.79 M/mm3 (4.6-6.2); White Blood Count 7.3 K/mm3 (4.4-11.0)
[2022-08-19 13:59] LABS: Anion Gap 8 (5-15); BUN 16 mg/dL (7-18); BUN/Creat Ratio 13.4 RATIO (10-20); Calcium,Total 8.9 mg/dL (8.5-10.1); Chloride 103 mmol/L (98-107); Creatinine, Serum 1.19 mg/dL (0.70-1.30); EST Glomerular Filtration Rate 64 mL/min (>60); Est Glom Filt Rate - Afr Amer 77 mL/min (>60); Glucose 127 mg/dL (74-106); Potassium 4.1 mmol/L (3.5-5.1); Sodium Level 138 mmol/L (136-145)
[2022-08-19 14:08] LABS: Hemoglobin A1c 6.4 % (3.8-5.6)
== END | disposition home or self-care (01) ==
PROVIDERS: Physician Assistant; PCP Family Medicine; Referring Provider Orthopaedic Surgery; Visit Provider Orthopaedic Surgery
DX: M17.31 Unilateral post-traumatic osteoarthritis, right knee (principal); E11.9 Type 2 diabetes mellitus without complications; Z01.818 Encounter for other preprocedural examination; Z01.810 Encounter for preprocedural cardiovascular examination
CPT/HCPCS: 36415; 73700; 80048; 83036; 85025; 93005

== ENCOUNTER 2022-09-06 17:31 | Emergency (ER) | payer OTHER, SELFPAY ==
[2022-09-06 17:32] VITALS: BP 125/78; PULSE 75; RESP 17; TEMP 36.6; O2SAT 99; BMI 39.4
[2022-09-06] MEDS: oxyCODONE 5 MG Tablet 10 MG PO (20:14)
[2022-09-06 20:20] LABS: Absolute Lymphocyte Count 1.52 X10^3/uL (0.83-4.51); Absolute Neutrophil Count 6.4 X10^3/uL (2.0-7.7); Basophil# 0.07 X10^3/uL; Basophil% 0.8 % (0-1); Eosinophil# 0.18 X10^3/uL; Hematocrit 38.9 % (40-54); Hemoglobin 12.6 g/dL (13.0-16.5); Lymphocyte # 1.52 X10^3/ul (0.83-4.51); Lymphocyte % 16.7 % (19-41); Mean Corp Hgb Conc 32.4 g/dL (32-36); Mean Corpuscular Hgb 31.7 pg (27.0-32.0); Mean Platelet Vol. 10.2 fl (6.2-12.0); Monocyte# 0.86 X10^3/uL; Monocyte% 9.4 % (0-10); NRBC Flagged by Analyzer 0 % (0-5); Neutrophil # 6.44 X10^3/uL (2.7-7.7); Neutrophil % 70.7 % (47-70); Platelet Count 286 K/mm3 (150-450); RBC Distribution Width CV 12.4 % (11.6-14.6); RBC Distribution Width SD 44.5 fl (35.1-43.9); Red Blood Count 3.97 M/mm3 (4.6-6.2); White Blood Count 9.1 K/mm3 (4.4-11.0)
[2022-09-06 20:38] LABS: Anion Gap 9 (5-15); BUN 41 mg/dL (7-18); BUN/Creat Ratio 21.5 RATIO (10-20); Calcium,Total 9.5 mg/dL (8.5-10.1); Chloride 100 mmol/L (98-107); Creatinine, Serum 1.91 mg/dL (0.70-1.30); EST Glomerular Filtration Rate 37 mL/min (>60); Est Glom Filt Rate - Afr Amer 45 mL/min (>60); Estimated Creatinine Clearance 35.57 ml/min; Glucose 118 mg/dL (74-106); Potassium 3.9 mmol/L (3.5-5.1); Sodium Level 133 mmol/L (136-145)
[2022-09-06 20:41] LABS: Lactic Acid 1.8 mmol/L (0.4-1.9)
--- NOTE | 2022-09-06 20:56 | US_ITS ---
INDICATION: -- PAIN EXAMINATION: Ultrasound US Venous Duplex LE Unilat / Limited TECHNIQUE: Flood scale, pulse wave, and color flow Doppler imaging was performed of the lower extremity venous system. The right greater saphenous, common femoral, femoral, and popliteal veins were interrogated. COMPARISON: CT right lower extremity August 19, 2022. FINDINGS: There is normal compression, augmentation, and signal throughout the visualized deep lower extremity veins. Normal compression and color flow with symmetric waveforms in the left common femoral vein. No mass or fluid collection. Mildly prominent superficial veins suggesting varicosities. Minimal subcutaneous edema posterior to the knee. Prominent reniform shape, right inguinal region lymph nodes without suspicious morphology, cortical thickening or effacement of fatty hilum. US/Venous Duplex Imag/Limited/Uni IMPRESSION: No sonographic evidence of deep venous thrombosis. Mildly prominent superficial vein suggesting varicosities. Minimal subcutaneous edema posterior to the knee. Electronically Signed: Rei Morrison DO at 22:13 EDT ,
--- NOTE | 2022-09-06 22:09 | EX.ED.DYSGE1 ---
HPI History of Present Illness Chief Complaint: Lower Extremity Injury Informant: patient Onset/Context/Timing Onset: Days Narrative Narrative: Patient presents with right leg pain status post knee replacement. He had a right knee replacement on August 30 and has had increasing right leg pain. He had sharp pain behind his knee today and was sent in by orthopedics to ensure no evidence of DVT. Patient denies fever. [facility] Medical History Atherosclerosis of coronary artery of [place] heart without angina pectoris Essential (primary) hypertension History of non-ST elevation myocardial infarction (NSTEMI) (02/08/18) Hyperlipidemia Obesity (BMI 35.0-39.9 without comorbidity) Sleep apnea with use of continuous positive airway pressure (CPAP) Home Medications furosemide 40 mg tablet 40 mg PO DAILY 10/20/21 [History Last Taken Unknown] albuterol sulfate 90 mcg/actuation aerosol inhaler 2 puff inhalation Q4H PRN shortness of breath or wheezing #8.5 grams 11/05/21 [Rx Last Taken Unknown] aspirin 81 mg tablet,delayed release 81 mg PO DAILY #90 tabs 01/18/22 [Rx Last Taken Unknown] clopidogrel 75 mg tablet 75 mg PO DAILY #90 tabs 01/18/22 [Rx Last Taken Unknown] ezetimibe 10 mg tablet (Zetia) 10 mg PO DAILY #30 tabs 06/03/22 [Rx Last Taken Unknown] losartan 100 mg tablet 100 mg PO DAILY #90 tabs 06/22/22 [Rx Last Taken Unknown] metoprolol tartrate 50 mg tablet 50 mg PO BID #180 tabs 06/22/22 [Rx Last Taken Unknown] Allergy/AdvReac Type Severity Reaction Status Date / Time atorvastatin [From Lipitor] AdvReac Intermediate myalgias Verified 09/06/22 17:35 rosuvastatin [From Crestor] AdvReac Intermediate myalgias Verified 09/06/22 17:35 simvastatin [From Zocor] AdvReac Intermediate myalgias Verified 09/06/22 17:35 Family History Father Parkinson disease Surgical History History of coronary artery stent placement (02/10/18) Social History Smoking Status: Former smoker ROS ROS ED Constitutional Constitutional ED: Denies chills or fever(s) Eyes Eyes: Denies change in vision or discharge from eye(s) ENT ENT ED: Denies discharge from eye(s), rhinorrhea or sore throat Cardiovascular Cardiovascular: Denies chest pain or palpitations Respiratory/Chest Respiratory/Chest: Denies cough or dyspnea Gastrointestinal Gastrointestinal: Denies abdominal pain, diarrhea, nausea or vomiting Genitourinary Genitourinary ED: Denies difficulty urinating or dysuria Musculoskeletal Musculoskeletal: Reports extremity pain; Denies back pain Integumentary Denies Abrasions or rash Neurologic Neurologic: Denies headache(s), paresthesias or weakness Psychiatric Psychiatric: Denies anxiety or depression Allergic/Immunologic Allergic/Immunologic ED: Denies lip swelling or urticaria EXAM Physical Exam Const Vital Signs: 09/06/22 17:32 Temperature 97.8 F Temperature Source Temporal Pulse Rate 75 Respiratory Rate 17 Blood Pressure 125/78 H Blood Pressure Mean 93 Pulse Ox 99 Oxygen Delivery Method Room Air Positive well nourished and well developed General Appearance ED: well developed HEENT Reports moist mucous membranes Eyes PERRL and EOMs intact bilaterally Neck no lymphadenopathy Chest Wall inspection of chest normal and palpation of chest normal Resp normal respiratory effort and clear to auscultation bilaterally Cardio regular rate and regular rhythm GI normal to inspection, nondistended, normoactive bowel sounds Extremity Extremity Narrative: Gildardo intact over the anterior right knee. Few small pressure blisters are noted. Mild erythema noted to the lower leg. Good distal pulses. No palpable masses noted over the posterior knee. Neuro oriented x3 Psych mental status grossly normal MDM MDM MDM Narrative Medical decision making narrative: Labwork obtained to evaluate for leukocytosis, anemia, and electrolyte derangement. Venous ultrasound of the right lower extremity obtained to evaluate for DVT. Lab Data Attestation: I reviewed the patient's lab results. Labs: Laboratory Results - last 24 hr 09/06/22 09/06/22 09/06/22 20:05 20:05 20:05 WBC 9.1 RBC 3.97 L Hgb 12.6 L Hct 38.9 L MCV 98.0 H MCH 31.7 MCHC 32.4 RDW Std Deviation 44.5 H RDW Coeff of Daphnie 12.4 Plt Count 286 MPV 10.2 Immature Gran % (Auto) 0.400 Neut % (Auto) 70.7 H Lymph % (Auto) 16.7 L Delta % (Auto) 9.4 Eos % (Auto) 2.0 Baso % (Auto) 0.8 Absolute Neuts (auto) 6.4 Absolute Lymphs (auto) 1.52 Nucleated RBC % 0 Sodium 133 L Potassium 3.9 Chloride 100 Carbon Dioxide 24.0 Anion Gap 9 BUN 41 H Creatinine 1.91 H Estim Creat Clear Calc 35.57 Est GFR (MDRD) Af Amer 45 L Est GFR (MDRD) Non-Af 37 L BUN/Creatinine Ratio 21.5 H Glucose 118 H Lactic Acid 1.8 Calcium 9.5 Treatment and Re-Evaluation :: Right lower extremity ultrasound reveals no evidence of DVT per tech report. CBC was normal white count at 9.1 with no left shift. Chemistry studies significant only for slight bump in creatinine to 1.9. Lactic acid is normal at 1.8. Test results are discussed with patient and family at bedside. I did recommend leg elevation and wrapping as suggested by his orthopedic. Be sure to monitor for erythema and watch for signs of infection. 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 Return instructions provided. Discharge Plan Triage Chief Complaint: Lower Extremity Injury ED Provider: Guillermina Barone Dx/Rx/DC Orders Clinical Impression: Post-op pain Instructions: ED Post Op Wound Check, Pain Prescriptions: No Action furosemide 40 mg tablet 40 mg PO DAILY albuterol sulfate 90 mcg/actuation HFA aerosol inhaler 2 puff inhalation Q4H PRN (Reason: shortness of breath or wheezing) Qty: 8.5 3RF Rx Instructions: administer with spacer clopidogrel 75 mg tablet 75 mg PO DAILY Qty: 90 3RF aspirin 81 mg tablet,delayed release (DR/EC) 81 mg PO DAILY Qty: 90 5RF ezetimibe [Zetia] 10 mg tablet 10 mg PO DAILY Qty: 30 11RF losartan 100 mg tablet 100 mg PO DAILY Qty: 90 3RF metoprolol tartrate 50 mg tablet 50 mg PO BID Qty: 180 3RF Primary Care Provider: Toya Franco Referrals: Toya Franco, DO [Primary Care Provider] - Rei Fernandez DO [Med Staff - Active Staff] - Keep Tracie appointment Disposition Disposition: Home, Self Care
== END 2022-09-06 22:20 | disposition home or self-care (01) ==
PROVIDERS: Emergency Provider Emergency Medicine; PCP Family Medicine; Visit Provider Emergency Medicine
DX: G89.18 Other acute postprocedural pain (principal); I25.10 Atherosclerotic heart disease of native coronary artery without angina pectoris; Z87.891 Personal history of nicotine dependence; E78.5 Hyperlipidemia, unspecified; I10 Essential (primary) hypertension; Z96.651 Presence of right artificial knee joint; M79.604 Pain in right leg; I25.2 Old myocardial infarction; Z79.82 Long term (current) use of aspirin; Z79.02 Long term (current) use of antithrombotics/antiplatelets; Z79.899 Other long term (current) drug therapy; Z95.5 Presence of coronary angioplasty implant and graft
CPT/HCPCS: 80048; 83605; 85025; 93971; 99284; A4216

== ENCOUNTER → 2022-11-10 | Outpatient (CLI) | payer MEDICARE, SELFPAY ==
--- NOTE | 2022-11-10 08:32 | BI_ITS ---
EXAM: Diagnostic bilateral breast mammogram and diagnostic bilateral breast ultrasound REASON FOR EXAM: Male, 72 years old. Bilateral breast pain and palpable lumps for 2 months duration. PERTINENT HISTORY: No reported personal or family history of breast cancer. TECHNIQUE: Digital bilateral breast manjeet (3D mammographic acquisition) in the CC and MLO projections. 2-D mediolateral oblique (MLO) and craniocaudad (CC) views of the bilateral breasts were obtained. CAD: Full Field Digital Mammography with Computer Added Detection was performed. Real-time austin scale and color sonographic images were obtained of the bilateral retroareolar breasts in the clinical area of palpable finding. COMPARISON: None. FINDINGS: Mammogram findings: Breast Composition: The retroareolar bilateral breasts are heterogeneously dense, which may obscure small masses. The remainder of the breasts are almost entirely fatty. Bilateral retroareolar prominent fibroglandular tissue compatible with gynecomastia. No suspicious masses or suspicious calcifications. Ultrasound was obtained of the bilateral retroareolar breasts in the clinical area of concern was obtained. Ultrasound findings: The bilateral retroareolar breasts were assessed in clinical area of concern given palpable finding. Ultrasound findings are consistent with bilateral gynecomastia. No suspicious masses or abnormal fluid collections are identified. BI/DIAG MAMM W/CAD, BILAT IMPRESSION: Mammogram and ultrasound findings are consistent with bilateral gynecomastia. No mammographic evidence for malignancy. No findings to suggest malignancy in the imaged portions of the breast on ultrasound. ASSESSMENT CATEGORY: BIRADS Category 2: Benign. A letter regarding these results will be sent to the patient by the facility within 30 days. Recommendation: No further assessment is recommended. If clinical concerns for enlarging mass or nipple discharge on physical exam, repeat diagnostic ultrasound and mammogram is recommended. Approximately 10% of breast cancers are not detected by mammography. A normal mammogram should not delay biopsy of a clinically suspicious abnormality. Electronically Signed: Kit Whyte DO at 12:52 EDT ,
--- NOTE | 2022-11-10 08:37 | US_ITS ---
EXAM: Diagnostic bilateral breast mammogram and diagnostic bilateral breast ultrasound REASON FOR EXAM: Male, 72 years old. Bilateral breast pain and palpable lumps for 2 months duration. PERTINENT HISTORY: No reported personal or family history of breast cancer. TECHNIQUE: Digital bilateral breast manjeet (3D mammographic acquisition) in the CC and MLO projections. 2-D mediolateral oblique (MLO) and craniocaudad (CC) views of the bilateral breasts were obtained. CAD: Full Field Digital Mammography with Computer Added Detection was performed. Real-time austin scale and color sonographic images were obtained of the bilateral retroareolar breasts in the clinical area of palpable finding. COMPARISON: None. FINDINGS: Mammogram findings: Breast Composition: The retroareolar bilateral breasts are heterogeneously dense, which may obscure small masses. The remainder of the breasts are almost entirely fatty. Bilateral retroareolar prominent fibroglandular tissue compatible with gynecomastia. No suspicious masses or suspicious calcifications. Ultrasound was obtained of the bilateral retroareolar breasts in the clinical area of concern was obtained. Ultrasound findings: The bilateral retroareolar breasts were assessed in clinical area of concern given palpable finding. Ultrasound findings are consistent with bilateral gynecomastia. No suspicious masses or abnormal fluid collections are identified. IMPRESSION: Mammogram and ultrasound findings are consistent with bilateral gynecomastia. No mammographic evidence for malignancy. No findings to suggest malignancy in the imaged portions of the breast on ultrasound. ASSESSMENT CATEGORY: BIRADS Category 2: Benign. A letter regarding these results will be sent to the patient by the facility within 30 days. Recommendation: No further assessment is recommended. If clinical concerns for enlarging mass or nipple discharge on physical exam, repeat diagnostic ultrasound and mammogram is recommended. Approximately 10% of breast cancers are not detected by mammography. A normal mammogram should not delay biopsy of a clinically suspicious abnormality. Electronically Signed: Kit Whyte DO at 12:54 EDT , EXAM: Diagnostic bilateral breast mammogram and diagnostic bilateral breast ultrasound REASON FOR EXAM: Male, 72 years old. Bilateral breast pain and palpable lumps for 2 months duration. PERTINENT HISTORY: No reported personal or family history of breast cancer. TECHNIQUE: Digital bilateral breast manjeet (3D mammographic acquisition) in the CC and MLO projections. 2-D mediolateral oblique (MLO) and craniocaudad (CC) views of the bilateral breasts were obtained. CAD: Full Field Digital Mammography with Computer Added Detection was performed. Real-time austin scale and color sonographic images were obtained of the bilateral retroareolar breasts in the clinical area of palpable finding. COMPARISON: None. FINDINGS: Mammogram findings: Breast Composition: The retroareolar bilateral breasts are heterogeneously dense, which may obscure small masses. The remainder of the breasts are almost entirely fatty. Bilateral retroareolar prominent fibroglandular tissue compatible with gynecomastia. No suspicious masses or suspicious calcifications. Ultrasound was obtained of the bilateral retroareolar breasts in the clinical area of concern was obtained. Ultrasound findings: The bilateral retroareolar breasts were assessed in clinical area of concern given palpable finding. Ultrasound findings are consistent with bilateral gynecomastia. No suspicious masses or abnormal fluid collections are identified. US/Breast Limited Unilateral IMPRESSION: Mammogram and ultrasound findings are consistent with bilateral gynecomastia. No mammographic evidence for malignancy. No findings to suggest malignancy in the imaged portions of the breast on ultrasound. ASSESSMENT CATEGORY: BIRADS Category 2: Benign. A letter regarding these results will be sent to the patient by the facility within 30 days. Recommendation: No further assessment is recommended. If clinical concerns for enlarging mass or nipple discharge on physical exam, repeat diagnostic ultrasound and mammogram is recommended. Approximately 10% of breast cancers are not detected by mammography. A normal mammogram should not delay biopsy of a clinically suspicious abnormality. Electronically Signed: Kit Whyte DO at 12:53 EDT ,
== END | disposition home or self-care (01) ==
PROVIDERS: PCP Family Medicine; Referring Provider Family Medicine; Visit Provider Family Medicine
DX: N64.4 Mastodynia (principal)
CPT/HCPCS: 76642; 77062; 77066; G0279

== ENCOUNTER → 2023-02-15 | Outpatient (CLI) | payer MEDICARE, SELFPAY ==
[2023-02-15 16:08] LABS: AST(SGOT) 20 U/L (15-37); Alanine Aminotransfer ALT/SGPT 31 U/L (16-61); Albumin, Serum 3.9 g/dL (3.2-5.0); Alkaline Phosphatase 106 U/L (45-117); Bilirubin, Direct 0.23 mg/dL (0.00-0.30); Cholesterol 218 mg/dL (200); Globulin 4.2 g/dL (2.2-4.2); High Density Lipoprotein 43 mg/dL; Protein, Total 8.1 g/dL (6.4-8.2); Triglycerides 242 mg/dL; Very Low Density Lipoprotein 48 mg/dL (5-40)
== END | disposition home or self-care (01) ==
LOC: MTLAB 12:52
PROVIDERS: PCP Family Medicine; Referring Provider Physician Assistant Medical; Visit Provider Physician Assistant Medical
DX: E78.5 Hyperlipidemia, unspecified (principal); I25.10 Atherosclerotic heart disease of native coronary artery without angina pectoris
CPT/HCPCS: 36415; 80061; 80076

== ENCOUNTER → 2023-05-20 | Outpatient (CLI) | payer MEDICARE, SELFPAY ==
--- NOTE | 2023-05-20 16:45 | RAD_ITS ---
INDICATION: Hand injury EXAMINATION/TECHNIQUE: X-RAY - RIGHT XR Hand 3 VIEWS COMPARISON: FINDINGS: SOFT TISSUES: Soft tissue swelling of the third digit. No radiopaque foreign body. BONES/JOINTS: No acute fracture or subluxation.. Normal alignment. Mild degenerative changes at the interphalangeal joints.. No sclerotic or destructive changes observed. RAD/Hand Min 3 Views IMPRESSION: Soft tissue swelling of the third digit.. Electronically Signed: Ran Borjas DO at 19:18 EST ,
== END | disposition home or self-care (01) ==
LOC: MTRAD 16:45
PROVIDERS: PCP Family Medicine; Referring Provider Family Medicine; Visit Provider Family Medicine
DX: M79.89 Other specified soft tissue disorders (principal)
CPT/HCPCS: 73130

== ENCOUNTER → 2023-07-13 | Outpatient (CLI) | payer MEDICARE, SELFPAY ==
[2023-07-13 16:16] LABS: Uric Acid 8.8 mg/dL (3.5-7.2)
== END | disposition home or self-care (01) ==
LOC: MTLAB 13:31
PROVIDERS: Orthopaedic Surgery; PCP Family Medicine; Referring Provider Family Medicine; Visit Provider Family Medicine
DX: M10.9 Gout, unspecified (principal)
CPT/HCPCS: 36415; 84550

== ENCOUNTER 2023-07-20 15:33 | Outpatient (CLI) | payer MEDICARE, SELFPAY ==
[2023-07-20 17:44] LABS: Absolute Lymphocyte Count 1.37 X10^3/uL (0.83-4.51); Absolute Neutrophil Count 4.6 X10^3/uL (2.0-7.7); Basophil# 0.06 X10^3/uL; Basophil% 0.9 % (0-1); Eosinophil# 0.26 X10^3/uL; Eosinophils% 3.8 % (0-5); Hematocrit 43.7 % (40-54); Hemoglobin 14.3 g/dL (13.0-16.5); Lymphocyte # 1.37 X10^3/ul (0.83-4.51); Lymphocyte % 19.9 % (19-41); Mean Corp Hgb Conc 32.7 g/dL (32-36); Mean Corpuscular Hgb 31.6 pg (27.0-32.0); Mean Corpuscular Volume 96.7 fL (80-94); Mean Platelet Vol. 10.3 fl (6.2-12.0); Monocyte# 0.58 X10^3/uL; Monocyte% 8.4 % (0-10); NRBC Flagged by Analyzer 0 % (0-5); Neutrophil # 4.59 X10^3/uL (2.7-7.7); Neutrophil % 66.7 % (47-70); Platelet Count 203 K/mm3 (150-450); RBC Distribution Width CV 12.7 % (11.6-14.6); RBC Distribution Width SD 45.2 fl (35.1-43.9); Red Blood Count 4.52 M/mm3 (4.6-6.2); White Blood Count 6.9 K/mm3 (4.4-11.0)
[2023-07-20 18:10] LABS: Vitamin D,25 Hydroxy 19.3 ng/mL
[2023-07-20 18:11] LABS: ALB/GLOB Ratio 0.9 RATIO (0.9-2.4); AST(SGOT) 13 U/L (15-37); Alanine Aminotransfer ALT/SGPT 24 U/L (16-61); Albumin, Serum 3.4 g/dL (3.2-5.0); Alkaline Phosphatase 97 U/L (45-117); Anion Gap 5 (5-15); BUN 19 mg/dL (7-18); BUN/Creat Ratio 13.7 RATIO (10-20); Calcium,Total 8.6 mg/dL (8.5-10.1); Chloride 105 mmol/L (98-107); Cholesterol 260 mg/dL (200); Creatinine, Serum 1.39 mg/dL (0.70-1.30); EST Glomerular Filtration Rate 53 mL/min (>60); Est Glom Filt Rate - Afr Amer 64 mL/min (>60); Globulin 3.8 g/dL (2.2-4.2); Glucose 104 mg/dL (74-106); High Density Lipoprotein 42 mg/dL; Potassium 4.2 mmol/L (3.5-5.1); Protein, Total 7.2 g/dL (6.4-8.2); Sodium Level 140 mmol/L (136-145); Triglycerides 186 mg/dL; Very Low Density Lipoprotein 37 mg/dL (5-40)
[2023-07-20 18:19] LABS: Hemoglobin A1c 6.2 % (3.8-5.6)
== END 2023-07-20 23:59 | disposition home or self-care (01) ==
LOC: MTLAB 15:34
PROVIDERS: PCP Family Medicine; Visit Provider Family Medicine
DX: I10 Essential (primary) hypertension (principal); M10.9 Gout, unspecified; R73.03 Prediabetes
CPT/HCPCS: 36415; 80053; 80061; 82306; 83036; 85025

== ENCOUNTER → 2024-02-01 | Outpatient (CLI) | payer MEDICARE, SELFPAY ==
[2024-02-01 10:42] LABS: AST(SGOT) 16 U/L (15-37); Alanine Aminotransfer ALT/SGPT 24 U/L (16-61); Albumin, Serum 3.3 g/dL (3.2-5.0); Alkaline Phosphatase 108 U/L (45-117); Bilirubin, Direct 0.21 mg/dL (0.00-0.30); Cholesterol 199 mg/dL (200); Globulin 3.7 g/dL (2.2-4.2); High Density Lipoprotein 37 mg/dL; Triglycerides 186 mg/dL; Very Low Density Lipoprotein 37 mg/dL (5-40)
== END | disposition home or self-care (01) ==
LOC: MTLAB 09:24
PROVIDERS: PCP Family Medicine; Referring Provider Physician Assistant Medical; Visit Provider Physician Assistant Medical
DX: E78.5 Hyperlipidemia, unspecified (principal); I25.10 Atherosclerotic heart disease of native coronary artery without angina pectoris
CPT/HCPCS: 36415; 80061; 80076

== ENCOUNTER 2024-12-18 16:41 | Inpatient (IN) | payer MEDICARE, SELFPAY ==
[2024-12-18] VITALS (9 sets, daily range): BP systolic 117–153; BP diastolic 54–66; PULSE 57–72; RESP 16–18; TEMP 36.6–37.2; O2SAT 99–100; BMI 38.2; BMI 38.0
--- NOTE | 2024-12-18 16:54 | EKG12_ITS ---
Test Reason : DYSRHYTHMIA Blood Pressure : */* mmHG Vent. Rate : 65 BPM Atrial Rate : 65 BPM P-R Int : 258 ms QRS Dur : 88 ms QT Int : 448 ms P-R-T Axes : 15 -70 -14 degrees QTcB Int : 465 ms Sinus rhythm with 1st degree A-V block Left axis deviation Low voltage QRS Inferior infarct , age undetermined Abnormal ECG Confirmed by PURNIMA LIN, JONATHON ([id number]), digital editor LATOYA KIM ([id number]) on 12/19/2024 8:23:35 AM Referred By: Confirmed By: JONATHON FELTON MD
--- NOTE | 2024-12-18 16:55 | ED.VIS.CHEST ---
HPI History of Present Illness Chief Complaint: Chest Pain Narrative Narrative: 74-year-old male past medical history of coronary artery disease, 1 stent placed at least [address] Pichardo presents with chest pain that began about an hour ago. He describes it more as a pressure sensation across the top of his chest, and indigestion type feeling as well. He was at rest when it started. He became very diaphoretic and short of breath. He denies any nausea or vomiting. No exacerbating or alleviating factors. He states he takes Lasix when he swells on occasion. He does not take a blood thinner but takes a daily aspirin/baby aspirin. [facility] Medical History Venous insufficiency Hyperlipidemia History of non-ST elevation myocardial infarction (NSTEMI) (02/08/18) Obesity (BMI 35.0-39.9 without comorbidity) Sleep apnea with use of continuous positive airway pressure (CPAP) Atherosclerosis of coronary artery of [place] heart without angina pectoris Essential (primary) hypertension Home Medications ?Medication ?Instructions ?Recorded ?Last Taken ?Type aspirin 81 mg tablet,delayed 81 mg PO DAILY #90 tabs 11/11/22 12/18/24 Rx release albuterol sulfate 90 mcg/actuation 2 puff inhalation Q4H PRN 06/26/24 Unknown Rx aerosol inhaler shortness of breath or wheezing #8.5 grams losartan 100 mg tablet 100 mg PO DAILY #90 tabs 08/30/24 Unknown Rx metoprolol tartrate 50 mg tablet 50 mg PO BID #180 tabs 08/30/24 12/18/24 Rx furosemide 40 mg tablet 40 mg PO DAILY PRN swelling or 10/08/24 12/18/24 Rx weight gain #30 tabs Allergy/AdvReac Type Severity Reaction Status Date / Time animal dander Allergy Other Verified 12/18/24 16:51 atorvastatin (From Lipitor) AdvReac Intermediate myalgias Verified 12/18/24 16:51 rosuvastatin (From Crestor) AdvReac Intermediate myalgias Verified 12/18/24 16:51 simvastatin (From Zocor) AdvReac Intermediate myalgias Verified 12/18/24 16:51 Family History Father Parkinson disease Surgical History History of total right knee replacement History of coronary artery stent placement (02/10/18) Social History (Updated 12/18/24 @ 20:[address] Soheila Hodge MD) household members: spouse Smoking Status: Former smoker alcohol intake: current substance use type: does not use ROS ROS ED ROS Narrative Review of systems positive for chest pressure across top of chest and indigestion type feeling. Positive diaphoresis. Positive shortness of breath. No nausea or vomiting. No recent leg swelling. No exacerbating or alleviating factors. EXAM Physical Exam Narrative Exam Narrative: Afebrile. Vital signs noted. Nontoxic-appearing. Cardiovascular examination feels regular rate and rhythm. Lungs are clear to auscultation bilaterally. Abdomen is soft and nontender with positive bowel sounds. No pedal edema. Const Vital Signs: 12/18/24 16:42 12/18/24 16:54 12/18/24 17:41 Temperature 97.9 F Temperature Source Oral Pulse Rate 72 Respiratory Rate 16 Blood Pressure 138/58 H Blood Pressure Mean 84 Pulse Ox 100 100 Oxygen Delivery Method Room Air Room Air 12/18/24 18:00 12/18/24 19:00 12/18/24 20:00 Temperature Temperature Source Pulse Rate 70 60 57 L Respiratory Rate 16 18 18 Blood Pressure 117/55 L 121/61 H 148/66 H Blood Pressure Mean 75 81 93 Pulse Ox 100 99 100 Oxygen Delivery Method Room Air Room Air Room Air MDM MDM MDM Narrative Medical decision making narrative: Differential diagnosis includes but not limited to ACS versus GERD versus pulmonary embolism versus pneumonia. I have low suspicion for pulmonary embolism because history and physical does not support this. EKG was obtained and interpreted by myself independently as sinus rhythm with first-degree AV block at [address] changes. No STEMI. No significant change from EKG in August 2022. I reviewed his laboratory work and he has normal white count of 8.3 with hemoglobin 15.4, hematocrit 44.1, platelet count 276. BMP is significant for CO2 low at 20.4 which I think is nonspecific, creatinine slightly elevated at 1.3. Glucose is 149. Initial high-sensitivity troponin 22. I individually interpreted his chest x-ray and see no evidence of an acute process, no pneumonia, no pneumothorax. I reviewed the radiology report which confirms my independent interpretation. His 2-hour troponin elevated to 46. This is a positive delta troponin and I have [place] concern for ACS/non-STEMI. Upon repeat examination, he is pain-free. He took 2 baby aspirin prior to arrival and he was supplemented with 2 additional baby aspirin. He will be started on heparin with a heparin bolus for non-STEMI. I will discuss patient with the hospitalist for admission. I discussed the patient with Dr. Hodge who will place him in the PCU for observation. Patient is in stable condition and pain-free. History & Record Review Discussion w/independent historian: Patient Additional record(s) reviewed:: Prior labs Lab Data Attestation: I reviewed the patient's lab results. Labs: Laboratory Results - last 24 hr 12/18/24 12/18/24 17:00 19:00 WBC 8.3 RBC 4.88 Hgb 15.4 Hct 44.1 MCV 90.4 MCH 31.6 MCHC 34.9 RDW Std Deviation 40.7 RDW Coeff of Daphnie 12.5 Plt Count 276 MPV 10.3 Immature Gran % (Auto) 0.200 Neut % (Auto) 58.2 Lymph % (Auto) 29.0 [place] % (Auto) 8.8 Eos % (Auto) 3.1 Baso % (Auto) 0.7 Absolute Neuts (auto) 4.8 Absolute Lymphs (auto) 2.40 Nucleated RBC % 0 Sodium 139 Potassium 4.5 Chloride 101 Carbon Dioxide 20.4 L Anion Gap 17 H BUN 15 Creatinine 1.30 H Estim Creat Clear Calc 62.99 Est GFR (MDRD) Non-Af 57 L BUN/Creatinine Ratio 11.2 Glucose 149 H Calcium 9.3 Troponin T High Sens 22 Troponin T Hi Sens 2 Hr 46 H Radiography Chest X-Ray - ED: 1 View, Read by ED Physician, Read by Radiologist and No Acute Disease Diagnostic Testing: Clinical Impression(s) from Imaging Studies Chest X-Ray 12/18/24 17:06 IMPRESSION: No evidence of acute cardiopulmonary disease. Reading Location: [facility] Management Discussion w/another healthcare provider: Hospitalist Discharge Plan Dx/Rx/DC Orders Clinical Impression: Chest pain, Elevated troponin, Hyperlipidemia, Essential (primary) hypertension, ACS (acute coronary syndrome) Disposition Disposition: Acute Care Hospital [facility]
--- NOTE | 2024-12-18 17:06 | RAD_ITS ---
PROCEDURE: CHEST 1 VIEW (PORTABLE) 12/18/2024 REASON FOR EXAM: CHEST PAIN TECHNIQUE: Frontal view of the chest. COMPARISON: 02/08/2018 FINDINGS: Lungs/Pleura: Clear. No pneumothorax or sizable pleural effusion. Heart/Mediastinum: Borderline enlarged. Aortic arch calcification. Bones/Soft tissues: Degenerative changes of the spine and AC joints. RAD/Chest 1 View (Portable) IMPRESSION: No evidence of acute cardiopulmonary disease. Reading Location: [id number]
[2024-12-18 17:26] LABS: Hematocrit 44.1 % (40-54); Hemoglobin 15.4 g/dL (13.0-16.5); Immature Granulocytes Count 0.020 X10^3/uL (0.0-0.0); Mean Corp Hgb Conc 34.9 g/dL (32-36); Mean Corpuscular Volume 90.4 fL (80-94); Mean Platelet Vol. 10.3 fl (6.2-12.0); NRBC Flagged by Analyzer 0 % (0-5); Platelet Count 276 K/mm3 (150-450); RBC Distribution Width CV 12.5 % (11.6-14.6); RBC Distribution Width SD 40.7 fl (35.1-43.9); Red Blood Count 4.88 M/mm3 (4.6-6.2); White Blood Count 8.3 K/mm3 (4.4-11.0)
[2024-12-18 17:27] LABS: Troponin T High Sensitivity 22 ng/L (<=22)
[2024-12-18 17:34] LABS: Anion Gap 17 (5-15); BUN 15 mg/dL (4-19); BUN/Creat Ratio 11.2 RATIO (10-20); Calcium,Total 9.3 mg/dL (7.6-11.0); Carbon Dioxide 20.4 mmol/L (21.0-32.0); Chloride 101 mmol/L (98-108); Estimated Creatinine Clearance 62.99 ml/min (50-250); Glucose 149 mg/dL (70-99); Potassium 4.5 mmol/L (3.3-5.1)
[2024-12-18 19:48] LABS: Troponin T High Sens 2 HR 46 ng/L (<=22)
--- NOTE | 2024-12-18 20:19 | HP.PCM.HOS_ITS ---
HPI - General General Date of Admission: 12/18/24 Date of Service: 12/18/24 Chief Complaint: Chest pain, dyspnea, diaphoresis. HPI Narrative The patient is a 74 y/o M w/ PMHx: CKD stage III per previous GFR trending, CAD s/p PCI RCA 2017, HTN, HLD, LARRY, Former tobacco use who presents to the [facility] ED on 12/18/2024 with history of chest pain with onset approximately 1 hour prior to ED arrival described as pressure-like sensation across the top of his chest with dyspepsia type sensation noted to been at rest when it started with onset of significant diaphoresis and dyspnea with no specific nausea or emesis prompting ED evaluation to be cautious. Patient was administered 2 baby aspirin prior to her ED arrival via self in addition to an additional 2 in the ED to total full-strength aspirin. Patient noted at its worst discomfort was 5 out of 10 in severity. He notes he is now currently chest pain-free. Patient reports that this was similar to his first NSTEMI presentation prior to his PCI intervention. Workup in the ED included T97.9, heart rate 72, BP 130/58, respiratory rate 16, 100% on room air with most recent repeat vitals heart rate 57, BP 140/66, respiratory rate 18, 100% on room air, CBC with WBC 8.3, hemoglobin 15.4, platelet 276 without marked shift, BMP with carbon oxide 20.4, anion gap 17, BUN/Cr 15/1.30, GFR 57, glucose 149, troponin initial 22 with repeat delta 46, chest x-ray with no acute cardiopulmonary findings, EKG sinus rhythm with first-degree AV block with no acute evidence of ischemia with no significant change from EKG 08/2022. In the ED patient understood full-strength aspirin therapy and initiated on a heparin drip with a heparin bolus. [facility] Medical History Venous insufficiency Hyperlipidemia History of non-ST elevation myocardial infarction (NSTEMI) (02/08/18) Obesity (BMI 35.0-39.9 without comorbidity) Sleep apnea with use of continuous positive airway pressure (CPAP) Atherosclerosis of coronary artery of [place] heart without angina pectoris Essential (primary) hypertension Home Medications ?Medication ?Instructions ?Recorded ?Last Taken ?Type aspirin 81 mg tablet,delayed 81 mg PO DAILY #90 tabs 0 11/11/22 12/18/24 Rx release albuterol sulfate 90 mcg/actuation 2 puff inhalation Q 4H PRN 06/26/24 Unknown Rx aerosol inhaler shortness of breath or [place] ing #8.5 grams losartan 100 mg tablet 100 mg PO DAILY #90 tabs 03/14 Unknown Rx metoprolol tartrate 50 mg tablet 50 mg PO BID #180 tab s 08/30/24 12/18/24 Rx furosemide 40 mg tablet 40 mg PO DAILY PRN swelling or 10/08/24 12/18/24 Rx weight gain #30 tabs Allergy/AdvReac Type Severity Reaction Status Date / Time animal dander Allergy Other Verified 12/18/24 16:51 atorvastatin (From Lipitor) AdvReac Intermediate myalgias Verified 12/18/24 16:51 rosuvastatin (From Crestor) AdvReac Intermediate myalgias Verified 12/18/24 16:51 simvastatin (From Zocor) AdvReac Intermediate myalgias Verified 12/18/24 16:51 Family History Father Parkinson disease Mother No problems noted. Surgical History History of total right knee replacement History of coronary artery stent placement (02/10/18) Social History household members: spouse Smoking Status: Former smoker alcohol intake: current alcohol intake frequency: a few times a week details: 1-2 drinks, occasionally 3, 2-3x/week substance use type: does not use ROS ROS Narrative Admission Review of Systems: CONSTITUTIONAL: No weight loss, fever, chills, + weakness or fatigue. HEENT: Eyes: No visual loss, blurred vision, double vision or yellow sclerae. Ears, Nose, Throat: No hearing loss, sneezing, congestion, runny nose or sore throat. SKIN: No rash or itching, lesions, wounds. CARDIOVASCULAR: + Chest pain. No palpitations, increased edema, orthopnea, syncopal events. RESPIRATORY: + Dyspnea. No marked cough or sputum, wheezing, hemoptysis. GASTROINTESTINAL: + Dyspepsia. No anorexia, nausea, vomiting or diarrhea, abdominal pain, melena, BRBPR. GENITOURINARY: No dysuria, frequency, urgency or retention. NEUROLOGICAL: No headache, dizziness, syncope, paralysis, ataxia, numbness or tingling in the extremities, focal weakness, change in bowel or bladder control, seizure. MUSCULOSKELETAL: + muscle, back pain, joint pain or stiffness. HEMATOLOGIC: No anemia, bleeding or bruising. LYMPHATICS: No enlarged nodes. No history of splenectomy. PSYCHIATRIC: No history of depression or anxiety. ENDOCRINOLOGIC: + Diaphoresis. No cold or heat intolerance. No polyuria or polydipsia. ALLERGIES: No history of asthma, hives, eczema or rhinitis. Vital Signs Vital Signs Vital Signs: 12/18/24 16:42 12/18/24 16:54 12/18/24 17:41 Temperature 97.9 F Temperature Source Oral Pulse Rate 72 Respiratory Rate 16 Blood Pressure 138/58 H Blood Pressure Mean 84 Pulse Ox 100 100 Oxygen Delivery Method Room Air Room Air 12/18/24 18:00 12/18/24 19:00 12/18/24 20:00 Temperature Temperature Source Pulse Rate 70 60 57 L Respiratory Rate 16 18 18 Blood Pressure 117/55 L 121/61 H 148/66 H Blood Pressure Mean 75 81 93 Pulse Ox 100 99 100 Oxygen Delivery Method Room Air Room Air Room Air Weight Weight: 266 lb 5.094 oz Body Mass Index (BMI) 38.2 Physical Exam Narrative Physical Examination: General: Awake, alert, oriented x 3 and cooperative, seated upright in the ED bed, notes chest pain is resolved. Skin: Notable diffuse kaba with reporting that he is usually out in the sun approximate 30 minutes daily, normal turgor, no icterus, no cyanosis except occasional stage ecchymoses, abrasion, mild intertrigo in the armpit folds and notable bilateral lower extremity venous stasis skin changes. HEENT: AT/NC, EOMI, PERRLA, MMM, no carotid bruits or JVD noted. Lungs: CTA bilaterally, moderate effort, mild decrease BL bases, no rales, ronchi or wheezing. Heart: Regular rate and rhythm; no gallop, rub audible. Abdomen: Soft, obese, umbilical hernia evident, NTTP, ND, normal BS, no appreciated HSM. Extremities: No cyanosis, no clubbing, no significant distal edema, see skin. Neurological: Patient awake, alert, oriented as noted, cognitive function intact; pupils equally reactive to light and accommodation, cranial nerves grossly normal, moving all 4 extremities, no focal deficits, strength preserved. Psychiatric: Affect appears normal, no acute evidence of depressive or anxiety feelings. Results Lab / Micro Data 12/18/24 20:19 12/18/24 17:00 Labs: Laboratory Results - last 24 hr 12/18/24 17:00: WBC 8.3, RBC 4.88, Hgb 15.4, Hct 44.1, MCV 90.4, MCH 31.6, MCHC 34.9, RDW Std Deviation 40.7, RDW Coeff of Daphnie 12.5, Plt Count 276, MPV 10.3, Immature Gran % (Auto) 0.200, Neut % (Auto) 58.2, Lymph % (Auto) 29.0, [place] % (Auto) 8.8, Eos % (Auto) 3.1, Baso % (Auto) 0.7, Absolute Neuts (auto) 4.8, Absolute Lymphs (auto) 2.40, Nucleated RBC % 0, Sodium 139, Potassium 4.5, Chloride 101, Carbon Dioxide 20.4 L, Anion Gap 17 H, BUN 15, Creatinine 1.30 H, Estim Creat Clear Calc 62.99, Est GFR (MDRD) Non-Af 57 L, BUN/Creatinine Ratio 11.2, Glucose 149 H, Calcium 9.3, Troponin T High Sens 22 12/18/24 19:00: Troponin T Hi Sens 2 Hr 46 H Imaging Radiology Impression Chest X-Ray 12/18/24 17:06 IMPRESSION: No evidence of acute cardiopulmonary disease. Reading Location: [id number] Assessment & Plan Assessment/Plan (1) ACS (acute coronary syndrome): (2) Elevated troponin: PLAN: Plan The patient is a 74 y/o M w/ PMHx: CKD stage III per previous GFR trending, CAD s/p PCI RCA 2017, HTN, HLD, LARRY, Former tobacco use who presents to the [facility] ED on 12/18/2024 with history of chest pain with onset approximately 1 hour prior to ED arrival described as pressure-like sensation across the top of his chest with dyspepsia type sensation noted to been at rest when it started with onset of significant diaphoresis and dyspnea with no specific nausea or emesis prompting ED evaluation to be cautious. #1. Chest pain concerning for ACS with indeterminate cardiac enzyme of unclear significance: EKG in ED sinus rhythm with first-degree AV block with no acute evidence of ischemia, CXR w/ no acute cardiopulmonary findings, initial trop 22 with repeat delta 46. Will admit to PCU, maintain on monitored telemetry, continue to cycle cardiac enzymes, repeat EKG upon transition and as needed. Given significant underlying history, previous PCI and notable rise of second troponin thus will continue heparin drip initiated per the ED. ECHO requested. Cardiology consulted given initial strong concern for ACS. ASA, NG, morphine. #2. Hyperglycemia: No reported diabetic history, admission glucose 149, HgbA1c requested. #3. CAD: Status post previous PCI RCA 2017 3.5 x 16 Promus Synergy, most recent stress test noted 11/2021 with no inducible ischemia noted, continue aspirin, noted to be statin/Zetia intolerant as noted, continue metoprolol and losartan home regimen. #4. Chronic Kidney Disease Stage III, per previous GFR trend: Admission BUN/Cr 15/1.30, GFR 57, baseline renal function primarily 0.9-1.3, repeat BMP in AM. #5. Hypertension: Continue home regimen including metoprolol, losartan, amlodipine, PRN hydralazine. From records previously been on Lasix #6. Hyperlipidemia: Per most recent cardiology note 08/30/2024 patient is been intolerant to statins as well as Zetia, possibly may need to be considered outpatient per their note for KANIKA Patino as noted. #7. Chronic venous insufficiency: Encouraged continued compression stockings outpatient, noted to use as needed Lasix. #8. Former tobacco use: Encourage continued tobacco cessation. #9. Obesity: Weight loss and lifestyle changes encouraged. #10. LARRY: CPAP nightly. #11. Possible intertrigo: Noted irritation in the folds in the armpits, will initiate topical nystatin. #12. DVT prophylaxis: Will continue heparin drip as noted. #13. CODE status: Patient HCPOA and LW not in place but his present would be his medical decision maker if needed he notes. Discussed CODE status at length including difference between FULL code, DNR-CCA and DNR-CC status. Following discussions about the differences in these status, requested Full Code status. Charges/Coding Visit Charges Inpatient E&M: 88660 Init Hosp L3
--- NOTE | 2024-12-18 20:26 | EKG12_ITS ---
Test Reason : BRADYCARDIA Blood Pressure : */* mmHG Vent. Rate : 58 BPM Atrial Rate : 58 BPM P-R Int : 270 ms QRS Dur : 94 ms QT Int : 448 ms P-R-T Axes : * -76 6 degrees QTcB Int : 439 ms Sinus bradycardia with 1st degree A-V block Left axis deviation Low voltage QRS Septal infarct , age undetermined Inferior infarct , age undetermined Abnormal ECG When compared with ECG of 19-Dec-2024 11:27, MANUAL COMPARISON REQUIRED DATA IS UNCONFIRMED Confirmed by SHRUTHI LIN, CHRISTIANNE ([id number]), film and video editor LATOYA KIM ([id number]) on 12/24/2024 6:33:58 AM Referred By: Confirmed By: CHRISTIANNE HAWKINS MD
[2024-12-18 20:44] LABS: Hematocrit 44.5 % (40-54); Hemoglobin 15.2 g/dL (13.0-16.5); Immature Granulocytes Count 0.030 X10^3/uL (0.0-0.0); Mean Corp Hgb Conc 34.2 g/dL (32-36); Mean Corpuscular Volume 92.9 fL (80-94); NRBC Flagged by Analyzer 0 % (0-5); POSITIVE COUNT YES; RBC Distribution Width CV 12.5 % (11.6-14.6); RBC Distribution Width SD 42.5 fl (35.1-43.9); Red Blood Count 4.79 M/mm3 (4.6-6.2); White Blood Count 9.1 K/mm3 (4.4-11.0)
[2024-12-18] MEDS: HEPARIN/D5w 25,000 UNITS 25,000 UNITS/250 ML IV.SOLN. 13.3 UNITS CONT INF (20:49)
[2024-12-18] MEDS: Heparin Injection (Vial) 5,000 UNIT/ML VIAL 4000 UNIT IV (20:49)
[2024-12-18 20:52] LABS: Differential Indicated SCAN CRITERIA MET
[2024-12-18 21:02] LABS: Prothrombin Time (Protime)PT. 13.2 SECONDS (11.7-14.9)
--- NOTE | 2024-12-18 21:02 | EKG12_ITS ---
Test Reason : CP Blood Pressure : */* mmHG Vent. Rate : 76 BPM Atrial Rate : 76 BPM P-R Int : 264 ms QRS Dur : 90 ms QT Int : 426 ms P-R-T Axes : -2 -69 10 degrees QTcB Int : 479 ms Sinus rhythm with 1st degree A-V block Left axis deviation Low voltage QRS Inferior infarct , age undetermined Abnormal ECG Confirmed by PURNIMA LIN, JONATHON ([id number]), editor in chief LATOYA KIM ([id number]) on 12/19/2024 8:23:27 AM Referred By: AR/ARTURO Confirmed By: JONATHON FELTON MD
--- NOTE | 2024-12-18 21:02 | ECHOCS_ITS ---
Reason For Study : CAD/ASHD Procedure This was a 2D Doppler, Color Flow transthoracic echocardiogram. The study was technically difficult. Due to body habitus. Contrast injection was performed. Exam performed portable in patient room. Left Ventricle Normal LV size. Mild concentric left ventricular hypertrophy. Left ventricular systolic function is normal. The left ventricular ejection fraction is 60 %. Stage 1 diastolic dysfunction. No regional wall motion abnormalities noted. Right Ventricle Normal RV size. Normal systolic function. Atria Normal left atrium. Normal right atrium. Mitral Valve Normal mitral valve. Tricuspid Valve Normal tricuspid valve. Aortic Valve Mild focal aortic valve calcification. Peak aortic valve gradient 41 mmHg. Mean aortic valve gradient 22 mmHg. Moderate aortic stenosis. Pulmonic Valve The pulmonic valve is not well visualized. Great Vessels Normal aortic root. The pulmonary artery is normal size. Inferior vena cava collapse with respiration. Pericardium/Pleural No pericardial effusion. Medication Diluted definity 2.5ml given slow IV push to enhance endocardial definition. MMode/2D Measurements & Calculations LVIDd: 4.9 cm IVSd: 1.3 cm LVOT diam: 2.1 cm LVIDs: 3.1 cm LVPWd: 1.3 cm FS: 37.0 % LVOT area: 3.4 cm2 Ao root diam: 3.9 cm LAV(MOD-bp): 97.4 ml LVAd ap4: 38.5 cm2 LAV(MOD-bp) Indexed: 41.5 ml/m2 LVLd ap4: 9.2 cm LAV(MOD-sp2): 79.0 ml EDV(MOD-sp4): 139.2 ml LAV(MOD-sp4): 113.1 ml EDV(sp4-el): 136.9 ml LVAs ap4: 20.9 cm2 LVLs ap4: 7.5 cm ESV(MOD-sp4): 50.9 ml ESV(sp4-el): 49.0 ml EF(MOD-sp4): 63.4 % EF(sp4-el): 64.2 % LVAd ap2: 36.5 cm2 SV(MOD-sp4): 88.3 ml SV(MOD-sp2): 85.6 ml LVLd ap2: 8.4 cm SI(MOD-sp4): 37.6 ml/m2 SI(MOD-sp2): 36.4 ml/m2 EDV(MOD-sp2): 132.7 ml EDV(sp2-el): 134.7 ml LVAs ap2: 20.4 cm2 LVLs ap2: 7.3 cm ESV(MOD-sp2): 47.1 ml ESV(sp2-el): 48.2 ml EF(MOD-sp2): 64.5 % SV(sp4-el): 87.9 ml LA dimension(2D): 5.3 cm LA A4 area: 31.3 cm2 RA A4 area: 25.5 cm2 TAPSE: 2.7 cm Time Measurements MV dec time: 0.20 sec Doppler Measurements & Calculations MV E max conor: 93.3 cm/sec Lat Peak E' Conor: 9.5 cm/sec Med Peak E' Conor: 7.2 cm/sec MV A max conor: 109.6 cm/sec E/E' lat: 9.8 E/E' med: 12.9 MV E/A: 0.85 MV V2 max: 109.6 cm/sec MV P1/2t max conor: 94.0 cm/sec Ao V2 max: 317.8 cm/sec MV max P.8 mmHg MV P1/2t: 68.3 msec Ao max P.4 mmHg MV V2 mean: 63.7 cm/sec Ao V2 mean: 223.1 cm/sec MV mean P.9 mmHg MV dec slope: 403.1 cm/sec2 Ao mean P.9 mmHg MV V2 VTI: 38.9 cm MVA(P1/2t): 3.2 cm2 Ao V2 VTI: 75.4 cm AV (velocity ratio): 0.38 MVA(VTI): 2.5 cm2 UNIQUE(I,D): 1.3 cm2 UNIQUE(V,D): 1.2 cm2 LV V1 max: 111.2 cm/sec SV(LVOT): 97.1 ml PA V2 max: 96.6 cm/sec LV V1 max P.9 mmHg LV V1 mean P.5 mmHg LV V1 mean: 75.3 cm/sec LV V1 VTI: 28.8 cm ECHO/Echo Complete W/ Contrast Interpretation Summary Normal LV size. Left ventricular systolic function is normal. The left ventricular ejection fraction is 60 %. Mild concentric left ventricular hypertrophy. Stage 1 diastolic dysfunction. Moderate aortic stenosis. Mean aortic valve gradient 22 mmHg. Contrast injection was performed. Ordering Physician: Soheila Hodge Referring Physician: Nash Morales Performed By: Chayo Akbar, LOYD, RVT
[2024-12-18 21:03] LABS: Partial Thromboplast Time 22.6 Seconds (24.1-36.2)
[2024-12-18 21:30] LABS: Magnesium 2.2 mg/dL (1.5-2.2)
[2024-12-18] MEDS: Nystatin Ointment 1 APPLIC TOPICAL (22:18)
[2024-12-18 22:40] LABS: Platelet Count 236 K/mm3 (150-450)
[2024-12-18 22:41] LABS: Mean Platelet Vol. 11.4 fl (6.2-12.0)
[2024-12-18] MEDS: 0.9% Normal Saline (500mL Bag) 500 ML 75 ML IV (23:55)
[2024-12-19] VITALS (14 sets, daily range): BP systolic 124–153; BP diastolic 50–72; PULSE 51–61; RESP 16–18; TEMP 35.7–36.7; O2SAT 97–100; BMI 38.0
[2024-12-19 01:15] LABS: Troponin T High Sens 4 HR 69 ng/L (<=22)
--- NOTE | 2024-12-19 03:33 | CPS ---
OUTSIDE COLLECTOR discussed CPAP use for patients hospital stay, patient declined
[2024-12-19 03:56] LABS: Partial Thromboplast Time 82.4 Seconds (24.1-36.2)
[2024-12-19 04:22] LABS: AST(SGOT) 15 U/L (<=37); Alanine Aminotransfer ALT/SGPT 14 U/L (<=46); Albumin, Serum 3.5 g/dL (3.4-4.8); Alkaline Phosphatase 95 U/L (40-129); Anion Gap 13 (5-15); BUN 13 mg/dL (4-19); BUN/Creat Ratio 11.7 RATIO (10-20); Calcium,Total 8.8 mg/dL (7.6-11.0); Carbon Dioxide 21.4 mmol/L (21.0-32.0); Chloride 103 mmol/L (98-108); Cholesterol 186 mg/dL (<=200); Estimated Creatinine Clearance 72.89 ml/min (50-250); Globulin 2.8 g/dL (2.2-4.2); Glucose 127 mg/dL (70-99); Low Density Lipoprotein Calc. 124 mg/dL; Potassium 4.1 mmol/L (3.3-5.1); Triglycerides 147 mg/dL; Very Low Density Lipoprotein 29 mg/dL (5-40); cholesterol:hdl ratio screen 5.67
[2024-12-19 04:25] LABS: Hematocrit 41.9 % (40-54); Hemoglobin 14.1 g/dL (13.0-16.5); Immature Granulocytes Count 0.020 X10^3/uL (0.0-0.0); Mean Corp Hgb Conc 33.7 g/dL (32-36); Mean Corpuscular Volume 93.3 fL (80-94); Mean Platelet Vol. 10.6 fl (6.2-12.0); NRBC Flagged by Analyzer 0 % (0-5); Platelet Count 239 K/mm3 (150-450); RBC Distribution Width CV 12.5 % (11.6-14.6); RBC Distribution Width SD 42.2 fl (35.1-43.9); Red Blood Count 4.49 M/mm3 (4.6-6.2); White Blood Count 7.1 K/mm3 (4.4-11.0)
[2024-12-19] MEDS: Aspirin E.C. 81 MG Tablet PO (05:46)
[2024-12-19] MEDS: Nystatin Ointment 1 APPLIC TOPICAL (05:46)
--- NOTE | 2024-12-19 05:55 | EKG12_ITS ---
Test Reason : AM EKG Blood Pressure : */* mmHG Vent. Rate : 58 BPM Atrial Rate : 58 BPM P-R Int : 264 ms QRS Dur : 94 ms QT Int : 456 ms P-R-T Axes : -62 -62 -3 degrees QTcB Int : 447 ms Unusual P axis, possible ectopic atrial bradycardia Left axis deviation Pulmonary disease pattern Inferior infarct , age undetermined Abnormal ECG When compared with ECG of 18-Dec-2024 20:35, MANUAL COMPARISON REQUIRED DATA IS UNCONFIRMED Confirmed by PURNIMA LIN, JONATHON ([id number]), manuscript editor ANGELLA SALGADO ([id number]) on 12/20/2024 7:18:44 AM Referred By: Confirmed By: JONATHON FELTON MD
--- NOTE | 2024-12-19 07:15 | CON.PCM.CA_ITS ---
Assessment & Plan Assessment/Plan (1) ACS (acute coronary syndrome): PLAN: He does present with chest discomfort which is reminiscent of an acute coronary syndrome. His cardiac enzymes are minimally elevated at this time. My recommendations will be as follows: Aspirin, Intravenous heparin and discontinuing 2 hours prior to cardiac catheterization. Left heart catheterization this morning. There is benefits alternatives have been explained to him he understands and agrees to proceed. Continue beta-jose g. (2) History of coronary artery stent placement: PLAN: He does have a history of previous right coronary artery stenting in 2018. This will be reevaluated with a cardiac catheterization this morning. (3) Essential (primary) hypertension: PLAN: He does have a history of hypertension. His blood pressure appears to be under good control at this particular time I would not recommend that we make any major changes. (4) Hyperlipidemia: PLAN: He does have a history of hyperlipidemia. He has not tolerated the statins in the past. He may be a candidate for bempedoic acid and ezetimibe at discharge. Alternatively he may benefit from a PCSK9 inhibitor. Thank you for allowing me to participate in the care of your patient. Please don't hesitate to call if any issues arise. HPI Consult Data Date of Consult: 12/19/24 HPI Narrative HPI Narrative: SANJEEV FARMER, is a 74 M who presents with chest discomfort which developed after he had eaten his evening dinner. He tells me that he had a recurrence of the above the next day and it reminded him of his previous cardiac events and so he presented to the emergency room. An EKG was done which demonstrated normal sinus rhythm and sinus bradycardia with no acute changes. You remember he had had presented to the hospital in January 2018 with nonexertional chest tightness which was nonradiating. He was evaluated and noted to have suspected coronary artery disease he underwent a cardiac catheterization which demonstrated an ejection fraction of 65%, angiographically normal left main coronary artery, left anterior descending artery with less than 30% stenosis, left circumflex artery with 30% stenosis in the proximal right coronary artery with 85% proximal stenosis, 30% mid stenosis, and distal 50% stenosis. He underwent angioplasty and stenting with a 3.5 x 16 mm Synergy stent. He has not had any further chest pain since admission. He states hip pain with long distances. He acknowledges SOB with activity. He has also had some shortness of breath at rest but he has also gained some weight. Pt denies symptoms of palpitations, lightheadedness, dizziness, near syncopal or syncopal episodes. Pt denies claudication issues.Pt. denies orthopnea, PND, fever, chills, blood in urine, blood in stool, myalgia, or unexplainable fatigue. His physical exam today is unremarkable his blood pressure is under good control. [facility] Medical History Venous insufficiency Hyperlipidemia History of non-ST elevation myocardial infarction (NSTEMI) (02/08/18) Obesity (BMI 35.0-39.9 without comorbidity) Sleep apnea with use of continuous positive airway pressure (CPAP) Atherosclerosis of coronary artery of [place] heart without angina pectoris Essential (primary) hypertension Home Medications ?Medication ?Instructions ?Recorded ?Last Taken ?Type aspirin 81 mg tablet,delayed 81 mg PO DAILY #90 tabs 0 11/11/22 12/18/24 Rx release albuterol sulfate 90 mcg/actuation 2 puff inhalation Q 4H PRN 06/26/24 Unknown Rx aerosol inhaler shortness of breath or wheez ing #8.5 grams losartan 100 mg tablet 100 mg PO DAILY #90 tabs 03/1412/18/24 Rx metoprolol tartrate 50 mg tablet 50 mg PO BID #180 tab s 08/30/24 12/18/24 Rx furosemide 40 mg tablet 40 mg PO DAILY PRN swelling or 10/08/24 12/18/24 Rx weight gain #30 tabs Allergy/AdvReac Type Severity Reaction Status Date / Time animal dander Allergy Other Verified 12/18/24 16:51 atorvastatin (From Lipitor) AdvReac Intermediate myalgias Verified 12/18/24 16:51 rosuvastatin (From Crestor) AdvReac Intermediate myalgias Verified 12/18/24 16:51 simvastatin (From Zocor) AdvReac Intermediate myalgias Verified 12/18/24 16:51 Family History Father Parkinson disease Mother No problems noted. Surgical History History of total right knee replacement History of coronary artery stent placement (02/10/18) Social History household members: spouse Smoking Status: Former smoker alcohol intake: current alcohol intake frequency: a few times a week details: 1-2 drinks, occasionally 3, 2-3x/week substance use type: does not use ROS Constitutional Constitutional: Denies fever(s) or weight loss Eyes Eyes: Reports systems reviewed and no addt'l complaints, except as documented ENT HEENT: Reports systems reviewed and no addt'l complaints, except as documented Cardiovascular Cardiovascular: Reports chest pain at rest and dyspnea at rest; Denies chest pain with activity, dyspnea on exertion, edema, palpitations or paroxysmal nocturnal dyspnea Respiratory/Chest Respiratory/Chest: Denies dyspnea on exertion, productive cough, shortness of breath at rest or shortness of breath with exertion Gastrointestinal Gastrointestinal: Denies change in bowel habits, nausea, vomiting or weight changes Genitourinary Genitourinary: Denies difficulty urinating Musculoskeletal Musculoskeletal: Denies joint stiffness or muscle weakness Integumentary Integumentary: Denies lesions Neurologic Neurologic: Denies dizziness or syncope Psychiatric Psychiatric: Denies anxiety Endocrine Endocrinology: Denies excessive sweating or fatigue Hematologic/Lymphatic Hematologic/Lymphatic: Denies anemia Allergic/Immunologic Allergic/Immunologic: Denies seasonal rhinorrhea Physical Exam Const alert, oriented x3 and no apparent distress General Appearance: cooperative HEENT hearing grossly normal bilaterally Head and Scalp: atraumatic Eyes EOMs intact bilaterally Neck General: normal visual inspection Chest inspection of chest normal and palpation of chest normal Resp normal respiratory effort Auscultation: clear to auscultation bilaterally Cardio regular rate, regular rhythm, S1 normal heart sound and S2 normal heart sound Jugular Venous Distention: JVD GI normal to inspection, nondistended, normoactive bowel sounds Extremity normal capillary refill and no pedal edema Peripheral Pulses: Yes pulses 2+ throughout and femoral pulses present Skin no rashes or lesions noted Neuro oriented x3 and CN's II-XII intact bilaterally Psych Appearance: grossly normal and appropriate Objective Data Vital Signs: Vital Signs Temp Pulse Resp BP Pulse Ox O2 Del Method O2 Flow Rate 99 F 64 18 141/64 H 98 Nasal Cannula 2 12/18/24 21:20 12/18/24 22:16 12/18/24 21:20 12/18/24 22:16 12/19/24 01:24 12/19/24 03:25 12/19/24 03:25 Oxygen Flow Rate (L/min) 2 Oxygen Delivery Method Nasal Cannula Weight: 264 lb 12.403 oz Body Mass Index (BMI) 38.0 Intake & Output: Intake and Output for Last 24 Hours 12/17/24 12/18/24 12/19/24 23:59 23:59 23:59 Intake Total 595.54 / 595.54 Balance 595.54 / 595.54 Lab / Micro Data 12/19/24 03:12 12/19/24 03:12 Labs: Laboratory Results - last 24 hr 12/18/24 17:00: WBC 8.3, RBC 4.88, Hgb 15.4, Hct 44.1, MCV 90.4, MCH 31.6, MCHC 34.9, RDW Std Deviation 40.7, RDW Coeff of Daphnie 12.5, Plt Count 276, MPV 10.3, Immature Gran % (Auto) 0.200, Neut % (Auto) 58.2, Lymph % (Auto) 29.0, [place] % (Auto) 8.8, Eos % (Auto) 3.1, Baso % (Auto) 0.7, Absolute Neuts (auto) 4.8, Absolute Lymphs (auto) 2.40, Nucleated RBC % 0, Sodium 139, Potassium 4.5, Chloride 101, Carbon Dioxide 20.4 L, Anion Gap 17 H, BUN 15, Creatinine 1.30 H, Estim Creat Clear Calc 62.99, Est GFR (MDRD) Non-Af 57 L, BUN/Creatinine Ratio 11.2, Glucose 149 H, Calcium 9.3, Troponin T High Sens 22 12/18/24 19:00: Troponin T Hi Sens 2 Hr 46 H 12/18/24 20:19: WBC 9.1, RBC 4.79, Hgb 15.2, Hct 44.5, MCV 92.9, MCH 31.7, MCHC 34.2, RDW Std Deviation 42.5, RDW Coeff of Daphnie 12.5, Plt Count 236, MPV 11.4, Immature Gran % (Auto) 0.300, Neut % (Auto) 71.1 H, Lymph % (Auto) 18.0 L, [place] % (Auto) 7.8, Eos % (Auto) 1.9, Baso % (Auto) 0.9, Absolute Neuts (auto) 6.4, Absolute Lymphs (auto) 1.63, Nucleated RBC % 0, Platelet Estimate ADEQUATE, PT 13.2, INR 1.0, APTT 22.6 L, Magnesium 2.2, Troponin T Hi Sens 4Hr 69 H* 12/19/24 03:12: WBC 7.1, RBC 4.49 L, Hgb 14.1, Hct 41.9, MCV 93.3, MCH 31.4, MCHC 33.7, RDW Std Deviation 42.2, RDW Coeff of Daphnie 12.5, Plt Count 239, MPV 10.6, Immature Gran % (Auto) 0.300, Neut % (Auto) 56.6, Lymph % (Auto) 28.2, [place] % (Auto) 9.3, Eos % (Auto) 4.6, Baso % (Auto) 1.0, Absolute Neuts (auto) 4.0, Absolute Lymphs (auto) 2.01, Nucleated RBC % 0, APTT 82.4 H, Sodium 137, Potassium 4.1, Chloride 103, Carbon Dioxide 21.4, Anion Gap 13, BUN 13, Creatinine 1.12, Estim Creat Clear Calc 72.89, Est GFR (MDRD) Non-Af 68, BUN/Creatinine Ratio 11.7, Glucose 127 H, Hemoglobin A1c 6.2 H, Calcium 8.8, Total Bilirubin 0.36, AST 15, ALT 14, Alkaline Phosphatase 95, Total Protein 6.2, Albumin 3.5, Globulin 2.8, Albumin/Globulin Ratio 1.3, Triglycerides 147, Cholesterol 186, LDL Cholesterol, Calc 124, VLDL Cholesterol 29, HDL Cholesterol 33 L, Cholesterol/HDL Ratio 5.67 Cardiology Labs/Tests 12/18/24 17:00: WBC 8.3, RBC 4.88, Hgb 15.4, Hct 44.1, MCV 90.4, MCH 31.6, MCHC 34.9, Plt Count 276, MPV 10.3, Immature Gran % (Auto) 0.200, Neut % (Auto) 58.2, Lymph % (Auto) 29.0, [place] % (Auto) 8.8, Eos % (Auto) 3.1, Baso % (Auto) 0.7, Absolute Neuts (auto) 4.8, Nucleated RBC % 0, Sodium 139, Potassium 4.5, Chloride 101, Carbon Dioxide 20.4 L, Anion Gap 17 H, BUN 15, Creatinine 1.30 H, Est GFR (MDRD) Non-Af 57 L, BUN/Creatinine Ratio 11.2, Glucose 149 H, Calcium 9.3 12/18/24 20:19: WBC 9.1, RBC 4.79, Hgb 15.2, Hct 44.5, MCV 92.9, MCH 31.7, MCHC 34.2, Plt Count 236, MPV 11.4, Immature Gran % (Auto) 0.300, Neut % (Auto) 71.1 H, Lymph % (Auto) 18.0 L, [place] % (Auto) 7.8, Eos % (Auto) 1.9, Baso % (Auto) 0.9, Absolute Neuts (auto) 6.4, Nucleated RBC % 0, PT 13.2, INR 1.0, APTT 22.6 L , Magnesium 2.2 12/19/24 03:12: WBC 7.1, RBC 4.49 L, Hgb 14.1, Hct 41.9, MCV 93.3, MCH 31.4, MCHC 33.7, Plt Count 239, MPV 10.6, Immature Gran % (Auto) 0.300, Neut % (Auto) 56.6, Lymph % (Auto) 28.2, [place] % (Auto) 9.3, Eos % (Auto) 4.6, Baso % (Auto) 1.0, Absolute Neuts (auto) 4.0, Nucleated RBC % 0, APTT 82.4 H, Sodium 137, Potassium 4.1, Chloride 103, Carbon Dioxide 21.4, Anion Gap 13, BUN 13, Creatinine 1.12, Est GFR (MDRD) Non-Af 68, BUN/Creatinine Ratio 11.7, Glucose 127 H, Hemoglobin A1c 6.2 H, Calcium 8.8, Total Bilirubin 0.36, Triglycerides 147, Cholesterol 186, VLDL Cholesterol 29, HDL Cholesterol 33 L, Cholesterol/HDL Ratio 5.67 Rhythm: EKG: ECHO: Stress Test: Cardiac Cath: PCI: CT Surgery: Holter monitor: EPS: PPM: CXR: Chest CT Scan: Radiography Diagnostic Testing: Radiology Impression Chest X-Ray 12/18/24 17:06 IMPRESSION: No evidence of acute cardiopulmonary disease. Reading Location: [id number] Risk Score for UA/STEMI Assesmment (YES = 1) Risk Stratification Applicable: No
[2024-12-19] MEDS: 0.9% Saline Lock 10 ML Syringe IV ×2 (08:46→18:20)
--- NOTE | 2024-12-19 08:56 | NURSING ---
Report called to electroplating laborer RN, Prudencio at [phone]
--- NOTE | 2024-12-19 11:02 | PN.HOSP_ITS ---
Reason for Visit Chief Complaint: Chest pain, dyspnea, diaphoresis. Subjective Subjective Patient is a 74-year-old gentleman with significant past medical history including CAD with previous PCI to an RCA lesion who presented with chest pain and was found to have elevated troponin consistent with acute non-STEMI. Treatment initiated per protocol consultation placed to cardiology Objective Data Objective Data Vital Signs: Vital Signs Temp Pulse Resp BP Pulse Ox O2 Del Method O2 Flow Rate 96.2 F L 61 18 127/53 H 98 Room Air 2 12/19/24 05:05 12/19/24 08:47 12/19/24 05:05 12/19/24 08:47 12/19/24 08:56 12/19/24 08:56 12/19/24 05:05 Oxygen Flow Rate (L/min) 2 Oxygen Delivery Method Room Air Weight: 120.1 kg Body Mass Index (BMI) 38.0 Intake & Output: Intake and Output for Last 24 Hours 12/17/24 12/18/24 12/19/24 23:59 23:59 23:59 Intake Total 646.97 / 646.97 Balance 646.97 / 646.97 Lab / Micro Data 12/19/24 03:12 12/19/24 03:12 Labs: Laboratory Results - last 24 hr 12/18/24 17:00: WBC 8.3, RBC 4.88, Hgb 15.4, Hct 44.1, MCV 90.4, MCH 31.6, MCHC 34.9, RDW Std Deviation 40.7, RDW Coeff of Daphnie 12.5, Plt Count 276, MPV 10.3, Immature Gran % (Auto) 0.200, Neut % (Auto) 58.2, Lymph % (Auto) 29.0, [place] % (Auto) 8.8, Eos % (Auto) 3.1, Baso % (Auto) 0.7, Absolute Neuts (auto) 4.8, Absolute Lymphs (auto) 2.40, Nucleated RBC % 0, Sodium 139, Potassium 4.5, Chloride 101, Carbon Dioxide 20.4 L, Anion Gap 17 H, BUN 15, Creatinine 1.30 H, Estim Creat Clear Calc 62.99, Est GFR (MDRD) Non-Af 57 L, BUN/Creatinine Ratio 11.2, Glucose 149 H, Calcium 9.3, Troponin T High Sens 22 12/18/24 19:00: Troponin T Hi Sens 2 Hr 46 H 12/18/24 20:19: WBC 9.1, RBC 4.79, Hgb 15.2, Hct 44.5, MCV 92.9, MCH 31.7, MCHC 34.2, RDW Std Deviation 42.5, RDW Coeff of Daphnie 12.5, Plt Count 236, MPV 11.4, Immature Gran % (Auto) 0.300, Neut % (Auto) 71.1 H, Lymph % (Auto) 18.0 L, [place] % (Auto) 7.8, Eos % (Auto) 1.9, Baso % (Auto) 0.9, Absolute Neuts (auto) 6.4, Absolute Lymphs (auto) 1.63, Nucleated RBC % 0, Platelet Estimate ADEQUATE, PT 13.2, INR 1.0, APTT 22.6 L, Magnesium 2.2, Troponin T Hi Sens 4Hr 69 H* 12/19/24 03:12: WBC 7.1, RBC 4.49 L, Hgb 14.1, Hct 41.9, MCV 93.3, MCH 31.4, MCHC 33.7, RDW Std Deviation 42.2, RDW Coeff of Daphnie 12.5, Plt Count 239, MPV 10.6, Immature Gran % (Auto) 0.300, Neut % (Auto) 56.6, Lymph % (Auto) 28.2, [place] % (Auto) 9.3, Eos % (Auto) 4.6, Baso % (Auto) 1.0, Absolute Neuts (auto) 4.0, Absolute Lymphs (auto) 2.01, Nucleated RBC % 0, APTT 82.4 H, Sodium 137, Potassium 4.1, Chloride 103, Carbon Dioxide 21.4, Anion Gap 13, BUN 13, Creatinine 1.12, Estim Creat Clear Calc 72.89, Est GFR (MDRD) Non-Af 68, BUN/Creatinine Ratio 11.7, Glucose 127 H, Hemoglobin A1c 6.2 H, Calcium 8.8, Total Bilirubin 0.36, AST 15, ALT 14, Alkaline Phosphatase 95, Total Protein 6.2, Albumin 3.5, Globulin 2.8, Albumin/Globulin Ratio 1.3, Triglycerides 147, Cholesterol 186, LDL Cholesterol, Calc 124, VLDL Cholesterol 29, HDL Cholesterol 33 L, Cholesterol/HDL Ratio 5.67 Radiography Diagnostic Testing: Radiology Impression Chest X-Ray 12/18/24 17:06 IMPRESSION: No evidence of acute cardiopulmonary disease. Reading Location: [facility] Echocardiogram 12/18/24 21:02 Interpretation Summary Normal LV size. Left ventricular systolic function is normal. The left ventricular ejection fraction is 60 %. Mild concentric left ventricular hypertrophy. Stage 1 diastolic dysfunction. Moderate aortic stenosis. Mean aortic valve gradient 22 mmHg. Contrast injection was performed. Ordering Physician: Soheila Hodge Referring Physician: Nash Morales Performed By: Chayo Akbar, LOYD, RVT Physical Exam Narrative GENERAL: cooperative HEENT: Atraumatic; normocephalic EYES; Anicteric, Normal Conjunctiva NECK; supple, normal thyroid, RESPIRATORY: Diminished to auscultation CARDIOVASCULAR: Regular S1 S2, GI: soft, normoactive bowel sounds, : No Renal angle tenderness; EXTREMITIES: No edema, no clubbing, MUSCULOSKELETAL: no muscle wasting NEURO: Awake; no lateralizing signs. SKIN: No Rash PSYCH; Flat affect Assessment & Plan Assessment/Plan (1) ACS (acute coronary syndrome): (2) Elevated troponin: PLAN: Plan Patient is a 74-year-old gentleman with significant past medical history including CAD with previous PCI to an RCA lesion who presented with chest pain and was found to have elevated troponin consistent with acute non-STEMI. Treatment initiated per protocol consultation placed to cardiology 1. Acute non-STEMI ? Patient presented with chest pain with rise in his troponin. Consult placed to cardiology patient underwent left heart catheterization with PCI with RUPA to a single coronary artery. Subsequently started on guideline directed medical therapy 2. Coronary artery disease ? With previous PCI to an RCA lesion 3. Hypertension ? Blood pressure controlled, home medications continued with dose adjustment as needed 4. Obstructive sleep apnea ? Consistent use of PAP therapy encouraged 5. Class II obesity with a BMI of 38.0 ? Complicating care weight loss advised 6.Hyperglycemia ? Patient noted known diabetic glucose on admission was 150 hemoglobin A1c subsequently ordered came back at 6.2 7. Intertrigo ? Involving the axilla nystatin powder ordered 8. DVT prophylaxis ? heparin Time spent in the patient's overall evaluation,decision-making process, review of diagnostic data, adjustment of management, discussion with other providers, nursing nursing and ancillary staff involved in patient's care documentation, 50 Minutes Charges/Coding Visit Charges Inpatient E&M: 26345 [facility] Hosp L3
[2024-12-19] MEDS: 0.9% Normal Saline (1000mL) 1,000 ML 150 ML IV (11:15)
--- NOTE | 2024-12-19 11:17 | CASEMGMT ---
RN ILIANA NOTE: RN CM to room. Pt resting in bed, family @ bedside. Pt just returned from clinical laboratory medical director/Stent was placed. Pt to dc home on Brilinta & would like to get it from [facility] retail pharmacy @ [place] updated. Questions answered. Pt denies having any discharge needs or concerns. Pt and family made aware to ask for CM if any questions/concerns/needs arise. They voice understanding. Venu BUSTILLON WILDER CM
--- NOTE | 2024-12-19 13:11 | CL.D_ITS ---
Patient Name: SANJEEV FARMER Study Date: 12/19/2024 Performing: Bowen Story MD Ht: 70 inches 177.8 cm : 1950 Wt: 265.1 lbs 120.1 kg Age: 74 Gender: male BSA: 2.35 PROCEDURE(S) PERFORMED DC01-(91334)LHC/COR/LV IC12-(60051/[id number])RUPA W/WO PTCA, SINGLE CORONARY ARTERY IC02-(16331)PTCA, EACH ADD'L CORONARY ART, SAME MAJOR CLINICAL PROFILE AND INDICATIONS Indications: Suspected CAD Heart Failure: None CONCLUSIONS Severe single-vessel disease involving the left anterior descending artery. The right coronary artery which was previously stented is noted to be patent. Preserved ejection fraction is noted. RECOMMENDATIONS Referred for immediate PCI DESCRIPTION OF PROCEDURE The patient arrived to the procedure lab. The risks and benefits of the procedure as well as a full description of our services here and current unavailability of surgical backup were fully explained to the patient and/or their significant other prior to the catheterization. The Timeout was completed, verifying the correct patient and procedure. The patient's procedural site was prepped and draped in the usual fashion. Local anesthetic was given subcutaneously to right radial region with Lidocaine 2%. Using a modified Seldinger technique, arterial access was obtained via the right radial artery, a 6Fr sheath was inserted. Left Coronary Artery selective angiography was performed in multiple views using a 5 Fr. 4.0 [place] catheter. Right Coronary Artery selective angiography was then performed in multiple views using a 5 Fr. 4.0 [place] catheter. Left Ventriculography was performed in BROWNLEE projection using a 5 Fr. Pigtail catheter. LV to AO pullback pressures were then recorded.The arterial sheath was pulled and a TR Band was applied for hemostasis CORONARY ANGIOGRAPHY DOMINANCE: Right Dominant LEFT HEART ASSESSMENT Left Ventricular Ejection Fraction: by LV Gram 55 % Normal Left Ventricular systolic function LEFT MAIN: Angiographically 30% LEFT ANTERIOR DESCENDING ARTERY: This is a medium size vessel with a proximal 80% lesion, a mid 70% lesion. There are 2 diagonal branches which appear to be mild to moderately diseased. CIRCUMFLEX ARTERY: This vessel was also a medium size vessel. There is a proximal 40% stenosis the AV groove branch had mild disease. RAMUS: Mild luminal irregularities less than 30% RIGHT CORONARY ARTERY: Large dominant vessel with proximal 30 to 40% in-stent stenosis. The vessel continues and bifurcates to posterior descending artery and posterolateral vessel. No significant stenosis noted in this vessel. COMPLICATIONS No Complications PROCEDURE MEDICATIONS Fentanyl 50 mcg IV Versed 1 mg IV Oxygen: 2 L/min via nasal cannula Heparin given IA 12/19/2024 09:18:34 Heparin 7000 unit(s) IV 12/19/2024 09:44:39 Nitro 100 mcg IC 12/19/2024 09:46:04 Verapamil 2.5mg, Ntg 100mcgs, 3000 units of Heparin given IA 12/19/2024 09:18:34 IV Bolus: .9 NaCl 250 ml total 12/19/2024 10:27:10 SUMMARY OF HEMODYNAMIC DATA Time AIR REST ECG 09:10:08 AO 121/51 (81) SA 09:30:09 LV 119/3, 17 09:36:35 LV 127/4, 15 09:36:43 LV 126/8, 18 09:37:26 LVp 117/10, 22 09:37:30 AOp 117/49 (76) 09:37:37 Signed By Bowen Story MD On 12/19/2024 13:10:18 Bowen Story MD
--- NOTE | 2024-12-19 13:42 | CL.I_ITS ---
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 The risks and benefits of the procedure as well as a full description of our services here and current unavailability of surgical backup were fully explained to the patient and/or their significant other prior to the catheterization. The Timeout was completed, verifying the correct patient and procedure. The patient's procedural site was prepped and draped in the usual fashion. Local anesthetic was given subcutaneously to right radial region with Lidocaine 2% Using a modified Seldinger technique,arterial access was obtained via the right radial artery, a 6Fr sheath was inserted. Left Coronary Artery selective angiography was performed in multiple views using a 5 Fr. 4.0 Adell catheter. Right Coronary Artery selective angiography was then performed in multiple views using a 5 Fr. 4.0 Adell catheter. Left Ventriculography was performed in BROWNLEE projection using a 5 Fr. Pigtail catheter. LV to AO pullback pressures were then recorded.The images were reviewed and options discussed. A decision was then made to proceed with an Intervention, IVUS or other adjunct procedure. XB 3.0 Guide catheter was inserted and engaged into the LCA. BMW [place] Guide wire was advanced to the LAD. Runthrough Guide wire was inserted as a pat wire Emerge 2.5 x 12 Balloon catheter was inserted. Balloon catheter was advanced across lesion in the LAD, mid. PTCA balloon inflated at 8 atms for 12 secs. PTCA balloon inflated at 6 atms for 16 secs. Emerge 2.25 x 12 Balloon catheter was inserted. Balloon catheter was advanced across lesion in the LAD, mid. PTCA balloon inflated at 8 atms for 11 secs. Angiogram performed post balloon dilatation. [place] 2.5 x 12 Drug Eluting stent was inserted. Drug Eluting stent was advanced across the lesion in the LAD, mid. [place] 3.0 x 12 Drug Eluting stent was inserted. Drug Eluting stent was advanced across the lesion in the LAD, mid. Angiogram performed post stent deployment. BMW [place] Guide wire was repositioned to the 2nd Diagonal Emerge 2.0 x 12 Balloon catheter was inserted. Balloon catheter was advanced across lesion in the second diagonal, ostial PTCA balloon inflated at 8 atms for 18 secs. Emerge 2.5 x 8 Balloon catheter was inserted. Balloon catheter was advanced across lesion in the LAD, proximal on the Runthrough pat wire. Angiogram performed post balloon dilatation. The arterial sheath was pulled and a TR Band was applied for hemostasis INTERVENTION INFORMATION LESION SITE: LAD (Mid) Lesion Complexity: High/C, chronic total occlusion: No, lesion at bifurcation: Yes, thrombus present: No, lesion length: 20 mm, culprit lesion: Yes, Previously treated lesion: No Pre Stenosis: 80 % Pre intervention MELITON flow: 3 PROCEDURE: Drug Eluting Stent with pre and post dilatation Both the lesions in the LAD were treated with RUPA Post Stenosis: 0 % Post intervention MELITON flow: 3 Lesion Devices: Cordis 6 Fr XB3.0 100cm Guide Catheter Jason Sci EMERGE MR 2.50x12 BALLOON Cavazos .014 190cm BMW [place] Straight Terumo .014 180cm Runthrough Extra Floppy straight Jason Sci EMERGE MR 2.25x12 BALLOON Medtronic 2.50 x 12 FAUSTINO FRONTIER RUPA Medtronic 3.0 x 12 FAUSTINO FRONTIER RUPA Jason Sci EMERGE MR 2.50x08 BALLOON LESION SITE: 2nd Diagonal (Ostial) Lesion Complexity: High/C, chronic total occlusion: No, lesion at bifurcation: Yes, thrombus present: No, lesion length: 6 mm, Previously treated lesion: No Pre Stenosis: 90 % Pre intervention MELITON flow: 3 PROCEDURE: Balloon Angioplasty PTCA alone was performed as part of treatment of LAD/D2 bifurcation lesion. Post Stenosis: 60 % Post intervention MELITON flow: 3 Lesion Devices: Cordis 6 Fr XB3.0 100cm Guide Catheter Cavazos .014 190cm BMW [place] Straight Terumo .014 180cm Runthrough Extra Floppy straight Jason Sci EMERGE MR 2.00x12 BALLOON COMPLICATIONS No Complications PROCEDURE MEDICATIONS Fentanyl 50 mcg IV Versed 1 mg IV Oxygen: 2 L/min via nasal cannula Heparin given IA 12/19/2024 09:18:34 Heparin 7000 unit(s) IV 12/19/2024 09:44:39 Nitro 100 mcg IC 12/19/2024 09:46:04 Verapamil 2.5mg, Ntg 100mcgs, 3000 units of Heparin given IA 12/19/2024 09:18:34 IV Bolus: .9 NaCl 250 ml total 12/19/2024 10:27:10 SUMMARY OF HEMODYNAMIC DATA Time AIR REST ECG 09:10:08 AO 121/51 (81) SA 09:30:09 LV 119/3, 17 09:36:35 LV 127/4, 15 09:36:43 LV 126/8, 18 09:37:26 LVp 117/10, 22 09:37:30 AOp 117/49 (76) 09:37:37 AIR REST 13:33:07 Signed By Albert Mcleod MD On 12/19/2024 13:41:16 Albert Mcleod MD
--- NOTE | 2024-12-19 14:27 | CRPHASE1_ITS ---
Patient Communication Patient Information Former Patient:: Phase I PHII Cardiac Rehab Discussed with Patient:: Yes Guide to Cardiac Rehab Given to Patient:: Yes Cardiac Rehab Facility Choice List Given to Patient:: Yes Communication to Cardiac Rehab [employer] Specialist:: Esmer Mcleod Sessions:: 36 sessions - 3 days/wk, 12 weeks Cardiac Rehabilitation Info Program Information Cardiac Rehabilitation Program Information: Cardiac Rehab The cardiac rehab team at [facility] consists of highly skilled exercise physiologists, nurses, respiratory therapists and physicians working together with you. Our purpose is to help you have a full recovery and achieve the goals you set for yourself. Over the years many of our patients have returned to activities they assumed they would never do again! We can help restore your confidence and motivation to make lifestyle changes that can have a significant impact on your health and quality of life! We can help answer questions and concerns you may have about exercise, lifestyle, medications, diet, stress and anxiety which are common following a hospitalization. WE monitor ECG and vital signs during exercise and discuss your progress with you and report to your physician(s). Cardiac Rehab is proven to help reduce readmissions, improve functional capacity and lower recurrence of problems with your heart. Our Cardiac Rehab program is Certified by the [place] [employer]-V[employer] and Pulmonary [employer] (AACVPR) and Accredited by the [place] [employer] through our [facility]. You can contact us at . We invite you to call us with your questions or to get started in our program. If you have other questions or concerns be sure to ask your physician/provider during your follow-up visit. WE look forward to seeing you!
--- NOTE | 2024-12-19 14:29 | CRPH1.INST_ITS ---
General Education Discussed with Patient CAD and cardiac anatomy and function:: Patient communicates acknowledgment Explanation of diagnoses and procedures:: Patient communicates acknowledgment Sign/Symptoms of UT:: Patient communicates acknowledgment Antiplatelet therapy: Patient communicates acknowledgment Proper use of NTG-SL: Patient communicates acknowledgment Emergency procedures and activation of EMS: Patient communicates acknowledgment Compliance of all prescribed medications: Patient communicates acknowledgment Smoking Risk Factors Patient Nicotine/Smoking Risk Factors Are:: Second-hand smoke Recommendations Recommendations Include:: Second-hand smoke recommendation and Previous smoker; encourage continued cessation Response Code Nicotine/Smoking Response Code:: Patient communicates acknowledgment Dyslipidemia Recommendations Recommendations Include:: Lipid profile not available Response Code Dyslipidemia Response Code:: Patient communicates acknowledgment Overweight/Obesity Risk Factors Patient Overweight/Obesity Risk Factors Are:: Obesity - > or = 30 Recommendations Recommendations Include:: Weight loss of 5-10%, Reduced calorie diet and Exercise 5-7 times/week Response Code Overweight/Obesity:: Patient communicates acknowledgment Hypertension Recommendations Recommendations Include:: DASH dietary guidelines, Decrease/maintain normal body weight and Moderation of ETOH Response Code Hypertension:: Patient communicates acknowledgment Heart Disease Risk Factors Patient Heart Disease Risk Factors Are:: Family history of heart disease < 65 years old Recommendations Recommendations Include:: Educated family members of their risk and Educated family members of importance of prevention of heart disease Response Code Heart Disease Response Code:: Patient communicates acknowledgment Diabetes Risk Factors Patient Diabetes Risk Factors Are:: No documented hx of diabetes Recommendations Recommendations Include:: Maintain fasting blood sugars 70-110 md/dL, Maintain HgbA1c of 6% or less, Monitor blood sugar as prescribed, Diabetic dietary guidelines and Decrease/maintain body weight Response Code Diabetes:: Patient communicates acknowledgment Metabolic Syndrome Risk Factors Patient Metabolic Syndrome Risk Factors Are [3 of 5]:: Fasting blood sugar > 100 mg/dL, High triglyceride >150, Hypertension and Low HDL <40 [male] or < 50 [f emale] Recommendations Recommendations Include:: Does not meet criteria Response Code Metabolic Syndrome Response Code:: Patient communicates acknowledgment Sedentary Risk Factors Patient Sedentary Risk Factors Are:: Lack of regular exercise Recommendations Recommendations Include:: Aerobic exercise 5-7 times/week for 20-30 minutes continuously, Benefits of regular exercise, Discussed home walking program and Monitored Outpatient Cardiac Rehab Response Code Sedentary Response Code:: Patient communicates acknowledgment Stress Risk Factors Patient Stress Risk Factors Are:: Patient denies stress as a risk factor Recommendations Recommendations Include:: Identification of stressors, and assessment of coping skills and Stress management techniques Response Code Stress Response Code:: Patient communicates acknowledgment
--- NOTE | 2024-12-19 14:44 | CASEMGMT ---
BLOCK Met with patient to complete BLOCK form. BLOCK form and its content were verbally explained and patient's questions were answered to the best of my ability.? Patient voiced understanding and signed BLOCK form.? Patient provided a copy of signed BLOCK form and original placed in patient's chart.? Patient had no further questions. Shannen Hernandes, Discharge Planning Asst
[2024-12-19] MEDS: TICAGRELOR 90 MG TABLET PO (21:50)
[2024-12-20 03:00] VITALS: BP 123/54; PULSE 62; RESP 16; TEMP 36.7; O2SAT 99
[2024-12-20 03:10] VITALS: BMI 37.9
[2024-12-20] MEDS: 0.9% Saline Lock 10 ML Syringe IV (03:22)
--- NOTE | 2024-12-20 04:14 | EKG12_ITS ---
Test Reason : POST PCI Blood Pressure : */* mmHG Vent. Rate : 50 BPM Atrial Rate : 50 BPM P-R Int : 282 ms QRS Dur : 94 ms QT Int : 472 ms P-R-T Axes : 39 -67 -3 degrees QTcB Int : 430 ms Sinus bradycardia with 1st degree A-V block Left axis deviation Pulmonary disease pattern Inferior infarct , age undetermined Abnormal ECG When compared with ECG of 19-Dec-2024 06:13, MANUAL COMPARISON REQUIRED DATA IS UNCONFIRMED Confirmed by SHRUTHI LIN, CHRISTIANNE ([id number]), editor at large LATOYA KIM ([id number]) on 12/24/2024 6:34:16 AM Referred By: TRANG Confirmed By: CHRISTIANNE HAWKINS MD
--- NOTE | 2024-12-20 04:18 | PCM.HOSP.N ---
Hospitalist Note Patient sleeping/asymptomatic, with noted 2.40 second pause with however a nonconducted beat, pending EKG.
[2024-12-20] MEDS: Nystatin Ointment 1 APPLIC TOPICAL (05:48)
[2024-12-20 05:52] LABS: Hematocrit 40.3 % (40-54); Hemoglobin 13.8 g/dL (13.0-16.5); Immature Granulocytes Count 0.020 X10^3/uL (0.0-0.0); Mean Corp Hgb Conc 34.2 g/dL (32-36); Mean Corpuscular Volume 92.6 fL (80-94); Mean Platelet Vol. 10.1 fl (6.2-12.0); NRBC Flagged by Analyzer 0 % (0-5); Platelet Count 198 K/mm3 (150-450); RBC Distribution Width CV 12.7 % (11.6-14.6); RBC Distribution Width SD 42.9 fl (35.1-43.9); Red Blood Count 4.35 M/mm3 (4.6-6.2); White Blood Count 6.9 K/mm3 (4.4-11.0)
[2024-12-20 06:13] LABS: AST(SGOT) 15 U/L (<=37); Alanine Aminotransfer ALT/SGPT 13 U/L (<=46); Albumin, Serum 3.6 g/dL (3.4-4.8); Alkaline Phosphatase 92 U/L (40-129); Anion Gap 11 (5-15); BUN 11 mg/dL (4-19); BUN/Creat Ratio 9.5 RATIO (10-20); Calcium,Total 8.7 mg/dL (7.6-11.0); Carbon Dioxide 22.3 mmol/L (21.0-32.0); Chloride 104 mmol/L (98-108); Estimated Creatinine Clearance 71.58 ml/min (50-250); Globulin 2.6 g/dL (2.2-4.2); Glucose 125 mg/dL (70-99); Magnesium 2.2 mg/dL (1.5-2.2); Potassium 4.3 mmol/L (3.3-5.1)
[2024-12-20 07:25] VITALS: O2SAT 97
--- NOTE | 2024-12-20 08:01 | PN.CARD_ITS ---
Subjective Subjective Patient resting comfortably in the seated position in the chair. Denies any chest pain denies any issues with his wrist catheterization insertion site. Patient did have a couple of sinus pauses on his telemetry there were less than 3 seconds and occurred at 0400 hrs. this morning. The patient has a history of obstructive sleep apnea and has not been on his CPAP the last 2 months. Objective Data Vital Signs: Vital Signs Temp Pulse Resp BP Pulse Ox O2 Del Method O2 Flow Rate 98.1 F 62 16 123/54 H 99 Room Air 2 12/20/24 03:00 12/20/24 03:00 12/20/24 03:00 12/20/24 03:00 12/20/24 03:00 12/20/24 07:37 12/19/24 05:05 Oxygen Flow Rate (L/min) 2 Oxygen Delivery Method Room Air Weight: 264 lb 8.875 oz Body Mass Index (BMI) 37.9 Intake & Output: Intake and Output for Last 24 Hours 12/18/24 12/19/24 12/20/24 23:59 23:59 23:59 Intake Total 2446.97 / 2446.97 Balance 2446.97 / 2446.97 Lab / Micro Data Attestation: I reviewed the patient's lab results. 12/20/24 05:36 12/20/24 05:36 Labs: Laboratory Results - last 24 hr 12/20/24 05:36: WBC 6.9, RBC 4.35 L, Hgb 13.8, Hct 40.3, MCV 92.6, MCH 31.7, MCHC 34.2, RDW Std Deviation 42.9, RDW Coeff of Daphnie 12.7, Plt Count 198, MPV 10.1, Immature Gran % (Auto) 0.300, Neut % (Auto) 64.8, Lymph % (Auto) 18.8 L, M alyse % (Auto) 10.3 H, Eos % (Auto) 4.9, Baso % (Auto) 0.9, Absolute Neuts (auto) 4.5, Absolute Lymphs (auto) 1.30, Nucleated RBC % 0, Sodium 137, Potassium 4.3, Chloride 104, Carbon Dioxide 22.3, Anion Gap 11, BUN 11, Creatinine 1.14, Estim Creat Clear Calc 71.58, Est GFR (MDRD) Non-Af 67, BUN/Creatinine Ratio 9.5 L, G lucose 125 H, Calcium 8.7, Phosphorus 2.9, Magnesium 2.2, Total Bilirubin 0.50, AST 15, ALT 13, Alkaline Phosphatase 92, Total Protein 6.2, Albumin 3.6, Globulin 2.6, Albumin/Globulin Ratio 1.4 Rhythm Strip Rhythm Strip: Sinus Rhythm Rate: 61 Cardiology Labs/Tests 12/20/24 05:36: WBC 6.9, RBC 4.35 L, Hgb 13.8, Hct 40.3, MCV 92.6, MCH 31.7, MCHC 34.2, Plt Count 198, MPV 10.1, Immature Gran % (Auto) 0.300, Neut % (Auto) 64.8, Lymph % (Auto) 18.8 L, [place] % (Auto) 10.3 H, Eos % (Auto) 4.9, Baso % (Auto) 0.9, Absolute Neuts (auto) 4.5, Nucleated RBC % 0, Sodium 137, Potassium 4.3, Chloride 104, Carbon Dioxide 22.3, Anion Gap 11, BUN 11, Creatinine 1.14, Est GFR (MDRD) Non-Af 67, BUN/Creatinine Ratio 9.5 L, Glucose 125 H, Calcium 8.7, Phosphorus 2.9, Magnesium 2.2, Total Bilirubin 0.50 Rhythm: EKG: ECHO: Stress Test: Cardiac Cath: PCI: CT Surgery: Holter monitor: EPS: PPM: CXR: Chest CT Scan: Radiography Diagnostic Testing: Radiology Impression Echocardiogram 12/18/24 21:02 Interpretation Summary Normal LV size. Left ventricular systolic function is normal. The left ventricular ejection fraction is 60 %. Mild concentric left ventricular hypertrophy. Stage 1 diastolic dysfunction. Moderate aortic stenosis. Mean aortic valve gradient 22 mmHg. Contrast injection was performed. Ordering Physician: Soheila Hodge Referring Physician: Nash Morales Performed By: Chayo Akbar, LOYD, RVT Physical Exam Const alert and oriented x3 HEENT normocephalic Eyes EOMs intact bilaterally Neck no JVD and no carotid bruits Chest inspection of chest normal Resp normal respiratory effort and clear to auscultation bilaterally Cardio Rate: regular rate Rhythm: regular rhythm Heart Sounds: S1 normal, S2 normal and murmur systolic III/ high-pitched holo left sternal border; Negative for click or gallop Peripheral Pulses: radial pulses present right 2+ GI soft to palpation Extremity no pedal edema Extremity Narrative: Normal sensation and perfusion to the right hand. Neuro Neuro Narrative: Alert and oriented x 3 Psych mental status grossly normal Assessment & Plan Assessment/Plan (1) ACS (acute coronary syndrome): PLAN: Patient presenting with acute coronary syndrome was found to have significant disease in the left anterior descending. He underwent stenting of the LAD with plano balloon angioplasty of the origin of the diagonal 2. He denies any recurrence of any symptoms. His wrist is healed well. Patient's secondary risk factors are being addressed. He needs to remain on his aspirin 81 mg and ticagrelor 90 mg twice daily for uninterrupted for a minimum of 6 months and preferably 1 year. The patient will follow-up in the [facility] with Dorita Lr in 7 to 10 days. He was instructed to call for an appointment. (2) Essential (primary) hypertension: PLAN: Patient's blood pressure is well-controlled on his current meds. (3) Hyperlipidemia: QUALIFIERS: Hyperlipidemia type: pure hypercholesterolemia Q ualified Code(s): E78.00 - Pure hypercholesterolemia, unspecified PLAN: Patient is intolerant to all statin therapy. Would recommend he be considered for PCSK9 inhibitor once he is evaluated in the office depending on financial access. (4) Sleep apnea with use of continuous positive airway pressure (CPAP): PLAN: Patient has not been utilizing his sleep apnea machine treatment. He did have 2 sinus pauses early this morning while he was sleeping consistent with obstructive sleep apnea. His heart rate otherwise has been within normal limits normal sinus rhythm on telemetry with a heart rate of 60 to 70 bpm. The patient is on metoprolol 50 mg twice daily which he is tolerating without incident. (5) Aortic valve stenosis: QUALIFIERS: Cardiac valve disease etiology: nonrheumatic Q ualified Code(s): I35.0 - Nonrheumatic aortic (valve) stenosis PLAN: Patient has a murmur consistent with aortic stenosis heard along the left sternal border. He has an increased AP diameter makes it difficult to auscultate. His echocardiogram done this admission showed an ejection fraction of 60% with an aortic valve mean gradient of 22 mmHg. There is need to be followed up long-term. Further echocardiographic evaluation will be dependent upon clinical presentation. PLAN: Plan 1. From a cardiovascular standpoint the patient can be discharged to home. 2. Patient is to continue dual antiplatelet therapy uninterrupted for 1 year preferably. 3. Patient should follow-up with the [facility] office in 7 to 10 days he has an appointment to see Dr. Story in February he should keep that appointment as well. 4. Patient will be followed up clinically for progression of his aortic valve disease. Further echocardiographic examination to be dependent upon his clinical presentation. Charges/Coding Visit Charges Inpatient E&M: 11877 Subs Hosp L2
[2024-12-20 08:23] VITALS: BP 126/59; PULSE 59; RESP 16; TEMP 36.7; O2SAT 100
[2024-12-20 09:14] VITALS: BP 126/59; PULSE 59
[2024-12-20] MEDS: TICAGRELOR 90 MG TABLET PO (09:14)
[2024-12-20] MEDS: Aspirin E.C. 81 MG Tablet PO (09:14)
--- NOTE | 2024-12-20 12:12 | DS.PCM_ITS ---
Providers Date of Admission: 12/19/24 Primary Care Physician: Nash Morales MD Consultations 12/18/24 21:02
--- NOTE | 2024-12-20 12:12 | PCM.DC.SUM ---
Providers Date of Admission: 12/19/24 Primary Care Physician: aNsh Morales MD Consultations 12/18/24 21:02 Consult: Cardiology Routine Consulting Provider: Bowen Story Reason for Consult: Chest Pain, ACS EMERGENT Consult: No MD Notified: Yes Date Notified: 12/18/24 Time Notified: 20:22 Method of Notification: Text Reason For Visit: CHEST PAIN/ACS Diagnosis Discharge Diagnosis (1) ACS (acute coronary syndrome): Status: Acute Code(s): I24.9 - Acute ischemic heart disease, unspecified (2) Essential (primary) hypertension: Status: Chronic Code(s): I10 - Essential (primary) hypertension (3) Hyperlipidemia: Status: Chronic Code(s): E78.5 - Hyperlipidemia, unspecified Qualifiers: Hyperlipidemia type: pure hypercholesterolemia Qualified Code(s): E78.00 - Pure hypercholesterolemia, unspecified (4) Sleep apnea with use of continuous positive airway pressure (CPAP): Status: Chronic Code(s): G47.30 - Sleep apnea, unspecified (5) Aortic valve stenosis: Status: Acute Code(s): I35.0 - Nonrheumatic aortic (valve) stenosis Qualifiers: Cardiac valve disease etiology: nonrheumatic Qualified Code(s): I35.0 - Nonrheumatic aortic (valve) stenosis Plan Patient is a 74-year-old gentleman with significant past medical history including CAD with previous PCI to an RCA lesion who presented with chest pain and was found to have elevated troponin consistent with acute non-STEMI. Treatment initiated per protocol consultation placed to cardiology 1. Acute non-STEMI ? Patient presented with chest pain with rise in his troponin. Consult placed to cardiology patient underwent left heart catheterization with PCI with RUPA to the LAD with plano balloon angioplasty of the origin of the diagonal 2. Subsequently started on guideline directed medical therapy 2. Coronary artery disease ? With previous PCI to an RCA lesion 3. Hypertension ? Blood pressure controlled, home medications continued with dose adjustment as needed 4. Obstructive sleep apnea ? Consistent use of PAP therapy encouraged 5. Class II obesity with a BMI of 38.0 ? Complicating care weight loss advised 6.Hyperglycemia ? Patient noted known diabetic glucose on admission was 150 hemoglobin A1c subsequently ordered came back at 6.2 7. Intertrigo ? Involving the axilla nystatin powder ordered 8. Dyslipidemia ? Patient apparently intolerant to statin therapy plan is for patient to follow-up with cardiology as outpatient to be be considered for PCSK9 inhibitor in the office 9.. DVT prophylaxis ? heparin Time spent in the patient's overall evaluation,decision-making process, review of diagnostic data, adjustment of management, discussion with other providers, nursing nursing and ancillary staff involved in patient's care documentation, 35 Minutes Medications at Discharge Home Medications aspirin 81 mg tablet,delayed release 81 mg PO DAILY #90 tabs 11/11/22 albuterol sulfate 90 mcg/actuation aerosol inhaler 2 puff inhalation Q4H PRN shortness of breath or wheezing #8.5 grams 06/26/24 losartan 100 mg tablet 100 mg PO DAILY #90 tabs 08/30/24 metoprolol tartrate 50 mg tablet 50 mg PO BID #180 tabs 08/30/24 furosemide 40 mg tablet 40 mg PO DAILY PRN swelling or weight gain #30 tabs 10/08/24 ticagrelor 90 mg tablet (Brilinta) 90 mg PO BID #180 tabs 12/20/24 Physical Exam Narrative GENERAL: cooperative HEENT: Atraumatic; normocephalic EYES; Anicteric, Normal Conjunctiva NECK; supple, normal thyroid, RESPIRATORY: Diminished to auscultation CARDIOVASCULAR: Regular S1 S2, GI: soft, normoactive bowel sounds, : No Renal angle tenderness; EXTREMITIES: No edema, no clubbing, MUSCULOSKELETAL: no muscle wasting NEURO: Awake; no lateralizing signs. SKIN: No Rash PSYCH; Flat affect Weight / BMI Weight Weight: 120 kg Body Mass Index (BMI) 37.9 ABG / Lab / Microbiology Data 12/20/24 05:36 12/20/24 05:36 Laboratory: Laboratory Results - last 24 hr 12/20/24 05:36: WBC 6.9, RBC 4.35 L, Hgb 13.8, Hct 40.3, MCV 92.6, MCH 31.7, MCHC 34.2, RDW Std Deviation 42.9, RDW Coeff of Daphnie 12.7, Plt Count 198, MPV 10.1, Immature Gran % (Auto) 0.300, Neut % (Auto) 64.8, Lymph % (Auto) 18.8 L, [place] % (Auto) 10.3 H, Eos % (Auto) 4.9, Baso % (Auto) 0.9, Absolute Neuts (auto) 4.5, Absolute Lymphs (auto) 1.30, Nucleated RBC % 0, Sodium 137, Potassium 4.3, Chloride 104, Carbon Dioxide 22.3, Anion Gap 11, BUN 11, Creatinine 1.14, Estim Creat Clear Calc 71.58, Est GFR (MDRD) Non-Af 67, BUN/Creatinine Ratio 9.5 L, Glucose 125 H, Calcium 8.7, Phosphorus 2.9, Magnesium 2.2, Total Bilirubin 0.50, AST 15, ALT 13, Alkaline Phosphatase 92, Total Protein 6.2, Albumin 3.6, Globulin 2.6, Albumin/Globulin Ratio 1.4 D/C Instructions Discharge Activity: Return to Normal Activity Call your doctor if you observe: Fever of 101 or Higher, Shortness of breath, Fainting spells and Chest pain DC O2, CPAP, BIPAP Needs Home O2 Discharge instructions: No Meaningful Use Info Meaningful Use Meaningful Use Diagnoses (Choose all that apply): AMI AMI/Post PCI/Angioplasty Aspirin given w/in 24hrs of arrival?: Yes ASA at discharge?: Yes Antiplatelet Therapy at Discharge:: Yes Statins at discharge?: No Reason statins not ordered:: Allergy Cristhian/ARB at discharge?: Yes Beta Brandan at discharge?: Yes Done w/ Acute OK measure.: Yes Documented LVEF (%): 60 Discharge Plan Admission Admit Date/Time: 12/19/24 15:51 Attending Provider: Christian Solano Primary Care Provider: Nash Morales Consulting Providers: Bowen Story; Soheila Hodge Discharge Orders/Prescriptions Prescriptions: New ticagrelor [Brilinta] 90 mg tablet 90 mg PO BID Qty: 180 1RF Continued metoprolol tartrate 50 mg tablet 50 mg PO BID Qty: 180 3RF losartan 100 mg tablet 100 mg PO DAILY Qty: 90 3RF aspirin 81 mg tablet,delayed release (DR/EC) 81 mg PO DAILY Qty: 90 5RF albuterol sulfate 90 mcg/actuation HFA aerosol inhaler 2 puff inhalation Q4H PRN (Reason: shortness of breath or wheezing) Qty: 8.5 3RF Rx Instructions: administer with spacer furosemide 40 mg tablet 40 mg PO DAILY PRN (Reason: swelling or weight gain) Qty: 30 11RF Referrals / Follow Up: Nash Morales MD [Primary Care Provider, Family Practice] Bowen Story MD [Med Staff - Active Staff, Cardiology] - Within 2 Weeks Disposition Disposition (needs filled in before D/C Order can be placed): Home, Self Care Charges/Coding Visit Charges Inpatient E&M: 30877 Disch Hosp >30min
--- NOTE | 2024-12-20 14:04 | CASEMGMT ---
WILDER BARRIENTOS NOTE: Discharge order is in. Brilinta has been e-scribed to [facility] retail pharmacy. Call placed to the pharmacy, co-pay for Brilinta is $100. Per pharmacy, has already paid for this and it has been delivered to pt's room. WILDER BARRIENTOS to room. Pt up ambulating in room ad joel. He denies having any discharge needs. Venu BUSTILLON RN
--- OUTSIDE RECORDS SUMMARY | 2024-12-20 20:45 | XMS RPT_ITS | CCD ---
Author Organization [facility] Care Team Providers Care Base Loader Name Role Phone Dr. Adrian Beach Referring Provider Stacie STUDENT ACCOUNTS COORDINATOR, STUDENT ACCOUNTS COORDINATOR-C Bessie Attending Provider [phone] DO Toya Franco Primary Care Provider [phone] Stacie STUDENT ACCOUNTS COORDINATOR, STUDENT ACCOUNTS COORDINATOR-C Bessie Referring Provider Stacie STUDENT ACCOUNTS COORDINATOR, STUDENT ACCOUNTS COORDINATOR-C Bessie Other Provider Dr. Gamal Jiang Attending Provider Dr. Bowen Story Attending Provider DO Toya Franco Referring Provider Dr. Bowen Story Referring Provider Dr. Bowen Story Other Provider DO Toya Franco M Primary Care Provider DO Toya Franco M Referring Provider PHUC Chapin Attending Provider Dr. Gamal Jiang Attending Provider DO Toya Franco M Primary Care Provider DO Toya Franco M Referring Provider Dr. Javi Dooley Attending Provider Dr. Rei Fernandez Referring Provider DO Toya Franco M Primary Care Provider DO Toya Franco M Referring Provider PHUC Chapin Attending Provider DO Toya Franco Primary Care Provider DO Toya Franco Referring Provider Dr. Ilya Crain Attending Provider Stacie STUDENT ACCOUNTS COORDINATOR, STUDENT ACCOUNTS COORDINATOR-C Bessie Attending Provider MD Andrew Chalchance Primary Care Provider Andrew LIN, Chalon Primary Care Provider Andrew LIN, Chalon Referring Provider Stacie RAYMUNDO-C, Bessie Attending Provider Dorita Chapin Attending Provider Toya Franco Referring Unavailable Be FRIEND, Dorita Ybarra Attending Unavail able Andrew, Chalon Primary Care Unavailable Dorita Chapin Attending Unavail able Andrew, Chalon Primary Care Unavailable Andrew, Chalon Referring Unavailable Andrew, Chalon Primary Care Unavailable Stacie RAYMUNDO, Bessie Attending Unavailable Andrew, Chalon Referring Unavailable Dorita Chapin Attending Unavail able Be FRIEND, Dorita Ybarra Referring Unavail able Andrew, Chalon Primary Care Unavailable Bessie Quinones NP Attending Unavailable Andrew, Chalon Primary Care Unavailable Andrew, Chalon Referring Unavailable Allergies Allergy Classification Reported Allergen(s) Allergy Type Date of Onset Reaction(s) Facility (13 sources) atorvastatin Drug Allergy 2 myalgias [facility] (13 sources) rosuvastatin Drug Allergy 2 myalgias [facility] (13 sources) Simvastatin Drug Allergy 2 myalgias [facility] (2 sources) animal dander; Translations: [animal dander] Allergy to substance 5 Other [facility] (1 source) atorvastatin Drug Allergy 5 [facility]ository (1 source) rosuvastatin Drug Allergy 5 [facility] (1 source) Simvastatin Drug Allergy 5 [facility] Medications Current Medications Medication Drug Class(es) Dates Sig (Normalized) Sig (Original) [id number] 200 actuat albuterol 0.09 mg/actuat metered dose inhaler (12 sources) beta2-Adrenergic Agonist Start: 11-05-2021 End: 06-26-2024 Albuterol Sulfate 90 mcg/actuation HFA aerosol inhaler Active 2 NMA INHALATION Q4H as needed for shortness of breath or wheezing 8.June 26, 2024 2:23pm administer with spacer Start: 11-05-2021 take 1 puff(s) by in halation every four hours Albuterol Sulfate Active 2 PUFF INHALATION Q4H 8.November 05, 2021 12:00am administer with spacer amLODIPine 10 mg oral tablet (20 sources) Dihydropyridine Calcium Channel Brandan Start: 05-25-2022 take 10 mg by mouth once daily Amlodipine Active 10 MG PO DAILY May 25, 2022 1:00am Start: 09-04-2019 End: 02-05-2022 take 1 tablet by mouth once daily Amlodipine 10 mg tablet Discontinued 10 mg PO DAILY January 12, 2021 10:04am February 05, 2022 2:15pm Start: 02-19-2019 End: 09-04-2019 take 1 tablet by mouth once daily Amlodipine 5 mg tablet Discontinued 5 mg PO DAILY February 19, 2019 11:37am September 04, 2019 2:47pm Start: 11-10-2018 End: 02-19-2019 take 5 mg by mouth once daily Amlodipine 10 mg tablet Discontinued 5 mg PO DAILY November 10, 2018 9:32am February 19, 2019 11:37am Start: 11-10-2018 End: 02-19-2019 take 5 mg by mouth once daily Amlodipine Discontinued 5 MG PO DAILY November 10, 2018 9:32am February 19, 2019 11:37am Start: 02-11-2018 End: 11-10-2018 take 1 tablet by mouth once daily Amlodipine 10 mg tablet Discontinued 10 mg PO DAILY March 01, 2018 5:56pm November 10, 2018 9:33am furosemide 40 mg oral tablet (20 sources) Loop Diuretic Start: 10-20-2021 End: 04-20-2024 take 1 tablet by mouth once daily Furosemide 40 mg tablet Active 40 mg PO DAILY April 20, 2024 3:49pm Start: 09-29-2021 End: 10-20-2021 take 1 tablet by mouth twice daily as needed Furosemide 40 mg tablet Discontinued 40 mg PO .COMPLEX 180 September 29, 2021 12:00am October 20, 2021 2:50pm 40 mg orally 1 tablet by mouth twice a day X 3 days, then once daily (May need to take twice a day as needed, so please give extra tablets); Start: 11-10-2018 End: 06-17-2020 Furosemide (Lasix) 40 mg tab let Discontinued 40 mg PO .PRN 1 November 23, 2018 4:44pm June 17, 2020 1:58pm losartan potassium 100 mg oral tablet (20 sources) Angiotensin 2 Receptor Brandan Start: 08-29-2018 End: 08-30-2024 take 1 tablet by mouth once daily Losartan 100 mg tablet Active 100 mg PO DAILY August 30, 2024 3:06pm Start: 02-11-2018 End: 02-27-2018 take 1 tablet by mouth once daily Losartan 100 MG tablet Discontinued 100 mg PO DAILY February 11, 2018 1:00am February 27, 2018 4:11pm Start: 02-11-2018 End: 08-29-2018 take 1 tablet by mouth once daily Losartan 50 mg tablet Discontinued 50 mg PO DAILY March 01, 2018 5:57pm August 29, 2018 4:19pm metoprolol tartrate 50 mg oral tablet (20 sources) beta-Adrenergic Brandan Start: 06-12-2018 End: 08-30-2024 take 1 tablet by mouth twice daily Metoprolol Tartrate 50 mg tablet Active 50 mg PO TWICE A DAY 180 August 30, 2024 3:06pm Start: 03-31-2018 End: 06-12-2018 take 1 tablet by mouth twice daily Metoprolol Tartrate 25 mg tablet Discontinued 25 mg PO TWICE A DAY March 31, 2018 9:32am June 12, 2018 11:55am Start: 02-11-2018 End: 03-31-2018 Metoprolol Tartrate 25 mg ta blet Discontinued 12.5 mg PO TWICE A DAY March 01, 2018 5:57pm March 31, 2018 9:33am Start: 02-11-2018 End: 03-31-2018 take 12.5 mg by mouth twice daily Metoprolol Tartrate Discontinued 12.5 MG PO TWICE A DAY March 01, 2018 5:57pm March 31, 2018 9:33am Completed/Discontinued Medications Medication Drug Class(es) Dates Sig (Normalized) Sig (Original) aspirin 81 mg delayed release oral tablet (20 sources) Platelet Aggregation Inhibitor, Nonsteroidal Anti-inflammatory Drug Start: 02-11-2018 End: 11-11-2022 take 1 tablet by mouth once daily Aspirin 81 mg tablet,delayed release (DR/EC) Discontinued 81 mg PO DAILY January 18, 2022 10:09am November 11, 2022 12:23pm atorvastatin 80 mg oral tablet (20 sources) HMG-CoA Reductase Inhibitor Start: 02-11-2018 End: 01-08-2020 take 1 tablet by mouth at bedtime Atorvastatin 80 mg tablet Discontinued 80 mg PO AT BEDTIME February 19, 2019 11:07am January 08, 2020 3:10pm 24 hr buPROPion hydrochloride 300 mg extended release oral tablet (13 sources) Aminoketone Start: 11-10-2018 End: 06-17-2020 take 1 tablet by mouth once daily in the morning Bupropion Hcl 300 mg tablet extended release 24 hr Discontinued 300 mg PO EVERY MORNING November 10, 2018 12:00am June 17, 2020 1:58pm clopidogrel 75 mg oral tablet (20 sources) P2Y12 Platelet Inhibitor Start: 02-11-2018 End: 08-30-2024 take 1 tablet by mouth once daily Clopidogrel 75 mg tablet Discontinued 75 mg PO DAILY October 17, 2023 11:29am August 30, 2024 3:06pm ezetimibe 10 mg oral tablet (20 sources) Dietary Cholesterol Absorption Inhibitor Start: 02-24-2024 End: 05-28-2024 take 1 tablet by mouth once daily Ezetimibe (Zetia) 10 mg tablet Discontinued 10 mg PO daily February 24, 2024 1:00am May 28, 2024 12:51pm Start: 06-03-2022 End: 07-26-2023 take 1 tablet by mouth once daily Ezetimibe (Zetia) 10 mg tablet Discontinued 10 mg PO DAILY November 11, 2022 12:23pm July 26, 2023 1:49pm Start: 01-08-2020 End: 10-20-2021 take 1 tablet by mouth once daily Ezetimibe 10 mg tablet Discontinued 10 mg PO DAILY January 12, 2021 10:29am October 20, 2021 2:46pm On Hold: Myalgias hydroCHLOROthiazide 25 mg oral tablet (20 sources) Thiazide Diuretic Start: 02-11-2018 End: 09-29-2021 take 1 tablet by mouth once daily Hydrochlorothiazide 25 mg tablet Discontinued 25 mg PO DAILY April 29, 2021 12:17pm September 29, 2021 9:23am predniSONE 10 mg oral tablet (2 sources) Start: 07-26-2023 End: 12-01-2023 Prednisone 10 mg tablet Discontinued 10 mg PO As Directed July 26, 2023 12:00am December 01, 2023 2:11pm see taper instructions Problems Active Problems Problem Classification Problem Date Documented Da te Episodic/Chronic Coronary atherosclerosis and other heart disease (20 sources) History of non-ST segment elevation myocardial infarction; Translations: [Old myocardial infarction] Onset: 02-08-2018 10-19-2021 Chronic Disorders of lipid metabolism (20 sources) Hyperlipidemia; Translations: [Hyperlipidemia, unspecified] Onset: 08-30-2024 Chronic Essential hypertension (20 sources) Essential hypertension; Translations: [Essential (primary) hypertension] Onset: 08-30-2024 Chronic Gout and other crystal arthropathies (7 sources) Gout; Translations: [Gout, unspecified] 06-01-2023 Chronic Other connective tissue disease (3 sources) Triggering of digit; Translations: [Trigger finger, unspecified finger] 06-01-2023 Episodic Other connective tissue disease (4 sources) Trigger finger, unspecified finger; Translations: [Trigger finger (acquired)] 06-01-2023 Episodic Other diseases of veins and lymphatics (2 sources) Vascular insufficiency; Translations: [Venous insufficiency (chronic) (peripheral)] 02-24-2024 Episodic Other lower respiratory disease (13 sources) Dyspnea; Translations: [Dyspnea, unspecified] 2021 Episodic Other lower respiratory disease (6 sources) Dyspnea, unspecified; Translations: [Other respiratory abnormalities] Episodic Other nervous system disorders (6 sources) Postoperative pain ; Translations: [Other acute postprocedural pain] 09-14-2022 Episodic Other nutritional; endocrine; and metabolic disorders (14 sources) Body mass index 30+ - obesity; Translations: [Obesity, unspecified] 01-14-2020 Chronic Other nutritional; endocrine; and metabolic disorders (7 sources) Obesity, unspecified; Translations: [Obesity, unspecified] Chronic Residual codes; unclassified (14 sources) Obstructive sleep apnea syndrome; Translations: [Obstructive sleep apnea (adult) (pediatric)] 02-05-2022 Chronic Comment on above: AHI 90 Residual codes; unclassified (13 sources) Sleep apnea; Translations: [Sleep apnea, unspecified] 01-14-2020 Chronic Residual codes; unclassified (3 sources) Sleep apnea, unspecified; Translations: [Obstructive sleep apnea (adult)(pediatric)] Chronic Residual codes; unclassified (4 sources) Obstructive sleep apnea (adult) (pediatric); Translations: [Obstructive sleep apnea (adult)(pediatric)] Chronic Past or Other Problems Problem Classification Problem Date Documented Da te Episodic/Chronic Coronary atherosclerosis and other heart disease (8 sources) Presence of coronary angioplasty implant and graft; Translations: [Percutaneous transluminal coronary angioplasty status] Onset: 02-10-2018 Episodic Other diseases of veins and lymphatics (1 source) Venous insufficiency (chronic) (peripheral); Translations: [Venous insufficiency (chronic) (peripheral)] Onset: 08-30-2024 Episodic Results Test Name Value Interpretation Reference Range Facility Cardiology Visit Reporton Cardiology Visit Report [facility] [address] [place] [address] OFFICE VISIT Date of Service: 08/30/24 MR#: [id number] Acct: [id number] Name: SANJEEV FARMER Rep #: [id number] : 1950 Provider: PHUC Norton Age/Sex: 73/M Location: [facility] [place] Status: Signed HPI HPI History of Present Illness Details: SANJEEV FARMER, is a 73 M who presents for a cardiovascular follow up. He has a hx of CAD with stenting to is RCA in 2018. He also has a hx of hypertension, hyperlipidemia, LARRY. His last echocardiogram was from June 2020 demonstrating an ejection fraction of 55% with moderate concentric left ventricular hypertrophy. Pt would like to stop his lasix. He feels his breathing is okay. He is not concerned like he was the last time. He does have knee pain and did get injections. He does try to go exercise 3 times a week. He does not have any chest pain/heaviness. He does not have any palpitations. He does not have any lightheadedness/dizz iness. He is concerned about bleeding. He has lost weight since he was here last this is with dietary changes. Intake Vital Signs 02/24/24 13:32 05/28/24 08:48 08/30/24 14:37 Height 5 ft 10 in 5 ft 10 in 5 ft 10 in Weight: 273 lb 256 lb BMI 39.2 36.7 BP 131/57 H 110/70 Blood Pressure Location Lt brachial Lt brachial Position Sitting Sitting Respiration 18 18 Pulse 73 68 Pulse Source Monitor Monitor Temp 97.6 F L Temperature Source Temporal Artery Pulse Oximetry (%) 96 Oxygen Delivery Method room air Intake Visit Reasons: 6 M FU Instructional Support Services Director Required: No Accompanied by: Self Is patient in pain?: No Allergies animal dander Allergy (Verified 08/30/24 14:40) Other atorvastatin (From Lipitor) Adverse Reaction (Intermediate, Verified 08/30/24 14:40) myalgias rosuvastatin (From Crestor) Adverse Reaction (Intermediate, Verified 08/30/24 14:40) myalgias simvastatin (From Zocor) Adverse Reaction (Intermediate, Verified 08/30/24 14:40) myalgias Medications ???Medication ???Instructions ???Recorded ???Confirmed ???Type aspirin 81 mg tablet,delayed 81 mg PO DAILY #90 tabs 11/11/22 0 08/30/24 Rx release furosemide 40 mg tablet 40 mg PO DAILY #30 tabs 04/20/24 0 08/30/24 Rx albuterol sulfate 90 mcg/actuation 2 puff inhalation Q4H PRN 08/30/24 Rx aerosol inhaler shortness of breath or wheezing #8.5 grams losartan 100 mg tablet 100 mg PO DAILY #90 tabs 08/30/24 08/30/24 Rx metoprolol tartrate 50 mg tablet 50 mg PO BID #180 tabs 08/30/24 Rx Ejection fraction %: 55 Have you fallen in the past year?: Yes (fall-fell off toilet) PFSH Medical History Venous insufficiency Hyperlipidemia History of non-ST elevation myocardial infarction (NSTEMI) (02/08/18) Obesity (BMI 35.0-39.9 without comorbidity) Sleep apnea with use of continuous positive airway pressure (CPAP) Atherosclerosis of coronary artery of [place] heart without angina pectoris Essential (primary) hypertension Surgical History History of total right knee replacement History of coronary artery stent placement (02/10/18) Family History Father Parkinson disease Social History Smoking Status: Former smoker alcohol intake: current ROS Const Const: Positive for daytime sleepiness; Negative for fatigue or weakness Eyes Eyes: Negative for change in vision ENT ENT: Positive for balance problems; Negative for dizziness Cardio Chest Pain: No Palpitations: No Edema: Bilateral (occ) Resp Respiratory: Positive for SOB with activity (occ); Negative for SOB at rest or SOB orthopnea SOB lying down GI GI: Negative nausea or heartburn Musc Musc: Positive for balance problems Neuro Neuro: Negative for dizziness, lightheadedness, near syncope, syncope or weakness Endo Endo: Negative for fatigue Cardiology Exam Const Appearance: cooperative, no acute distress and well developed Orientation: alert, awake and oriented x3 Head Head: normocephalic and atraumatic Mouth: moist mucous membranes Eyes General: appearance normal, both eyes and all related structures Conjunctivae: conjunctivae normal Pupils: PERRL EOM: EOM intact bilaterally Neck Neck: normal visual inspection, no lymphadenopathy and no JVD Carotids: Negative bruit Neck Mass: Negative Neck mass Chest Chest inspection: normal inspection of the chest and symmetric chest movement Auscultation: Bilateral: Clear to Auscultation Cardio Palpation: normal PMI Rate: regular rate Rhythm: regular rhythm Heart sounds: S1 normal and S2 normal; Negat (more content not included)... Normal [facility] Pulmonary Visit Reporton Pulmonary Visit Report [facility] of [address] [place] [address] OFFICE VISIT Date of Service: 05/28/24 MR#: [id number] Acct: [id number] Name: SANJEEV FARMER Rep #: [id number] : 1950 Provider: MICHAEL Quinones Age/Sex: 73/M Location: [facility] Status: Signed Assessment and Plan Assessment and Plan (1) LARRY (obstructive sleep apnea): Status: Chronic Comment: AHI 90 Plan: He is using and benefiting from Pap therapy. No indication for retitration study, if you recall, the patient is opposed to repeating sleep test at this time. AHI remains slightly elevated but is actually improved since last office visit. He does report feeling rested and therefore we are going to continue current settings. Contact the office for any new or worsening symptoms in the meantime. Follow-up in 6 months. (2) Obesity (BMI 35.0-39.9 without comorbidity): Status: Chronic Plan: Complicates exam, plan, care and prognosis. Continue to encourage healthy weight loss. Plan Details Follow Up: 6 Months HPI 6 M FU Chief Complaint: Routine follow-up HPI Comments Details: This patient presents to the office today for annual follow-up of his obstructive sleep apnea. He is ambulatory and currently on room air. He has not recently been seen in the ED or urgent care for any respiratory illness. He has not required any antibiotics or prednisone for any breathing problems. If you recall, he has a light smoking history, quitting completely over 40 years ago. He does have shortness of breath on exertion. He denies any cough, sputum production or hemoptysis. He denies any wheezing, chest tightness, chest pain or palpitations. He denies any fever, chills or body aches. He feels rested with the use of his PAP device. He does have some difficulty with dry mouth. He continues to have some occasional difficulty with mask leaks. He occasionally naps during the day without his PAP machine. He is not having excessive nocturia. He is not having morning headaches, nor nodding off to sleep unintentionally. Compliance report for the past 30 days shows 100% compliance with average use of 6 hours and 16 minutes per night. Current setting is air curve 10 via auto maximum inspiratory pressure 22 cmH2O, minimum expiratory pressure of 18 cm of water with a pressure support of 4 cmH2O. Pressures are typically utilized at 22/18. Leaks appear to be problematic. Residual AHI of 9.2 events per hour. Intake Vital Signs 12/01/23 08:07 05/28/24 08:48 Height 5 ft 10 in 5 ft 10 in Weight: 264 lb 273 lb BMI 37.8 39.2 BP 133/82 H 131/57 H Blood Pressure Location Rt brachial Lt brachial Position Sitting Sitting Respiration 20 H 18 Pulse 71 73 Pulse Source Monitor Monitor Temp 97.3 F L 97.6 F L Temperature Source Temporal Artery Temporal Artery Pulse Oximetry (%) 97 96 Oxygen Delivery Method room air room air Intake Visit Reasons: 6 M FU Chief Complaint: Follow up Instructional Support Services Director Required: No DME Vendor: [employer] Allergies animal dander Allergy (Verified 05/28/24 12:49) Other atorvastatin (From Lipitor) Adverse Reaction (Intermediate, Verified 05/28/24 12:49) myalgias rosuvastatin (From Crestor) Adverse Reaction (Intermediate, Verified 05/28/24 12:49) myalgias simvastatin (From Zocor) Adverse Reaction (Intermediate, Verified 05/28/24 12:49) myalgias Medications ???Medication ???Instructions ???Recorded ???Confirmed ???Type albuterol sulfate 90 mcg/actuation 2 puff inhalation Q4H PRN 05/28/24 Rx aerosol inhaler shortness of breath or wheezing #8.5 grams aspirin 81 mg tablet,delayed 81 mg PO DAILY #90 tabs 11/11/22 0 05/28/24 Rx release clopidogrel 75 mg tablet 75 mg PO DAILY #90 tabs 10/17/23 0 05/28/24 Rx losartan 100 mg tablet 100 mg PO DAILY #90 tabs 10/17/23 05/28/24 Rx metoprolol tartrate 50 mg tablet 50 mg PO BID #180 tabs 10/20/23 Rx furosemide 40 mg tablet 40 mg PO DAILY #30 tabs 04/20/24 0 05/28/24 Rx Have you fallen in the past year?: No PFSH Medical History (Reviewed 05/28/24 @ 12:54 by Bessie Quinones STUDENT ACCOUNTS COORDINATOR, STUDENT ACCOUNTS COORDINATOR-C) Venous insufficiency Hyperlipidemia History of non-ST elevation myocardial infarction (NSTEMI) (02/08/18) Obesity (BMI 35.0-39.9 without comorbidity) Sleep apnea with use of continuous positive airway pressure (CPAP) Atherosclerosis of coronary artery of [place] heart without angina pectoris Essential (primary) hypertension Surgical History (Reviewed 05/28/24 @ 12:54 by Bessie Quinones STUDENT ACCOUNTS COORDINATOR, STUDENT ACCOUNTS COORDINATOR-C) History of coronary artery stent placement (02/10/18) Family History Father Parkinson disease Social History Smoking Status: Former s (more content not included)... Normal [facility] Cardiology Visit Reporton Cardiology Visit Report [facility] [address] [place] [address] OFFICE VISIT Date of Service: 02/24/24 MR#: [id number] Acct: [id number] Name: SANJEEV FARMER Rep #: [id number] : 1950 Provider: PHUC Norton Age/Sex: 73/M Location: [facility] [place] Status: Signed HPI HPI History of Present Illness Details: SANJEEV FARMER, is a 73 M who presents for a cardiovascular follow up. He has a hx of CAD with stenting to is RCA in 2018. He also has a hx of hypertension, hyperlipidemia, LARRY. His last echocardiogram was from June 2020 demonstrating an ejection fraction of 55% with moderate concentric left ventricular hypertrophy. Pt does note that he has been having increase in SOB. He does try to go exercise 3 times a week. He does not have any chest pain/heaviness. He does not have any palpitations. He does not have any lightheadedness/dizz iness. He does sometimes have some swelling. Intake Vital Signs 02/23/23 13:04 12/01/23 08:07 02/24/24 13:27 02/24/24 13:32 Height 5 ft 10 in 5 ft 10 in 5 ft 10 in 5 ft 10 in Weight: 277 lb BMI 39.7 BP 117/66 Blood Pressure Location Lt brachial Position Sitting Respiration 20 H Pulse 67 Pulse Source Monitor Pulse Oximetry (%) 98 Intake Visit Reasons: 1 Y FU Instructional Support Services Director Required: No Is patient in pain?: No Allergies animal dander Allergy (Verified 02/24/24 13:28) Other atorvastatin (From Lipitor) Adverse Reaction (Intermediate, Verified 02/24/24 13:28) myalgias rosuvastatin (From Crestor) Adverse Reaction (Intermediate, Verified 02/24/24 13:28) myalgias simvastatin (From Zocor) Adverse Reaction (Intermediate, Verified 02/24/24 13:28) myalgias Medications ???Medication ???Instructions ???Recorded ???Confirmed ???Type albuterol sulfate 90 mcg/actuation 2 puff inhalation Q4H PRN 11/05/21 02/24/24 Rx aerosol inhaler shortness of breath or wheezing #8.5 grams aspirin 81 mg tablet,delayed 81 mg PO DAILY #90 tabs 11/11/22 02/24/24 Rx release clopidogrel 75 mg tablet 75 mg PO DAILY #90 tabs 10/17/23 02/24/24 Rx furosemide 40 mg tablet 40 mg PO DAILY #90 tabs 10/17/23 02/24/24 Rx losartan 100 mg tablet 100 mg PO DAILY #90 tabs 10/17/23 02/24/24 Rx metoprolol tartrate 50 mg tablet 50 mg PO BID #180 tabs 10/20/23 02/24/24 Rx ezetimibe 10 mg tablet (Zetia) 10 mg PO QDAY 02/24/24 02/24/24 History Have you fallen in the past year?: No PFSH Medical History (Updated 02/24/24 @ 13:48 by Dorita FRIEND, PA) Venous insufficiency Hyperlipidemia History of non-ST elevation myocardial infarction (NSTEMI) (02/08/18) Obesity (BMI 35.0-39.9 without comorbidity) Sleep apnea with use of continuous positive airway pressure (CPAP) Atherosclerosis of coronary artery of [place] heart without angina pectoris Essential (primary) hypertension Surgical History History of coronary artery stent placement (02/10/18) Family History Father Parkinson disease Social History Smoking Status: Former smoker alcohol intake: current ROS Const Const: Negative for fatigue, weakness, fever(s) or headache(s) Eyes Eyes: Negative for blind spots, loss of peripheral vision or transient loss of vision ENT ENT: Negative for headache(s), dizziness, tinnitus, Nosebleed/epistaxis or balance problems Cardio Chest Pain: No Palpitations: No Edema: None Muscle aches with walking: None Resp Respiratory: Positive for SOB with activity; Negative for SOB at rest, SOB orthopnea SOB lying down or Cough GI GI: Negative nausea, vomiting, heartburn or vomiting blood/hematemesis : Negative for hematuria Musc Musc: Positive for muscle aches/ myalgia and joint pain; Negative for muscle weakness or balance problems Neuro Neuro: Negative for dizziness, lightheadedness, near syncope, syncope, orthostatic symptoms, headache(s) or weakness Abdi Hematologic/Lymphati c: Negative for easy bleeding Endo Endo: Negative for fatigue Cardiology Exam Const Appearance: cooperative, no acute distress and well developed Orientation: alert, awake and oriented x3 Head Head: normocephalic and atraumatic Mouth: moist mucous membranes Eyes General: appearance normal, both eyes and all related structures Conjunctivae: conjunctivae normal Pupils: PERRL EOM: EOM intact bilaterally Neck Neck: normal visual inspection, no lymphadenopathy and no JVD Carotids: Negative bruit Neck Mass: Negative Neck mass Chest Chest inspection: normal inspection of the chest and symmetric chest movement Auscultation: Bilateral: Clear to Auscultation Cardio Palpation: normal PMI Rate: (more content not included)... Normal [facility] Lipid Profileon 02-01-2024 Cholesterol [Mass/Vol] 199 mg/dL Normal 200 [facility] Comment on above: Result Comment: <200 mg/dL Desirable 200-240 mg/dL Borderline >240 mg/dL High Risk Performed By: #### L 500.4100, L500.3400 #### [facility] [address] [place], [address] Cholesterol in HDL [Mass/Vol] 37 mg/dL Low [facility] Comment on above: Result Comment: The drugs N-Acetylcysteine and Metamizole may falsely depress this assay. Reference Range HDL <40 mg/dL Low HDL Cholesterol HDL >or= 60 mg/dL High HDL Cholesterol Performed By: #### L 500.4100, L500.3400 #### [facility] [address] [place], [address] Cholesterol in LDL [Mass/Vol] 125 mg/dL Normal 0-130 [facility] Comment on above: Performed By: #### L 500.4100, [id number] #### [facility] [address] [place], [address] Cholesterol in VLDL [Mass/Vol] 37 mg/dL Normal 5-40 [facility] Comment on above: Performed By: #### L 500.4100, [id number] #### [facility] [address] [place], [address] Triglyceride [Mass/Vol] 186 mg/dL Normal [facility] Comment on above: Result Comment: The drugs N-Acetylcysteine and Metamizole may falsely depress this assay. Serum Triglycerides Reference Interval Normal <150 mg/dL Borderline high 150 - 199 mg/dL High 200 - 499 mg/dL Very High > or = 500 mg/dL Performed By: #### L 500.4100, [id number] #### [facility] [address] [place], [address] Liver Profileon 02-01-2024 Albumin [Mass/Vol] 3.3 g/dL Normal 3.2-5.0 [facility] Comment on above: Performed By: #### L 500.4100, [id number] #### [facility] [address] [place], [address] ALK P 108 U/L Normal 45-117 [facility] Comment on above: Performed By: #### L 500.4100, [id number] #### [facility] [address] [place], [address] ALT [Catalytic activity/Vol] 24 U/L Normal 16-61 [facility] Comment on above: Performed By: #### L [id number], [id number] #### [facility] [address] [place], [address] AST [Catalytic activity/Vol] 16 U/L Normal 15-37 [facility] Comment on above: Performed By: #### L 500.4100, [id number] #### [facility] [address] [place], [address] Bilirubin [Mass/Vol] 0.60 mg/dL Normal 0.20-1.00 [facility] Comment on above: Result Comment: For patients on eltrombopag therapy, use of Dimension [place] TBIL is not recommended. Performed By: #### L 500.4100, [id number] #### [facility] [address] [place], [address] Bilirubin.direct [Mass/Vol] 0.21 mg/dL Normal 0.00-0.30 [facility] Comment on above: Performed By: #### L [id number], [id number] #### [facility] [address] [place], [address] Globulin (S) [Mass/Vol] 3.7 g/dL Normal 2.2-4.2 [facility] Comment on above: Performed By: #### L [id number], [id number] #### [facility] [address] [place], [address] T PROT 7.0 g/dL Normal 6.4-8.2 [facility] Comment on above: Performed By: #### L 500.4100, [id number] #### [facility] [address] [place], [address] Absolute lymphocyte countOrd ered By: Nash Morales on 07-20-2023 Lymphocytes Auto (Unsp spec) [#/Vol] 1.37 10*3/uL 0.83-4.51 [facility] Automated lymphocyte count a s percentage of total leukocytesOrdered By: Nash Morales on 07-20-2023 Lymphocytes/100 WBC Auto (Unsp spec) 19.9 % 19-41 [facility] Basophil percentageOrdered B y: Nash Morales on 07-20-2023 Basophils/100 WBC (Bld) 0.9 % 0-1 [facility] Bilirubin [Mass/Vol] 0.50 mg/dL 0.20-1.00 [facility] Comment on above: For patients on eltr ombopag therapy, use of Dimension [place] TBIL is not recommended. Chloride [Moles/Vol] 105 mmol/L 98-107 [facility] Cholesterol [Mass/Vol] 260 mg/dL <200 [facility] Comment on above: <200 mg/dL Desirable 200-240 mg/dL Borderline >240 mg/dL High Risk Eosinophils/100 WBC (Bld) 3.8 % 0-5 [facility] Glucose [Mass/Vol] 104 mg/dL 74-106 [facility] Comment on above: Fasting Glucose resu lt from 100 to 125 mg/dL suggests IMPAIRED HOMEOSTASIS per A.D.A. criteria. Hemoglobin (Bld) [Mass/Vol] 14.3 g/dL 13.0-16.5 [facility] Monocytes/100 WBC (Bld) 8.4 % 0-10 [facility] Neutrophils (Bld) [#/Vol] 4.6 10*3/uL 2.0-7.7 [facility] Neutrophils/100 WBC (Bld) 66.7 % 47-70 [facility] Potassium [Moles/Vol] 4.2 mmol/L 3.5-5.1 [facility] Protein [Mass/Vol] 7.2 g/dL 6.4-8.2 [facility] Sodium [Moles/Vol] 140 mmol/L 136-145 [facility] Triglyceride [Mass/Vol] 186 mg/dL <199 [facility] Comment on above: The drugs N-Acetylcy steine and Metamizole may falsely depress this assay.Serum Triglycerides Reference Interval Normal <150 mg/dL Borderline high 150 - 199 mg/dL High 200 - 499 mg/dL Very High > or = 500 mg/dL WBC (Bld) [#/Vol] 6.9 10*3/uL 4.4-11.0 [facility] Determination of erythrocyte mean corpuscular volume (MCV)Ordered By: Nash Morales on 07-20-2023 MCV (RBC) [Entitic vol] 96.7 fL 80-94 [facility] Erythrocyte distribution wid th ratioOrdered By: Miochance Andrew on 07-20-2023 Erythrocyte distribution width (RBC) [Ratio] 12.7 % 11.6-14.6 [facility] Erythrocyte distribution wid th standard deviationOrdered By: [facility]23 Erythrocyte distribution width (RBC) [Entitic vol] 45.2 fL 35.1-43.9 [facility] Hematocrit Auto (Bld) [Volum e fraction]Or[facility]: [facility] 07-[facility]23 Hematocrit (Bld) [Volume fraction] 43.7 % 40-54 [facility] Immature granulocytes/100 WB C Auto (Bld)Ordered By: [facility] on 07-20-2023 Immature granulocytes/100 WBC (Bld) 0.300 % 0.0-0.9 [facility] Comment on above: IG% - Immature Granu locytes (promyelocytes, myelocytes and metamyelocytes) > 1% indicates that a LEFT SHIFT is Present. Laboratory - Chemistry and C hemistry - challengeOrdered By: [facility] on 07-20-2023 Albumin/Globulin [Mass ratio] 0.9 {ratio} 0.9-2.4 [facility] ALP [Catalytic activity/Vol] 97 U/L 45-117 [facility] ALT [Catalytic activity/Vol] 24 U/L 16-61 [facility] Cholesterol in HDL [Mass/Vol] 42 mg/dL >40 [facility] Comment on above: The drugs N-Acetylcy steine and Metamizole may falsely depress this assay. Reference Range HDL <40 mg/dL Low HDL Cholesterol HDL >or= 60 mg/dL High HDL Cholesterol Cholesterol in LDL [Mass/Vol] 181 mg/dL 0-130 [facility] CO2 [Moles/Vol] 30.0 mmol/L 21.0-32.0 [facility] Globulin (S) [Mass/Vol] 3.8 g/dL 2.2-4.2 [facility] Urea nitrogen/Creatinine [Mass ratio] 13.7 mg/mg 10-20 [facility] - Hematology and Cell countsOrdered By: [facility] on 07-20-2023 MCH (RBC) [Entitic mass] 31.6 pg 27.0-32.0 [facility] MCHC (RBC) [Mass/Vol] 32.7 g/dL 32-36 [facility] Nucleated RBC/100 WBC (Bld) [Ratio] 0 % 0-5 [facility] Platelet mean volume (Bld) [Entitic vol] 10.3 fL 6.2-12.0 [facility] Platelets (Bld) [#/Vol] 203 10*3/uL 150-450 [facility] No Panel InformationOrdered By: aNsh Morales on 07-20-2023 Estimated GFR (MDRD) Amer 64 mL/min >60 [facility] Comment on above: GFR Calc Estimated GFR (MDRD) Non-Af Amer 53 mL/min >60 [facility] Comment on above: Non- GFR Calc Vitamin D 25-Hydroxy 19.3 ng/mL [facility] Comment on above: Vitamin D 25(OH) Sta tus Range Deficiency <20 ng/mL (50nmol/L) Insufficiency 20 - 30 ng/mL (50 - 75 nmol/L) Sufficiency 30 - 100 ng/mL (75 - 250 nmol/L) Toxicity >100 ng/mL (>250 nmol/L) VLDL Cholesterol 37 mg/dL 5-40 [facility] RBC Auto (Bld) [#/Vol]Ordere d By: Nash Morales on 07-20-2023 RBC (Bld) [#/Vol] 4.52 10*6/uL 4.6-6.2 [facility] Serum or plasma calcium jamie urement (mass/volume)Ordered By: Nash Morales on 07-20-2023 Calcium [Mass/Vol] 8.6 mg/dL 8.5-10.1 [facility] Serum or plasma creatinine m easurement (mass/volume)Ordered By: Nash Morales on 07-20-2023 Creatinine [Mass/Vol] 1.39 mg/dL 0.70-1.30 [facility] Comment on above: The validity of the calculated GFR & GFRAA in patients over 70 years has not been determined. Clinical correlation is essential. Serum or plasma urea nitroge n measurement (mass/volume)Ordered By: Nash Morales on 07-20-2023 Urea nitrogen [Mass/Vol] 19 mg/dL 7-18 [facility] Thin prep Papanicolaou smear with manual screeningOrdered By: Nash Morales on 07-20-2023 Thin prep Papanicolaou smear with manual screening 3.4 g/dL 3.2-5.0 [facility] Thin prep Papanicolaou smear with manual screening 13 U/L 15-37 [facility] Thin prep Papanicolaou smear with manual screening 5 5-15 [facility] Whole blood hemoglobin A1c/t otal hemoglobin ratio (mass fraction)Ordered By: Nash Morales on 07-20-2023 HbA1c (Bld) [Mass fraction] 6.2 % 3.8-5.6 [facility] Comment on above: Normal < 5.7 % Predi abetic 5.7 - 6.4 % Diabetic >or= 6.5 % Please note range changes. Serum or plasma uric acid me asurement (mass/volume)Ordered By: Ilya Crain on 07-13-2023 Urate [Mass/Vol] 8.8 mg/dL 3.5-7.2 [facility] Comment on above: The drugs N-Acetylcy steine and Metamizole may falsely depress this assay. Basophil percentageOrdered B y: Dorita Lr on 02-15-2023 Bilirubin [Mass/Vol] 0.90 mg/dL 0.20-1.00 [facility] Comment on above: For patients on eltr ombopag therapy, use of Dimension [place] TBIL is not recommended. Cholesterol [Mass/Vol] 218 mg/dL <200 [facility] Comment on above: <200 mg/dL Desirable 200-240 mg/dL Borderline >240 mg/dL High Risk Protein [Mass/Vol] 8.1 g/dL 6.4-8.2 [facility] Triglyceride [Mass/Vol] 242 mg/dL <199 [facility] Comment on above: The drugs N-Acetylcy steine and Metamizole may falsely depress this assay.Serum Triglycerides Reference Interval Normal <150 mg/dL Borderline high 150 - 199 mg/dL High 200 - 499 mg/dL Very High > or = 500 mg/dL Direct bilirubinOrdered By: Dorita Lr on 11-28-2023 Bilirubin.direct [Mass/Vol] 0.23 mg/dL 0.00-0.30 [facility] - Chemistry and C hemistry - challengeOrdered By: Dorita Lr on 02-15-2023 ALP [Catalytic activity/Vol] 106 U/L 45-117 [facility] ALT [Catalytic activity/Vol] 31 U/L 16-61 [facility] Globulin (S) [Mass/Vol] 4.2 g/dL 2.2-4.2 [facility] Serum or plasma albumin jamie urement (mass/volume)Ordered By: Dorita Lr on 02-15-2023 Albumin [Mass/Vol] 3.9 g/dL 3.2-5.0 [facility] Serum or plasma cholesterol in HDL measurement (mass/volume)Ordered By: Dorita Lr on 02-15-2023 Cholesterol in HDL [Mass/Vol] 43 mg/dL >40 [facility] Comment on above: The drugs N-Acetylcy steine and Metamizole may falsely depress this assay. Reference Range HDL <40 mg/dL Low HDL Cholesterol HDL >or= 60 mg/dL High HDL Cholesterol Serum or plasma cholesterol in VLDL measurement (mass/volume)Ordered By: Dorita Lr on 02-15-2023 Cholesterol in VLDL [Mass/Vol] 48 mg/dL 5-40 [facility] Serum or plasma low density lipoprotein (LDL) cholesterol measurement (mass/volume)Ordered By: Dorita Lr on 02-15-2023 Cholesterol in LDL [Mass/Vol] 127 mg/dL 0-130 [facility] Thin prep Papanicolaou smear with manual screeningOrdered By: Dorita Lr on 02-15-2023 Thin prep Papanicolaou smear with manual screening 20 U/L 15-37 [facility] Absolute lymphocyte countOrd ered By: Guillermina Barone on 09-06-2022 Lymphocytes Auto (Unsp spec) [#/Vol] 1.52 10*3/uL 0.83-4.51 [facility] Basophil percentageOrdered B y: Guillermina Barone on 09-06-2022 Basophils/100 WBC (Bld) 0.8 % 0-1 [facility] Chloride [Moles/Vol] 100 mmol/L 98-107 [facility] Eosinophils/100 WBC (Bld) 2.0 % 0-5 [facility] Glucose [Mass/Vol] 118 mg/dL 74-106 [facility] Comment on above: Fasting Glucose resu lt from 100 to 125 mg/dL suggests IMPAIRED HOMEOSTASIS per A.D.A. criteria. Lactate [Moles/Vol] 1.8 mmol/L 0.4-2.0 [facility] Neutrophils (Bld) [#/Vol] 6.4 10*3/uL 2.0-7.7 [facility] Neutrophils/100 WBC (Bld) 70.7 % 47-70 [facility] Potassium [Moles/Vol] 3.9 mmol/L 3.5-5.1 [facility] Sodium [Moles/Vol] 133 mmol/L 136-145 [facility] WBC (Bld) [#/Vol] 9.1 10*3/uL 4.4-11.0 [facility] Blood erythrocytes count (nu mber/volume)Ordered By: Guillermina Barone on 09-06-2022 RBC (Bld) [#/Vol] 3.97 10*6/uL 4.6-6.2 [facility] Blood hemoglobin measurement (mass/volume)Ordered By: Guillermina Barone on 09-06-2022 Hemoglobin (Bld) [Mass/Vol] 12.6 g/dL 13.0-16.5 [facility] Blood lymphocytes/100 leukoc ytesOrdered By: Guillermina Barone on 09-06-2022 Lymphocytes/100 WBC (Bld) 16.7 % 19-41 [facility] Blood monocytes/100 leukocyt esOrdered By: Guillermina Barone on 09-06-2022 Monocytes/100 WBC (Bld) 9.4 % 0-10 [facility] Blood platelet mean volumeOr dered By: Guillermina Barone on 09-06-2022 Platelet mean volume (Bld) [Entitic vol] 10.2 fL 6.2-12.0 [facility] Determination of erythrocyte mean corpuscular volume (MCV)Ordered By: Guillermina Barone on 09-06-2022 MCV (RBC) [Entitic vol] 98.0 fL 80-94 [facility] Hematocrit Auto (Bld) [Volum e fraction]Ordered By: Guillermina Barone on 09-06-2022 Hematocrit (Bld) [Volume fraction] 38.9 % 40-54 [facility] - Chemistry and C hemistry - challengeOrdered By: Guillermina Barone on 09-06-2022 CO2 [Moles/Vol] 24.0 mmol/L 21.0-32.0 [facility] Urea nitrogen/Creatinine [Mass ratio] 21.5 mg/mg 10-20 [facility] - Hematology and Cell countsOrdered By: Guillermina Barone on 09-06-2022 Erythrocyte distribution width (RBC) [Entitic vol] 44.5 fL 35.1-43.9 [facility] Erythrocyte distribution width (RBC) [Ratio] 12.4 % 11.6-14.6 [facility] Immature granulocytes/100 WBC (Bld) 0.400 % 0.0-0.9 [facility] Comment on above: IG% - Immature Granu locytes (promyelocytes, myelocytes and metamyelocytes) > 1% indicates that a LEFT SHIFT is Present. MCH (RBC) [Entitic mass] 31.7 pg 27.0-32.0 [facility] Nucleated RBC/100 WBC (Bld) [Ratio] 0 % 0-5 [facility] MCHC Auto (RBC) [Mass/Vol]Or dered By: Guillermina Barone on 09-06-2022 MCHC (RBC) [Mass/Vol] 32.4 g/dL 32-36 [facility] No Panel InformationOrdered By: Guillermina Barone on 09-06-2022 Estimated Creatinine Clearance Calc 35.57 ml/min [facility] Estimated GFR (MDRD) Amer 45 mL/min >60 [facility] Comment on above: GFR Calc Estimated GFR (MDRD) Non-Af Amer 37 mL/min >60 [facility] Comment on above: Non- GFR Calc Platelets bldOrdered By: Margaret Barone on 09-06-2022 Platelets (Bld) [#/Vol] 286 10*3/uL 150-450 [facility] Serum or plasma calcium jamie urement (mass/volume)Ordered By: Guillermina Barone on 09-06-2022 Calcium [Mass/Vol] 9.5 mg/dL 8.5-10.1 [facility] Serum or plasma creatinine m easurement (mass/volume)Ordered By: Guillermina Barone on 09-06-2022 Creatinine [Mass/Vol] 1.91 mg/dL 0.70-1.30 [facility] Comment on above: The validity of the calculated GFR & GFRAA in patients over 70 years has not been determined. Clinical correlation is essential. Serum or plasma urea nitroge n measurement (mass/volume)Ordered By: Guillermina Barone on 09-06-2022 Urea nitrogen [Mass/Vol] 41 mg/dL 7-18 [facility] Thin prep Papanicolaou smear with manual screeningOrdered By: Guillermina Barone on 09-06-2022 Thin prep Papanicolaou smear with manual screening 9 5-15 [facility] Absolute lymphocyte countOrd ered By: Sanjeev Buckley on 08-19-2022 Lymphocytes Auto (Unsp spec) [#/Vol] 1.33 10*3/uL 0.83-4.51 [facility] Basophil percentageOrdered B y: Sanjeev Buckley on 08-19-2022 Basophils/100 WBC (Bld) 1.0 % 0-1 [facility] Chloride [Moles/Vol] 103 mmol/L 98-107 [facility] Eosinophils/100 WBC (Bld) 4.0 % 0-5 [facility] Glucose [Mass/Vol] 127 mg/dL 74-106 [facility] Comment on above: Fasting Glucose resu lt greater than or equal to 126 mg/dL suggests DIABETES MELLITUS per A.D.A. criteria. Neutrophils (Bld) [#/Vol] 4.9 10*3/uL 2.0-7.7 [facility] Neutrophils/100 WBC (Bld) 67.6 % 47-70 [facility] Potassium [Moles/Vol] 4.1 mmol/L 3.5-5.1 [facility] Sodium [Moles/Vol] 138 mmol/L 136-145 [facility] WBC (Bld) [#/Vol] 7.3 10*3/uL 4.4-11.0 [facility] Blood erythrocytes count (nu mber/volume)Ordered By: Sanjeev Buckley on 08-19-2022 RBC (Bld) [#/Vol] 4.79 10*6/uL 4.6-6.2 [facility] Blood hemoglobin measurement (mass/volume)Ordered By: Sanjeev Buckley on 08-19-2022 Hemoglobin (Bld) [Mass/Vol] 15.2 g/dL 13.0-16.5 [facility] Blood lymphocytes/100 leukoc ytesOrdered By: Sanjeev Buckley on 08-19-2022 Lymphocytes/100 WBC (Bld) 18.3 % 19-41 [facility] Blood monocytes/100 leukocyt esOrdered By: Sanjeev Buckley on 08-19-2022 Monocytes/100 WBC (Bld) 8.8 % 0-10 [facility] Blood platelet mean volumeOr dered By: Sanjeev Buckley on 08-19-2022 Platelet mean volume (Bld) [Entitic vol] 10.2 fL 6.2-12.0 [facility] Determination of erythrocyte mean corpuscular volume (MCV)Ordered By: Sanjeev Buckley on 08-19-2022 MCV (RBC) [Entitic vol] 94.6 fL 80-94 [facility] Hematocrit Auto (Bld) [Volum e fraction]Ordered By: Sanjeev Buckley on 08-19-2022 Hematocrit (Bld) [Volume fraction] 45.3 % 40-54 [facility] - Chemistry and C hemistry - challengeOrdered By: Sanjeev Buckley on 08-19-2022 CO2 [Moles/Vol] 27.0 mmol/L 21.0-32.0 [facility] Urea nitrogen/Creatinine [Mass ratio] 13.4 mg/mg 10-20 [facility] - Hematology and Cell countsOrdered By: Sanjeev Buckley on 08-19-2022 Erythrocyte distribution width (RBC) [Entitic vol] 44.1 fL 35.1-43.9 [facility] Erythrocyte distribution width (RBC) [Ratio] 12.8 % 11.6-14.6 [facility] Immature granulocytes/100 WBC (Bld) 0.300 % 0.0-0.9 [facility] Comment on above: IG% - Immature Granu locytes (promyelocytes, myelocytes and metamyelocytes) > 1% indicates that a LEFT SHIFT is Present. MCH (RBC) [Entitic mass] 31.7 pg 27.0-32.0 [facility] Nucleated RBC/100 WBC (Bld) [Ratio] 0 % 0-5 [facility] MCHC Auto (RBC) [Mass/Vol]Or dered By: Sanjeev Buckley on 08-19-2022 MCHC (RBC) [Mass/Vol] 33.6 g/dL 32-36 [facility] No Panel InformationOrdered By: Sanjeev Buckley on 08-19-2022 Estimated GFR (MDRD) Amer 77 mL/min >60 [facility] Comment on above: GFR Calc Estimated GFR (MDRD) Non-Af Amer 64 mL/min >60 [facility] Comment on above: Non- GFR Calc Platelets bldOrdered By: Boy Buckley on 08-19-2022 Platelets (Bld) [#/Vol] 220 10*3/uL 150-450 [facility] Serum or plasma calcium jamie urement (mass/volume)Ordered By: Sanjeev Buckley on 08-19-2022 Calcium [Mass/Vol] 8.9 mg/dL 8.5-10.1 [facility] Serum or plasma creatinine m easurement (mass/volume)Ordered By: Sanjeev Buckley on 08-19-2022 Creatinine [Mass/Vol] 1.19 mg/dL 0.70-1.30 [facility] Comment on above: The validity of the calculated GFR & GFRAA in patients over 70 years has not been determined. Clinical correlation is essential. Serum or plasma urea nitroge n measurement (mass/volume)Ordered By: Sanjeev Bukcley on 08-19-2022 Urea nitrogen [Mass/Vol] 16 mg/dL 7-18 [facility] Thin prep Papanicolaou smear with manual screeningOrdered By: Sanjeev Buckley on 08-19-2022 Thin prep Papanicolaou smear with manual screening 8 5-15 [facility] Whole blood hemoglobin A1c/t otal hemoglobin ratio (mass fraction)Ordered By: Sanjeev Buckley on 08-19-2022 HbA1c (Bld) [Mass fraction] 6.4 % 3.8-5.6 [facility] Comment on above: Normal < 5.7 % Predi abetic 5.7 - 6.4 % Diabetic >or= 6.5 % Please note range changes. Whole blood hemoglobin A1c/t otal hemoglobin ratio (mass fraction)Ordered By: Toya Maliknger on 07-16-2022 HbA1c (Bld) [Mass fraction] 6.2 % 3.8-5.6 [facility] Comment on above: Normal < 5.7 % Predi abetic 5.7 - 6.4 % Diabetic >or= 6.5 % Please note range changes. Absolute lymphocyte countOrd ered By: Toya Joan on 07-08-2022 Lymphocytes Auto (Unsp spec) [#/Vol] 1.70 10*3/uL 0.83-4.51 [facility] Basophil percentageOrdered B y: Toya Franco on 07-08-2022 Basophils/100 WBC (Bld) 1.2 % 0-1 [facility] Bilirubin [Mass/Vol] 0.40 mg/dL 0.20-1.00 [facility] Comment on above: For patients on eltr ombopag therapy, use of Dimension [place] TBIL is not recommended. Chloride [Moles/Vol] 104 mmol/L 98-107 [facility] Eosinophils/100 WBC (Bld) 4.9 % 0-5 [facility] Glucose [Mass/Vol] 154 mg/dL 74-106 [facility] Comment on above: Fasting Glucose resu lt greater than or equal to 126 mg/dL suggests DIABETES MELLITUS per A.D.A. criteria. Neutrophils (Bld) [#/Vol] 4.9 10*3/uL 2.0-7.7 [facility] Neutrophils/100 WBC (Bld) 63.2 % 47-70 [facility] Potassium [Moles/Vol] 4.7 mmol/L 3.5-5.1 [facility] Comment on above: Slight Hemolysis, Re sult may be falsely increased. Protein [Mass/Vol] 7.4 g/dL 6.4-8.2 [facility] Sodium [Moles/Vol] 134 mmol/L 136-145 [facility] WBC (Bld) [#/Vol] 7.8 10*3/uL 4.4-11.0 [facility] Blood erythrocytes count (nu mber/volume)Ordered By: Toya Franco on 07-08-2022 RBC (Bld) [#/Vol] 4.66 10*6/uL 4.6-6.2 [facility] Blood hemoglobin measurement (mass/volume)Ordered By: Toya Franco on 07-08-2022 Hemoglobin (Bld) [Mass/Vol] 14.7 g/dL 13.0-16.5 [facility] Blood lymphocytes/100 leukoc ytesOrdered By: Toya Franco on 07-08-2022 Lymphocytes/100 WBC (Bld) 21.9 % 19-41 [facility] Blood monocytes/100 leukocyt esOrdered By: Toya Franco on 07-08-2022 Monocytes/100 WBC (Bld) 8.5 % 0-10 [facility] Blood platelet mean volumeOr dered By: Toya Franco on 07-08-2022 Platelet mean volume (Bld) [Entitic vol] 10.7 fL 6.2-12.0 [facility] Determination of erythrocyte mean corpuscular volume (MCV)Ordered By: Toya Franco on 07-08-2022 MCV (RBC) [Entitic vol] 98.7 fL 80-94 [facility] Hematocrit Auto (Bld) [Volum e fraction]Ordered By: Toya Franco on 07-08-2022 Hematocrit (Bld) [Volume fraction] 46.0 % 40-54 [facility] Laboratory - Chemistry and C hemistry - challengeOrdered By: Toya Franco on 07-08-2022 ALP [Catalytic activity/Vol] 89 U/L 45-117 [facility] ALT [Catalytic activity/Vol] 51 U/L 16-61 [facility] CO2 [Moles/Vol] 26.0 mmol/L 21.0-32.0 [facility] Globulin (S) [Mass/Vol] 3.9 g/dL 2.2-4.2 [facility] Urea nitrogen/Creatinine [Mass ratio] 14.4 mg/mg 10-20 [facility] Laboratory - Hematology and Cell countsOrdered By: Toya Franco on 07-08-2022 Erythrocyte distribution width (RBC) [Entitic vol] 46.4 fL 35.1-43.9 [facility] Erythrocyte distribution width (RBC) [Ratio] 12.9 % 11.6-14.6 [facility] Immature granulocytes/100 WBC (Bld) 0.300 % 0.0-0.9 [facility] Comment on above: IG% - Immature Granu locytes (promyelocytes, myelocytes and metamyelocytes) > 1% indicates that a LEFT SHIFT is Present. MCH (RBC) [Entitic mass] 31.5 pg 27.0-32.0 [facility] Nucleated RBC/100 WBC (Bld) [Ratio] 0 % 0-5 [facility] MCHC Auto (RBC) [Mass/Vol]Or dered By: Toya Franco on 07-08-2022 MCHC (RBC) [Mass/Vol] 32.0 g/dL 32-36 [facility] No Panel InformationOrdered By: Toya Franco on 07-08-2022 Estimated GFR (MDRD) Amer 90 mL/min >60 [facility] Comment on above: GFR Calc Estimated GFR (MDRD) Non-Af Amer 74 mL/min >60 [facility] Comment on above: Non- GFR Calc Platelets bldOrdered By: Alexandria Franco on 07-08-2022 Platelets (Bld) [#/Vol] 243 10*3/uL 150-450 [facility] Serum or plasma albumin jamie urement (mass/volume)Ordered By: Toya Franco on 07-08-2022 Albumin [Mass/Vol] 3.5 g/dL 3.2-5.0 [facility] Serum or plasma albumin/glob ulin mass ratioOrdered By: Toya Franco on 07-08-2022 Albumin/Globulin [Mass ratio] 0.9 {ratio} 0.9-2.4 [facility] Serum or plasma calcium jamie urement (mass/volume)Ordered By: Toya Franco on 07-08-2022 Calcium [Mass/Vol] 9.0 mg/dL 8.5-10.1 [facility] Serum or plasma creatinine m easurement (mass/volume)Ordered By: Toya Franco on 07-08-2022 Creatinine [Mass/Vol] 1.04 mg/dL 0.70-1.30 [facility] Comment on above: The validity of the calculated GFR & GFRAA in patients over 70 years has not been determined. Clinical correlation is essential. Serum or plasma urea nitroge n measurement (mass/volume)Ordered By: Toya Franco on 07-08-2022 Urea nitrogen [Mass/Vol] 15 mg/dL 7-18 [facility] Thin prep Papanicolaou smear with manual screeningOrdered By: Toya Franco on 07-08-2022 Thin prep Papanicolaou smear with manual screening 28 U/L 15-37 [facility] Comment on above: Slight Hemolysis, Re sult may be falsely increased. Thin prep Papanicolaou smear with manual screening 4 5-15 [facility] Basophil percentageOrdered B y: Dorita Lr on 06-03-2022 Bilirubin [Mass/Vol] 0.40 mg/dL 0.20-1.00 [facility] Comment on above: For patients on eltr ombopag therapy, use of Dimension [place] TBIL is not recommended. Cholesterol [Mass/Vol] 216 mg/dL <200 [facility] Comment on above: <200 mg/dL Desirable 200-240 mg/dL Borderline >240 mg/dL High Risk Protein [Mass/Vol] 7.5 g/dL 6.4-8.2 [facility] Triglyceride [Mass/Vol] 233 mg/dL <199 [facility] Comment on above: The drugs N-Acetylcy steine and Metamizole may falsely depress this assay.Serum Triglycerides Reference Interval Normal <150 mg/dL Borderline high 150 - 199 mg/dL High 200 - 499 mg/dL Very High > or = 500 mg/dL Direct bilirubinOrdered By: Dorita Lr on 06-03-2022 Bilirubin.direct [Mass/Vol] 0.16 mg/dL 0.00-0.30 [facility] Laboratory - Chemistry and C hemistry - challengeOrdered By: Dorita Lr on 06-03-2022 ALP [Catalytic activity/Vol] 94 U/L 45-117 [facility] ALT [Catalytic activity/Vol] 41 U/L 16-61 [facility] Globulin (S) [Mass/Vol] 4.0 g/dL 2.2-4.2 [facility] Serum or plasma albumin jamie urement (mass/volume)Ordered By: Dorita Lr on 06-03-2022 Albumin [Mass/Vol] 3.5 g/dL 3.2-5.0 [facility] Serum or plasma cholesterol in HDL measurement (mass/volume)Ordered By: Dorita Lr on 06-03-2022 Cholesterol in HDL [Mass/Vol] 36 mg/dL >40 [facility] Comment on above: The drugs N-Acetylcy steine and Metamizole may falsely depress this assay. Reference Range HDL <40 mg/dL Low HDL Cholesterol HDL >or= 60 mg/dL High HDL Cholesterol Serum or plasma cholesterol in VLDL measurement (mass/volume)Ordered By: Dorita Lr on 06-03-2022 Cholesterol in VLDL [Mass/Vol] 47 mg/dL 5-40 [facility] Serum or plasma low density lipoprotein (LDL) cholesterol measurement (mass/volume)Ordered By: Dorita Lr on 06-03-2022 Cholesterol in LDL [Mass/Vol] 133 mg/dL 0-130 [facility] Thin prep Papanicolaou smear with manual screeningOrdered By: Dorita Lr on 06-03-2022 Thin prep Papanicolaou smear with manual screening 22 U/L 15-37 [facility] Basophil percentageon 2021 Chloride [Moles/Vol] 103 mmol/L 98-107 [facility] Work Phone: Glucose [Mass/Vol] 105 mg/dL 74-106 [facility] Work Phone: Comment on above: Fasting Glucose resu lt from 100 to 125 mg/dL suggests IMPAIRED HOMEOSTASIS per A.D.A. criteria. Potassium [Moles/Vol] 3.6 mmol/L 3.5-5.1 [facility] Work Phone: Sodium [Moles/Vol] 138 mmol/L 136-145 [facility] Work Phone: Laboratory - Chemistry and C hemistry - challengeon 10-20-2021 CO2 [Moles/Vol] 30.0 mmol/L 21.0-32.0 [facility] Work Phone: Magnesium [Mass/Vol] 1.9 mg/dL 1.6-2.6 [facility] Work Phone: Urea nitrogen/Creatinine [Mass ratio] 17.6 mg/mg 10-20 [facility] Work Phone: No Panel Informationon 10-20 Estimated GFR (MDRD) Amer 73 mL/min >60 [facility] Work Phone: Comment on above: GFR Calc Estimated GFR (MDRD) Non-Af Amer 60 mL/min >60 [facility] Work Phone: Comment on above: Non- GFR Calc Thyroid Stimulating Hormone (TSH) 1.49 uIU/mL 0.358-3.74 [facility] Work Phone: Serum or plasma calcium jamie urement (mass/volume)on 10-20-2021 Calcium [Mass/Vol] 9.1 mg/dL 8.5-10.1 [facility] Work Phone: Serum or plasma creatinine m easurement (mass/volume)on 10-20-2021 Creatinine [Mass/Vol] 1.25 mg/dL 0.70-1.30 [facility] Work Phone: Comment on above: The validity of the calculated GFR & GFRAA in patients over 70 years has not been determined. Clinical correlation is essential. Serum or plasma urea nitroge n measurement (mass/volume)on 10-20-2021 Urea nitrogen [Mass/Vol] 22 mg/dL 7-18 [facility] Work Phone: Thin prep Papanicolaou smear with manual screeningon 10-20-2021 Thin prep Papanicolaou smear with manual screening 5 5-15 [facility] Work Phone: Basophil percentageon 2021 Bilirubin [Mass/Vol] 0.60 mg/dL 0.20-1.00 [facility] Work Phone: Comment on above: For patients on eltr ombopag therapy, use of Dimension [place] TBIL is not recommended. Cholesterol [Mass/Vol] 242 mg/dL <200 [facility] Work Phone: Comment on above: <200 mg/dL Desirable 200-240 mg/dL Borderline >240 mg/dL High Risk Protein [Mass/Vol] 7.3 g/dL 6.4-8.2 [facility] Work Phone: Triglyceride [Mass/Vol] 168 mg/dL <199 [facility] Work Phone: Comment on above: The drugs N-Acetylcy steine and Metamizole may falsely depress this assay.Serum Triglycerides Reference Interval Normal <150 mg/dL Borderline high 150 - 199 mg/dL High 200 - 499 mg/dL Very High > or = 500 mg/dL Direct bilirubinon 2 Bilirubin.direct [Mass/Vol] 0.13 mg/dL 0.00-0.30 [facility] Work Phone: Laboratory - Chemistry and C hemistry - challengeon 10-12-2021 ALP [Catalytic activity/Vol] 71 U/L 45-117 [facility] Work Phone: ALT [Catalytic activity/Vol] 43 U/L 16-61 [facility] Work Phone: Globulin (S) [Mass/Vol] 4.0 g/dL 2.2-4.2 [facility] Work Phone: Serum or plasma albumin jamie urement (mass/volume)on 10-12-2021 Albumin [Mass/Vol] 3.3 g/dL 3.2-5.0 [facility] Work Phone: Serum or plasma cholesterol in HDL measurement (mass/volume)on 10-12-2021 Cholesterol in HDL [Mass/Vol] 34 mg/dL >40 [facility] Work Phone: Comment on above: The drugs N-Acetylcy steine and Metamizole may falsely depress this assay. Reference Range HDL <40 mg/dL Low HDL Cholesterol HDL >or= 60 mg/dL High HDL Cholesterol Serum or plasma cholesterol in VLDL measurement (mass/volume)on 10-12-2021 Cholesterol in VLDL [Mass/Vol] 34 mg/dL 5-40 [facility] Work Phone: Serum or plasma low density lipoprotein (LDL) cholesterol measurement (mass/volume)on 10-12-2021 Cholesterol in LDL [Mass/Vol] 174 mg/dL 0-130 [facility] Work Phone: Thin prep Papanicolaou smear with manual screeningon 10-12-2021 Thin prep Papanicolaou smear with manual screening 29 U/L 15-37 [facility] Work Phone: Vital Signs Date Time Vital Sign Value Performing Clinician Faci josé miguely 08-30-2024 14:37-0400 Body height 177.8 cm Nash Morales MD Work Phone: [facility] 08-30-2024 14:37-0400 Body mass index (BMI) [Ratio] 36.7 kg/m2 Nash Morales MD Work Phone: [facility] 08-30-2024 14:37-0400 Body weight 116.11 kg Nash Morales MD Work Phone: [facility] 08-30-2024 14:37-0400 Diastolic blood pressure 70 mm[Hg] Nash Morales MD Work Phone: [facility] 08-30-2024 14:37-0400 Heart rate 68 /min Nash Morales MD Work Phone: [facility] 08-30-2024 14:37-0400 Respiratory rate 18 /min Nash Morales MD Work Phone: [facility] 08-30-2024 14:37-0400 Systolic blood pressure 110 mm[Hg] Nash Morales MD Work Phone: [facility] 05-28-2024 08:48-0400 Body mass index (BMI) [Ratio] 39.2 kg/m2 Nash Morales MD Work Phone: [facility] 05-28-2024 08:48-0400 Body temperature 97.6 [degF] Nash Morales MD Work Phone: [facility] 05-28-2024 08:48-0400 Body weight 123.83 kg Nash Morales MD Work Phone: [facility] 05-28-2024 08:48-0400 Diastolic blood pressure 57 mm[Hg] Nash Morales MD Work Phone: [facility] 05-28-2024 08:48-0400 Heart rate 73 /min Nash Morales MD Work Phone: [facility] 05-28-2024 08:48-0400 Respiratory rate 18 /min Nash Morales MD Work Phone: [facility] 05-28-2024 08:48-0400 SaO2% (BldA) [Mass fraction] 96 % Nash Morales MD Work Phone: [facility] 05-28-2024 08:48-0400 Systolic blood pressure 131 mm[Hg] Nash Morales MD Work Phone: [facility] 07-26-2023 07:57-0400 Body height 177.8 cm DO Toya Joan Work Phone: [facility] 07-26-2023 07:57-0400 Body mass index (BMI) [Ratio] 38.9 kg/m2 DO Toya Joan Work Phone: [facility] 07-26-2023 07:57-0400 Body temperature 98.4 [degF] DO Toya Joan Work Phone: [facility] 07-26-2023 07:57-0400 Body weight 122.92 kg DO Toya Joan Work Phone: [facility] 07-26-2023 07:57-0400 Diastolic blood pressure 71 mm[Hg] DO Toya Joan Work Phone: [facility] 07-26-2023 07:57-0400 Heart rate 74 /min DO Toya Joan Work Phone: [facility] 07-26-2023 07:57-0400 Respiratory rate 24 /min DO Toya Joan Work Phone: [facility] 07-26-2023 07:57-0400 SaO2% (BldA) [Mass fraction] 96 % DO Toya Joan Work Phone: [facility] 07-26-2023 07:57-0400 Systolic blood pressure 156 mm[Hg] DO Toya Joan Work Phone: [facility] 06-01-2023 14:17-0400 Body height 177.8 cm DO Toya Joan Work Phone: [facility] 06-01-2023 14:17-0400 Body mass index (BMI) [Ratio] 38.5 kg/m2 DO Toya Joan Work Phone: [facility] 06-01-2023 14:17-0400 Body weight 121.61 kg DO Toya Joan Work Phone: [facility] 02-23-2023 13:04-0500 Body height 177.8 cm DO Toya Joan Work Phone: [facility] 02-23-2023 13:04-0500 Body mass index (BMI) [Ratio] 38.1 kg/m2 DO Toya Joan Work Phone: [facility] 02-23-2023 13:04-0500 Body weight 120.65 kg DO Toya Joan Work Phone: [facility] 02-23-2023 13:04-0500 Diastolic blood pressure 72 mm[Hg] DO Toya Joan Work Phone: [facility] 02-23-2023 13:04-0500 Heart rate 69 /min DO Toya Joan Work Phone: [facility] 02-23-2023 13:04-0500 Respiratory rate 20 /min DO Toya Joan Work Phone: [facility] 02-23-2023 13:04-0500 SaO2% (BldA) [Mass fraction] 98 % DO Toya Joan Work Phone: [facility] 02-23-2023 13:04-0500 Systolic blood pressure 147 mm[Hg] DO Toya Joan Work Phone: [facility] 09-06-2022 17:32-0400 Body height 177.8 cm DO Toya Joan Work Phone: [facility] 09-06-2022 17:32-0400 Body mass index (BMI) [Ratio] 39.4 kg/m2 DO Toya Joan Work Phone: [facility] 09-06-2022 17:32-0400 Body temperature 97.8 [degF] DO Toya Joan Work Phone: [facility] 09-06-2022 17:32-0400 Body weight 124.73 kg DO Toya Joan Work Phone: [facility] 09-06-2022 17:32-0400 Diastolic blood pressure 78 mm[Hg] DO Toya Joan Work Phone: [facility] 09-06-2022 17:32-0400 Heart rate 75 /min DO Toya Joan Work Phone: [facility] 09-06-2022 17:32-0400 Respiratory rate 17 /min DO Toya Joan Work Phone: [facility] 09-06-2022 17:32-0400 SaO2% (BldA) [Mass fraction] 99 % DO Toya Joan Work Phone: [facility] 09-06-2022 17:32-0400 Systolic blood pressure 125 mm[Hg] DO Toya Joan Work Phone: [facility] 07-27-2022 13:31-0400 Body height 177.8 cm DO Toya Joan Work Phone: [facility] 07-27-2022 13:31-0400 Body mass index (BMI) [Ratio] 40.1 kg/m2 DO Toya Joan Work Phone: [facility] 07-27-2022 13:31-0400 Body temperature 97.8 [degF] DO Toya Joan Work Phone: [facility] 07-27-2022 13:31-0400 Body weight 127 kg DO Toya Joan Work Phone: [facility] 07-27-2022 13:31-0400 Diastolic blood pressure 79 mm[Hg] DO Toya Joan Work Phone: [facility] 07-27-2022 13:31-0400 Heart rate 78 /min DO Toya Joan Work Phone: [facility] 07-27-2022 13:31-0400 Respiratory rate 20 /min DO Toya Joan Work Phone: [facility] 07-27-2022 13:31-0400 SaO2% (BldA) [Mass fraction] 97 % DO Toya Joan Work Phone: [facility] 07-27-2022 13:31-0400 Systolic blood pressure 127 mm[Hg] DO Toya Joan Work Phone: [facility] 05-25-2022 13:00-0500 Body height 177.8 cm DO Toya Joan Work Phone: [facility] 05-25-2022 13:00-0500 Body mass index (BMI) [Ratio] 39.7 kg/m2 DO Toya Joan Work Phone: [facility] 05-25-2022 13:00-0500 Body weight 125.64 kg DO Toya Joan Work Phone: [facility] 05-25-2022 13:00-0500 Diastolic blood pressure 72 mm[Hg] DO Toya Joan Work Phone: [facility] 05-25-2022 13:00-0500 Heart rate 75 /min DO Toya Franoc Work Phone: [facility] 05-25-2022 13:00-0500 Respiratory rate 18 /min DO Toya Franco Work Phone: [facility] 05-25-2022 13:00-0500 SaO2% (BldA) [Mass fraction] 100 % DO Toya Franco Work Phone: [facility] 05-25-2022 13:00-0500 Systolic blood pressure 135 mm[Hg] DO Toya Franco Work Phone: [facility] 11-05-2021 11:03-0400 Body height 177.[address] Adrian Beach Work Phone: [facility] Work Phone: 11-05-2021 11:03-0400 Body mass index (BMI) [Ratio] 40.4 kg/m2 Dr. Adrian Beach Work Phone: [facility] Work Phone: 11-05-2021 11:03-0400 Body temperature 98.7 [degF] Dr. Adrian Beach Work Phone: [facility] Work Phone: 11-05-2021 11:03-0400 Body weight 127.[address] Adrian Beach Work Phone: [facility] Work Phone: 11-05-2021 11:03-0400 Diastolic blood pressure 63 mm[Hg] Dr. Adrian Beach Work Phone: [facility] Work Phone: 11-05-2021 11:03-0400 Heart rate 65 /min Dr. Adrian Beach Work Phone: [facility] Work Phone: 11-05-2021 11:03-0400 Respiratory rate 19 /min Dr. Adrian Beach Work Phone: [facility] Work Phone: 11-05-2021 11:03-0400 SaO2% (BldA) [Mass fraction] 95 % Dr. Adrian Beach Work Phone: [facility] Work Phone: 11-05-2021 11:03-0400 Systolic blood pressure 123 mm[Hg] Dr. Adrian Beach Work Phone: [facility] Work Phone: 10-20-2021 13:53-0400 Body height 177.[address] Adrian Beach Work Phone: [facility] Work Phone: 10-20-2021 13:53-0400 Body mass index (BMI) [Ratio] 40.4 kg/m2 Dr. Adrian Beach Work Phone: [facility] Work Phone: 10-20-2021 13:53-0400 Body weight 127.[address] Adrian Beach Work Phone: [facility] Work Phone: 10-20-2021 13:53-0400 Diastolic blood pressure 76 mm[Hg] Dr. Adrian Beach Work Phone: [facility] Work Phone: 10-20-2021 13:53-0400 Heart rate 66 /min Dr. Adrian Beach Work Phone: [facility] Work Phone: 10-20-2021 13:53-0400 Respiratory rate 16 /min Dr. Adrian Beach Work Phone: [facility] Work Phone: 10-20-2021 13:53-0400 SaO2% (BldA) [Mass fraction] 97 % Dr. Adrian Beach Work Phone: [facility] Work Phone: 10-20-2021 13:53-0400 Systolic blood pressure 127 mm[Hg] Dr. Adrian Beach Work Phone: [facility] Work Phone: 2021 13:17-0400 Body height 177.[address] Adrian Beach Work Phone: [facility] Work Phone: 2021 13:17-0400 Body mass index (BMI) [Ratio] 41.2 kg/m2 Dr. Adrian Beach Work Phone: [facility] Work Phone: 2021 13:17-0400 Body temperature 97.3 [degF] Dr. Adrian Beach Work Phone: [facility] Work Phone: 2021 13:17-0400 Body weight 130.[address] Adrian Beach Work Phone: [facility] Work Phone: 2021 13:17-0400 Diastolic blood pressure 69 mm[Hg] Dr. Adrian Beach Work Phone: [facility] Work Phone: 2021 13:17-0400 Heart rate 65 /min Dr. Adrian Beach Work Phone: [facility] Work Phone: 2021 13:17-0400 Respiratory rate 16 /min Dr. Adrian Beach Work Phone: [facility] Work Phone: 2021 13:17-0400 SaO2% (BldA) [Mass fraction] 96 % Dr. Adrian Beach Work Phone: [facility] Work Phone: 2021 13:17-0400 Systolic blood pressure 138 mm[Hg] Dr. Adrian Beach Work Phone: [facility] Work Phone: Encounters Encounter Date Encounter Type Care Provider Facility Start: 12-03-2024 ambulatory Nash Morales Facility:[facility] Start: 08-30-2024 End: 08-30-2024 Patient encounter procedure Dorita Lr PA -[facility] Work Phone: Start: 08-30-2024 End: 08-30-2024 ambulatory Nash Morales MD Work Phone: [facility] Work Phone: Start: 05-28-2024 End: 05-28-2024 Patient encounter procedure Bessie Quinones STUDENT ACCOUNTS COORDINATOR- -[facility] Work Phone: Start: 05-28-2024 End: 05-28-2024 ambulatory Bessie Quinones NP Facility:[facility] Start: 02-24-2024 End: 02-24-2024 ambulatory Toya Franco Facility:[facility] Start: 02-01-2024 End: 02-01-2024 ambulatory Dorita FRIEND Facility:[facility] Start: 07-26-2023 End: 07-26-2023 Patient encounter procedure DO Toya Franco Work Phone: [facility] Work Phone: Start: 07-20-2023 End: 07-20-2023 ambulatory DO Toya Franco Work Phone: [facility] Work Phone: Start: 07-20-2023 End: 07-20-2023 Patient encounter procedure DO Toya Franco Work Phone: [facility] Work Phone: Start: 07-13-2023 End: 07-13-2023 ambulatory DO Toya Franco Work Phone: [facility] Work Phone: Start: 07-13-2023 End: 07-13-2023 Patient encounter procedure DO Toya rFanco Work Phone: [facility] Work Phone: Start: 06-01-2023 End: 06-01-2023 Patient encounter procedure DO Toya Franco Work Phone: [facility] Work Phone: Start: 05-20-2023 End: 05-20-2023 ambulatory DO Toya Franco Work Phone: [facility] Work Phone: Start: 05-20-2023 End: 05-20-2023 Patient encounter procedure DO Toya Franco Work Phone: [facility]-Radiology, [place] Work Phone: Start: 02-23-2023 End: 02-23-2023 Patient encounter procedure DO Toya Franco Work Phone: [facility] Work Phone: Start: 02-15-2023 End: 02-15-2023 ambulatory [facility] Work Phone: Start: 02-15-2023 End: 02-15-2023 Patient encounter procedure [facility] Work [facility]: Start: 11-10-2022 End: 11-10-2022 ambulatory DO Toya Franco Work Phone: [facility] Work Phone: Start: 11-10-2022 End: 11-10-2022 Patient encounter procedure DO Toya Franco Work Phone: [facility]-Outpatient Breast Imaging Work Phone: Start: 09-06-2022 End: 09-06-2022 Emergency department patient visit DO Toya Franco Work Phone: [facility]-Emergency Department Work Phone: Start: 08-19-2022 End: 08-19-2022 Non-patient / Non-visit DO Toya Franco Work Phone: [facility] Work Phone: Start: 08-19-2022 End: 08-19-2022 ambulatory DO Toya Franco Work Phone: [facility] Work Phone: Start: 08-19-2022 End: 08-19-2022 Patient encounter procedure DO Toya Franco Work Phone: [facility] Start: 07-27-2022 End: 07-27-2022 Patient encounter procedure DO Toya Franco Work Phone: [facility]-Pulmonary Medicine [facility] Start: 07-16-2022 End: 07-16-2022 ambulatory DO Toya Franco Work Phone: [facility] Work Phone: Start: 07-16-2022 End: 07-16-2022 Patient encounter procedure DO Toya Franco Work Phone: [facility] Start: 07-08-2022 End: 07-08-2022 ambulatory DO Toya Franco Work Phone: [facility] Work Phone: Start: 07-08-2022 End: 07-08-2022 Patient encounter procedure DO Toya Franco Work Phone: [facility] Start: 06-03-2022 End: 06-03-2022 ambulatory DO Toya Franco Work Phone: [facility] Work Phone: Start: 06-03-2022 End: 06-03-2022 Patient encounter procedure DO Toya Houserer Work Phone: [facility] Start: 05-25-2022 End: 05-25-2022 Patient encounter procedure DO Toya Franco Work Phone: [facility] Start: 12-14-2021 Non-patient / Non-visit Dr. Jo Ann Beach Work Phone: [facility] Start: 12-14-2021 End: 12-14-[address] Adrian Beach Work Phone: [facility] Work Phone: Start: 12-14-2021 End: 12-14-[address] Adrian Beach Work Phone: [facility]-Cardiovascular Services Start: 11-05-2021 End: 11-05-[address] Adrian Beach [facility] Start: 10-20-2021 End: 10-20-[address] Adrian Beach Work Phone: [facility] Start: 10-16-2021 Non-patient / Non-visit Dr. Jo Ann Beach Work Phone: [facility] Start: 10-15-2021 End: 10-15-[address] Adrian Beach Work Phone: [facility]-Pulmonary Services/Neurology Start: 10-12-2021 End: 10-12-[address] Adrian Beach Work Phone: [facility]-Laboratory Start: 2021 End: [address] Adrian Beach [facility] Procedures Date Procedure Procedure Detail Performing Clinician Start: 05-20-2023 Plain x-ray of hand DO Toya Franco Work Phone: Start: 11-10-2022 Ultrasonography of breast DO Toya Franco Work Phone: Start: 11-10-2022 Bilateral mammography D O Toya Franco Work Phone: Start: 08-19-2022 MRI of lower extremity DO Toya Franco Work Phone: Start: 12-14-2021 Cardiovascular stres s test using pharmacologic stress agent Dr. Adrian Beach Work Phone: Start: 02-10-2018 History of placement of stent for coronary artery disease History of coronary artery stent placement Dorita FRIEND Comment on above: PCI-RUPA proximal RCA w/ 3.5 x 16 Promus Synergy 02/10/18 Plan of Treatment Date Care Activity Detail Author Measurement of respi ratory function [facility] Work Phone: NM Heart Views W str ess and W radionuclide IV [facility] Work Phone: Patient Education ED Post Op Wou nd Check, Pain [facility] Work Phone: Patient referral [facility] Work Phone: Heart [facility] Work Phone: Payers Date Payer Category Payer Self-pay [id number] 2023 Medicare [id number] 2012 Unknown [id number] Medicare [id number] Unknown [id number] Unknown [id number] Unknown [id number] [id number] [id number] Unknown [id number] [id number] Unknown [id number] [id number] Social History Date Type Detail Facility Start: 2021 End: 06-01-2023 Tobacco smoking status MIIS Unknown if ever smoked [facility] Start: 1950 Sex Assigned At Male [facility] Start: 12-01-2023 Tobacco smoking stat us NHIS Ex-smoker (finding) [facility] Clinical Notes 02-10-2018 to 08-30-2024 Note Date & Type Note Facility 08-30-[address] [facility] 08-30-2024 Progress note Note Date/Time August 30, 2024 3:13pm [facility] [address] [place] [address] OFFICE VISIT Date of Service: 08/30/24 MR#: [id number] Acct: [id number] Name: SANJEEV FARMER Rep #: [id number] : 1950 Provider: [facility] Age/Sex: 73/M Location: [facility] Status: Signed HPI HPI History of Present Illness Details: SANJEEV FARMER, is a 73 M who presents for a cardiovascular follow up. He has a hx of CAD with stenting to is RCA in 2017. He also has a hx of hypertension, hyperlipidemia, LARRY. His last echocardiogram was from June 2020 demonstrating an ejection fraction of 55% with moderate concentric left ventricular hypertrophy. Pt would like to stop his lasix. He feels his breathing is okay. He is not concerned like he was the last time. He does have knee pain and did get injections. He does try to go exercise 3 times a week. He does not have any chest pain/heaviness. He does not have any palpitations. He does not have any lightheadedness/dizziness. He is concerned about bleeding. He has lost weight since he was here last this is with dietary changes. Intake Vital Signs 02/24/24 13:32 05/28/24 08:48 08/30/24 14:37 Height 5 ft 10 in 5 ft 10 in 5 ft 10 in Weight: 273 lb 256 lb BMI 39.2 36.7 BP 131/57 H 110/70 Blood Pressure Location Lt brachial Lt brachial Position Sitting Sitting Respiration 18 18 Pulse 73 68 Pulse Source Monitor Monitor Temp 97.6 F L Temperature Source Temporal Artery Pulse Oximetry (%) 96 Oxygen Delivery Method room air Intake Visit Reasons: 6 M Instructional Support Services Director Required: No Accompanied by: Self Is patient in pain?: No Allergies animal dander Allergy (Verified 08/30/24 14:40) Other atorvastatin (From Lipitor) Adverse Reaction (Intermediate, Verified 08/30/24 14:40) myalgias rosuvastatin (From Crestor) Adverse Reaction (Intermediate, Verified 08/30/24 14:40) myalgias simvastatin (From Zocor) Adverse Reaction (Intermediate, Verified 08/30/24 14:40) myalgias Medications ?Medication ?Instructions ?Recorded ?Confirmed ?Type aspirin 81 mg tablet,delayed 81 mg PO DAILY #90 tabs 0 11/11/22 08/30/24 Rx release furosemide 40 mg tablet 40 mg PO DAILY #30 tabs 03/2308/30/24 Rx albuterol sulfate 90 mcg/actuation 2 puff inhalation Q 4H PRN 06/26/24 08/30/24 Rx aerosol inhaler shortness of breath or wheez ing #8.5 grams losartan 100 mg tablet 100 mg PO DAILY #90 tabs 03/1408/30/24 Rx metoprolol tartrate 50 mg tablet 50 mg PO BID #180 tab s 08/30/24 08/30/24 Rx Ejection fraction %: 55 Have you fallen in the past year?: Yes (fall-fell off toilet) [facility] Venous insufficiency Hyperlipidemia History of non-ST elevation myocardial infarction (NSTEMI) (02/08/18) Obesity (BMI 35.0-39.9 without comorbidity) Sleep apnea with use of continuous positive airway pressure (CPAP) Atherosclerosis of coronary artery of wainwright heart without angina pectoris Essential (primary) hypertension Surgical History History of total right knee replacement History of coronary artery stent placement (02/10/18) Family History Father Parkinson disease Social History Smoking Status: Former smoker alcohol intake: current ROS Const Const: Positive for daytime sleepiness; Negative for fatigue or weakness Eyes Eyes: Negative for change in vision ENT ENT: Positive for balance problems; Negative for dizziness Cardio Chest Pain: No Palpitations: No Edema: Bilateral (occ) Resp Respiratory: Positive for SOB with activity (occ); Negative for SOB at rest or SOB orthopneaundefinedSOB lying down GI GI: Negative nausea or heartburn Musc Musc: Positive for balance problems Neuro Neuro: Negative for dizziness, lightheadedness, near syncope, syncope or weakness Endo Endo: Negative for fatigue Cardiology Exam Const Appearance: cooperative, no acute distress and well developed Orientation: alert, awake and oriented x3 Head Head: normocephalic and atraumatic Mouth: moist mucous membranes Eyes General: appearance normal, both eyes and all related structures Conjunctivae: conjunctivae normal Pupils: PERRL EOM: EOM intact bilaterally Neck Neck: normal visual inspection, no lymphadenopathy and no JVD Carotids: Negative bruit Neck Mass: Negative Neck mass Chest Chest inspection: normal inspection of the chest and symmetric chest movement Auscultation: Bilateral: Clear to Auscultation Cardio Palpation: normal PMI Rate: regular rate Rhythm: regular rhythm Heart sounds: S1 normal and S2 normal; Negative rub, gallop or murmur GI GI: normal to inspection, soft, no hepatosplenomegaly and bowel sounds present; Negative tender Neuro General: patient alert, patient awake, patient oriented x3, CN's II-XI intact bilaterally and moves all extremities Extremities Pulses: Normal: Right Posterior Tibial Pulse, Left Posterior Tibial Pulse, RightRadial Pulse and Left Radial Pulse Lower Extremity Edema: Trace: Bilateral and Color Changes: Bilateral Psych Psychological: normal affect Supplemental Info Supplemental Information Echocardiogram 11/2021: Normal LV size. Left ventricular systolic function is normal. The estimated ejection fraction is 55 %. Infero-Basal: Hypokinetic Contrast injection was performed. ECHOCARDIOGRAM 06/25/2020 Interpretation Summary Normal LV size. The estimated ejection fraction is 55 %. Mild segmental systolic dysfunction (see wall motion). Moderate concentric left ventricular hypertrophy. Mild aortic stenosis. Mild (1+) aortic valve insufficiency. Infero-Basal: Mildly hypokinetic Contrast injection was performed. Pharmacologic myocardial perfusion stress test 11/2021: 71-year-old man with a history of shortness of breath. Stress protocol: Resting EKG demonstrates normal sinus rhythm with a rate of 64 bpm normal intervals are noted resting blood pressure is 118/62 mmHg.? 0.4 mg of regadenoson was infused per usual protocol followed by Intravenous saline flush injection continuous EKG monitoring was performed.? The maximum heart rate attained was 84 bpm which was 57% of max impacted heart rate the maximum workload was 1 metabolic equivalent.? At rest there were no ST or T wave changesnoted to suggest abnormal flow reserve.? At peak infusion nonspecific ST changeswere noted with did not meet the criteria for abnormal flow reserve. Myocardial perfusion protocol. 14.3 mCi of technetium 99m sestamibi was injected at rest.? 0.4 mg of regadenoson was infused per usual protocol and at peak infusion 44.6 mCi of technetium 99m sestamibi was injected stress images were obtained stress and rest images were reconstructed and compared in the short axis vertical and horizontal long axis.? Gated images were also obtained. Perfusion SPECT analysis: Review of the stress images demonstrate normal uptake of tracer noted in all areas of the myocardium.? The resting images similar demonstrate normal uptake of tracer noted in all areas of the myocardium.? No reversibility is noted to suggest ischemia and no previous infarct is noted. Gated SPECT analysis: The gated ejection fraction is 76%. Conclusion: Normal pharmacologic myocardial perfusion stress test. Preserved ejection fraction. CARDIAC CATHETERIZATION/INTERVENTION 02/10/2018 CONCLUSIONS Normal LV size, wall motion,and systolic function Single vessel CAD of the proximal RCA Non obstructive coronary arteries Successful PTCA/RUPA proximal RCA with a 3.5 x 16 Promus Synergy, post dilated with a 3.75 x 8 NC balloon; 85%-->0%, no dissection. CORONARY ANGIOGRAPHY DOMINANCE:? Right Dominant LEFT HEART ASSESSMENT Left Ventricular Ejection Fraction: by LV Gram 65 % LVEDP: 20 mmHg Normal Left Ventricular systolic function Normal LV wall motion LEFT MAIN: ?Angiographically normal LEFT ANTERIOR DESCENDING ARTERY: Mild luminal irregularities less than 30% OSTIAL LAD: 20 % Stenosis CIRCUMFLEX ARTERY: Mild luminal irregularities less than 30% RIGHT CORONARY ARTERY: PROX RCA: 85 % Stenosis MID RCA: Mild luminal irregularities less than 30% DISTAL RCA: 50 % Stenosis INTERVENTION INFORMATION LESION SITE: RCA (Proximal) Lesion Complexity: Non-High/Non-C, lesion at bifurcation: No, thrombus present: No, lesion length: 16 mm, culprit lesion: Yes ?Pre Stenosis: 85 % Pre intervention MELITON flow: 3 PROCEDURE: Drug Eluting Stent with pre and post dilatation Post Stenosis: 0 %? Post intervention MELITON flow: 3 Lesion Devices: Cavazos .014 BMW [place] Straight 190cm Medtronic 6 Fr HSII 100cm Guide Catheter Jason Sci EMERGE MR 2.00x12 BALLOON Jason Sci Synergy MR RUPA 3.50x16 Jason Sci NC EMERGE MR 3.75x08 BALLOON ECHOCARDIOGRAM 02/08/2018 Interpretation Summary Normal LV size. Moderate concentric left ventricular hypertrophy. Left ventricular systolic function is normal. The estimated ejection fraction is 60 %. Stage 1 diastolic dysfunction. Contrast injection was performed. 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 Did review most recent stress test from November 2021. He will continue with his amlodipine, aspirin, losartan, metoprolol. He can stop his plavix. (2) History of coronary artery stent placement: Status: Resolved Comment: PCI-RUPA proximal RCA w/ 3.5 x 16 Promus Synergy 02/10/18 (3) Essential (primary) hypertension: Status: Chronic Plan: Adequately controlled on current medications. Will not make any adjustments. (4) Hyperlipidemia: Status: Chronic Plan: Patient has been intolerant to statins and zetia. He does not want to take any medications for this. He will consider repatha if needed. (5) Venous insufficiency: Status: Acute Plan: encouraged compression stockings. he can use his lasix as needed. 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) Coding Level of Care Code Off vis,est,level 4 Diagnoses Atherosclerosis of wainwright coronary artery of wainwright heart without angina pectoris I25.10 Coronary Disease-Associated Artery/Lesion type: wainwright artery History of coronary artery stent placement Z95.5 Essential (primary) hypertension I10 Hyperlipidemia E78.5 Venous insufficiency I87.2 Coding Level of Care Code Off vis,est,level 4 Diagnoses Atherosclerosis of wainwright coronary artery of wainwright heart without angina pectoris I25.10 Coronary Disease-Associated Artery/Lesion type: wainwright artery History of coronary artery stent placement Z95.5 Essential (primary) hypertension I10 Hyperlipidemia E78.5 Venous insufficiency I87.2 Clinical Quality Measures Falls Risk Screening/Assistive Devices Have you fallen in the past year?: Yes (fall-fell off toilet) Cardiac Ejection fraction %: 55 08/30/24 1513 <Electronically signed by Dorita Rodriguez> Date _ Dorita FRIEND Cosigner Signature: Date (if applicable) CC: Dr. Nash Morales MD ~ [facility] [employer] Work Phone: 1(569) 311-822403-10-2025 Evaluation note* Diagnosis Onset Date Resolution Status Admit Date Obesity (BMI 35.0-39.9 without comorbidity) chronic May 28, 2024 12:24pm LARRY (obstructive sleep apnea) chronic May 28, 2024 12:24pm Venous insufficiency acute August 30, 2024 2:01pm Atherosclerosis of coronary artery of wainwright heart without angina pectoris chronic August 2:01pm Essential (primary) hypertension chronic August 30, 2024 2:01pm Hyperlipidemia chronic August 30, 2024 2:01pm History of coronary artery stent placement February 10, 2018 resolved August 30 2:01pm [facility] Work Phone: 1(462) 407-613211-23-2018 Evaluation note* Diagnosis Onset Date Resolution Status Atherosclerosis of coronary artery of wainwright heart without angina pectoris chronic Essential (primary) hypertension chronic Hyperlipidemia chronic History of coronary artery stent placement February 102017 resolved [facility] Work Phone: 1(872) 180-226111-23-2018 Evaluation note* Diagnosis Onset Date Resolution Status Atherosclerosis of coronary artery of wainwright heart without angina pectoris chronic Essential (primary) hypertension chronic Hyperlipidemia chronic History of coronary artery stent placement February 102017 resolved LARRY (obstructive sleep apnea) acute Obesity (BMI 35.0-39.9 without comorbidity) chronic [facility] Work Phone: evaluation note* Diagnosis Onset Date Resolution Status Dyspnea acute Obesity (BMI 35.0-39.9 without comorbidity) chronic Sleep apnea with use of cont inuous positive airway pressure (CPAP) chronic [facility] Work Phone: evaluation note* Diagnosis Onset Date Resolution Status Dyspnea acute Obesity (BMI 35.0-39.9 without comorbidity) chronic Sleep apnea with use of cont inuous positive airway pressure (CPAP) chronic Dyspnea acute Essential (primary) hypertension chronic Hyperlipidemia chronic History of coronary artery stent placement February 102017 resolved [facility] Work Phone: evaluation note* Diagnosis Onset Date Resolution Status Dyspnea acute Obesity (BMI 35.0-39.9 without comorbidity) chronic Sleep apnea with use of cont inuous positive airway pressure (CPAP) chronic Dyspnea acute Essential (primary) hypertension chronic Hyperlipidemia chronic History of coronary artery stent placement February 102017 resolved Dyspnea acute LARRY (obstructive sleep apnea) acute Obesity (BMI 35.0-39.9 without comorbidity) chronic [facility] Work Phone: evaluation note* Diagnosis Onset Date Resolution Status LARRY (obstructive sleep apnea) acute Obesity (BMI 35.0-39.9 without comorbidity) chronic [facility] Work Phone: evaluation noteNo assessment information available [facility] Work Phone: evaluation note* Diagnosis Onset Date Resolution Status Gout acute Trigger finger of left hand acute Gout acute Trigger finger of left hand acute [facility] Work Phone: evaluation note* Diagnosis Onset Date Resolution Status Gout acute Trigger finger of left hand acute Gout acute Trigger finger of left hand acute Obesity (BMI 35.0-39.9 without comorbidity) chronic LARRY (obstructive sleep apnea) chronic [facility] Work Phone: Reason for referral (narrative)No reason for referral [facility] Work Phone: Chief Complaint and Reason for Visit Chief Complaint 1 Y FU E ORDERS Reason for Visit Dyspnea Obesity (BMI 35.0-39.9 without comorbidity) Sleep apnea with use of continuous positive airway pressure (CPAP) Chief Complaint 1 Y FU E ORDERS DYSPNEA DYSPNEA 9 M FU E ORDER Reason for Visit Dyspnea Obesity (BMI 35.0-39.9 without comorbidity) Sleep apnea with use of continuous positive airway pressure (CPAP) Dyspnea Essential (primary) hypertension Hyperlipidemia History of coronary artery stent placement Chief Complaint 1 Y FU E ORDERS DYSPNEA DYSPNEA 9 M FU E ORDER 6 wk FU DYSPNEA DYSPNEA Reason for Visit Dyspnea Obesity (BMI 35.0-39.9 without comorbidity) Sleep apnea with use of continuous positive airway pressure (CPAP) Dyspnea Essential (primary) hypertension Hyperlipidemia History of coronary artery stent placement Dyspnea LARRY (obstructive sleep apnea) Obesity (BMI 35.0-39.9 without comorbidity) Chief Complaint 6 M FU INT LABS Reason for Visit Atherosclerosis of c oronary artery of wainwright heart without angina pectoris Essential (primary) hypertension Hyperlipidemia History of coronary artery stent placement Chief Complaint 6 M FU INT LABS EORDER Reason for Visit Atherosclerosis of c oronary artery of wainwright heart without angina pectoris Essential (primary) hypertension Hyperlipidemia History of coronary artery stent placement Chief Complaint 6 M FU INT LABS EORDER EORDER Reason for Visit Atherosclerosis of c oronary artery of wainwright heart without angina pectoris Essential (primary) hypertension Hyperlipidemia History of coronary artery stent placement Chief Complaint 6 M FU INT LABS EORDER EORDER 6 M FU RIGHT KNEE MARIE Reason for Visit Atherosclerosis of c oronary artery of wainwright heart without angina pectoris Essential (primary) hypertension Hyperlipidemia History of coronary artery stent placement LARRY (obstructive sleep apnea) Obesity (BMI 35.0-39.9 without comorbidity) Chief Complaint 6 M FU RIGHT KNEE MARIE PREOP right lower leg bilateral breast pain Reason for Visit LARRY (obstructive sle ep apnea) Obesity (BMI 35.0-39.9 without comorbidity) Chief Complaint bilateral breast monae n EORDER Chief Complaint EORDER 9 M FU RIGHT- Hand injury Reason for Visit Atherosclerosis of c oronary artery of wainwright heart without angina pectoris Essential (primary) hypertension Hyperlipidemia History of coronary artery stent placement Chief Complaint RIGHT- Hand injury RIGHT HAND BILATERAL HANDS E ORDER Reason for Visit Gout Trigger finger of left hand Gout Trigger finger of left hand Chief Complaint RIGHT- Hand injury RIGHT HAND BILATERAL HANDS E ORDER 1 Y FU Reason for Visit Gout Trigger finger of left hand Gout Trigger finger of left hand Obesity (BMI 35.0-39.9 without comorbidity) LARRY (obstructive sleep apnea) Chief Complaint Admit Date 6 M FU May 28, 2024 12: 24pm 6 M FU August 30, 2024 2:01 pm Reason for Visit Admit Date Obesity (BMI 35.0-39.9 without comorbidi ty) May 28, 2024 12:24pm LARRY (obstructive sleep apnea) May 12:24pm Venous insufficiency August 30, 2024 2:0 1pm Atherosclerosis of coronary artery of wainwright heart without angina pectoris August 30, 2024 2:01pm Essential (primary) hypertension August 302024 2:01pm Hyperlipidemia August 30, 2024 2:01 pm History of coronary artery stent placeme nt August 30, 2024 2:01pm Advance Directives No Advanced Directives Records Found Advance Directive Response Recorded Date/ Time Living Will No March 23 9 11:10am Power of Field Marketer Yes March 23 019 11:10am Advance Directive Response Recorded Date/ Time Living Will No September 06, 2022 6:33pm Power of Field Marketer No September 06 6:33pm Advance Directive Response Recorded Date/ Time Living Will No September 06, 2022 5:33pm Power of Field Marketer No September 06 3 5:33pm Advance Directive Response Recorded Date/ Time Living Will No September 06, 2022 6:33pm Do you have a [facility] Power of Field Marketer? No September 06, 2022 6:33pm Summary Purpose Family History No Family History Records Found Additional Source Comments Goals (unrecognized section and content) Goals may be documented in a n alternate sectionGoals may be documented in an alternate sectionGoals may be documented in an alternate sectionGoals may be documented in an alternate sectionGoals may be documented in an alternate sectionGoals may be documented in an alternate sectionGoals may be documented in an alternate sectionGoals may be documented in an alternate sectionGoals may be documented in an alternate sectionGoals may be documented in an alternate sectionGoals may be documented in an alternate sectionGoals may be documented in an alternate sectionGoals may be documented in an alternate section Care Teams (unrecognized sec tion and content) Team Status: Active Member Role Status Dates Dr. Adrian Beach MD Family Provider Active Toya Franco DO Primary Care Provider Active Team Status: Inactive Member Role Status Dates Toya Franco , DO Primary Care Provider, Referring Provider Active Dorita FRIEND, PA Attending Provider Active Team Status: Inactive Member Role Status Dates Toya Franco , DO Primary Care Provider Active Dorita Lr PA, PA Attending Provider, Referr ing Provider Active Team Status: Inactive Member Role Status Dates Toya Franco , DO Primary Care Provi dragan, Attending Provider, Referring Provider Active Team Status: Inactive Member Role Status Dates Toya Franco DO Primary Care Provider, Referring Provider Active Dr. Gamal Jiang DO Attending Provider Active Team Status: Inactive Member Role Status Dates Toya Franco DO Primary Care Provider Active Dr. Rei Fernandez DO Attending Provider, Referring Provider Active Team Status: Active Member Role Status Dates Toya Franco DO Primary Care Provider Active Dr. Javi Dooley MD Attending Provider Active Dr. Rei Fernandez DO Referring Provider Active Team Status: Inactive Member Role Status Dates Toya Franco DO Primary Care Provider Active Dr. Guillermina Barone MD Attending Provider, Emergency Provider Active Team Status: Inactive Member Role Status Hilario Morales MD Attending Provider, Referring Provide r Active Toya Franco DO Primary Care Provider Active Team Status: Active Member Role Status Dates Dr. Adrian Beach MD Family Provider Active Nash Morales MD Primary Care Provider Active Team Status: Inactive Member Role Status Dates Toya Franco DO Primary Care Provider, Referring Provider Active Dr. Ilya Crain , Attending Provider Active Team Status: Inactive Member Role Status Hilario Morales MD Primary Care Provide r, Attending Provider, Referring Provider Active Team Status: Inactive Member Role Status Dates Toya Franco DO Referring Provider Active Bessie Quinones STUDENT ACCOUNTS COORDINATOR, STUDENT ACCOUNTS COORDINATOR-C Attending Provider Active Nash Morales MD Primary Care Provider Active Team Status: Inactive Member Role Status Hilario Morales MD Primary Care Provider, Attending Prov ider Active Team Status: Inactive Member Role Status Dates Nash Morales MD Primary Care Provider Active St art: May 28, 2024 End: May 28, 2024 Nash Morales MD Referring Provider Active Start : May 28, 2024 End: May 28, 2024 Bessie Quinones STUDENT ACCOUNTS COORDINATOR, STUDENT ACCOUNTS COORDINATOR-C Attending Provider Active Start: May 28, 2024 End: May 28, 2024 Team Status: Inactive Member Role Status Dates Nash Morales MD Primary Care Provider Active St art: August 30, 2024 End: August 30, 2024 aNsh Morales MD Referring Provider Active Start : August 30, 2024 End: August 30, 2024 Dorita FRIEND, PA Attending Provider Active Start: August 30, 2024 End: August 30, 2024 (unrecognized sect ion and content) No Status Records Found INFORMATION SOURCE (unrecogn ized section and content) DATE CREATED AUTHOR 12/02/2024 [facility] FOR RECORDS PERTAINING TO PATIENTS WHO ARE OR HAVE BEEN ENROLLED IN A CHEMICAL DEPENDENCY/SUBSTANCEABUSE PROGRAM, SOME INFORMATION MAY BE OMITTED. This clinical summary was aggregated from multiple sources. Caution should be exercised in using it in the provision of clinical care. This summary normalizes information from multiple sources, and as a consequence, information in this document may materially change the coding, format and clinical context of patient data. In addition, data may be omitted in some cases. CLINICAL DECISIONS SHOULD BE BASED ON THE PRIMARY CLINICAL RECORDS. [facility] [employer] [facility]. provides no warranty or guarantee of the accuracy or completeness of information in this document.
== END 2024-12-20 14:12 | disposition home or self-care (01) | DRG 322 ==
LOC: ED 20:10 → PCU 20:37
PROVIDERS: Specialist; Admitting Provider Family Medicine; Emergency Provider Emergency Medicine; PCP Family Medicine; Visit Provider Internal Medicine
DX: I21.4 Non-ST elevation (NSTEMI) myocardial infarction (principal); E66.812 Obesity, class 2; N18.30 Chronic kidney disease, stage 3 unspecified; I12.9 Hypertensive chronic kidney disease with stage 1 through stage 4 chronic kidney disease, or unspecified chronic kidney disease; I35.0 Nonrheumatic aortic (valve) stenosis; I44.0 Atrioventricular block, first degree; I87.2 Venous insufficiency (chronic) (peripheral); G47.33 Obstructive sleep apnea (adult) (pediatric); L30.4 Erythema intertrigo; I25.10 Atherosclerotic heart disease of native coronary artery without angina pectoris; E78.00 Pure hypercholesterolemia, unspecified; I24.9 Acute ischemic heart disease, unspecified; I25.2 Old myocardial infarction; Z87.891 Personal history of nicotine dependence; Z79.82 Long term (current) use of aspirin; Z95.5 Presence of coronary angioplasty implant and graft; R73.9 Hyperglycemia, unspecified; Z79.899 Other long term (current) drug therapy; Z68.38 Body mass index [BMI] 38.0-38.9, adult; R01.1 Cardiac murmur, unspecified; Z99.89 Dependence on other enabling machines and devices
CPT/HCPCS: 36415; 71045; 80048; 80053; 80061; 83036; 83735; 84100; 84484; 85025; 85610; 85730; 92921; 92928; 93005; 93306; 93454; 93458; 99152; 99153; 99285; C1725; C1769; C1887; Q9957; Q9967; A4216; C1874; C1894; C8929; C9600; J1327

== ENCOUNTER → 2025-01-04 | Outpatient (CLI) | payer MEDICARE, SELFPAY ==
--- NOTE | 2025-01-04 13:50 | CR.HP_ITS ---
CR - History & Physical General Arrival date:: 01/04/25 Arrival time:: 13:50 Date of Referral:: 12/19/24 Date of CR Evaluation:: 01/04/25 Referring Physician: Dr. Mcleod Primary Diagnosis: PCI w/stenting History of Present Cardiac Event Onset Date PTCA or coronary stenting:: Yes (onset 12/19/2024) Vessel: LAD, ostial D2 Medications Ambulatory Orders Medication Instructions Recorded aspirin 81 mg tablet,delayed 81 mg PO DAILY heart heal th #90 11/11/22 release tabs albuterol sulfate 90 mcg/actuation 2 puff inhalation Q 4H PRN 06/26/24 aerosol inhaler shortness of breath or wheez ing #8.5 grams losartan 100 mg tablet 100 mg PO DAILY blood pressu re #90 08/30/24 tabs metoprolol tartrate 50 mg tablet 50 mg PO BID blood pr essure #180 08/30/24 tabs furosemide 40 mg tablet 40 mg PO DAILY PRN swelling or 10/08/24 weight gain #30 tabs evolocumab 140 mg/mL subcutaneous 140 mg subcut Q2W #2 mL 12/27/24 syringe (Repatha Syringe) nitroglycerin 0.4 mg sublingual 0.4 mg sublingual Q5-1 5M PRN chest 12/27/24 tablet (Nitrostat) pain #25 tabs ticagrelor 90 mg tablet (Brilinta) 90 mg PO BID #180 t abs 12/27/24 Allergies Allergies animal dander Allergy (Verified 12/27/24 13:10) Other atorvastatin (From Lipitor) Adverse Reaction (Intermediate, Verified 12/27/24 13:10) myalgias rosuvastatin (From Crestor) Adverse Reaction (Intermediate, Verified 12/27/24 13:10) myalgias simvastatin (From Zocor) Adverse Reaction (Intermediate, Verified 12/27/24 13:10) myalgias Sleep Disorder Evaluation Hx of Sleep Apnea: Yes Do you snore loudly (louder than talking or can be heard through closed doors)?: No Do you often feel tired/ fatigued/ sleepy during daytime?: No Has anyone observed you stop breathing during sleep?: No History of Hypertension (for STOP score): Yes (Pt on CPAP) STOP Results: Negative Advanced Directives Advanced Directives Do you have a Healthcare Power of Animal Damage Control Agent?: No Living Will: No Advance Directives Information Provided: No Advance Directives on File: No Past Medical History Covid-19 Screening Physicial Symptoms Other Clinical Concerns Exposure Risk Pertinent Comorbidities 65 years or older:: Yes Has a serious heart condition:: Yes Past Medical Illness Past Medical History (Updated 12/28/24 @ 00:01 by Background Daemon) LVH (left ventricular hypertrophy) I51.7 Venous insufficiency I87.2 Hyperlipidemia E78.5 History of non-ST elevation myocardial infarction (NSTEMI) (02/08/18) I25.2 Obesity (BMI 35.0-39.9 without comorbidity) E66.9 Sleep apnea with use of continuous positive airway pressure (CPAP) G47.30 Atherosclerosis of coronary artery of [place] heart without angina pectoris I25.10 Essential (primary) hypertension I10 Past Surgical History Past Surgical History (Updated 12/28/24 @ 00:01 by Background Daemon) History of total right knee replacement Z96.651 History of coronary artery stent placement (12/19/24) Z95.5 PCI-RUPA proximal RCA w/ 3.5 x 16 Promus Synergy 02/10/18; [place] 3.0 X 12 mm RUPA to mid LAD 12/19/2024 Surgical History: - (right knee surgery) Family History Summary Family History Father Parkinson disease Mother No problems noted. Social History Smoking History Hx Tobacco Use: Yes (Chews tobacco, couple of dips a day) Alcohol Use Alcohol Usage: Yes (couple of beers a day) Occupation Occupation (List type of work in comments):: Retired Social Environment Status Marital Status: Children How many children do you have?: 3 Do any of your children live nearby?: Yes Safety Do you feel safe in your surroundings?: Yes Assistance Do you need any assistance at home?: no Review of Systems Review of Systems Hints Review of Present Symptoms: Reports Shortness of Breath with Exertion, Appetite - Normal, Appetite - Special Diet and Sleep - Normal; Denies Shortness of Breath at Rest, PVD, Operative Discomfort, Angina, Wound Healing, Dizziness/Lightheadedness, Fatigue, Heart Arrhythmia/Irregularities or Sexual Changes Pain Is Patient Pain Free?: Yes Risk Factor Assessment Chief Complaint Chief Complaint: PCI w/stenting Vital Signs Pulse Ox: 100 Blood Pressure: 122/52 Pulse Pulse Rate: 54 Pulse Rhythm: Regular Hypertension How long have you been treated?: about 6 years Blood Pressure Sitting - Right Arm: 122/54 Obesity Height: 5 ft 10 in Weight:: 258 lb Weight in Pounds: 258.0 lbs Body Mass Index (BMI): 37.0 Physical Inactivity Physical Inactivity: Reg Exercise 30 min/day Risk Stratification Risk Guidelines: Moderate Risk: Risk Factor for Smoking, Risk Factor for Diabetes, Risk Factor for Sedentary Lifestyle and Risk Factor for Depression and Highest Risk: Risk Factor for Dyslipidemia, Risk Factor for Obesity and Risk Factor for Hypertension For Smoking Smoking Risk Guidelines For Dyslipidemia Dyslipidemia Risk Guidelines For Diabetes Mellitus Diabetes Risk Guidelines For Obesity/Overweight Obesity/Overweight Risk Guidelines For Hypertension Hypertension Risk Guidelines For Sedentary Lifestyle Sedentary Lifestyle Risk Guidelines For Depression Depression Risk Guidelines Family History Family History Father Parkinson disease Mother No problems noted. Motivation Motivation to Participate On a scale of 1 to 10, how prepared are you to commit to attending program?: 9 What do you see as barriers to successfully being able to complete the program?: nothing What do you see as the benefits of succesfully completing the program? In other words, what do you hope to get out of participating in the program?: control risk factors Are there issues you are dealing with that will interfere with completing the program?: no Do you have a spouse or signficant other, family or friends who will help support you to complete the program?: yes
--- NOTE | 2025-01-04 13:56 | CR.ITP_ITS ---
Diagnosis General Information Admitting Diagnosis: PCI w/stenting Personal Learning Style:: Audio/Visual Barriers to Learning: No Barriers Stage of change r/t lifestyle modifications:: Contemplation Gave educational material for:: Treating Heart Disease, How The Heart Works, What it means to have Heart Disease, How Coronary Artery Disease is Diagnosed, Heart Procedures, What Heart Medications Do, Risk Factors & Modifications, Living an Active Life, Nutrition, Emotions & Heart Disease, Stress Management & Relaxation and Sleep Disorders & Heart Disease Education/Goals Cardiac Rehabilitation Goals Personal Goals: Initial Assessment: Control risk factors (learn risk factor modification) Scale for measuring improvement of personal goals Diagnosis & Disease Process Outcomes/Goals: Pt IDs own risk factors & lifestyle modifications by Session 10, Verbalizes symptoms of angina & response by session 3., Pt independently manages and Other Additional Outcomes/Goals: Plan/Interventions: Assist Pt to ID & engage in lifestyle modification to reduce CVD risk, Instruct on individual risk factors, Review symptoms of angina & emergency actions, Review secondary diagnosis & identify educational needs. and Other see comment 30 day Reassessments:: Not Met 30 day Reassessments:: Not Met 30 day Reassessments:: Not Met 30 day Reassessments:: Not Met Final Reassessments:: Not Met Safety Referral to Physical Therapy: No Referral to [facility] Case Management: No Fall Risk Assessed:: Yes Assistive Devices:: None Exercise - Initial Assessment Visit Date of Eval: 01/04/25 (initial eval ) Mets: Pre-: >3 METS for 30 minutes by discharge, >5 METS for 30 minutes by discharge, >7 METS for 30 minutes by discharge and Unable to meet goal due to: (see comment below) Physician Prescribed Exercise Modalities: Treadmill, Rower, Schwshana Airdyne AD-7, SciFit Stepper, SciFit Pro- II Ergometer and SciFit Lateral Space Sciences Director Frequency: 3x/week for 12 weeks [36 sessions] Intensity: 60-80% of age predicted maximum heart rate reserve Duration: 30 - 45 minutes Current METSs:: 3 Target Heart Rate:: 86-108 Resting Blood Pressure: 122/52 EKG Type: SR w 1davb Outcomes & Goals Goals:: Verbalizes understanding of THR, RPE & goal METS by session 6, Documents in home exercise log/reports 30 min aerobic 5 day/wk by DC, Demonstrates accurate pulse taking by DC and Other additional outcome/goals: see below Intervention & Plan Exercise Program Goals: Instruct on personal THR & RPE, Instruct on MET level & personal MET goal, Show patient to take own pulse /validate performance until accurate, Instruct on home exercise and Other additional plan/int Physical Activity Home Exercise Physical Activity - Home Exercise: Safe Exercise, Warm-up, Self-monitoring, Cool-Down, Home Exercise > 30 min Daily and Sitting Time <3 hours/daily Outcomes & Goals Outcomes/Goals: Demonstrates correct Warm-up/exercise Cool-Down (S3) if = 2.5 METs, Verbalizes symptoms of exercise intolerance by Session 3 (S3), Demonstrate safe equipment use (S3) & follows exercise prescrition (6) and Other: See below Intervention & Plan Plan/Intervention: Instruct warm-up & cool-down if exercising at > 2 METs, Instruct on symptoms of exercise intolerance & actions to take, Instruct & monitor on saf, Assess intial functional capacity & safety risk and Other See below Nutrition - Initial Assessment Program Goals Nutrition Program Goals Patient has diagnosis of Hyperlipidemia (ICD E78)?: Yes Visit Date of Eval: 01/04/25 (initial eval.) Cholesterol/Lipids (Other Core Measures) Determine presence & major risk factors that modify LDL goal: Cigarette smoking, Hypertension or hypertensive medication, Low HDL cholesterol <40 mg/dL*, Family history of premature CHD in Male < 55 years: female <65 yearsFa and Age men > 45 years; women >/= 55 years Outcomes/Goals: Pt IDs own risk factors & lifestyle modifications by Session 10, Verbalizes symptoms of angina & response by session 3., Pt independently manages and Other Additional Outcomes/Goals: Intervention/Plan: Advocate for lipid panel cholesterol medication if applicable, Instruct on personal lipid levels & lipid goals/NCEP guidelines, Instruct on cholesterol and Other additional plan/int Referral to dietitian:: No (Nutrition survey score of 2) Diabetes (Other Core Measures) Diabetes Type: Not Applicable Weight Mgt (Other Care) Height: 5 ft 10 in Weight:: 258 lb BMI: 37.0 Diagnosis Overweight/Obesity BMI> 30% ICD-10 E66: Yes Diagnosis High BMI/Morbid Obesity BMI> 35% ICD-10 Z68: Yes Outcomes/Goals: Pt sets, maintains & shows weight loss goal & trend during rehab and Other additional outcomes/goals Intervention/Plan: Instruct on ideal BMI & set weight loss goal w/patient, Assist pt to ID & incorporate diet changes for weight loss by S9, Refer to Structured Weight Loss program as appropriate, Encourage goal of using 250- 300dcal per session for weight loss and Other additional plan/interventions Healthy Eating Habits Will attend diet classes:: Yes Outcomes/Goals:: Consume diet rich in vegs,fruits,whole grain/high fiber,fish,lean meat, Limit sat/trans fats,cholesterol & added salts & sugars and Other additional outcome/goals: Intervention/Plan:: Assess current eating habits and Other Additional plan/interventions Education Gave educational materials for:: Signs & symptoms of hypoglycemia, Signs & symptoms of hyperglycemia, Relate diabetes to coronary artery disease and Healt hy eating Core - Initial Assessment Visit Date of Eval: 01/04/25 (initial eval ) Medication Compliance Preventative Medication(s):: Aspirin and Beta jose g H/O mental health issues: depression, anxiety, or addiction?: No Doesn’t believe in the benefits of treatment?: No Believes medications are unnecessary or harmful?: No Has a concern about medication side effects?: No Expresses concern over the cost of medications?: No Outcomes/Goals: Verbalizes medications,desired effect & common side effects @ DC, Pt self-reports following medication regimen, Keeps card in wallet w/medications listed by DC and Other additional outcome/goals: Interventions/plans: Instruct on medication effects & side effects, Review medication list w/patient every two weeks, Instruct importance of taking meds as ordered & assist problem solving and Other additional Tobacco Use Tobacco Use: Non-smoker Hypertension Hypertension Diagnosis:: Hypertension ICD-10 I10 Resting Blood Pressure:: 122/52 [place] [employer] Hypertension Guidelines Outcomes/Goals: Able to verbalize/achieve optimal blood pressure <130/80, Incorporates diet changes & exercise for blood pressure control by DC and Other additional outcomes/goals Interventions/plan: Instruct on optimal blood pressure, hypertension & medications, Instruct on effects of sodium, alcohol, stress, exercise &hypertension and Other additional plan/interventions Tobacco Cessation Referral Smoking Cessation Referral:: No Individual Education/Counseling:: No Education Schedule Given:: Yes Psychosocial - Initial Assess VIsit Date of Eval: 01/04/25 (initial eval ) History of previous Mental disease:: No Psychosocial Test Tool Used:: Ferrans Power QOL Cardiac and PHQ-9 Questionnaire phq-9 Severity See PHQ-9 Score: 2 Referral to Behavioral Health PS - Interventions: Yes: Attend Stress Management Classes Outcomes/Goals: See list Psychosocial Outcomes/Goals:: ID's personal stressors & 2 strategies to manage stress by discharge and Other Additional outcome/goals: Intervention/Plan: See List Interventions/Plan:: Assess stressors,coping strategies & signs of derpression on admission, Instruct/assist pt to develop coping & personal stress Mgt strategies, Refer to Behavioral Health if appropriate, Refer to Physician if appropriate, Instruct patient to recognize signs & symptoms of depression, Instruct patient to recog and Other additional plan/intervention Patient Health Questionnaire PHQ-9 Screening Initial Assessment: 1. Little interest or pleasure in doing things: Several days 2. Feeling down, depressed, or hopeless: Not at all 3. Trouble falling or staying asleep, or sleeping too much: Not at all 4. Feeling tired or having little energy: Several days 5. Poor appetite or overeating: Not at all 6. Feeling bad about yourself -- or that you are a failure or have let yourself or your family down: Not at all 7. Trouble concentrating on things, such as reading the newspaper or watch ing television: Not at all 8. Moving or speaking so slowly that other people could have noticed. Or the opposite - being so fidgety or restless that you have been moving around a lot more than usual: Not at all 9. Thoughts that you would be better off , or of hurting yourself in some way: Not at all How difficult have these problems made it for you to do your work, take care of things at home, or get along with other people?: Not difficult at all Total Score: 2 Nutrition Survey Nutrition Survey Initial: Have you lost >10 lbs over the past 2 months without trying?: No Are you following a special diet at home for diabetes, low fat, or low salt?: No Are you interested in meeting with a dietitian for help understanding your diet?: No Do you eat less than 3 meals a day?: Yes Do you eat fatty meats (argueta, sausage, ribs, etc), fried foods, desserts, large amounts of salad dressings, margarine, butter, or cheese most days?: No Do you have food allergies? [Enter types in comment field]: No Do you eat in restaurants more than 3 times a week?: No Do you season food with salt, seasoning salt, or garlic salt?: Yes Do you used canned, boxed, frozen meals, or soups, seasoning packets?: No Total Score:: 2 Exercise - 30-day Assessment Physician Prescribed Exercise Modalities: Treadmill, Rower, Schwinn Airdyne AD-7, SciFit Stepper, SciFit Pro- II Ergometer and SciFit Lateral [place] Exercise - 60-day Assessment Physician Prescribed Exercise Modalities: Treadmill, Rower, Schwinn Airdyne AD-7, SciFit Stepper, SciFit Pro- II Ergometer and SciFit Lateral [place] Exercise - 90-day Assessment Physician Prescribed Exercise Modalities: Treadmill, Rower, Schwinn Airdyne AD-7, SciFit Stepper, SciFit Pro- II Ergometer and SciFit Lateral Space Sciences Director Exercise - Final/Discharge Physician Prescribed Exercise Modalities: Treadmill, Rower, Schwinn Airdyne AD-7, SciFit Stepper, SciFit Pro- II Ergometer and SciFit Lateral [place] Frequency: 3x/week for 12 weeks [36 sessions] Intensity: 60-80% of age predicted maximum heart rate reserve Current METSs:: 3 Target Heart Rate:: 86-108 Nutrition - 30-Day Assessment Weight Mgt (Other Care) Height: 5 ft 10 in Weight:: 258 lb BMI: 37.0 Nutrition - 60-Day Assessment Weight Mgt (Other Care) Height: 5 ft 10 in Weight:: 258 lb BMI: 37.0 Core - Final Assessment Hypertension Resting Blood Pressure:: 122/52 [place] [employer] Hypertension Guidelines Core - 60-Day Assessment Hypertension Resting Blood Pressure:: 122/52 [place] [employer] Hypertension Guidelines Psychosocial - 30-Day Assess Referral to Behavioral Health PS - Interventions: Yes: Attend Stress Management Classes Psychosocial - 60-Day Assess Referral to Behavioral Health PS - Interventions: Yes: Attend Stress Management Classes Psychosocial - 90-Day Assess Referral to Behavioral Health PS - Interventions: Yes: Attend Stress Management Classes Psychosocial - Final Assessmen Psychosocial Test phq-9 Severity See PHQ-9 Score: 2 Referral to Behavioral Health PS - Interventions: Yes: Attend Stress Management Classes Nutrition - 90-Day Assessment Weight Mgt (Other Care) Height: 5 ft 10 in Weight:: 258 lb BMI: 37.0 Nutrition - Final Assessment Program Goals Patient has diagnosis of Hyperlipidemia (ICD E78)?: Yes Weight Mgt (Other Care) Height: 5 ft 10 in Weight:: 258 lb BMI: 37.0
--- OUTSIDE RECORDS SUMMARY | 2025-01-04 14:04 | XMS RPT_ITS | CCD ---
Author Organization [facility] CliniSymn Care Team Providers Care Spa Associate Name Role Phone Dr. Adrian Beach Referring Provider Stacie TEST BORER, TEST BORER-C Bessie Attending Provider DO Toya Franco Primary Care Provider [phone] Stacie TEST BORER, TEST BORER-C Bessie Referring Provider tSacie TEST BORER, TEST BORER-C Bessie Other Provider Dr. Gamal Jiang Attending [...] Toya Franco Primary Care Provider DO Toya Fracno Referring Provider Dr. Ilya Crain Attending Provider Stacie TEST BORER, TEST BORER-C Bessie Attending Provider MD Andrew Chalchance Primary Care Provider Andrew LIN, Chalon Primary Care Provider Andrew LIN, Chalon Referring Provider Stacie TEST BORER-C, Bessie Attending Provider Dorita Chapin Attending Provider Andrew LIN, [facility] Primary Care Physician Andrew LIN, Nash Referring Provider Dorita Chapin Attending Physician Darwin Arce MD Emergency Department Physician Ayesha LIN, Dr. Soheila Baker Admitting Physician Ayesha LNI, Dr. Soheila Baker Attending Physician Ayesha LIN, Dr. Soheila Baker Nurse Practitioner Porsha LIN, Dr. Wiseman Nurse Practitioner Porsha LIN, Dr. Wiseman Attending Physician Russ LIN, Dr. Gonzales Attending Physician Unavail amanda Solano MD, Dr. Gonzales Nurse Practitioner Unavaila david Martinez MD, Dr. Minaya Attending Physician Andrew, Chalon Primary Care Unavailable Soheila Hodge Admitting Unavailable Porsha, [place] Consulting Unavailable Christian Solano Attending Unavailable Soheila Hodge Consulting Unavailable Andrew, Chalon Primary Care Unavailable Dorita Chapin Referring Unavail able Dorita Chapin Attending Unavail able Soheila Hodge Admitting Unavailable Porsha, [place] Consulting Unavailable Rei Martinez Attending Unavailable Andrew, Chalon Primary Care Unavailable Soheila Hodge Consulting Unavailable Christian Solano Consulting Unavailable Soheila Hodge Admitting Unavailable Porsha, [place] Consulting Unavailable Christian Solano Attending Unavailable Andrew, Chalon Primary Care Unavailable Soheila Hodge Consulting Unavailable Christian Solano Consulting Unavailable Andrew, Chalon Primary Care Unavailable Andrew, Chalon Referring Unavailable Stacie RAYMUNDO, Bessie Attending Unavailable Andrew, Chalon Primary Care Unavailable Bowen Story Attending Unavailable Andrew, Chalon Referring Unavailable Andrew, Chalon Primary Care Unavailable Dorita Chapin Attending Unavail able Andrew, Chalon Primary Care Unavailable Andrew, Chalon Referring Unavailable Stacie RAYMUNDO, Bessie Attending Unavailable Andrew, Chalon Primary Care Unavailable Andrew, Chalon Referring Unavailable Dorita Chapin Attending Unavail able Andrew, Chalon Primary Care Unavailable Toya Franco Referring Unavailable Dorita Chapin Attending Unavail able Soheila Hodge Attending Unavailable Soheila Hodge Attending Unavailable Andrew LIN, Nash Primary Care Physician Nash Morales MD Referring Provider Dorita Chapin Attending Physician Allergies Allergy Classification Reported Allergen(s) Allergy Type Date of Onset Reaction(s) Facility (16 sources) atorvastatin Drug Allergy 2 myalgias [facility] (16 sources) rosuvastatin Drug Allergy 2 myalgias [facility] (16 sources) Simvastatin Drug Allergy 2 myalgias [facility] (5 sources) animal dander; Translations: [animal dander] Allergy to substance 5 Other [facility] (1 source) atorvastatin Drug Allergy 5 [facility] Repository (1 source) rosuvastatin Drug Allergy 5 [facility] Repository (1 source) Simvastatin Drug Allergy 5 [facility] Repository Medications Current Medications Medication Drug Class(es) Dates Sig (Normalized) Sig (Original) [id number] 200 actuat albuterol 0.09 mg/actuat metered dose inhaler (18 sources) beta2-Adrenergic Agonist Start: 11-05-2021 End: 06-26-2024 Albuterol Sulfate 90 mcg/actuation HFA aerosol inhaler Active 2 NMA INHALATION Q4H as needed for shortness of breath or wheezing 8.5 3 June 26, 2024 2:23pm administer with spacer Complies with drug therapy Start: 11-05-2021 take 1 puff(s) by in halation every four hours Albuterol Sulfate Active 2 PUFF INHALATION Q4H 8.5 November 05, 2021 12:00am administer with spacer amLODIPine 10 mg oral tablet (20 sources) Dihydropyridine Calcium Channel Jose G Start: 05-25-2022 take 10 mg by mouth once daily Amlodipine Active 10 MG PO DAILY May 25, 2022 1:00am Start: 09-04-2019 End: 02-05-2022 take 1 tablet by mouth once daily Amlodipine 10 mg tablet Discontinued 10 mg PO DAILY 90 January 12, 2021 10:04am February 05, 2022 2:15pm Start: 02-19-2019 End: 09-04-2019 take 1 tablet by mouth once daily Amlodipine 5 mg tablet Discontinued 5 mg PO DAILY 90 February 19, 2019 11:37am September 04, 2019 2:47pm Start: 11-10-2018 End: 02-19-2019 take 5 mg by mouth once daily Amlodipine 10 mg tablet Discontinued 5 mg PO DAILY 90 3 November 10, 2018 9:32am February 19, 2019 11:37am Start: 11-10-2018 End: 02-19-2019 take 5 mg by mouth once daily Amlodipine Discontinued 5 MG PO DAILY 90 November 10, 2018 9:32am February 19, 2019 11:37am Start: 02-11-2018 End: 11-10-2018 take 1 tablet by mouth once daily Amlodipine 10 mg tablet Discontinued 10 mg PO DAILY 90 3 March 01, 2018 5:56pm November 10, 2018 9:33am 1 ml evolocumab 140 mg/ml prefilled syringe (2 sources) PCSK9 Inhibitor Start: 12-27-2024 End: 12-27-2024 Evolocumab (Repatha Syringe) 140 mg/mL syringe Active 140 mg SC every 2 weeks 2 December 27, 2024 1:43pm Complies with drug therapy nitroglycerin 0.4 mg sublingual tablet (1 source) Nitrate Vasodilator Start: 12-27-2024 Nitroglycerin (Nitrostat) 0.4 mg tablet, sublingual Active 0.4 mg SL every 5 to 15 minutes as needed for chest pain 25 December 27, 2024 12:00am do not exceed 3 doses per episode Complies with drug therapy ticagrelor 90 mg oral tablet (3 sources) Start: 12-20-2024 End: 12-27-2024 take 1 tablet by mouth twice daily Ticagrelor (Brilinta) 90 mg tablet Active 90 mg PO TWICE A DAY 180 December 27, 2024 1:41pm Complies with drug therapy Completed/Discontinued Medications Medication Drug Class(es) Dates Sig (Normalized) Sig (Original) aspirin 81 mg delayed release oral tablet (20 sources) Platelet Aggregation Inhibitor, Nonsteroidal Anti-inflammatory Drug Start: 02-11-2018 End: 11-11-2022 take 1 tablet by mouth once daily Aspirin 81 mg tablet,delayed release (DR/EC) Discontinued 81 mg PO DAILY 90 January 18, 2022 10:09am November 11, 2022 12:23pm atorvastatin 80 mg oral tablet (20 sources) HMG-CoA Reductase Inhibitor Start: 02-11-2018 End: 01-08-2020 take 1 tablet by mouth at bedtime Atorvastatin 80 mg tablet Discontinued 80 mg PO AT BEDTIME 90 February 19, 2019 11:07am January 08, 2020 3:10pm 24 hr buPROPion hydrochloride 300 mg extended release oral tablet (16 sources) Aminoketone Start: 11-10-2018 End: 06-17-2020 take [...] mg tablet Discontinued 75 mg PO DAILY 90 October 17, 2023 11:29am August 30, 2024 [...] mg tablet Discontinued 10 mg PO DAILY 90 3 November 11, 2022 12:23pm July 26, 2023 1:49pm Start: 01-08-2020 End: 10-20-2021 take 1 tablet by mouth once daily Ezetimibe 10 mg tablet Discontinued 10 mg PO DAILY 90 3 January 12, 2021 10:29am October 20, 2021 2:46pm On Hold: Myalgias furosemide 40 mg oral tablet (20 sources) Loop Diuretic Start: 10-20-2021 End: 10-08-2024 take 1 tablet by mouth once daily Furosemide 40 mg tablet Discontinued 40 mg PO DAILY 30 0 April 20, 2024 3:49pm October 08, 2024 11:23am Start: 09-29-2021 End: 10-20-2021 take 1 tablet by mouth twice daily as needed Furosemide 40 mg tablet Discontinued 40 mg PO .COMPLEX 180 3 September 29, 2021 12:00am October 20, 2021 2:50pm 40 mg orally 1 tablet by mouth twice a day X 3 days, then once daily (May need to take twice a day as needed, so please give extra tablets); Start: 11-10-2018 End: 06-17-2020 Furosemide (Lasix) 40 mg tab let Discontinued 40 mg PO .PRN 1 0 November 23, 2018 4:44pm June 17, 2020 1:58pm hydroCHLOROthiazide 25 mg oral tablet (20 sources) Thiazide Diuretic Start: 02-11-2018 End: 09-29-2021 take 1 tablet by mouth once daily Hydrochlorothiazide 25 mg tablet Discontinued 25 mg PO DAILY 90 April 29, 2021 12:17pm September 29, 2021 9:23am losartan potassium 100 mg oral tablet (20 sources) Angiotensin 2 Receptor Jose G Start: 08-29-2018 End: 08-30-2024 take 1 tablet by mouth once daily Losartan 100 mg tablet Discontinued 100 mg PO DAILY 90 October 17, 2023 11:30am August 30, 2024 3:07pm Start: 02-11-2018 End: 02-27-2018 take 1 tablet by mouth once daily Losartan 100 MG tablet Discontinued 100 mg PO DAILY 90 0 February 11, 2018 1:00am February 27, 2018 4:11pm Start: 02-11-2018 End: 08-29-2018 take 1 tablet by mouth once daily Losartan 50 mg tablet Discontinued 50 mg PO DAILY 90 3 March 01, 2018 5:57pm August 29, 2018 4:19pm metoprolol tartrate 50 mg oral tablet (20 sources) beta-Adrenergic Jose G Start: 06-12-2018 End: 08-30-2024 take 1 tablet by mouth twice daily Metoprolol Tartrate 50 mg tablet Discontinued 50 mg PO TWICE A DAY 180 3 October 20, 2023 10:34am August 30, 2024 3:07pm Start: 03-31-2018 End: 06-12-2018 take 1 tablet by mouth twice daily Metoprolol Tartrate 25 mg tablet Discontinued 25 mg PO TWICE A DAY 180 3 March 31, 2018 9:32am June 12, 2018 11:55am Start: 02-11-2018 End: 03-31-2018 Metoprolol Tartrate 25 mg ta blet Discontinued 12.5 mg PO TWICE A DAY 90 3 March 01, 2018 5:57pm March 31, 2018 9:33am Start: 02-11-2018 End: 03-31-2018 take 12.5 mg by mouth twice daily Metoprolol Tartrate Discontinued 12.5 MG PO TWICE A DAY 90 March 01, 2018 5:57pm March 31, 2018 9:33am predniSONE 10 mg oral tablet (5 sources) Start: 07-26-2023 End: 12-01-2023 Prednisone 10 mg tablet Discontinued 10 mg PO As Directed July 26, 2023 12:00am December 01, 2023 2:11pm see taper instructions Problems Active Problems Problem Classification Problem Date Documented Da te Episodic/Chronic Acute myocardial infarction (1 source) Myocardial infarction; Translations: [Non-ST elevation (NSTEMI) myocardial infarction] 12-27-2024 Chronic Coronary atherosclerosis and other heart disease (20 sources) History of non-ST segment elevation myocardial infarction; Translations: [Old myocardial infarction] Onset: 02-08-2018 10-19-2021 Chronic Coronary atherosclerosis and other heart disease (9 sources) Presence of coronary angioplasty implant and graft; Translations: [Percutaneous transluminal coronary angioplasty status] Onset: 02-10-2018 Episodic Disorders of lipid metabolism (20 sources) Hyperlipidemia; Translations: [Hyperlipidemia, unspecified] Onset: 08-30-2024 Chronic Essential hypertension (20 sources) Essential hypertension; Translations: [Essential (primary) hypertension] Onset: 08-30-2024 Chronic Gout and other crystal arthropathies (10 sources) Gout; Translations: [Gout, unspecified] 06-01-2023 Chronic Heart valve disorders (6 sources) Aortic valve stenosis; Translations: [Nonrheumatic aortic (valve) stenosis] Onset: 12-20-2024 12-20-2024 Chronic Nonspecific chest pain (7 sources) Chest pain; Translations: [Chest pain, unspecified] Onset: 12-31-2024 12-18-2024 Episodic Other and ill-defined heart disease (2 sources) Left ventricular hypertrophy; Translations: [Cardiomegaly] 12-27-2024 Chronic Other connective tissue disease (3 sources) Triggering of digit; Translations: [Trigger finger, unspecified finger] 06-01-2023 Episodic Other connective tissue disease (4 sources) Trigger finger, unspecified finger; Translations: [Trigger finger (acquired)] 06-01-2023 Episodic Other connective tissue disease (3 sources) Trigger finger of left hand; Translations: [Trigger finger, unspecified finger] 06-01-2023 Episodic Other diseases of veins and lymphatics (8 sources) Vascular insufficiency; Translations: [Venous insufficiency (chronic) (peripheral)] 02-24-2024 Episodic Other lower respiratory disease (16 sources) Dyspnea; Translations: [Dyspnea, unspecified] 2021 Episodic Other lower respiratory disease (6 sources) Dyspnea, unspecified; Translations: [Other respiratory abnormalities] Episodic Other nervous system disorders (9 sources) Postoperative pain ; Translations: [Other acute postprocedural pain] 09-14-2022 Episodic Other nutritional; endocrine; and metabolic disorders (17 sources) Body mass index 30+ - obesity; Translations: [Obesity, unspecified] 01-14-2020 Chronic Other nutritional; endocrine; and metabolic disorders (7 sources) Obesity, unspecified; Translations: [Obesity, unspecified] Chronic Other screening for suspected conditions (not mental disorders or infectious disease) (7 sources) Raised cardiac enzyme or marker; Translations: [Other specified abnormal findings of blood chemistry] Onset: 12-25-2024 12-18-2024 Episodic Residual codes; unclassified (17 sources) Obstructive sleep apnea syndrome; Translations: [Obstructive sleep apnea (adult) (pediatric)] 02-05-2022 Chronic Comment on above: AHI 90 Residual codes; unclassified (18 sources) Sleep apnea; Translations: [Sleep apnea, unspecified] 01-14-2020 Chronic Residual codes; unclassified (4 sources) Sleep apnea, unspecified; Translations: [Obstructive sleep apnea (adult)(pediatric)] Onset: 12-20-2024 Chronic Residual codes; unclassified (4 sources) Obstructive sleep apnea (adult) (pediatric); Translations: [Obstructive sleep apnea (adult)(pediatric)] Chronic Past or Other Problems Problem Classification Problem Date Documented Date Episodic/Chronic Other diseases of veins and lymphatics (1 source) Venous insufficiency (chronic) (peripheral); Translations: [Venous insufficiency (chronic) (peripheral)] Onset: 08-30-2024 Episodic Results Test Name Value Interpretation Reference Range Facility Cardiology Visit Reporton Cardiology Visit Report [facility] [address] [place] [address] OFFICE VISIT Date of Service: 12/27/24 MR#: [id number] Acct: [id number] Name: SANJEEV FARMER Rep #: [id number] : 1950 Provider: PHUC Norton Age/Sex: 74/M Location: [facility] Status: Signed HPI HPI History of Present Illness Details: The patient is a 74-year-old male with CAD s/p RCA stenting in 2017 and LAD 2024, HTN, HLD, and LARRY, presenting for follow-up after a recent hospitalization for NSTEMI. On 12/19/2024, he developed chest discomfort after dinner, described as similar to his prior angina. He also experienced mild SOB and diaphoresis. He took 2 aspirin and was brought to the ED. He denies using nitroglycerin, as he does not have any at home. He also reports experiencing similar, milder episodes of chest discomfort in the week prior to his hospitalization, which he initially attributed to indigestion. At the hospital, serial troponins were elevated (22, 46, and 69). Cardiac catheterization revealed an EF of 55%, 80% proximal and 70% mid LAD lesions, and 30???40% in-stent restenosis in the RCA. He underwent LAD stenting and PTCA of the osteal D2. Echocardiogram showed normal LV systolic function (EF 60%), mild concentric LVH, stage 1 diastolic dysfunction, and moderate aortic stenosis. He was discharged on Brilinta, metoprolol, losartan, and aspirin. Since discharge, he reports feeling well and has not experienced further chest pain or SOB. He has resumed exercise at the [facility], attending 3 times per week. He expresses interest in cardiac rehab and is awaiting a call to begin the program. He reports difficulty tolerating statins in the past (Lipitor, Crestor, Zocor) due to myalgias. He has previously tried Zetia, but his LDL remained above target. He is not currently taking any lipid- lowering therapy. He is currently taking Brilinta, metoprolol, losartan, aspirin, and furosemide as needed for lower extremity edema. He recently filled a 3-month supply of Brilinta for $137 and is able to continue it. He denies any current lower extremity edema. He is interested in weight loss and asks about diet pills. He reports difficulty losing weight despite not eating sweets or junk food. He drinks 3???4 glasses of water daily and has a yogurt with grapes, strawberries, and unsalted nuts for breakfast. He drinks V8 juice daily and asks if this is acceptable. He denies using nicotine or chewing tobacco. He drinks alcohol in moderation. 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 Crimping Required: No Accompanied by: Is patient in pain?: No Allergies animal dander Allergy (Verified 12/27/24 13:10) Other atorvastatin (From Lipitor) Adverse Reaction (Intermediate, Verified 12/27/24 13:10) myalgias rosuvastatin (From Crestor) Adverse Reaction (Intermediate, Verified 12/27/24 13:10) myalgias simvastatin (From Zocor) Adverse Reaction (Intermediate, Verified 12/27/24 13:10) myalgias Medications ???Medication ???Instructions ???Recorded ???Confirmed ???Type aspirin 81 mg tablet,delayed 81 mg PO DAILY Web Designed Rooms #90 12/27/24 Rx release tabs albuterol sulfate 90 mcg/actuation 2 puff inhalation Q4H PRN 12/27/24 Rx aerosol inhaler shortness of breath or wheezing #8.5 grams losartan 100 mg tablet 100 mg PO DAILY blood pressure #90 08/30/24 12/27/24 Rx tabs metoprolol tartrate 50 mg tablet 50 mg PO BID blood pressure #180 0 08/30/24 12/27/24 Rx tabs furosemide 40 mg tablet 40 mg PO DAILY PRN swelling or 12/27/24 Rx weight gain #30 tabs evolocumab 140 mg/mL subcutaneous 140 mg subcut Q2W #2 mL 12/27/24 12/27/24 Rx syringe (Repatha Syringe) nitroglycerin 0.4 mg sublingual 0.4 mg sublingual Q5-15M PRN chest 12/27/24 12/27/24 Rx tablet (Nitrostat) pain #25 tabs ticagrelor 90 mg tablet (Brilinta) 90 mg PO BID #180 tabs 12/27/24 12/27/24 Rx Ejection fraction %: 55 Have you fallen in the past year?: Yes Nurse's Note: Pt has had a runny nose since he was hospitalized last week. His states he was good up until Tuesday, and he started sleeping more. [facility] Medical History (Updated 12/27/24 @ 14:00 by Dorita FRIEND, PA) LVH (left ventricular hypertrophy) Venous insufficiency Hyperlipidemia History of non-ST elevation myocardial infarction (NSTEMI) (02/08/18) Obesity (BMI 35.0-39.9 without comorbidity) Sleep apnea with use of continuous positive airway pressure (CPAP (more content not included)... Normal [facility] Basic Metabolic Profile (BMP )on 12-22-2024 BUN Normal 07-07 [facility] Comment on above: Result Comment: Canc elled via OM: Order cancelled - Patient discharged Performed By: #### L 100.0100, L500.2500 #### [facility] [address] [place], [address] BUN/CRE Normal 01-07 [facility] Comment on above: Result Comment: Canc elled via OM: Order cancelled - Patient discharged Performed By: #### L 100.0100, L500.2500 #### [facility] [address] [place], [address] Calcium Normal 7.6-11.0 [facility] Comment on above: Result Comment: Canc elled via OM: Order cancelled - Patient discharged Performed By: #### L 100.0100, L500.2500 #### [facility] [address] [place], [address] CL Normal 98-108 [facility] Comment on above: Result Comment: Canc elled via OM: Order cancelled - Patient discharged Performed By: #### L 100.0100, L500.2500 #### [facility] [address] [place], [address] CO2 Normal 21.0-32.0 [facility] Comment on above: Result Comment: Canc elled via OM: Order cancelled - Patient discharged Performed By: #### L 100.0100, L500.2500 #### [facility] [address] [place], [address] CREAT,SERUM Normal 0.70-1.20 [facility] Comment on above: Result Comment: Canc elled via OM: Order cancelled - Patient discharged Performed By: #### L 100.0100, L500.2500 #### [facility] [address] [place], [address] eGFR Normal >60 [facility] Comment on above: Result Comment: Canc elled via OM: Order cancelled - Patient discharged Performed By: #### L 100.0100, L500.2500 #### [facility] [address] [place], [address] GAP Normal 5-15 [facility] Comment on above: Result Comment: Canc elled via OM: Order cancelled - Patient discharged Performed By: #### L 100.0100, L500.2500 #### [facility] [address] [place], [address] GLU Normal 70-99 [facility] Comment on above: Result Comment: Canc elled via OM: Order cancelled - Patient discharged Performed By: #### L 100.0100, L500.2500 #### [facility] [address] [place], [address] Potassium Normal 3.3-5.1 [facility] Comment on above: Result Comment: Canc elled via OM: Order cancelled - Patient discharged Performed By: #### L 100.0100, L500.2500 #### [facility] [address] [place], [address] Basic Metabolic Profile (BMP) Normal 133-145 [facility] Comment on above: Result Comment: Canc elled via OM: Order cancelled - Patient discharged Performed By: #### L 100.0100, L500.2500 #### [facility] [address] [place], [address] CBC W/Diff, Automatedon 10-0 Absolute Neut Normal 2.0-7.7 [facility] Comment on above: Result Comment: Canc elled via OM: Order cancelled - Patient discharged Performed By: #### L 100.0100, L500.2500 #### [facility] [address] [place], [address] HCT Normal 40-54 [facility] Comment on above: Result Comment: Canc elled via OM: Order cancelled - Patient discharged Performed By: #### L 100.0100, L500.2500 #### [facility] [address] [place], [address] HGB Normal 13.0-16.5 [facility] Comment on above: Result Comment: Canc elled via OM: Order cancelled - Patient discharged Performed By: #### L 100.0100, L500.2500 #### [facility] [address] [place], [address] MCH Normal 27.0-32.0 [facility] Comment on above: Result Comment: Canc elled via OM: Order cancelled - Patient discharged Performed By: #### L 100.0100, L500.2500 #### [facility] [address] [place], [address] MCHC Normal 32-36 [facility] Comment on above: Result Comment: Canc elled via OM: Order cancelled - Patient discharged Performed By: #### L 100.0100, L500.2500 #### [facility] [address] [place], [address] MCV Normal 80-94 [facility] Comment on above: Result Comment: Canc elled via OM: Order cancelled - Patient discharged Performed By: #### L 100.0100, L500.2500 #### [facility] [address] [place], [address] NEUT% Normal 47-70 [facility] Comment on above: Result Comment: Canc elled via OM: Order cancelled - Patient discharged Performed By: #### L 100.0100, L500.2500 #### [facility] [address] [place], [address] PLT Normal 150-450 [facility] Comment on above: Result Comment: Canc elled via OM: Order cancelled - Patient discharged Performed By: #### L 100.0100, L500.2500 #### [facility] [address] [place], [address] RBC Normal 4.6-6.2 [facility] Comment on above: Result Comment: Canc elled via OM: Order cancelled - Patient discharged Performed By: #### L 100.0100, L500.2500 #### [facility] [address] [place], [address] RDW CV Normal 11.6-14.6 [facility] Comment on above: Result Comment: Canc elled via OM: Order cancelled - Patient discharged Performed By: #### L 100.0100, L500.2500 #### [facility] [address] [place], [address] RDW SD Normal 35.1-43.9 [facility] Comment on above: Result Comment: Canc elled via OM: Order cancelled - Patient discharged Performed By: #### L 100.0100, L500.2500 #### [facility] [address] [place], [address] WBC Normal 4.4-11.0 [facility] Comment on above: Result Comment: Canc elled via OM: Order cancelled - Patient discharged Performed By: #### L 100.0100, L500.2500 #### [facility] [address] [place], [address] Basic Metabolic Profile (BMP )on 12-21-2024 BUN Normal 4-19 [facility] Comment on above: Result Comment: Canc elled via OM: Order cancelled - Patient discharged Performed By: #### L 499.0043 #### [facility] [address] [place], [address] BUN/CRE Normal 10-20 [facility] Comment on above: Result Comment: Canc elled via OM: Order cancelled - Patient discharged Performed By: #### L 499.0043 #### [facility] [address] [place], [address] Calcium Normal 7.6-11.0 [facility] Comment on above: Result Comment: Canc elled via OM: Order cancelled - Patient discharged Performed By: #### L 499.0043 #### [facility] [address] [place], [address] CL Normal 98-108 [facility] Comment on above: Result Comment: Canc elled via OM: Order cancelled - Patient discharged Performed By: #### L 499.0043 #### [facility] [address] [place], [address] CO2 Normal 21.0-32.0 [facility] Comment on above: Result Comment: Canc elled via OM: Order cancelled - Patient discharged Performed By: #### L 499.0043 #### [facility] [address] [place], [address] CREAT,SERUM Normal 0.70-1.20 [facility] Comment on above: Result Comment: Canc elled via OM: Order cancelled - Patient discharged Performed By: #### L 499.0043 #### [facility] [address] [place], [address] eGFR Normal >60 [facility] Comment on above: Result Comment: Canc elled via OM: Order cancelled - Patient discharged Performed By: #### L 499.0043 #### [facility] [address] [place], [address] GAP Normal 5-15 [facility] Comment on above: Result Comment: Canc elled via OM: Order cancelled - Patient discharged Performed By: #### L 499.0043 #### [facility] [address] [place], [address] GLU Normal 70-99 [facility] Comment on above: Result Comment: Canc elled via OM: Order cancelled - Patient discharged Performed By: #### L 499.0043 #### [facility] [address] [place], [address] Potassium Normal 3.3-5.1 [facility] Comment on above: Result Comment: Canc elled via OM: Order cancelled - Patient discharged Performed By: #### L 499.0043 #### [facility] [address] [place], [address] Basic Metabolic Profile (BMP) Normal 133-145 [facility] Comment on above: Result Comment: Canc elled via OM: Order cancelled - Patient discharged Performed By: #### L 499.0043 #### [facility] [address] [place], [address] CBC W/Diff, Automatedon 10-0 Absolute Neut Normal 2.0-7.7 [facility] Comment on above: Result Comment: Canc elled via OM: Order cancelled - Patient discharged Performed By: #### L 499.0043 #### [facility] [address] [place], [address] HCT Normal 40-54 [facility] Comment on above: Result Comment: Canc elled via OM: Order cancelled - Patient discharged Performed By: #### L 499.0043 #### [facility] [address] [place], [address] HGB Normal 13.0-16.5 [facility] Comment on above: Result Comment: Canc elled via OM: Order cancelled - Patient discharged Performed By: #### L 499.0043 #### [facility] [address] [place], [address] MCH Normal 27.0-32.0 [facility] Comment on above: Result Comment: Canc elled via OM: Order cancelled - Patient discharged Performed By: #### L 499.0043 #### [facility] [address] [place], [address] MCHC Normal 32-36 [facility] Comment on above: Result Comment: Canc elled via OM: Order cancelled - Patient discharged Performed By: #### L 499.0043 #### [facility] [address] [place], [address] MCV Normal 80-94 [facility] Comment on above: Result Comment: Canc elled via OM: Order cancelled - Patient discharged Performed By: #### L 499.0043 #### [facility] [address] [place], [address] NEUT% Normal 47-70 [facility] Comment on above: Result Comment: Canc elled via OM: Order cancelled - Patient discharged Performed By: #### L 499.0043 #### [facility] [address] [place], [address] PLT Normal 150-450 [facility] Comment on above: Result Comment: Canc elled via OM: Order cancelled - Patient discharged Performed By: #### L 499.0043 #### [facility] [address] [place], [address] RBC Normal 4.6-6.2 [facility] Comment on above: Result Comment: Canc elled via OM: Order cancelled - Patient discharged Performed By: #### L 499.0043 #### [facility] [address] [place], [address] RDW CV Normal 11.6-14.6 [facility] Comment on above: Result Comment: Canc elled via OM: Order cancelled - Patient discharged Performed By: #### L 499.0043 #### [facility] [address] [place], [address] RDW SD Normal 35.1-43.9 [facility] Comment on above: Result Comment: Canc elled via OM: Order cancelled - Patient discharged Performed By: #### L 499.0043 #### [facility] [address] [place], [address] WBC Normal 4.4-11.0 [facility] Comment on above: Result Comment: Canc elled via OM: Order cancelled - Patient discharged Performed By: #### L 499.0043 #### [facility] [address] [place], [address] 12 Lead EKGon 12-20-2024 12 Lead EKG [facility] [address] [place] [address] 12 Lead EKG 12/19/24 1127 MR#: [id number] Acct: [id number] Name: SANJEEV FARMER Rep #: [id number] : 1950 74 From: Esmer Mcleod MD Attending Dr: Dr. Christian Solano MD Status: DIS IN Ordering Dr: Soheila Hodge MD Date: 12/20/24 Location: [facility] Sex: M C Admitted: 12/19/24 Test Reason : POST PCI Blood Pressure : */* mmHG Vent. Rate : 50 BPM Atrial Rate : 50 BPM P-R Int : 282 ms QRS Dur : 94 ms QT Int : 472 ms P-R-T Axes : 39 -67 -3 degrees QTcB Int : 430 ms Sinus bradycardia with 1st degree A-V block Left axis deviation Pulmonary disease pattern Inferior infarct , age undetermined Abnormal ECG When compared with ECG of 19-Dec-2024 06:13, MANUAL COMPARISON REQUIRED DATA IS UNCONFIRMED Confirmed by SHRUTHI LIN, ALBERT ([id number]), web editor LATOYA KIM ([id number]) on 12/24/2024 6:34:16 AM Referred By: AYESHA Confirmed By: ALBERT MCLEOD MD 12/24/24 0634 Date Esmer Mcleod MD CC: Dr. Soheila Hodge MD; Dr. Nash Morales MD; Dr. Christian Solano MD Signed Normal [facility] Absolute lymphocyte countOrd ered By: Christian Solano on 12-20-2024 Lymphocytes Auto (Unsp spec) [#/Vol] 1.30 10*3/uL 0.83-4.51 [facility] Absolute neutrophil countOrd ered By: Christian Solano on 12-20-2024 Neutrophils (Bld) [#/Vol] 4.5 10*3/uL 2.0-7.7 [facility] Anion gap in Serum or Plasma Ordered By: Esmer Mcleod on 12-20-2024 Anion gap [Moles/Vol] 11 mmol/L 5-15 [facility] Automated lymphocyte count a s percentage of total leukocytesOrdered By: Christian Solano on 12-20-2024 Lymphocytes/100 WBC Auto (Unsp spec) 18.8 % Low 19-41 [facility] BUN/creatinine ratioOrdered By: Esmer Mcleod on 12-20-2024 Urea nitrogen/Creatinine [Mass ratio] 9.5 mg/mg Low 10-20 [facility] Basophil percentageOrdered B y: Christian Solano on 12-20-2024 Basophils/100 WBC (Bld) 0.9 % 0-1 [facility] Bilirubin, totalOrdered By: Esmer Mcleod on 12-20-2024 Bilirubin [Mass/Vol] 0.50 mg/dL 0.00-1.30 [facility] CBC W/Diff, Automatedon 10-0 Absolute Lymph 1.30 X10 3/uL Normal 0.83-4.51 [facility] Comment on above: Performed By: #### L 500.4100, L500.4050, L100.0100, L501.9985 #### [facility] [address] [place], [address] Absolute Neut 4.5 X10 3/uL Normal 2.0-7.7 [facility] Comment on above: Performed By: #### L 500.4100, L500.4050, L100.0100, L501.9985 #### [facility] [address] [place], [address] Basophils/100 WBC (Bld) 0.9 % Normal 0-1 [facility] Comment on above: Performed By: #### L 500.4100, L500.4050, L100.0100, L501.9985 #### [facility] [address] [place], [address] Eosinophils/100 WBC (Bld) 4.9 % Normal 0-5 [facility] Comment on above: Performed By: #### L 500.4100, L500.4050, L100.0100, L501.9985 #### [facility] [address] [place], [address] Erythrocyte distribution width (RBC) [Ratio] 12.7 % Normal 11.6-14.6 [facility] Comment on above: Performed By: #### L 500.4100, L500.4050, L100.0100, L501.9985 #### [facility] [address] [place], [address] Hematocrit (Bld) [Volume fraction] 40.3 % Normal 40-54 [facility] Comment on above: Performed By: #### L 500.4100, L500.4050, L100.0100, L501.9985 #### [facility] [address] [place], [address] Hemoglobin (Bld) [Mass/Vol] 13.8 g/dL Normal 13.0-16.5 [facility] Comment on above: Performed By: #### L 500.4100, L500.4050, L100.0100, L501.9985 #### [facility] [address] [place], [address] IG% 0.300 Normal 0.0-0.9 [facility] Comment on above: Result Comment: IG% - Immature Granulocytes (promyelocytes, myelocytes and metamyelocytes) > 1% indicates that a LEFT SHIFT is Present. Performed By: #### L 500.4100, L500.4050, L100.0100, L501.9985 #### [facility] [address] [place], [address] Lymphocytes/100 WBC (Bld) 18.8 % Low 19-41 [facility] Comment on above: Performed By: #### L 500.4100, L500.4050, L100.0100, L501.9985 #### [facility] [address] [place], [address] MCH (RBC) [Entitic mass] 31.7 pg Normal 27.0-32.0 [facility] Comment on above: Performed By: #### L 500.4100, L500.4050, L100.0100, L501.9985 #### [facility] [address] [place], [address] MCHC (RBC) [Mass/Vol] 34.2 g/dL Normal 32-36 [facility] Comment on above: Performed By: #### L 500.4100, L500.4050, L100.0100, L501.9985 #### [facility] [address] [place], [address] MCV (RBC) [Entitic vol] 92.6 fL Normal 80-94 [facility] Comment on above: Performed By: #### L 500.4100, L500.4050, L100.0100, L501.9985 #### [facility] [address] [place], [address] Monocytes/100 WBC (Bld) 10.3 % High 0-10 [facility] Comment on above: Performed By: #### L 500.4100, L500.4050, L100.0100, L501.9985 #### [facility] [address] [place], [address] Neutrophils/100 WBC (Bld) 64.8 % Normal 47-70 [facility] Comment on above: Performed By: #### L 500.4100, L500.4050, L100.0100, L501.9985 #### [facility] [address] [place], [address] Nucleated RBC (Bld) [#/Vol] 0 10*3/uL Normal 0-5 [facility] Comment on above: Performed By: #### L 500.4100, L500.4050, L100.0100, L501.9985 #### [facility] [address] [place], [address] Platelet mean volume (Bld) [Entitic vol] 10.1 fL Normal 6.2-12.0 [facility] Comment on above: Performed By: #### L 500.4100, L500.4050, L100.0100, L501.9985 #### [facility] [address] [place], [address] Platelets (Bld) [#/Vol] 198 10*3/uL Normal 150-450 [facility] Comment on above: Performed By: #### L 500.4100, L500.4050, L100.0100, L501.9985 #### [facility] [address] [place], [address] RBC (Bld) [#/Vol] 4.35 10*6/uL Low 4.6-6.2 [facility] Comment on above: Performed By: #### L 500.4100, L500.4050, L100.0100, L501.9985 #### [facility] [address] [place], [address] RDW SD 42.9 fl Normal 35.1-43.9 [facility] Comment on above: Performed By: #### L 500.4100, L500.4050, L100.0100, L501.9985 #### [facility] [address] [place], [address] WBC (Bld) [#/Vol] 6.9 10*3/uL Normal 4.4-11.0 [facility] Comment on above: Performed By: #### L 500.4100, L500.4050, L100.0100, L501.9985 #### [facility] [address] [place], [address] Carbon dioxide, total [Moles /volume] in Central venous bloodOrdered By: Esmer Mcleod on 12-20-2024 CO2 [Moles/Vol] 22.3 mmol/L 21.0-32.0 [facility] Chloride assayOrdered By: Ángela Mcleod on 12-20-2024 Chloride [Moles/Vol] 104 mmol/L 98-108 [facility] Comprehensive Metabolic Prof ilon 12-20-2024 Albumin [Mass/Vol] 3.6 g/dL Normal 3.4-4.8 [facility] Comment on above: Performed By: #### L 500.4100, L500.4050, L100.0100, L501.9985 #### [facility] [address] [place], [address] Albumin/Globulin [Mass ratio] 1.4 {ratio} Normal 0.9-2.4 [facility] Comment on above: Performed By: #### L 500.4100, L500.4050, L100.0100, L501.9985 #### [facility] [address] [place], [address] ALK PHOS 92 U/L Normal 40-129 [facility] Comment on above: Performed By: #### L 500.4100, L500.4050, L100.0100, L501.9985 #### [facility] [address] [place], [address] ALT [Catalytic activity/Vol] 13 U/L Normal <=46 [facility] Comment on above: Performed By: #### L 500.4100, L500.4050, L100.0100, L501.9985 #### [facility] [address] [place], [address] AST [Catalytic activity/Vol] 15 U/L Normal <=37 [facility] Comment on above: Performed By: #### L 500.4100, L500.4050, L100.0100, L501.9985 #### [facility] [address] [place], [address] Bilirubin [Mass/Vol] 0.50 mg/dL Normal 0.00-1.30 [facility] Comment on above: Performed By: #### L 500.4100, L500.4050, L100.0100, L501.9985 #### [facility] [address] [place], [address] BUN/CRE 9.5 RATIO Low 10-20 [facility] Comment on above: Performed By: #### L 500.4100, L500.4050, L100.0100, L501.9985 #### [facility] [address] [place], [address] Calcium [Mass/Vol] 8.7 mg/dL Normal 7.6-11.0 [facility] Comment on above: Performed By: #### L 500.4100, L500.4050, L100.0100, L501.9985 #### [facility] [address] [place], [address] Chloride [Moles/Vol] 104 mmol/L Normal 98-108 [facility] Comment on above: Performed By: #### L 500.4100, L500.4050, L100.0100, L501.9985 #### [facility] [address] [place], [address] CO2 [Moles/Vol] 22.3 mmol/L Normal 21.0-32.0 [facility] Comment on above: Performed By: #### L 500.4100, L500.4050, L100.0100, L501.9985 #### [facility] [address] [place], [address] Creatinine [Mass/Vol] 1.14 mg/dL Normal 0.70-1.20 [facility] Comment on above: Performed By: #### L 500.4100, L500.4050, L100.0100, L501.9985 #### [facility] [address] [place], [address] ECRCL 71.58 ml/min Normal 50-250 [facility] Comment on above: Performed By: #### L 500.4100, L500.4050, L100.0100, L501.9985 #### [facility] [address] [place], [address] GAP 11 Normal 5-15 [facility] Comment on above: Performed By: #### L 500.4100, L500.4050, L100.0100, L501.9985 #### [facility] [address] [place], [address] GFR/1.73 sq M.predicted among non-blacks MDRD (S/P/Bld) [Vol rate/Area] 67 mL/min/{1.73_m2} Normal >60 [facility] Comment on above: Result Comment: mL/m in/1.73m2 CKD-EPI Creatinine Equation (2020) Performed By: #### L 500.4100, L500.4050, L100.0100, L501.9985 #### [facility] [address] [place], [address] Globulin (S) [Mass/Vol] 2.6 g/dL Normal 2.2-4.2 [facility] Comment on above: Performed By: #### L 500.4100, L500.4050, L100.0100, L501.9985 #### [facility] [address] [place], [address] Glucose [Mass/Vol] 125 mg/dL High 70-99 [facility] Comment on above: Performed By: #### L 500.4100, L500.4050, L100.0100, L501.9985 #### [facility] [address] [place], [address] Potassium [Moles/Vol] 4.3 mmol/L Normal 3.3-5.1 [facility] Comment on above: Performed By: #### L 500.4100, L500.4050, L100.0100, L501.9985 #### [facility] [address] [place], [address] Sodium [Moles/Vol] 137 mmol/L Normal 133-145 [facility] Comment on above: Performed By: #### L 500.4100, L500.4050, L100.0100, L501.9985 #### [facility] [address] [place], [address] T PROT 6.2 g/dL Normal 5.9-8.4 [facility] Comment on above: Performed By: #### L 500.4100, L500.4050, L100.0100, L501.9985 #### [facility] [address] [place], [address] Urea nitrogen [Mass/Vol] 11 mg/dL Normal 4-19 [facility] Comment on above: Performed By: #### L 500.4100, L500.4050, L100.0100, L501.9985 #### [facility] [address] [place], [address] Electrocardiogram reportOrde red By: Bowen Story on 12-20-2024 EKG study [facility] [address] [place] [address] 12 Lead EKG 12/19/24 0613 MR#: [id number] Acct: [id number] Name: SANJEEV FARMER Rep #:[id number] : 1950 74 From: Bowen Story MD Attending Dr: Dr. Christian Solano MD Status: ADM IN Ordering Dr: Soheila Hodge MD Date: 12/19/24 Location: [facility] Sex: M C Admitted: 12/19/24 Test Reason : AM EKG Blood Pressure : */* mmHG Vent. Rate : 58 BPM Atrial Rate : 58 BPM P-R Int : 264 ms QRS Dur : 94 ms QT Int : 456 ms P-R-T Axes : -62 -62 -3 degrees QTcB Int : 447 ms Unusual P axis, possible ectopic atrial bradycardia Left axis deviation Pulmonary disease pattern Inferior infarct , age undetermined Abnormal ECG When compared with ECG of 18-Dec-2024 20:35, MANUAL COMPARISON REQUIRED DATA IS UNCONFIRMED Confirmed by PORSHA LIN, BOWEN ([id number]), web editor ANGELLA SALGADO ([id number]) on 12/20/2024 7:18:44 AM Referred By: Confirmed By: BOWEN STORY MD 12/20/24 0718 Date _ Bowen Story MD CC: Dr. Soheila Hodge MD; Dr. Nash Morales MD; Dr. Christian Solano MD ~ Signed [facility] Work Phone: Eosinophil percentageOrdered By: Christian Solano on 12-20-2024 Eosinophils/100 WBC (Bld) 4.9 % 0-5 [facility] Erythrocyte distribution wid th ratioOrdered By: Christian Solano on 12-20-2024 Erythrocyte distribution width (RBC) [Ratio] 12.7 % 11.6-14.6 [facility] Erythrocyte distribution wid th standard deviationOrdered By: Christian Solano on 12-20-2024 Erythrocyte distribution width (RBC) [Ratio] 42.9 fl 35.1-43.9 [facility] Glomerular filtration rate ( GFR) estimation/1.73 sq m using serum, plasma, or whole bOrdered By: Esmer Mcleod on 12-20-2024 GFR/1.73 sq M.predicted among non-blacks MDRD (S/P/Bld) [Vol rate/Area] 67 mL/min/{1.73_m2} >60 [facility] Comment on above: mL/min/1.73m2 CKD-EP I Creatinine Equation (2020) Hematocrit Auto (Bld) [Volum e fraction]Ordered By: Christian Solano on 12-20-2024 Hematocrit (Bld) [Volume fraction] 40.3 % 40-54 [facility] Hemoglobin measurementOrdere d By: Christian Solano on 12-20-2024 Hemoglobin (Bld) [Mass/Vol] 13.8 g/dL 13.0-16.5 [facility] Immature granulocytes/100 WB C Auto (Bld)Ordered By: Christian Solano on 12-20-2024 Immature granulocytes/100 WBC (Bld) 0.300 % 0.0-0.9 [facility] Comment on above: IG% - Immature Granu locytes (promyelocytes, myelocytes and metamyelocytes) > 1% indicates that a LEFT SHIFT is Present. Laboratory - Chemistry and C hemistry - challengeOrdered By: Esmer Mcleod on 12-20-2024 AST [Catalytic activity/Vol] 15 U/L <38 [facility] MCV (mean corpuscular volume ) determinationOrdered By: Christian Solano on 12-20-2024 MCV (RBC) [Entitic vol] 92.6 fL 80-94 [facility] Magnesiumon 12-20-2024 Magnesium [Mass/Vol] 2.2 mg/dL Normal 1.5-2.2 [facility] Comment on above: Performed By: #### L 500.4100, L500.4050, L100.0100, L501.9985 #### [facility] [address] [place], [address] Magnesium measurement (mass/ volume)Ordered By: Christian Solano on 12-20-2024 Magnesium (Unsp spec) [Mass/Vol] 2.2 mg/dL 1.5-2.2 [facility] Mean corpuscular hemoglobin (MCH) determinationOrdered By: Christian Solano on 12-20-2024 MCH (RBC) [Entitic mass] 31.7 pg 27.0-32.0 [facility] Mean corpuscular hemoglobin concentration (MCHC) determinationOrdered By: Christian Solano on 12-20-2024 MCHC (RBC) [Mass/Vol] 34.2 g/dL 32-36 [facility] Mean platelet volume determi nationOrdered By: Christian Solano on 12-20-2024 Platelet mean volume (Bld) [Entitic vol] 10.1 fL 6.2-12.0 [facility] Monocyte percentageOrdered B y: Christian Solano on 12-20-2024 Monocytes/100 WBC (Bld) 10.3 % High 0-10 [facility] Neutrophil percentageOrdered By: Christian Solano on 12-20-2024 Neutrophils/100 WBC (Bld) 64.8 % 47-70 [facility] Nucleated red blood cell per centageOrdered By: Christian Solano on 12-20-2024 Nucleated RBC/100 WBC (Bld) [Ratio] 0 % 0-5 [facility] Phosphoruson 12-20-2024 Phosphate [Mass/Vol] 2.9 mg/dL Normal 2.7-4.5 [facility] Comment on above: Performed By: #### L 501.2300 #### [facility] [address] [place], [place] [address], [id number] Platelet countOrdered By: Too Solano on 12-20-2024 Platelets (Bld) [#/Vol] 198 10*3/uL 150-450 [facility] Potassium measurement (mass/ volume)Ordered By: Esmer Mcleod on 12-20-2024 Potassium (Unsp spec) [Mass/Vol] 4.3 mmol/L 3.3-5.1 [facility] RBC Auto (Bld) [#/Vol]Ordere d By: Christian Solano on 12-20-2024 RBC (Bld) [#/Vol] 4.35 10*6/uL Low 4.6-6.2 [facility] Serum creatinine measurement (mass/volume)Ordered By: Esmre Mcleod on 12-20-2024 Creatinine [Mass/Vol] 1.14 mg/dL 0.70-1.20 [facility] Serum globulin measurementOr dered By: Esmer Mcleod on 12-20-2024 Globulin (S) [Mass/Vol] 2.6 g/dL 2.2-4.2 [facility] Serum glucose measurement (m ass/volume)Ordered By: Esmer Mcleod on 12-20-2024 Glucose [Mass/Vol] 125 mg/dL High 70-99 [facility] Serum or plasma alanine philippe otransferase (ALT) measurementOrdered By: Esmer Mcleod on 12-20-2024 ALT [Catalytic activity/Vol] 13 U/L <47 [facility] Serum or plasma albumin jamie urement (mass/volume)Ordered By: Esmer Mcleod on 12-20-2024 Albumin [Mass/Vol] 3.6 g/dL 3.4-4.8 [facility] Serum or plasma albumin/glob ulin mass ratioOrdered By: Esmer Mcleod on 12-20-2024 Albumin/Globulin [Mass ratio] 1.4 {ratio} 0.9-2.4 [facility] Serum or plasma alkaline kellen sphatase measurementOrdered By: Esmer Mcleod on 12-20-2024 ALP [Catalytic activity/Vol] 92 U/L 40-129 [facility] Serum or plasma calcium jamie urement (mass/volume)Ordered By: Esmer Mcleod on 12-20-2024 Calcium [Mass/Vol] 8.7 mg/dL 7.6-11.0 [facility] Serum or plasma urea nitroge n measurement (mass/volume)Ordered By: Esmer Mcleod on 12-20-2024 Urea nitrogen [Mass/Vol] 11 mg/dL 4-19 [facility] Sodium levelOrdered By: Lorenzo Mcleod on 12-20-2024 Sodium [Moles/Vol] 137 mmol/L 133-145 [facility] Total proteinOrdered By: Grey Mcleod on 12-20-2024 Protein [Mass/Vol] 6.2 g/dL 5.9-8.4 [facility] White blood cell (WBC) count Ordered By: Christian Solano on 12-20-2024 WBC (Bld) [#/Vol] 6.9 10*3/uL 4.4-11.0 [facility] 12 Lead EKGon 12-19-2024 12 Lead EKG [facility] Cardiovascular Services [address] [place] [address] 12 Lead EKG 12/19/24 0613 MR#: [id number] Acct: [id number] Name: SANJEEV FARMER Rep #: [id number] : 1950 74 From: Bowen Story MD Attending Dr: Dr. Christian Solano MD Status: ADM IN Ordering Dr: Soheila Hodge MD Date: 12/19/24 Location: U Sex: M C Admitted: 12/19/24 Test Reason : AM EKG Blood Pressure : */* mmHG Vent. Rate : 58 BPM Atrial Rate : 58 BPM P-R Int : 264 ms QRS Dur : 94 ms QT Int : 456 ms P-R-T Axes : -62 -62 -3 degrees QTcB Int : 447 ms Unusual P axis, possible ectopic atrial bradycardia Left axis deviation Pulmonary disease pattern Inferior infarct , age undetermined Abnormal ECG When compared with ECG of 18-Dec-2024 20:35, MANUAL COMPARISON REQUIRED DATA IS UNCONFIRMED Confirmed by PORSHA LIN, BOWEN ([id number]), web editor ANGELLA SALGADO ([id number]) on 12/20/2024 7:18:44 AM Referred By: Confirmed By: BOWEN STORY MD 12/20/24 0718 Date Bowen Story MD CC: Dr. Soheila Hodge MD; Dr. Nash Morales MD; Dr. Christian Solano MD Signed Normal [facility] Absolute lymphocyte countOrd ered By: Soheila Hodge on 12-19-2024 Lymphocytes Auto (Unsp spec) [#/Vol] 2.01 10*3/uL 0.83-4.51 [facility] Absolute neutrophil countOrd ered By: Soheila Hodge on 12-19-2024 Neutrophils (Bld) [#/Vol] 4.0 10*3/uL 2.0-7.7 [facility] Activated partial thrombopla stin time (aPTT) in platelet poor plasma by coagulation aOrdered By: Soheila Hodge on 12-19-2024 aPTT Coag (PPP) [Time] 82.4 s High 24.1-36.2 [facility] Anion gap in Serum or Plasma Ordered By: Soheila Ayesha on 12-19-2024 Anion gap [Moles/Vol] 13 mmol/L 5- [facility] Automated lymphocyte count a s percentage of total leukocytesOrdered By: Soheila Ayesha on 12-19-2024 Lymphocytes/100 WBC Auto (Unsp spec) 28.2 % - [facility] BUN/creatinine ratioOrdered By: [facility] Ayesha on 12-19-2024 Urea nitrogen/Creatinine [Mass ratio] 11.7 mg/mg - [facility] Basophil percentageOrdered B y: Soheila Ayesha on 12-19-2024 Basophils/100 WBC (Bld) 1.0 % 0-1 [facility] Bilirubin, totalOrdered By: Soheila Ayesha on 12-19-2024 Bilirubin [Mass/Vol] 0.36 mg/dL 0.00-1.30 [facility] CBC W/Diff, Automatedon Absolute Neut Normal 2.0-7.7 [facility] Comment on above: Result Comment: DUPL ICATE- SEE H68 Performed By: #### L 100.0100 #### [facility] [address] [facility] [address] HCT Normal 40-54 [facility] Comment on above: Result Comment: DUPL ICATE- SEE H68 Performed By: #### L 100.0100 #### [facility] [address] [facility] [address] HGB Normal 13.0-16.5 [facility] Comment on above: Result Comment: DUPL ICATE- SEE H68 Performed By: #### L 100.0100 #### [facility] [address] [facility] [address] MCH Normal 27.0-32.0 [facility] Comment on above: Result Comment: DUPL ICATE- SEE H68 Performed By: #### L 100.0100 #### [facility] [address] [place], [address] MCHC Normal 32-36 [facility] Comment on above: Result Comment: DUPL ICATE- SEE H68 Performed By: #### L 100.0100 #### [facility] [address] [place], [address] MCV Normal 80-94 [facility] Comment on above: Result Comment: DUPL ICATE- SEE H68 Performed By: #### L 100.0100 #### [facility] [address] [place], [address] NEUT% Normal 47-70 [facility] Comment on above: Result Comment: DUPL ICATE- SEE H68 Performed By: #### L 100.0100 #### [facility] [address] [place], [address] PLT Normal 150-450 [facility] Comment on above: Result Comment: DUPL ICATE- SEE H68 Performed By: #### L 100.0100 #### [facility] [address] [place], [address] RBC Normal 4.6-6.2 [facility] Comment on above: Result Comment: DUPL ICATE- SEE H68 Performed By: #### L 100.0100 #### [facility] [address] [place], [address] RDW CV Normal 11.6-14.6 [facility] Comment on above: Result Comment: DUPL ICATE- SEE H68 Performed By: #### L 100.0100 #### [facility] [address] [place], [address] RDW SD Normal 35.1-43.9 [facility] Comment on above: Result Comment: DUPL ICATE- SEE H68 Performed By: #### L 100.0100 #### [facility] [address] [place], [address] WBC Normal 4.4-11.0 [facility] Comment on above: Result Comment: DUPL ICATE- SEE H68 Performed By: #### L 100.0100 #### [facility] [address] [place], [address] Absolute Lymph 2.01 X10 3/uL Normal 0.83-4.51 [facility] Comment on above: Performed By: #### L 500.4100, L500.4050, L100.0100, L501.9985 #### [facility] [address] [place], [address] Absolute Neut 4.0 X10 3/uL Normal 2.0-7.7 [facility] Comment on above: Performed By: #### L 500.4100, L500.4050, L100.0100, L501.9985 #### [facility] [address] [place], [address] Basophils/100 WBC (Bld) 1.0 % Normal 0-1 [facility] Comment on above: Performed By: #### L 500.4100, L500.4050, L100.0100, L501.9985 #### [facility] [address] [place], [address] Eosinophils/100 WBC (Bld) 4.6 % Normal 0-5 [facility] Comment on above: Performed By: #### L 500.4100, L500.4050, L100.0100, L501.9985 #### [facility] [address] [place], [address] Erythrocyte distribution width (RBC) [Ratio] 12.5 % Normal 11.6-14.6 [facility] Comment on above: Performed By: #### L 500.4100, L500.4050, L100.0100, L501.9985 #### [facility] [address] [place], [address] Hematocrit (Bld) [Volume fraction] 41.9 % Normal 40-54 [facility] Comment on above: Performed By: #### L 500.4100, L500.4050, L100.0100, L501.9985 #### [facility] [address] [place], [address] Hemoglobin (Bld) [Mass/Vol] 14.1 g/dL Normal 13.0-16.5 [facility] Comment on above: Performed By: #### L 500.4100, L500.4050, L100.0100, L501.9985 #### [facility] [address] [place], [address] IG% 0.300 Normal 0.0-0.9 [facility] Comment on above: Result Comment: IG% - Immature Granulocytes (promyelocytes, myelocytes and metamyelocytes) > 1% indicates that a LEFT SHIFT is Present. Performed By: #### L 500.4100, L500.4050, L100.0100, L501.9985 #### [facility] [address] [place], [address] Lymphocytes/100 WBC (Bld) 28.2 % Normal 19-41 [facility] Comment on above: Performed By: #### L 500.4100, L500.4050, L100.0100, L501.9985 #### [facility] [address] [place], [address] MCH (RBC) [Entitic mass] 31.4 pg Normal 27.0-32.0 [facility] Comment on above: Performed By: #### L 500.4100, L500.4050, L100.0100, L501.9985 #### [facility] [address] [place], [address] MCHC (RBC) [Mass/Vol] 33.7 g/dL Normal 32-36 [facility] Comment on above: Performed By: #### L 500.4100, L500.4050, L100.0100, L501.9985 #### [facility] [address] [place], [address] MCV (RBC) [Entitic vol] 93.3 fL Normal 80-94 [facility] Comment on above: Performed By: #### L 500.4100, L500.4050, L100.0100, L501.9985 #### [facility] [address] [place], [address] Monocytes/100 WBC (Bld) 9.3 % Normal 0-10 [facility] Comment on above: Performed By: #### L 500.4100, L500.4050, L100.0100, L501.9985 #### [facility] [address] [place], [address] Neutrophils/100 WBC (Bld) 56.6 % Normal 47-70 [facility] Comment on above: Performed By: #### L 500.4100, L500.4050, L100.0100, L501.9985 #### [facility] [address] [place], [address] Nucleated RBC (Bld) [#/Vol] 0 10*3/uL Normal 0-5 [facility] Comment on above: Performed By: #### L 500.4100, L500.4050, L100.0100, L501.9985 #### [facility] [address] [place], [address] Platelet mean volume (Bld) [Entitic vol] 10.6 fL Normal 6.2-12.0 [facility] Comment on above: Performed By: #### L 500.4100, L500.4050, L100.0100, L501.9985 #### [facility] [address] [place], [address] Platelets (Bld) [#/Vol] 239 10*3/uL Normal 150-450 [facility] Comment on above: Performed By: #### L 500.4100, L500.4050, L100.0100, L501.9985 #### [facility] [address] [place], [address] RBC (Bld) [#/Vol] 4.49 10*6/uL Low 4.6-6.2 [facility] Comment on above: Performed By: #### L 500.4100, L500.4050, L100.0100, L501.9985 #### [facility] [address] [place], [address] RDW SD 42.2 fl Normal 35.1-43.9 [facility] Comment on above: Performed By: #### L 500.4100, L500.4050, L100.0100, L501.9985 #### [facility] [address] [place], [address] WBC (Bld) [#/Vol] 7.1 10*3/uL Normal 4.4-11.0 [facility] Comment on above: Performed By: #### L 500.4100, L500.4050, L100.0100, L501.9985 #### [facility] [address] [place], [address] Calculated very low density lipoprotein (VLDL) cholesterol measurementOrdered By: Soheila Hodge on 12-19-2024 Calculated very low density lipoprotein (VLDL) cholesterol measurement 29 mg/dL 5-40 [facility] Carbon dioxide, total [Moles /volume] in Central venous bloodOrdered By: Soheila Hodge on 12-19-2024 CO2 [Moles/Vol] 21.4 mmol/L 21.0-32.0 [facility] Cardiac Cath Diagnosticon Cardiac Cath Diagnostic [facility] Imaging Services [address] [place] [address] Cardiac Cath Diagnostic MR#: [id number] Acct: [id number] Name: SANJEEV FARMER Rep #: [id number] : 1950 74 From: Bowen Story MD PCP: Dr. Nash Morales MD Status:ADM MARY Patient Name: SANJEEV FARMER Study Date: 12/19/2024 Performing: Bowen Story MD Ht: 70 inches 177.8 cm : 1950 Wt: 265.1 lbs 120.1 kg Age: 74 Gender: male BSA: 2.35 PROCEDURE(S) PERFORMED DC01-(26182)LHC/COR/ LV IC12-(28814/C9600)DE S W/WO PTCA, SINGLE CORONARY ARTERY IC02-(96623)PTCA, EACH ADD'L CORONARY ART, SAME MAJOR CLINICAL PROFILE AND INDICATIONS Indications: Suspected CAD Heart Failure: None CONCLUSIONS Severe single-vessel disease involving the left anterior descending artery. The right coronary artery which was previously stented is noted to be patent. Preserved ejection fraction is noted. RECOMMENDATIONS Referred for immediate PCI DESCRIPTION OF PROCEDURE The patient arrived to the procedure lab. The risks and benefits of the procedure as well as a full description of our services here and current unavailability of surgical backup were fully explained to the patient and/or their significant other prior to the catheterization. The Timeout was completed, verifying the correct patient and procedure. The patient's procedural site was prepped and draped in the usual fashion. Local anesthetic was given subcutaneously to right radial region with Lidocaine 2%. Using a modified Seldinger technique, arterial access was obtained via the right radial artery, a 6Fr sheath was inserted. Left Coronary Artery selective angiography was performed in multiple views using a 5 Fr. 4.0 [place] catheter. Right Coronary Artery selective angiography was then performed in multiple views using a 5 Fr. 4.0 [place] catheter. Left Ventriculography was performed in BROWNLEE projection using a 5 Fr. Pigtail catheter. LV to AO pullback pressures were then recorded.The arterial sheath was pulled and a TR Band was applied for hemostasis CORONARY ANGIOGRAPHY DOMINANCE: Right Dominant LEFT HEART ASSESSMENT Left Ventricular Ejection Fraction: by LV Gram 55 % Normal Left Ventricular systolic function LEFT MAIN: Angiographically 30% LEFT ANTERIOR DESCENDING ARTERY: This is a medium size vessel with a proximal 80% lesion, a mid 70% lesion. There are 2 diagonal branches which appear to be mild to moderately diseased. CIRCUMFLEX ARTERY: This vessel was also a medium size vessel. There is a proximal 40% stenosis the AV groove branch had mild disease. RAMUS: Mild luminal irregularities less than 30% RIGHT CORONARY ARTERY: Large dominant vessel with proximal 30 to 40% in-stent stenosis. The vessel continues and bifurcates to posterior descending artery and posterolateral vessel. No significant stenosis noted in this vessel. COMPLICATIONS No Complications PROCEDURE MEDICATIONS Fentanyl 50 mcg IV Versed 1 mg IV Oxygen: 2 L/min via nasal cannula Heparin given IA 12/19/2024 09:18:34 Heparin 7000 unit(s) IV 12/19/2024 09:44:39 Nitro 100 mcg IC 12/19/2024 09:46:04 Verapamil 2.5mg, Ntg 100mcgs, 3000 units of Heparin given IA 12/19/2024 09:18:34 IV Bolus: .9 NaCl 250 ml total 12/19/2024 10:27:10 SUMMARY OF HEMODYNAMIC DATA Time AIR REST ECG 09:10:08 AO 121/51 (81) SA 09:30:09 LV 119/3, 17 09:36:35 LV 127/4, 15 09:36:43 LV 126/8, 18 09:37:26 LVp 117/10, 22 09:37:30 AOp 117/49 (76) 09:37:37 Signed By Bowen Story MD On 12/19/2024 13:10:18 Bowen Story MD 12/19/24 1311 Date Bowen Porsha MD Cosigner Signature: Date (if indicated) CC: Dr. Nash Morales MD; Dr. Bowen Story MD; Dr. Christian Solano MD Date Dictated: 12/19/24914 Date Transcribed: 12/19/24 1310 Ep Technologist: CO Signed Normal [facility] Cardiac Cath Interventionon 12-19-2024 Cardiac Cath Intervention [facility] Imaging Services [address] [place] [address] Cardiac Cath Intervention MR#: [id number] Acct: [id number] Name: SANJEEV FARMER Rep #: [id number] : 1950 74 From: Bowen Story MD PCP: Dr. Nash Morales MD Status:ADM MARY Patient Name: SANJEEV FARMER Study Date: 12/19/2024 Performing: Albert Mcleod MD Ht: 70 inches 177.8 cm : 1950 Wt: 264.78 lbs 120.1 kg Age: 74 Gender: male BSA: 2.35 PROCEDURE(S) PERFORMED IC12-(01792/C9600)DE S W/WO PTCA, SINGLE CORONARY ARTERY IC02-(70376)PTCA, EACH ADD'L CORONARY ART, SAME MAJOR CLINICAL PROFILE AND CO-MORBIDITIES Indications: Suspected CAD Heart Failure: None CONCLUSIONS Successful RUPA to LAD and PTCA alone of ostial D2 RECOMMENDATIONS DESCRIPTION OF PROCEDURE The patient arrived to the procedure lab. The risks and benefits of the procedure as well as a full description of our services here and current unavailability of surgical backup were fully explained to the patient and/or their significant other prior to the catheterization. The Timeout was completed, verifying the correct patient and procedure. The patient's procedural site was prepped and draped in the usual fashion. Local anesthetic was given subcutaneously to right radial region with Lidocaine 2% Using a modified Seldinger technique,arterial access was obtained via the right radial artery, a 6Fr sheath was inserted. Left Coronary Artery selective angiography was performed in multiple views using a 5 Fr. 4.0 [place] catheter. Right Coronary Artery selective angiography was then performed in multiple views using a 5 Fr. 4.0 [place] catheter. Left Ventriculography was performed in BROWNLEE projection using a 5 Fr. Pigtail catheter. LV to AO pullback pressures were then recorded.The images were reviewed and options discussed. A decision was then made to proceed with an Intervention, IVUS or other adjunct procedure. XB 3.0 Guide catheter was inserted and engaged into the LCA. [employer] [place] Guide wire was advanced to the LAD. Runthrough Guide wire was inserted as a pat wire Emerge 2.5 x 12 Balloon catheter was inserted. Balloon catheter was advanced across lesion in the LAD, mid. PTCA balloon inflated at 8 atms for 12 secs. PTCA balloon inflated at 6 atms for 16 secs. Emerge 2.25 x 12 Balloon catheter was inserted. Balloon catheter was advanced across lesion in the LAD, mid. PTCA balloon inflated at 8 atms for 11 secs. Angiogram performed post balloon dilatation. [place] 2.5 x 12 Drug Eluting stent was inserted. Drug Eluting stent was advanced across the lesion in the LAD, mid. [place] 3.0 x 12 Drug Eluting stent was inserted. Drug Eluting stent was advanced across the lesion in the LAD, mid. Angiogram performed post stent deployment. [employer] [place] Guide wire was repositioned to the 2nd Diagonal Emerge 2.0 x 12 Balloon catheter was inserted. Balloon catheter was advanced across lesion in the second diagonal, ostial PTCA balloon inflated at 8 atms for 18 secs. Emerge 2.5 x 8 Balloon catheter was inserted. Balloon catheter was advanced across lesion in the LAD, proximal on the Runthrough pat wire. Angiogram performed post balloon dilatation. The arterial sheath was pulled and a TR Band was applied for hemostasis INTERVENTION INFORMATION LESION SITE: LAD (Mid) Lesion Complexity: High/C, chronic total occlusion: No, lesion at bifurcation: Yes, thrombus present: No, lesion length: 20 mm, culprit lesion: Yes, Previously treated lesion: No Pre Stenosis: 80 % Pre intervention MELITON flow: 3 PROCEDURE: Drug Eluting Stent with pre and post dilatation Both the lesions in the LAD were treated with RUPA Post Stenosis: 0 % Post intervention MELITON flow: 3 Lesion Devices: Cordis 6 Fr XB3.0 100cm Guide Catheter Jason Sci EMERGE MR 2.50x12 BALLOON Cavazos .014 190cm [employer] [place] Straight Terumo .014 180cm Runthrough Extra Floppy straight Jason Sci EMERGE MR 2.25x12 BALLOON Medtronic 2.50 x 12 SEVEN FRONTIER RUPA Medtronic 3.0 x 12 SEVEN FRONTIER RUPA Jason Sci EMERGE MR 2.50x08 BALLOON LESION SITE: 2nd Diagonal (Ostial) Lesion Complexity: High/C, chronic total occlusion: No, lesion at bifurcation: Yes, thrombus present: No, lesion length: 6 mm, Previously treated lesion: No Pre Stenosis: 90 % Pre intervention MELITON flow: 3 PROCEDURE: Balloon Angioplasty PTCA alone was performed as part of treatment of LAD/D2 bifurcation lesion. Post Stenosis: 60 % Post intervention MELITON flow: 3 Lesion Devices: Cordis 6 Fr XB3.0 100cm Guide Catheter Cavazos .014 190cm [employer] [place] Straight Terumo .014 180cm Runthrough Extra Floppy straight Jason Sci EMERGE MR 2.00x12 BALLOON COMPLICATIONS No Complications PROCEDURE MEDICATIONS Fentanyl 50 mcg IV Versed 1 mg IV Oxygen: 2 L/min via nasal cannula Heparin given IA 10 (more content not included)... Normal [facility] Cardiac catheterization repo rtOrdered By: Bowen Story on 12-19-2024 Cardiac catheterization study [facility] Imaging Services [address] [place] [id number] Cardiac Cath Intervention MR#: [id number] Acct: [id number] Name: SANJEEV FARMER Rep #:[id number] : 1950 74 From: Bowen Story MD PCP: Dr. Nash Morales MD Status:ADM IN O Patient Name: SANJEEV FARMER Study Date: 12/19/2024 Performing: Albert Mcleod MD Ht: 70 inches 177.8 cm : 1950 Wt: 264.78 lbs 120.1 kg Age: 74 Gender: male BSA: 2.35 PROCEDURE(S) PERFORMED IC12-(67901/C9600)DE S W/WO PTCA, SINGLE CORONARY ARTERY IC02-(10076)PTCA, EACH ADD'L CORONARY ART, SAME MAJOR CLINICAL PROFILE AND CO-MORBIDITIES Indications: Suspected CAD Heart Failure: None CONCLUSIONS Successful RUPA to LAD and PTCA alone of ostial D2 RECOMMENDATIONS DESCRIPTION OF PROCEDURE The patient arrived to the procedure lab. The risks and benefits of the procedure as well as a full description of our services here and current unavailability of surgical backup were fully explained to the patient and/or their significant other prior to the catheterization. The Timeout was completed, verifying the correct patient and procedure. The patient's procedural site was prepped and draped in the usual fashion. Local anesthetic was given subcutaneously to right radial region with Lidocaine 2% Using a modified Seldinger technique,arterial access was obtained via the right radial artery, a 6Fr sheath was inserted. Left Coronary Artery selective angiography was performed in multiple views using a 5 Fr. 4.0 [place] catheter. Right Coronary Artery selective angiography was then performed in multiple views using a 5 Fr. 4.0 [place] catheter. Left Ventriculography was performed in BROWNLEE projection using a 5 Fr. Pigtail catheter. LV to AO pullback pressures were then recorded.The images were reviewed and options discussed. A decision was then made to proceed with an Intervention, IVUS or other adjunct procedure. XB 3.0 Guide catheter was inserted and engaged into the LCA. [employer] [place] Guide wire was advanced to the LAD. Runthrough Guide wire was inserted as a pat wire Emerge 2.5 x 12 Balloon catheter was inserted. Balloon catheter was advanced across lesion in the LAD, mid. PTCA balloon inflated at 8 atms for 12 secs. PTCA balloon inflated at 6 atms for 16 secs. Emerge 2.25 x 12 Balloon catheter was inserted. Balloon catheter was advanced across lesion in the LAD, mid. PTCA balloon inflated at 8 atms for 11 secs. Angiogram performed post balloon dilatation. [place] 2.5 x 12 Drug Eluting stent was inserted. Drug Eluting stent was advanced across the lesion in the LAD, mid. [place] 3.0 x 12 Drug Eluting stent was inserted. Drug Eluting stent was advanced across the lesion in the LAD, mid. Angiogram performed post stent deployment. [employer] [place] Guide wire was repositioned to the 2nd Diagonal Emerge 2.0 x 12 Balloon catheter was inserted. Balloon catheter was advanced across lesion in the second diagonal, ostial PTCA balloon inflated at 8 atms for 18 secs. Emerge 2.5 x 8 Balloon catheter was inserted. Balloon catheter was advanced across lesion in the LAD, proximal on the Runthrough pat wire. Angiogram performed post balloon dilatation. The arterial sheath was pulled and a TR Band was applied for hemostasis INTERVENTION INFORMATION LESION SITE: LAD (Mid) Lesion Complexity: High/C, chronic total occlusion: No, lesion at bifurcation: Yes, thrombus present: No, lesion length: 20 mm, culprit lesion: Yes, Previously treated lesion: No Pre Stenosis: 80 % Pre intervention MELITON flow: 3 PROCEDURE: Drug Eluting Stent with pre and post dilatation Both the lesions in the LAD were treated with RUPA Post Stenosis: 0 % Post intervention MELITON flow: 3 Lesion Devices: Cordis 6 Fr XB3.0 100cm Guide Catheter Jason Sci EMERGE MR 2.50x12 BALLOON Cavazos .014 190cm [employer] [place] Straight Terumo .014 180cm Runthrough Extra Floppy straight Jason Sci EMERGE MR 2.25x12 BALLOON Medtronic 2.50 x 12 SEVEN FRONTIER RUPA Medtronic 3.0 x 12 SEVEN FRONTIER RUPA Jason Sci EMERGE MR 2.50x08 BALLOON LESION SITE: 2nd Diagonal (Ostial) Lesion Complexity: High/C, chronic total occlusion: No, lesion at bifurcation: Yes, thrombus present: No, lesion length: 6 mm, Previously treated lesion: No Pre Stenosis: 90 % Pre intervention MELITON flow: 3 PROCEDURE: Balloon Angioplasty PTCA alone was performed as part of treatment of LAD/D2 bifurcation lesion. Post Stenosis: 60 % Post intervention MELITON flow: 3 Lesion Devices: Cordis 6 Fr XB3.0 100cm Guide Catheter Cavazos .014 190cm [employer] [place] Straight Terumo .014 180cm Runthrough Extra Floppy straight Jason Sci EMERGE MR 2.00x12 BALLOON COMPLICATIONS No Complications PROCEDURE MEDICATIONS Fentanyl 50 mcg IV Versed 1 mg IV Oxygen: 2 L/min via nasal cannula Heparin given IA 12/19/2024 09:18:34 Heparin 7000 unit(s) IV 12/19/2024 09:44:39 Nitro 100 mcg IC 12/19/2024 09:46:04 Verapamil 2.5mg, Ntg 100mcgs, 3000 units of Heparin given IA 12/19/2024 09:18:34 IV B (more content not included)... [facility] Work Phone: [phone] Cardiac catheterization study [facility] Imaging Services [address] [place] [address] Cardiac Cath Diagnostic MR#: [id number] Acct: [id number] Name: SANJEEV FARMER Rep #:[id number] : 1950 74 From: Bowen Story MD PCP: Dr. Nash Morales MD Status:ADM IN O Patient Name: SANJEEV FARMER Study Date: 12/19/2024 Performing: Bowen Story MD Ht: 70 inches 177.8 cm : 1950 Wt: 265.1 lbs 120.1 kg Age: 74 Gender: male BSA: 2.35 PROCEDURE(S) PERFORMED DC01-(73654)LHC/COR/ LV IC12-(37633/C9600)DE S W/WO PTCA, SINGLE CORONARY ARTERY IC02-(15899)PTCA, EACH ADD'L CORONARY ART, SAME MAJOR CLINICAL PROFILE AND INDICATIONS Indications: Suspected CAD Heart Failure: None CONCLUSIONS Severe single-vessel disease involving the left anterior descending artery. The right coronary artery which was previously stented is noted to be patent. Preserved ejection fraction is noted. RECOMMENDATIONS Referred for immediate PCI DESCRIPTION OF PROCEDURE The patient arrived to the procedure lab. The risks and benefits of the procedure as well as a full description of our services here and current unavailability of surgical backup were fully explained to the patient and/or their significant other prior to the catheterization. The Timeout was completed, verifying the correct patient and procedure. The patient's procedural site was prepped and draped in the usual fashion. Local anesthetic was given subcutaneously to right radial region with Lidocaine 2%. Using a modified Seldinger technique, arterial access was obtained via the right radial artery, a 6Fr sheath was inserted. Left Coronary Artery selective angiography was performed in multiple views using a 5 Fr. 4.0 [place] catheter. Right Coronary Artery selective angiography was then performed in multiple views using a 5 Fr. 4.0 [place] catheter. Left Ventriculography was performed in BROWNLEE projection using a 5 Fr. Pigtail catheter. LV to AO pullback pressures were then recorded.The arterial sheath was pulled and a TR Band was applied for hemostasis CORONARY ANGIOGRAPHY DOMINANCE: Right Dominant LEFT HEART ASSESSMENT Left Ventricular Ejection Fraction: by LV Gram 55 % Normal Left Ventricular systolic function LEFT MAIN: Angiographically 30% LEFT ANTERIOR DESCENDING ARTERY: This is a medium size vessel with a proximal 80% lesion, a mid 70% lesion. There are 2 diagonal branches which appear to be mild to moderately diseased. CIRCUMFLEX ARTERY: This vessel was also a medium size vessel. There is a proximal 40% stenosis the AV groove branch had mild disease. RAMUS: Mild luminal irregularities less than 30% RIGHT CORONARY ARTERY: Large dominant vessel with proximal 30 to 40% in-stent stenosis. The vessel continues and bifurcates to posterior descending artery and posterolateral vessel. No significant stenosis noted in this vessel. COMPLICATIONS No Complications PROCEDURE MEDICATIONS Fentanyl 50 mcg IV Versed 1 mg IV Oxygen: 2 L/min via nasal cannula Heparin given IA 12/19/2024 09:18:34 Heparin 7000 unit(s) IV 12/19/2024 09:44:39 Nitro 100 mcg IC 12/19/2024 09:46:04 Verapamil 2.5mg, Ntg 100mcgs, 3000 units of Heparin given IA 12/19/2024 09:18:34 IV Bolus: .9 NaCl 250 ml total 12/19/2024 10:27:10 SUMMARY OF HEMODYNAMIC DATA Time AIR REST ECG 09:10:08 AO 121/51 (81) SA 09:30:09 LV 119/3, 17 09:36:35 LV 127/4, 15 09:36:43 LV 126/8, 18 09:37:26 LVp 117/10, 22 09:37:30 AOp 117/49 (76) 09:37:37 Signed By Bowen Story MD On 12/19/2024 13:10:18 Bowen Story MD 12/19/24 1311 Date _ Bowen Story MD Cosigner Signature: Date _ (if indicated) CC: Dr. Nash Morales MD; Dr. Bowen Story MD; Dr. Christian Solano MD ~ Date Dictated: 12/19/24914 Date Transcribed: 12/19/24 1310 Ep Technologist: CO Signed [facility] Work Phone: Chloride assayOrdered By: Xiomara Hodge on 12-19-2024 Chloride [Moles/Vol] 103 mmol/L 98-108 [facility] Comprehensive Metabolic Prof ilon 12-19-2024 Albumin [Mass/Vol] 3.5 g/dL Normal 3.4-4.8 [facility] Comment on above: Performed By: #### L 500.4100, L500.4050, L100.0100, L501.9985 #### [facility] [address] [place], [address] Albumin/Globulin [Mass ratio] 1.3 {ratio} Normal 0.9-2.4 [facility] Comment on above: Performed By: #### L 500.4100, L500.4050, L100.0100, L501.9985 #### [facility] [address] [place], [address] ALK PHOS 95 U/L Normal 40-129 [facility] Comment on above: Performed By: #### L 500.4100, L500.4050, L100.0100, L501.9985 #### [facility] [address] [place], [address] ALT [Catalytic activity/Vol] 14 U/L Normal <=46 [facility] Comment on above: Performed By: #### L 500.4100, L500.4050, L100.0100, L501.9985 #### [facility] [address] [place], [address] AST [Catalytic activity/Vol] 15 U/L Normal <=37 [facility] Comment on above: Performed By: #### L 500.4100, L500.4050, L100.0100, L501.9985 #### [facility] [address] [place], [address] Bilirubin [Mass/Vol] 0.36 mg/dL Normal 0.00-1.30 [facility] Comment on above: Performed By: #### L 500.4100, L500.4050, L100.0100, L501.9985 #### [facility] [address] [place], [address] BUN/CRE 11.7 RATIO Normal 10-20 [facility] Comment on above: Performed By: #### L 500.4100, L500.4050, L100.0100, L501.9985 #### [facility] [address] [place], [address] Calcium [Mass/Vol] 8.8 mg/dL Normal 7.6-11.0 [facility] Comment on above: Performed By: #### L 500.4100, L500.4050, L100.0100, L501.9985 #### [facility] [address] [place], [address] Chloride [Moles/Vol] 103 mmol/L Normal 98-108 [facility] Comment on above: Performed By: #### L 500.4100, L500.4050, L100.0100, L501.9985 #### [facility] [address] [place], [address] CO2 [Moles/Vol] 21.4 mmol/L Normal 21.0-32.0 [facility] Comment on above: Performed By: #### L 500.4100, L500.4050, L100.0100, L501.9985 #### [facility] [address] [place], [address] Creatinine [Mass/Vol] 1.12 mg/dL Normal 0.70-1.20 [facility] Comment on above: Performed By: #### L 500.4100, L500.4050, L100.0100, L501.9985 #### [facility] [address] [place], [address] ECRCL 72.89 ml/min Normal 50-250 [facility] Comment on above: Performed By: #### L 500.4100, L500.4050, L100.0100, L501.9985 #### [facility] [address] [place], [address] GAP 13 Normal 5-15 [facility] Comment on above: Performed By: #### L 500.4100, L500.4050, L100.0100, L501.9985 #### [facility] [address] [place], [address] GFR/1.73 sq M.predicted among non-blacks MDRD (S/P/Bld) [Vol rate/Area] 68 mL/min/{1.73_m2} Normal >60 [facility] Comment on above: Result Comment: mL/m in/1.73m2 CKD-EPI Creatinine Equation (2020) Performed By: #### L 500.4100, L500.4050, L100.0100, L501.9985 #### [facility] [address] [place], [address] Globulin (S) [Mass/Vol] 2.8 g/dL Normal 2.2-4.2 [facility] Comment on above: Performed By: #### L 500.4100, L500.4050, L100.0100, L501.9985 #### [facility] [address] [place], [address] Glucose [Mass/Vol] 127 mg/dL High 70-99 [facility] Comment on above: Performed By: #### L 500.4100, L500.4050, L100.0100, L501.9985 #### [facility] [address] [place], [address] Potassium [Moles/Vol] 4.1 mmol/L Normal 3.3-5.1 [facility] Comment on above: Performed By: #### L 500.4100, L500.4050, L100.0100, L501.9985 #### [facility] [address] [place], [address] Sodium [Moles/Vol] 137 mmol/L Normal 133-145 [facility] Comment on above: Performed By: #### L 500.4100, L500.4050, L100.0100, L501.9985 #### [facility] [address] [place], [address] T PROT 6.2 g/dL Normal 5.9-8.4 [facility] Comment on above: Performed By: #### L 500.4100, L500.4050, L100.0100, L501.9985 #### [facility] [address] [place], [address] Urea nitrogen [Mass/Vol] 13 mg/dL Normal 4-19 [facility] Comment on above: Performed By: #### L 500.4100, L500.4050, L100.0100, L501.9985 #### [facility] [address] [place], [address] Consultation - Cardiologyon 12-19-2024 Consultation - Cardiology [facility] Medical Records Department [address] [place] [address] Consultation - Cardiology 12/19/24714 MR#: [id number] Acct: [id number] Name: SANJEEV FARMER Rep #: [id number] : 1950 74 From: Bowen Story MD PCP: Dr. Chalon Andrew, MD Status:ADM MARY [facility] Plan Assessment/Plan (1) ACS (acute coronary syndrome): PLAN: He does present with chest discomfort which is reminiscent of an acute coronary syndrome. His cardiac enzymes are minimally elevated at this time. My recommendations will be as follows: Aspirin, Intravenous heparin and discontinuing 2 hours prior to cardiac catheterization. Left heart catheterization this morning. There is benefits alternatives have been explained to him he understands and agrees to proceed. Continue beta-jose g. (2) History of coronary artery stent placement: PLAN: He does have a history of previous right coronary artery stenting in 2018. This will be reevaluated with a cardiac catheterization this morning. (3) Essential (primary) hypertension: PLAN: He does have a history of hypertension. His blood pressure appears to be under good control at this particular time I would not recommend that we make any major changes. (4) Hyperlipidemia: PLAN: He does have a history of hyperlipidemia. He has not tolerated the statins in the past. He may be a candidate for bempedoic acid and ezetimibe at discharge. Alternatively he may benefit from a PCSK9 inhibitor. Thank you for allowing me to participate in the care of your patient. Please don't hesitate to call if any issues arise. HPI Consult Data Date of Consult: 12/19/24 HPI Narrative HPI Narrative: SANJEEV FARMER, is a 74 M who presents with chest discomfort which developed after he had eaten his evening dinner. He tells me that he had a recurrence of the above the next day and it reminded him of his previous cardiac events and so he presented to the emergency room. An EKG was done which demonstrated normal sinus rhythm and sinus bradycardia with no acute changes. You remember he had had presented to the hospital in January 2018 with nonexertional chest tightness which was nonradiating. He was evaluated and noted to have suspected coronary artery disease he underwent a cardiac catheterization which demonstrated an ejection fraction of 65%, angiographically normal left main coronary artery, left anterior descending artery with less than 30% stenosis, left circumflex artery with 30% stenosis in the proximal right coronary artery with 85% proximal stenosis, 30% mid stenosis, and distal 50% stenosis. He underwent angioplasty and stenting with a 3.5 x 16 mm Synergy stent. He has not had any further chest pain since admission. He states hip pain with long distances. He acknowledges SOB with activity. He has also had some shortness of breath at rest but he has also gained some weight. Pt denies symptoms of palpitations, lightheadedness, dizziness, near syncopal or syncopal episodes. Pt denies claudication issues.Pt. denies orthopnea, PND, fever, chills, blood in urine, blood in stool, myalgia, or unexplainable fatigue. His physical exam today is unremarkable his blood pressure is under good control. [facility] Medical History Venous insufficiency Hyperlipidemia History of non-ST elevation myocardial infarction (NSTEMI) (02/08/18) Obesity (BMI 35.0-39.9 without comorbidity) Sleep apnea with use of continuous positive airway pressure (CPAP) Atherosclerosis of coronary artery of salam[place] heart without angina pectoris Essential (primary) hypertension Home Medications ???Medication ???Instructions ???Recorded ???Last Taken ???Type aspirin 81 mg tablet,delayed 81 mg PO DAILY #90 tabs 11/11/22 0 12/18/24 Rx release albuterol sulfate 90 mcg/actuation 2 puff inhalation Q4H PRN Unknown Rx aerosol inhaler shortness of breath or wheezing #8.5 grams losartan 100 mg tablet 100 mg PO DAILY #90 tabs 08/30/24 12/18/24 Rx metoprolol tartrate 50 mg tablet 50 mg PO BID #180 tabs 08/30/24 Rx furosemide 40 mg tablet 40 mg PO DAILY PRN swelling or 12/18/24 Rx weight gain #30 tabs Allergy/AdvReac Type Severity Reaction Status Date / Time animal dander Allergy Other Verified 12/18/24 16:51 atorvastatin (From Lipitor) AdvReac Intermediate myalgias Verified 12/18/24 16:51 rosuvastatin (From Crestor) AdvReac Intermediate myalgias Verified 12/18/24 16:51 simvastatin (From Zocor) AdvReac Intermediate myalgias Verified 12/18/24 16:51 Family History Father Parkinson disease Mother No problems noted. Surgical History History of total right knee replacement History of coronar (more content not included)... Normal [facility] Echocardiogram study reportO rdered By: Bowen Story on 12-19-[address] [facility] Cardiovascular Services [place] [address] Echo Complete W/ Contrast 12/19/24 0828 MR#: [id number] Acct: [id number] Name: SANJEEV FARMER Rep #:[id number] : 1950 74 From: Bowen Franks Attending Dr: Dr. Christian Solano MD Status: ADM MARY Ordering Dr: Soheila Hodge MD Date: 12/18/24 Location: U Sex: M C Admitted: 12/18/24 Reason For Study : CAD/ASHD Procedure This was a 2D Doppler, Color Flow transthoracic echocardiogram. The study was technically difficult. Due to body habitus. Contrast injection was performed. Exam performed portable in patient room. Left Ventricle Normal LV size. Mild concentric left ventricular hypertrophy. Left ventricular systolic function is normal. The left ventricular ejection fraction is 60 %. Stage 1 diastolic dysfunction. No regional wall motion abnormalities noted. Right Ventricle Normal RV size. Normal systolic function. Atria Normal left atrium. Normal right atrium. Mitral Valve Normal mitral valve. Tricuspid Valve Normal tricuspid valve. Aortic Valve Mild focal aortic valve calcification. Peak aortic valve gradient 41 mmHg. Mean aortic valve gradient 22 mmHg. Moderate aortic stenosis. Pulmonic Valve The pulmonic valve is not well visualized. Great Vessels Normal aortic root. The pulmonary artery is normal size. Inferior vena cava collapse with respiration. Pericardium/Pleural No pericardial effusion. Medication Diluted definity 2.5ml given slow IV push to enhance endocardial definition. MMode/2D Measurements & Calculations LVIDd: 4.9 cm IVSd: 1.3 cm LVOT diam: 2.1 cm LVIDs: 3.1 cm LVPWd: 1.3 cm FS: 37.0 % LVOT area: 3.4 cm2 Ao root diam: 3.9 cm LAV(MOD-bp): 97.4 ml LVAd ap4: 38.5 cm2 LAV(MOD-bp) Indexed: 41.5 ml/m2 LVLd ap4: 9.2 cm LAV(MOD-sp2): 79.0 ml EDV(MOD-sp4): 139.2 ml LAV(MOD-sp4): 113.1 ml EDV(sp4-el): 136.9 ml LVAs ap4: 20.9 cm2 LVLs ap4: 7.5 cm ESV(MOD-sp4): 50.9 ml ESV(sp4-el): 49.0 ml EF(MOD-sp4): 63.4 % EF(sp4-el): 64.2 % LVAd ap2: 36.5 cm2 SV(MOD-sp4): 88.3 ml SV(MOD-sp2): 85.6 ml LVLd ap2: 8.4 cm SI(MOD-sp4): 37.6 ml/m2 SI(MOD-sp2): 36.4 ml/m2 EDV(MOD-sp2): 132.7 ml EDV(sp2-el): 134.7 ml LVAs ap2: 20.4 cm2 LVLs ap2: 7.3 cm ESV(MOD-sp2): 47.1 ml ESV(sp2-el): 48.2 ml EF(MOD-sp2): 64.5 % SV(sp4-el): 87.9 ml LA dimension(2D): 5.3 cm LA A4 area: 31.3 cm2 RA A4 area: 25.5 cm2 TAPSE: 2.7 cm Time Measurements MV dec time: 0.20 sec Doppler Measurements & Calculations MV E max arlene: 93.3 cm/sec Lat Peak E' Arlene: 9.5 cm/sec Med Peak E' Arlene: 7.2 cm/sec MV A max arlene: 109.6 cm/sec E/E' lat: 9.8 E/E' med: 12.9 MV E/A: 0.85 MV V2 max: 109.6 cm/sec MV P1/2t max arlene: 94.0 cm/sec Ao V2 max: 317.8 cm/sec MV max P.8 mmHg MV P1/2t: 68.3 msec Ao max P.4 mmHg MV V2 mean: 63.7 cm/sec Ao V2 mean: 223.1 cm/sec MV mean P.9 mmHg MV dec slope: 403.1 cm/sec2 Ao mean P.9 mmHg MV V2 VTI: 38.9 cm MVA(P1/2t): 3.2 cm2 Ao V2 VTI: 75.4 cm AV (velocity ratio): 0.38 MVA(VTI): 2.5 cm2 UNIQUE(I,D): 1.3 cm2 UNIQUE(V,D): 1.2 cm2 LV V1 max: 111.2 cm/sec SV(LVOT): 97.1 ml PA V2 max: 96.6 cm/sec LV V1 max P.9 mmHg LV V1 mean P.5 mmHg LV V1 mean: 75.3 cm/sec LV V1 VTI: 28.8 cm ECHO/Echo Complete W/ Contrast Interpretation Summary Normal LV size. Left ventricular systolic function is normal. The left ventricular ejection fraction is 60 %. Mild concentric left ventricular hypertrophy. Stage 1 diastolic dysfunction. Moderate aortic stenosis. Mean aortic valve gradient 22 mmHg. Contrast injection was performed. Ordering Physician: Soheila Hodge Referring Physician: Nash Morales Performed By: Chayo Akbar, LOYD, RVT 12/19/24957 Date _ Bowen Story MD CC: Dr. Soheila Hodge MD; Dr. Nash Morales MD; Dr. Christian Solano MD ~ Date Dictated: 12/19/24827 Date Transcribed: 12/19/24956 Ep Technologist: Signed [facility] Work Phone: [phone] Electrocardiogram reportOrde red By: Bowen Story on 12-19-2024 EKG study [facility] Cardiovascular Services [address] [place] [address] 12 Lead EKG 12/18/24 1642 MR#: [id number] Acct: [id number] Name: MARLENYSANJEEV Erica Rep #:[id number] : 1950 74 From: Bowen Story MD Attending Dr: Dr. Christian Solano MD Status: ADM MARY Ordering Dr: Soheila Hodge MD Date: 12/18/24 Location: [facility] Sex: M C Admitted: 12/18/24 Test Reason : CP Blood Pressure : */* mmHG Vent. Rate : 76 BPM Atrial Rate : 76 BPM P-R Int : 264 ms QRS Dur : 90 ms QT Int : 426 ms P-R-T Axes : -2 -69 10 degrees QTcB Int : 479 ms Sinus rhythm with 1st degree A-V block Left axis deviation Low voltage QRS Inferior infarct , age undetermined Abnormal ECG Confirmed by PORSHA LIN, BOWEN ([id number]), web editor LATOYA KIM ([id number]) on 58:23:27 AM Referred By: AR/ARTURO Confirmed By: BOWEN STORY MD 12/19/24822 Date _ Bowen Story MD CC: Dr. Soheila Hodge MD; Dr. Nash Morales MD; Dr. Christian Solano MD ~ Signed [facility] Work Phone: [phone] EKG study [facility] Cardiovascular Services [address] [place] [address] 12 Lead EKG 12/18/242034 MR#: [id number] Acct: [id number] Name: SANJEEV FARMER Rep #:[id number] : 1950 74 From: Bowen Story MD Attending Dr: Dr. Christian Solano MD Status: ADM MARY Ordering Dr: Darwin Arce MD Date: Location: [facility] Sex: M C Admitted: 12/18/24 Test Reason : DYSRHYTHMIA Blood Pressure : */* mmHG Vent. Rate : 65 BPM Atrial Rate : 65 BPM P-R Int : 258 ms QRS Dur : 88 ms QT Int : 448 ms P-R-T Axes : 15 -70 -14 degrees QTcB Int : 465 ms Sinus rhythm with 1st degree A-V block Left axis deviation Low voltage QRS Inferior infarct , age undetermined Abnormal ECG Confirmed by BOWEN STORY MD ([id number]), web editor LATOYA KIM ([id number]) on 58:23:35 AM Referred By: Confirmed By: BOWEN STORY MD 12/19/24 0823 Date _ Bowen Story MD CC: Dr. Darwin Arce MD; Dr. Nash Morales MD; Dr. Christian Solano MD ~ Signed [facility] Work Phone: Eosinophil percentageOrdered By: Soheila Hodge on 12-19-2024 Eosinophils/100 WBC (Bld) 4.6 % 0-5 [facility] Erythrocyte distribution wid th ratioOrdered By: Soheila Ayesha on 12-19-2024 Erythrocyte distribution width (RBC) [Ratio] 12.5 % 11.6-14.6 [facility] Erythrocyte distribution wid th standard deviationOrdered By: Soheila Hodge on 12-19-2024 Erythrocyte distribution width (RBC) [Ratio] 42.2 fl 35.1-43.9 [facility] Glomerular filtration rate ( GFR) estimation/1.73 sq m using serum, plasma, or whole bOrdered By: Soheila Hodge on 12-19-2024 GFR/1.73 sq M.predicted among non-blacks MDRD (S/P/Bld) [Vol rate/Area] 68 mL/min/{1.73_m2} >60 [facility] Comment on above: mL/min/1.73m2 CKD-EP I Creatinine Equation (2020) Hematocrit Auto (Bld) [Volum e fraction]Ordered By: Soheila Hodge on 12-19-2024 Hematocrit (Bld) [Volume fraction] 41.9 % 40-54 [facility] Hemoglobin A1con 12-19-2024 HbA1c (Bld) [Mass fraction] 6.2 % High <=5.6 [facility] Comment on above: Result Comment: Norm al < 5.7 % Prediabetic 5.7 - 6.4 % Diabetic >or= 6.5 % Please note range changes. Performed By: #### L 500.4100, L500.4050, L100.0100, L501.9985 #### [facility] [address] [place], [place], [id number] Hemoglobin A1c percentageOrd ered By: Soheila Hodge on 12-19-2024 HbA1c (Bld) [Mass fraction] 6.2 % High <5.7 [facility] Comment on above: Normal < 5.7 % Predi abetic 5.7 - 6.4 % Diabetic >or= 6.5 % Please note range changes. Hemoglobin measurementOrdere d By: Soheila Hodge on 12-19-2024 Hemoglobin (Bld) [Mass/Vol] 14.1 g/dL 13.0-16.5 [facility] Immature granulocytes/100 WB C Auto (Bld)Ordered By: Soheila Hodge on 12-19-2024 Immature granulocytes/100 WBC (Bld) 0.300 % 0.0-0.9 [facility] Comment on above: IG% - Immature Granu locytes (promyelocytes, myelocytes and metamyelocytes) > 1% indicates that a LEFT SHIFT is Present. LDL calc ser/plasOrdered By: Soheila Hodge on 12-19-2024 Cholesterol in LDL [Mass/Vol] 124 mg/dL [facility] Comment on above: Uswzdguqjn=977-402 m g/dL & Higher Tfvm=188 mg/dL or greaterFriedwald Equation for LDL-C Laboratory - Chemistry and C hemistry - challengeOrdered By: Soheila Hodge on 12-19-2024 AST [Catalytic activity/Vol] 15 U/L <38 [facility] Lipid Profileon 12-19-2024 CHOL:HDL 5.67 Normal [facility] Comment on above: Performed By: #### L 500.4100, L500.4050, L100.0100, L501.9985 #### [facility] [address] [place], [address] Cholesterol [Mass/Vol] 186 mg/dL Normal <=200 [facility] Comment on above: Result Comment: Chol esterol level, Desirable <200 mg/dL Borderline high cholesterol 200-239 mg/dL High cholesterol >=240 mg/dL Recommendations of the NCEP Adult Treatment Panel for the following risk-cutoff thresholds for the [place] population. Performed By: #### L 500.4100, L500.4050, L100.0100, L501.9985 #### [facility] [address] [place], [address] Cholesterol in HDL [Mass/Vol] 33 mg/dL Low [facility] Comment on above: Result Comment: Rachel onal Cholesterol Education Program (NCEP) guidelines: <40 mg/dL: Low HDL-cholesterol (major risk factor for CHD) >= 60 mg/dL: High HDL-cholesterol (negative risk factor for CHD) HDL-cholesterol is affected by a number of factors, e.g. smoking, exercise, hormones, sex and age. Performed By: #### L 500.4100, L500.4050, L100.0100, L501.9985 #### [facility] [address] [place], [address] Cholesterol in LDL [Mass/Vol] 124 mg/dL Normal [facility] Comment on above: Result Comment: Bord saeavl=377-517 mg/dL Higher Pdqx=335 mg/dL or greater Friedwald Equation for LDL-C Performed By: #### L 500.4100, L500.4050, L100.0100, L501.9985 #### [facility] [address] [place], [address] Cholesterol in VLDL [Mass/Vol] 29 mg/dL Normal 5-40 [facility] Comment on above: Performed By: #### L 500.4100, L500.4050, L100.0100, L501.9985 #### [facility] [address] [place], [address] Triglyceride [Mass/Vol] 147 mg/dL Normal [facility] Comment on above: Result Comment: The drugs N-Acetylcysteine and Metamizole may falsely depress this assay. Normal range: <150 mg/dL Borderline High: 150-199 mg/dL High: 200-499 mg/dL Very High: >500 mg/dL Performed By: #### L 500.4100, L500.4050, L100.0100, L501.9985 #### [facility] [address] [place], [address] MCV (mean corpuscular volume ) determinationOrdered By: Soheila Ayesha on 12-19-2024 MCV (RBC) [Entitic vol] 93.3 fL 80-94 [facility] Mean corpuscular hemoglobin (MCH) determinationOrdered By: Soheila Ayesha on 12-19-2024 MCH (RBC) [Entitic mass] 31.4 pg 27.0-32.0 [facility] Mean corpuscular hemoglobin concentration (MCHC) determinationOrdered By: on 12-19-2024 MCHC (RBC) [Mass/Vol] 33.7 g/dL 32-36 [facility] Mean platelet volume determi nationOrdered By: Soheila White on 12-19-2024 Platelet mean volume (Bld) [Entitic vol] 10.6 fL 6.2-12.0 [facility] Monocyte percentageOrdered B y: White on 12-19-2024 Monocytes/100 WBC (Bld) 9.3 % 0-10 [facility] Neutrophil percentageOrdered By: Soheila White on 12-19-2024 Neutrophils/100 WBC (Bld) 56.6 % 47-70 [facility] Nucleated red blood cell per centageOrdered By: Soheila White on 12-19-2024 Nucleated RBC/100 WBC (Bld) [Ratio] 0 % 0-5 [facility] Partial Thromboplast Timeon 12-19-2024 aPTT Coag (Bld) [Time] 82.4 s High 24.1-36.2 [facility] Comment on above: Order Comment: Comme nts: heparin gtt- time sensitive Performed By: #### L 300.4317 #### [facility] [address] [place], [address] Platelet countOrdered By: Ximoara butcher Ayesha on 12-19-2024 Platelets (Bld) [#/Vol] 239 10*3/uL 150-450 [facility] Potassium measurement (mass/ volume)Ordered By: Soheila Hodge on 12-19-2024 Potassium (Unsp spec) [Mass/Vol] 4.1 mmol/L 3.3-5.1 [facility] RBC Auto (Bld) [#/Vol]Ordere d By: Soheila Hodge on 12-19-2024 RBC (Bld) [#/Vol] 4.49 10*6/uL Low 4.6-6.2 [facility] Screening total cholesterol/ high density lipoprotein (HDL) cholesterol ratioOrdered By: Soheila Hodge on 12-19-2024 Cholesterol.total/Choles terol in HDL [Mass ratio] 5.67 {ratio} [facility] Serum creatinine measurement (mass/volume)Ordered By: Soheila Hodge on 12-19-2024 Creatinine [Mass/Vol] 1.12 mg/dL 0.70-1.20 [facility] Serum globulin measurementOr dered By: Soheila Hodge on 12-19-2024 Globulin (S) [Mass/Vol] 2.8 g/dL 2.2-4.2 [facility] Serum glucose measurement (m ass/volume)Ordered By: Soheila Hodge on 12-19-2024 Glucose [Mass/Vol] 127 mg/dL High 70-99 [facility] Serum or plasma alanine philippe otransferase (ALT) measurementOrdered By: Soheila Hodge on 12-19-2024 ALT [Catalytic activity/Vol] 14 U/L <47 [facility] Serum or plasma albumin jamie urement (mass/volume)Ordered By: Soheila Hodge on 12-19-2024 Albumin [Mass/Vol] 3.5 g/dL 3.4-4.8 [facility] Serum or plasma albumin/glob ulin mass ratioOrdered By: Soheila Hodge on 12-19-2024 Albumin/Globulin [Mass ratio] 1.3 {ratio} 0.9-2.4 [facility] Serum or plasma alkaline kellen sphatase measurementOrdered By: Soheila Hodge on 12-19-2024 ALP [Catalytic activity/Vol] 95 U/L 40-129 [facility] Serum or plasma calcium jamie urement (mass/volume)Ordered By: Soheila Hodge on 12-19-2024 Calcium [Mass/Vol] 8.8 mg/dL 7.6-11.0 [facility] Serum or plasma cholesterol in HDL measurement (mass/volume)Ordered By: Soheila Hodge on 12-19-2024 Cholesterol in HDL [Mass/Vol] 33 mg/dL Low >40 [facility] Comment on above: National Cholesterol Education Program (NCEP) guidelines:<40 mg/dL: Low HDL-cholesterol (major risk factor for CHD)>= 60 mg/dL: High HDL-cholesterol (negative risk factor for CHD)HDL-cholesterol is affected by a number of factors, e.g. smoking, exercise, hormones, sex and age. Serum or plasma cholesterol measurement (mass/volume)Ordered By: Soheila Hodge on 12-19-2024 Cholesterol [Mass/Vol] 186 mg/dL <201 [facility] Comment on above: Cholesterol level, D esirable <200 mg/dLBorderline high cholesterol 200-239 mg/dLHigh cholesterol >=240 mg/dLRecommendations of the NCEP Adult Treatment Panel for the following risk-cutoff thresholds for the [place] population. Serum or plasma urea nitroge n measurement (mass/volume)Ordered By: Soheila Hodge on 12-19-2024 Urea nitrogen [Mass/Vol] 13 mg/dL 4-19 [facility] Sodium levelOrdered By: Scottu mn Ayesha on 12-19-2024 Sodium [Moles/Vol] 137 mmol/L 133-145 [facility] Total proteinOrdered By: Scott umn Ayesha on 12-19-2024 Protein [Mass/Vol] 6.2 g/dL 5.9-8.4 [facility] Triglycerides measurementOrd ered By: Soheila Hodge 12-19-2024 Triglyceride [Mass/Vol] 147 mg/dL <199 [facility] Comment on above: The drugs N-Acetylcy steine and Metamizole may falsely depress this assay. Normal range: <150 mg/dLBorderline High: 150-199 mg/dLHigh: 200-499 mg/dLVery High: >500 mg/dL Troponin T HS 4 HRon 025 Trop T High Sen 69 ng/L Invalid Interpretation Code <=22 [facility] Comment on above: Result Comment: Hemo lysis present, Results??could be affected. ?? Critical Result(s) Called at: by:??Results read back by same. Hemolysis present, Results??could be affected. CRITICAL RESULT CALLED TO 12-19-24 TO CORTES READ READ BACK BY SAME ?? Critical Result(s) Called at: by:??Results read back by same. AMENDED REPORT 12/19/24 0115 Trop T HS 4HR previously reported as: 69 *H ng/L Hemolysis present, Results??could be affected. ?? Critical Result(s) Called at: by:??Results read back by same. Performed By: #### L 499.0043 #### [facility] [address] [facility] [place], [address] White blood cell (WBC) count Ordered By: Soheila Hodge on 12-19-2024 WBC (Bld) [#/Vol] 7.1 10*3/uL 4.4-11.0 [facility] 12 Lead EKGon 12-18-2024 12 Lead EKG [facility] Cardi[facility] Services [address] [place] [address] 12 Lead EKG 12/18/24 1642 MR#: [id number] Acct: [id number] Name: SANJEEV FARMER Rep #: [id number] : 1950 74 From: Bowen Story MD Attending Dr: Dr. Christian Solano MD Status: ADM MARY Ordering Dr: Soheila Hodge MD Date: 12/18/24 Location: [facility] Sex: M C Admitted: 12/18/24 Test Reason : CP Blood Pressure : */* mmHG Vent. Rate : 76 BPM Atrial Rate : 76 BPM P-R Int : 264 ms QRS Dur : 90 ms QT Int : 426 ms P-R-T Axes : -2 -69 10 degrees QTcB Int : 479 ms Sinus rhythm with 1st degree A-V block Left axis deviation Low voltage QRS Inferior infarct , age undetermined Abnormal ECG Confirmed by BOWEN STORY MD ([id number]), web editor LATOYA KIM ([id number]) on 12/19/2024 8:23:27 AM Referred By: AR/UG Confirmed By: BOWEN STORY MD 12/19/24 0823 Date Bowen Story MD CC: Dr. Soheila Hodge MD; Dr. Nash Morales MD; Dr. Christian Solano MD Signed [facility] 12 Lead EKG [facility] Cardiovascular Services [address] [place] [address] 12 Lead EKG 12/20/24 0426 MR#: [id number] Acct: [id number] Name: SANJEEV FARMER Rep #: [id number] : 1950 74 From: Esmer Mcleod MD Attending Dr: Dr. Christian Solano MD Status: DIS IN Ordering Dr: Soheila Hodge MD Date: 12/18/24 Location: [facility] Sex: M C Admitted: 12/19/24 Test Reason : BRADYCARDIA Blood Pressure : */* mmHG Vent. Rate : 58 BPM Atrial Rate : 58 BPM P-R Int : 270 ms QRS Dur : 94 ms QT Int : 448 ms P-R-T Axes : * -76 6 degrees QTcB Int : 439 ms Sinus bradycardia with 1st degree A-V block Left axis deviation Low voltage QRS Septal infarct , age undetermined Inferior infarct , age undetermined Abnormal ECG When compared with ECG of 19-Dec-2024 11:27, MANUAL COMPARISON REQUIRED DATA IS UNCONFIRMED Confirmed by SHRUTHI LIN, ALBERT ([id number]), web editor LATOYA KIM ([id number]) on 12/24/2024 6:33:58 AM Referred By: Confirmed By: ALBERT MCLEOD MD 12/24/24 0633 Date Esmer Mcleod MD CC: Dr. Soheila Hodge MD; Dr. Nash Morales MD; Dr. Christian Solano MD Signed [facility] 12 Lead EKG [facility] Cardiovascular Services [address] [place] [address] 12 Lead EKG 12/18/242034 MR#: [id number] Acct: [id number] Name: SANJEEV FARMER Rep #: [id number] : 1950 74 From: Bowen Story MD Attending Dr: Dr. Christian Solano MD Status: ADM MARY Ordering Dr: Darwin Arce MD Date: 12/18/24 Location: [facility] Sex: M C Admitted: 12/18/24 Test Reason : DYSRHYTHMIA Blood Pressure : */* mmHG Vent. Rate : 65 BPM Atrial Rate : 65 BPM P-R Int : 258 ms QRS Dur : 88 ms QT Int : 448 ms P-R-T Axes : 15 -70 -14 degrees QTcB Int : 465 ms Sinus rhythm with 1st degree A-V block Left axis deviation Low voltage QRS Inferior infarct , age undetermined Abnormal ECG Confirmed by PORSHA LIN, BOWEN ([id number]), web editor LATOYA KIM ([id number]) on 12/19/2024 8:23:35 AM Referred By: Confirmed By: BOWEN STORY MD 12/19/24 0823 Date Bowen Story MD CC: Dr. Darwin Arce MD; Dr. Nash Morales MD; Dr. Christian Solano MD Signed [facility] Basic Metabolic Profile (BMP )on 12-18-2024 BUN/CRE 11.2 RATIO Normal 10- [facility] Comment on above: Performed By: #### L 500.4100, L500.4050, L100.0100, L501.9985 #### [facility] [address] [place], [address] Calcium [Mass/Vol] 9.3 mg/dL Normal 7.6-11.0 [facility] Comment on above: Performed By: #### L 500.4100, L500.4050, L100.0100, L501.9985 #### [facility] [address] [place], [address] Chloride [Moles/Vol] 101 mmol/L Normal 98-108 [facility] Comment on above: Performed By: #### L 500.4100, L500.4050, L100.0100, L501.9985 #### [facility] [address] [place], [address] CO2 [Moles/Vol] 20.4 mmol/L Low 21.0-32.0 [facility] Comment on above: Performed By: #### L 500.4100, L500.4050, L100.0100, L501.9985 #### [facility] [address] [place], [address] Creatinine [Mass/Vol] 1.30 mg/dL High 0.70-1.20 [facility] Comment on above: Performed By: #### L 500.4100, L500.4050, L100.0100, L501.9985 #### [facility] [address] [place], [address] ECRCL 62.99 ml/min Normal 50-250 [facility] Comment on above: Performed By: #### L 500.4100, L500.4050, L100.0100, L501.9985 #### [facility] [address] [place], [address] GAP 17 High 5-15 [facility] Comment on above: Performed By: #### L 500.4100, L500.4050, L100.0100, L501.9985 #### [facility] [address] [place], [address] GFR/1.73 sq M.predicted among non-blacks MDRD (S/P/Bld) [Vol rate/Area] 57 mL/min/{1.73_m2} Low >60 [facility] Comment on above: Result Comment: mL/m in/1.73m2 CKD-EPI Creatinine Equation (2020) Performed By: #### L 500.4100, L500.4050, L100.0100, L501.9985 #### [facility] [address] [place], [address] Glucose [Mass/Vol] 149 mg/dL High 70-99 [facility] Comment on above: Performed By: #### L 500.4100, L500.4050, L100.0100, L501.9985 #### [facility] [address] [place], [address] Potassium [Moles/Vol] 4.5 mmol/L Normal 3.3-5.1 [facility] Comment on above: Result Comment: Hemo lysis present, Results??could be affected. ?? Performed By: #### L 500.4100, L500.4050, L100.0100, L501.9985 #### [facility] [address] [place], [address] Sodium [Moles/Vol] 139 mmol/L Normal 133-145 [facility] Comment on above: Performed By: #### L 500.4100, L500.4050, L100.0100, L501.9985 #### [facility] [address] [place], [address] Urea nitrogen [Mass/Vol] 15 mg/dL Normal 4-19 [facility] Comment on above: Performed By: #### L 500.4100, L500.4050, L100.0100, L501.9985 #### [facility] [address] [place], [address] CBC W/Diff, Automatedon 09-3 PLT EST ADEQUATE Normal ADEQ [facility] Comment on above: Order Comment: Comme nts: If not done in prior 24 hours Performed By: #### L 500.4100, L500.4050, L100.0100, L501.9985 #### [facility] [address] [place], [address] Platelet mean volume (Bld) [Entitic vol] 11.4 fL Normal 6.2-12.0 [facility] Comment on above: Order Comment: Comme nts: If not done in prior 24 hours Performed By: #### L 500.4100, L500.4050, L100.0100, L501.9985 #### [facility] [address] [place], [address] Platelets (Bld) [#/Vol] 236 10*3/uL Normal 150-450 [facility] Comment on above: Order Comment: Comme nts: If not done in prior 24 hours Performed By: #### L 500.4100, L500.4050, L100.0100, L501.9985 #### [facility] [address] [place], [address] Absolute Lymph 2.40 X10 3/uL Normal 0.83-4.51 [facility] Comment on above: Performed By: #### L 500.4100, L500.4050, L100.0100, L501.9985 #### [facility] [address] [place], [address] Absolute Neut 4.8 X10 3/uL Normal 2.0-7.7 [facility] Comment on above: Performed By: #### L 500.4100, L500.4050, L100.0100, L501.9985 #### [facility] [address] [place], [address] Basophils/100 WBC (Bld) 0.7 % Normal 0-1 [facility] Comment on above: Performed By: #### L 500.4100, L500.4050, L100.0100, L501.9985 #### [facility] [address] [place], [address] Eosinophils/100 WBC (Bld) 3.1 % Normal 0-5 [facility] Comment on above: Performed By: #### L 500.4100, L500.4050, L100.0100, L501.9985 #### [facility] [address] [place], [address] Erythrocyte distribution width (RBC) [Ratio] 12.5 % Normal 11.6-14.6 [facility] Comment on above: Performed By: #### L 500.4100, L500.4050, L100.0100, L501.9985 #### [facility] [address] [place], [address] Hematocrit (Bld) [Volume fraction] 44.1 % Normal 40-54 [facility] Comment on above: Performed By: #### L 500.4100, L500.4050, L100.0100, L501.9985 #### [facility] [address] [place], [address] Hemoglobin (Bld) [Mass/Vol] 15.4 g/dL Normal 13.0-16.5 [facility] Comment on above: Performed By: #### L 500.4100, L500.4050, L100.0100, L501.9985 #### [facility] [address] [place], [address] IG% 0.200 Normal 0.0-0.9 [facility] Comment on above: Result Comment: IG% - Immature Granulocytes (promyelocytes, myelocytes and metamyelocytes) > 1% indicates that a LEFT SHIFT is Present. Performed By: #### L 500.4100, L500.4050, L100.0100, L501.9985 #### [facility] [address] [place], [address] Lymphocytes/100 WBC (Bld) 29.0 % Normal 19-41 [facility] Comment on above: Performed By: #### L 500.4100, L500.4050, L100.0100, L501.9985 #### [facility] [address] [place], [address] MCH (RBC) [Entitic mass] 31.6 pg Normal 27.0-32.0 [facility] Comment on above: Performed By: #### L 500.4100, L500.4050, L100.0100, L501.9985 #### [facility] [address] [place], [address] MCHC (RBC) [Mass/Vol] 34.9 g/dL Normal 32-36 [facility] Comment on above: Performed By: #### L 500.4100, L500.4050, L100.0100, L501.9985 #### [facility] [address] [place], [address] MCV (RBC) [Entitic vol] 90.4 fL Normal 80-94 [facility] Comment on above: Performed By: #### L 500.4100, L500.4050, L100.0100, L501.9985 #### [facility] [address] [place], [address] Monocytes/100 WBC (Bld) 8.8 % Normal 0-10 [facility] Comment on above: Performed By: #### L 500.4100, L500.4050, L100.0100, L501.9985 #### [facility] [address] [place], [address] Neutrophils/100 WBC (Bld) 58.2 % Normal 47-70 [facility] Comment on above: Performed By: #### L 500.4100, L500.4050, L100.0100, L501.9985 #### [facility] [address] [place], [address] Nucleated RBC (Bld) [#/Vol] 0 10*3/uL Normal 0-5 [facility] Comment on above: Performed By: #### L 500.4100, L500.4050, L100.0100, L501.9985 #### [facility] [address] [place], [address] Platelet mean volume (Bld) [Entitic vol] 10.3 fL Normal 6.2-12.0 [facility] Comment on above: Performed By: #### L 500.4100, L500.4050, L100.0100, L501.9985 #### [facility] [address] [place], [address] Platelets (Bld) [#/Vol] 276 10*3/uL Normal 150-450 [facility] Comment on above: Performed By: #### L 500.4100, L500.4050, L100.0100, L501.9985 #### [facility] [address] [place], [address] RBC (Bld) [#/Vol] 4.88 10*6/uL Normal 4.6-6.2 [facility] Comment on above: Performed By: #### L 500.4100, L500.4050, L100.0100, L501.9985 #### [facility] [address] [place], [address] RDW SD 40.7 fl Normal 35.1-43.9 [facility] Comment on above: Performed By: #### L 500.4100, L500.4050, L100.0100, L501.9985 #### [facility] [address] [place], [address] WBC (Bld) [#/Vol] 8.3 10*3/uL Normal 4.4-11.0 [facility] Comment on above: Performed By: #### L 500.4100, L500.4050, L100.0100, L501.9985 #### [facility] [address] [place], [address] Chest 1 View (Portable)on Chest 1 View (Portable) [facility] Imaging Services [address] [facility] [place], [place] [address] Chest 1 View (Portable) MR#: [id number] Acct: [id number] Name: SANJEEV FARMER Rep #: [id number] : 1950 M 74 From: David Youssef MD PCP: Dr. Nash Moarles MD Status: PRE ER Study: Chest 1 View (Portable) Date of Exam: 12/18/24 Exam# [id number] Ordering Dr: Darwin Arce MD PROCEDURE: CHEST 1 VIEW (PORTABLE) 12/18/2024 REASON FOR EXAM: CHEST PAIN TECHNIQUE: Frontal view of the chest. COMPARISON: 02/08/2018 FINDINGS: Lungs/Pleura: Clear. No pneumothorax or sizable pleural effusion. Heart/Mediastinum: Borderline enlarged. Aortic arch calcification. Bones/Soft tissues: Degenerative changes of the spine and AC joints. RAD/Chest 1 View (Portable) IMPRESSION: No evidence of acute cardiopulmonary disease. Reading Location: [facility] CC: Dr. Darwin Arce MD; Dr. Nash Morales MD Ep Technologist: Signed Normal [facility] Echo Complete W/ Contraston 12-18-2024 Echo Complete W/ Contrast [facility] [address] [facility] [place] [address] Echo Complete W/ Contrast 10/01/25 0828 MR#: [id number] Acct: [id number] Name: SANJEEV FARMER Rep #: [id number] : 1950 74 From: Bowen Story MD Attending Dr: Dr. Christian Solano MD Status: ADM MARY Ordering Dr: Soheila Hodge MD Date: 12/18/24 Location: [facility] Sex: M C Admitted: 12/18/24 Reason For Study : CAD/ASHD Procedure This was a 2D Doppler, Color Flow transthoracic echocardiogram. The study was technically difficult. Due to body habitus. Contrast injection was performed. Exam performed portable in patient room. Left Ventricle Normal LV size. Mild concentric left ventricular hypertrophy. Left ventricular systolic function is normal. The left ventricular ejection fraction is 60 %. Stage 1 diastolic dysfunction. No regional wall motion abnormalities noted. Right Ventricle Normal RV size. Normal systolic function. Atria Normal left atrium. Normal right atrium. Mitral Valve Normal mitral valve. Tricuspid Valve Normal tricuspid valve. Aortic Valve Mild focal aortic valve calcification. Peak aortic valve gradient 41 mmHg. Mean aortic valve gradient 22 mmHg. Moderate aortic stenosis. Pulmonic Valve The pulmonic valve is not well visualized. Great Vessels Normal aortic root. The pulmonary artery is normal size. Inferior vena cava collapse with respiration. Pericardium/Pleural No pericardial effusion. Medication Diluted definity 2.5ml given slow IV push to enhance endocardial definition. MMode/2D Measurements Calculations LVIDd: 4.9 cm IVSd: 1.3 cm LVOT diam: 2.1 cm LVIDs: 3.1 cm LVPWd: 1.3 cm FS: 37.0 % LVOT area: 3.4 cm2 Ao root diam: 3.9 cm LAV(MOD-bp): 97.4 ml LVAd ap4: 38.5 cm2 LAV(MOD-bp) Indexed: 41.5 ml/m2 LVLd ap4: 9.2 cm LAV(MOD-sp2): 79.0 ml EDV(MOD-sp4): 139.2 ml LAV(MOD-sp4): 113.1 ml EDV(sp4-el): 136.9 ml LVAs ap4: 20.9 cm2 LVLs ap4: 7.5 cm ESV(MOD-sp4): 50.9 ml ESV(sp4-el): 49.0 ml EF(MOD-sp4): 63.4 % EF(sp4-el): 64.2 % LVAd ap2: 36.5 cm2 SV(MOD-sp4): 88.3 ml SV(MOD-sp2): 85.6 ml LVLd ap2: 8.4 cm SI(MOD-sp4): 37.6 ml/m2 SI(MOD-sp2): 36.4 ml/m2 EDV(MOD-sp2): 132.7 ml EDV(sp2-el): 134.7 ml LVAs ap2: 20.4 cm2 LVLs ap2: 7.3 cm ESV(MOD-sp2): 47.1 ml ESV(sp2-el): 48.2 ml EF(MOD-sp2): 64.5 % SV(sp4-el): 87.9 ml LA dimension(2D): 5.3 cm LA A4 area: 31.3 cm2 RA A4 area: 25.5 cm2 TAPSE: 2.7 cm Time Measurements MV dec time: 0.20 sec Doppler Measurements Calculations MV E max arlene: 93.3 cm/sec Lat Peak E' Arlene: 9.5 cm/sec Med Peak E' Arlene: 7.2 cm/sec MV A max arlene: 109.6 cm/sec E/E' lat: 9.8 E/E' med: 12.9 MV E/A: 0.85 MV V2 max: 109.6 cm/sec MV P1/2t max arlene: 94.0 cm/sec Ao V2 max: 317.8 cm/sec MV max P.8 mmHg MV P1/2t: 68.3 msec Ao max P.4 mmHg MV V2 mean: 63.7 cm/sec Ao V2 mean: 223.1 cm/sec MV mean P.9 mmHg MV dec slope: 403.1 cm/sec2 Ao mean P.9 mmHg MV V2 VTI: 38.9 cm MVA(P1/2t): 3.2 cm2 Ao V2 VTI: 75.4 cm AV (velocity ratio): 0.38 MVA(VTI): 2.5 cm2 UNIQUE(I,D): 1.3 cm2 UNIQUE(V,D): 1.2 cm2 LV V1 max: 111.2 cm/sec SV(LVOT): 97.1 ml PA V2 max: 96.6 cm/sec LV V1 max P.9 mmHg LV V1 mean P.5 mmHg LV V1 mean: 75.3 cm/sec LV V1 VTI: 28.8 cm ECHO/Echo Complete W/ Contrast Interpretation Summary Normal LV size. Left ventricular systolic function is normal. The left ventricular ejection fraction is 60 %. Mild concentric left ventricular hypertrophy. Stage 1 diastolic dysfunction. Moderate aortic stenosis. Mean aortic valve gradient 22 mmHg. Contrast injection was performed. Ordering Physician: Soheila Hodge Referring Physician: Nash Morales Performed By: Chayo Akbar, LOYD, RVT 12/19/24957 Date Bowen Story MD CC: Dr. Soheila Hodge MD; Dr. Nash Morales MD; Dr. Christian Solano MD Date Dictated: 12/19/24827 Date Transcribed: 12/19/24956 Ep Technologist: Signed Normal [facility] Emergency Department Summary on 12-18-2024 Emergency Department Summary [facility] Medical Records Department [address] [place] [address] Emergency Department Summary 12/18/24 MR#: [id number] Acct: [id number] Name: SANJEEV FARMER Rep #: [id number] : 1950 74 From: Darwin Arce MD PCP: Dr. Nash Morales MD Status:REG ER Location: ED HPI History of Present Illness Chief Complaint: Chest Pain Narrative Narrative: 74-year-old male past medical history of coronary artery disease, 1 stent placed at least [address] Pichardo presents with chest pain that began about an hour ago. He describes it more as a pressure sensation across the top of his chest, and indigestion type feeling as well. He was at rest when it started. He became very diaphoretic and short of breath. He denies any nausea or vomiting. No exacerbating or alleviating factors. He states he takes Lasix when he swells on occasion. He does not take a blood thinner but takes a daily aspirin/baby aspirin. [facility] Medical History Venous insufficiency Hyperlipidemia History of non-ST elevation myocardial infarction (NSTEMI) (02/08/18) Obesity (BMI 35.0-39.9 without comorbidity) Sleep apnea with use of continuous positive airway pressure (CPAP) Atherosclerosis of coronary artery of [place]am[place] heart without angina pectoris Essential (primary) hypertension Home Medications ???Medication ???Instructions ???Recorded ???Last Taken ???Type aspirin 81 mg tablet,delayed 81 mg PO DAILY #90 tabs 11/11/22 0 12/18/24 Rx release albuterol sulfate 90 mcg/actuation 2 puff inhalation Q4H PRN Unknown Rx aerosol inhaler shortness of breath or wheezing #8.5 grams losartan 100 mg tablet 100 mg PO DAILY #90 tabs 08/30/24 Unknown Rx metoprolol tartrate 50 mg tablet 50 mg PO BID #180 tabs 08/30/24 Rx furosemide 40 mg tablet 40 mg PO DAILY PRN swelling or 12/18/24 Rx weight gain #30 tabs Allergy/AdvReac Type Severity Reaction Status Date / Time animal dander Allergy Other Verified 12/18/24 16:51 atorvastatin (From Lipitor) AdvReac Intermediate myalgias Verified 12/18/24 16:51 rosuvastatin (From Crestor) AdvReac Intermediate myalgias Verified 12/18/24 16:51 simvastatin (From Zocor) AdvReac Intermediate myalgias Verified 12/18/24 16:51 Family History Father Parkinson disease Surgical History History of total right knee replacement History of coronary artery stent placement (02/10/18) Social History (Updated 12/18/24 @ 20:[address] Soheila Hodge MD) household members: spouse Smoking Status: Former smoker alcohol intake: current substance use type: does not use ROS ROS ED ROS Narrative Review of systems positive for chest pressure across top of chest and indigestion type feeling. Positive diaphoresis. Positive shortness of breath. No nausea or vomiting. No recent leg swelling. No exacerbating or alleviating factors. EXAM Physical Exam Narrative Exam Narrative: Afebrile. Vital signs noted. Nontoxic-appearing. Cardiovascular examination feels regular rate and rhythm. Lungs are clear to auscultation bilaterally. Abdomen is soft and nontender with p ositive bowel sounds. No pedal edema. Const Vital Signs: 12/18/24 16:42 12/18/24 16:54 12/18/24 17:41 Temperature 97.9 F Temperature Source Oral Pulse Rate 72 Respiratory Rate 16 Blood Pressure 138/58 H Blood Pressure Mean 84 Pulse Ox 100 100 Oxygen Delivery Method Room Air Room Air 12/18/24 18:00 12/18/24 19:00 12/18/24 20:00 Temperature Temperature Source Pulse Rate 70 60 57 L Respiratory Rate 16 18 18 Blood Pressure 117/55 L 121/61 H 148/66 H Blood Pressure Mean 75 81 93 Pulse Ox 100 99 100 Oxygen Delivery Method Room Air Room Air Room Air MDM MDM MDM Narrative Medical decision making narrative: Differential diagnosis includes but not limited to ACS versus GERD versus pulmonary embolism versus pneumonia. I have low suspicion for pulmonary embolism because history and physical does not support this. EKG was obtained and interpreted by myself independently as sinus rhythm with first- degree AV block at [address] changes. No STEMI. No significant change from EKG in August 2022. I reviewed his laboratory work and he has normal white count of 8.3 with hemoglobin 15.4, hematocrit 44.1, platelet count 276. BMP is significant for CO2 low at 20.4 which I think is nonspecific, creatinine slightly elevated at 1.3. Glucose is 149. Initial high-sensitivity troponin 22. I individually interpreted his chest x-ray and see no evidence of an acute process, no pneumonia, no pneumothorax. I reviewed the radiology report which co (more content not included)... Normal [facility] H AND P Exam - [facility] 12-18-2024 H&P Exam - Hospitalist [facility] Medical Records Department [address] [place] [address] H P Exam - Hospitalist 12/18/242018 MR#: [id number] Acct: [id number] Name: SANJEEV FARMER Rep #: [id number] : 1950 74 From: Soheila Hodge MD PCP: Dr. Nash Morales MD Status:ADM MARY Location: [place] [address] HPI - General General Date of Admission: 12/18/24 Date of Service: 12/18/24 Chief Complaint: Chest pain, dyspnea, diaphoresis. HPI Narrative The patient is a 74 y/o M w/ PMHx: CKD stage III per previous GFR trending, CAD s/p PCI RCA 2017, HTN, HLD, LARRY, Former tobacco use who presents to the [facility] ED on 12/18/2024 with history of chest pain with onset approximately 1 hour prior to ED arrival described as pressure-like sensation across the top of his chest with dyspepsia type sensation noted to been at rest when it started with onset of significant diaphoresis and dyspnea with no specific nausea or emesis prompting ED evaluation to be cautious. Patient was administered 2 baby aspirin prior to her ED arrival via self in addition to an additional 2 in the ED to total full-strength aspirin. Patient noted at its worst discomfort was 5 out of 10 in severity. He notes he is now currently chest pain-free. Patient reports that this was similar to his first NSTEMI presentation prior to his PCI intervention. Workup in the ED included T97.9, heart rate 72, BP 130/58, respiratory rate 16, 100% on room air with most recent repeat vitals heart rate 57, BP 140/66, respiratory rate 18, 100% on room air, CBC with WBC 8.3, hemoglobin 15.4, platelet 276 without marked shift, BMP with carbon oxide 20.4, anion gap 17, BUN/Cr 15/1.30, GFR 57, glucose 149, troponin initial 22 with repeat delta 46, chest x-ray with no acute cardiopulmonary findings, EKG sinus rhythm with first- degree AV block with no acute evidence of ischemia with no significant change from EKG 08/2022. In the ED patient understood full-strength aspirin therapy and initiated on a heparin drip with a heparin bolus. [facility] Medical History Venous insufficiency Hyperlipidemia History of non-ST elevation myocardial infarction (NSTEMI) (02/08/18) Obesity (BMI 35.0-39.9 without comorbidity) Sleep apnea with use of continuous positive airway pressure (CPAP) Atherosclerosis of coronary artery of [place]am[place] heart without angina pectoris Essential (primary) hypertension Home Medications ???Medication ???Instructions ???Recorded ???Last Taken ???Type aspirin 81 mg tablet,delayed 81 mg PO DAILY #90 tabs 11/11/22 0 12/18/24 Rx release albuterol sulfate 90 mcg/actuation 2 puff inhalation Q4H PRN Unknown Rx aerosol inhaler shortness of breath or wheezing #8.5 grams losartan 100 mg tablet 100 mg PO DAILY #90 tabs 08/30/24 Unknown Rx metoprolol tartrate 50 mg tablet 50 mg PO BID #180 tabs 08/30/24 Rx furosemide 40 mg tablet 40 mg PO DAILY PRN swelling or 12/18/24 Rx weight gain #30 tabs Allergy/AdvReac Type Severity Reaction Status Date / Time animal dander Allergy Other Verified 12/18/24 16:51 atorvastatin (From Lipitor) AdvReac Intermediate myalgias Verified 12/18/24 16:51 rosuvastatin (From Crestor) AdvReac Intermediate myalgias Verified 12/18/24 16:51 simvastatin (From Zocor) AdvReac Intermediate myalgias Verified 12/18/24 16:51 Family History Father Parkinson disease Mother No problems noted. Surgical History History of total right knee replacement History of coronary artery stent placement (02/10/18) Social History household members: spouse Smoking Status: Former smoker alcohol intake: current alcohol intake frequency: a few times a week details: 1-2 drinks, occasionally 3, 2-3x/week substance use type: does not use ROS ROS Narrative Admission Review of Systems: CONSTITUTIONAL: No weight loss, fever, chills, + weakness or fatigue. HEENT: Eyes: No visual loss, blurred vision, double vision or yellow sclerae. Ears, Nose, Throat: No hearing loss, sneezing, congestion, runny nose or sore throat. SKIN: No rash or itching, lesions, wounds. CARDIOVASCULAR: + Chest pain. No palpitations, increased edema, orthopnea, syncopal events. RESPIRATORY: + Dyspnea. No marked cough or sputum, wheezing, hemoptysis. GASTROINTESTINAL: + Dyspepsia. No anorexia, nausea, vomiting or diarrhea, abdominal pain, melena, BRBPR. GENITOURINARY: No dysuria, frequency, urgency or retention. NEUROLOGICAL: No headache, dizziness, syncope, paralysis, ataxia, numbness or tingling in the extremities, focal weakness, change in bowel or bladder control, seizure. MUSCULOSKELETAL: + m (more content not included)... Normal [facility] International normalized rat io (INR) calculationOrdered By: Darwin Arce on 12-18-2024 INR Coag (Bld) [Relative time] 1.0 {INR} [facility] L501.4021on 12-18-2024 Trop T High Sen 22 ng/L Normal <=22 [facility] Comment on above: Performed By: #### L 500.4100, L500.4050, L100.0100, L501.9985 #### [facility] [address] [place], [address] Magnesiumon 12-18-2024 Magnesium [Mass/Vol] 2.2 mg/dL Normal 1.5-2.2 [facility] Comment on above: Order Comment: Comme nts: may add to ED labs Performed By: #### L 500.4100, L500.4050, L100.0100, L501.9985 #### [facility] [address] [place], [address] Magnesium measurement (mass/ volume)Ordered By: Soheila Hodge on 12-18-2024 Magnesium (Unsp spec) [Mass/Vol] 2.2 mg/dL 1.5-2.2 [facility] Partial Thromboplast Timeon 12-18-2024 aPTT Coag (Bld) [Time] 22.6 s Low 24.1-36.2 [facility] Comment on above: Order Comment: Comme nts: If not done in prior 24 hours Performed By: #### L 500.4100, L500.4050, L100.0100, L501.9985 #### [facility] [address] [place], [address] Platelet estimateOrdered By: Darwin Arce on 12-18-2024 Platelets LM Ql (Bld) ADEQUATE ADEQ [facility] Prothrombin Time w/INRon INR Coag (PPP) [Relative time] 1.0 {INR} Normal [facility] Comment on above: Order Comment: Comme nts: If not done in prior 24 hours Performed By: #### L 500.4100, L500.4050, L100.0100, L501.9985 #### [facility] [address] [place], [address] PT Coag (PPP) [Time] 13.2 s Normal 11.7-14.9 [facility] Comment on above: Order Comment: Comme nts: If not done in prior 24 hours Performed By: #### L 500.4100, L500.4050, L100.0100, L501.9985 #### [facility] [address] [place], [address] Prothrombin timeOrdered By: Darwin Arce on 12-18-2024 PT Coag (PPP) [Time] 13.2 s 11.7-14.9 [facility] Troponin T HS 2 HRon 025 Trop T High Sen 46 ng/L High <=22 [facility] Comment on above: Result Comment: Hemo lysis present, Results??could be affected. ?? Performed By: #### L 500.4100, L500.4050, L100.0100, L501.9985 #### [facility] [address] [place], [address] Troponin T.cardiac [Mass/vol ume] in Serum or Plasma by High sensitivity methodOrdered By: Darwin Arce on 12-18-2024 Troponin T.cardiac High sensitivity method [Mass/Vol] 69 ng/L Critically high <22 [facility] Comment on above: Hemolysis present, R esults could be affected. Critical Result(s) Called at: by: Results read back by same. Hemolysis present, Results could be affected.CRITICAL RESULT CALLED TO 01:13 12-19-24 TO CORTES READ READ BACK BY SAME Critical Result(s) Called at: by: Results read back by same.Previous reported result: 69 ng/LEdited by: AUTOINS on 12/19/24:0115 AMENDED REPORT 12/19/24 0115 Trop T HS 4HR previously reported as: 69 *H ng/L Hemolysis present, Results could be affected. Critical Result(s) Called at: by: Results read back by same. Troponin T.cardiac High sensitivity method [Mass/Vol] 46 ng/L High <22 [facility] Comment on above: Hemolysis present, R esults could be affected. Troponin T.cardiac High sensitivity method [Mass/Vol] 22 ng/L <22 [facility] Cardiology Visit Reporton Cardiology Visit Report [facility] 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 Normal [facility] Pulmonary Visit Reporton Pulmonary Visit Report [facility] 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: No DME Vendor: [employer] Allergies animal dander Allergy (Verified 05/28/24 12:49) [...] the past year?: No PFSH Medical History Venous insufficiency Hyperlipidemia History of non-ST elevation myocardial infarction (NSTEMI) (02/08/18) Obesity (BMI 35.0-39.9 without comorbidity) Sleep apnea with use of continuous positive airway pressure (CPAP) 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 Normal [facility] Cardiology Visit Reporton Cardiology Visit Report [facility] 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 Normal [facility] Lipid Profileon 02-01-2024 Cholesterol [Mass/Vol] 199 mg/dL Normal 200 [facility] Comment on above: Result Comment: <200 mg/dL Desirable 200-240 mg/dL Borderline >240 mg/dL High Risk Performed By: #### L 500.4100, L500.4050, L100.0100, L501.9985 #### [facility] [address] [place], [address] Cholesterol in HDL [Mass/Vol] 37 mg/dL Low [facility] Comment on above: Result Comment: The drugs N-Acetylcysteine and Metamizole may falsely depress this assay. Reference Range HDL <40 mg/dL Low HDL Cholesterol HDL >or= 60 mg/dL High HDL Cholesterol Performed By: #### L 500.4100, L500.4050, L100.0100, L501.9985 #### [facility] [address] [place], [address] Cholesterol in LDL [Mass/Vol] 125 mg/dL Normal 0-130 [facility] Comment on above: Performed By: #### L 500.4100, L500.4050, L100.0100, L501.9985 #### [facility] [address] [place], [address] Cholesterol in VLDL [Mass/Vol] 37 mg/dL Normal 5-40 [facility] Comment on above: Performed By: #### L 500.4100, L500.4050, L100.0100, L501.9985 #### [facility] [address] [place], [address] Triglyceride [Mass/Vol] 186 mg/dL Normal [facility] Comment on above: Result Comment: The drugs N-Acetylcysteine and Metamizole may falsely depress this assay. Serum Triglycerides Reference Interval Normal <150 mg/dL Borderline high 150 - 199 mg/dL High 200 - 499 mg/dL Very High > or = 500 mg/dL Performed By: #### L 500.4100, L500.4050, L100.0100, L501.9985 #### [facility] [address] [place], [address] Liver Profileon 02-01-2024 Albumin [Mass/Vol] 3.3 g/dL Normal 3.2-5.0 [facility] Comment on above: Performed By: #### L 500.4100, L500.4050, L100.0100, L501.9985 #### [facility] [address] [place], [address] ALK P 108 U/L Normal 45-117 [facility] Comment on above: Performed By: #### L 500.4100, L500.4050, L100.0100, L501.9985 #### [facility] [address] [place], [address] ALT [Catalytic activity/Vol] 24 U/L Normal 16-61 [facility] Comment on above: Performed By: #### L 500.4100, L500.4050, L100.0100, L501.9985 #### [facility] [address] [place], [address] AST [Catalytic activity/Vol] 16 U/L Normal 15-37 [facility] Comment on above: Performed By: #### L 500.4100, L500.4050, L100.0100, L501.9985 #### [facility] [address] [place], [address] Bilirubin [Mass/Vol] 0.60 mg/dL Normal 0.20-1.00 [facility] Comment on above: Result Comment: For patients on eltrombopag therapy, use of Dimension [place] TBIL is not recommended. Performed By: #### L 500.4100, L500.4050, L100.0100, L501.9985 #### [facility] [address] [place], [address] Bilirubin.direct [Mass/Vol] 0.21 mg/dL Normal 0.00-0.30 [facility] Comment on above: Performed By: #### L 500.4100, L500.4050, L100.0100, L501.9985 #### [facility] [address] [place], [address] Globulin (S) [Mass/Vol] 3.7 g/dL Normal 2.2-4.2 [facility] Comment on above: Performed By: #### L 500.4100, L500.4050, L100.0100, L501.9985 #### [facility] [address] [place], [address] T PROT 7.0 g/dL Normal 6.4-8.2 [facility] Comment on above: Performed By: #### L 500.4100, L500.4050, L100.0100, L501.9985 #### [facility] [address] [place], [address] Absolute lymphocyte countOrd ered By: Nash Morales on 07-20-2023 Lymphocytes Auto (Unsp spec) [#/Vol] 1.37 10*3/uL 0.83-4.51 [facility] Automated lymphocyte count a s percentage of total leukocytesOrdered By: Nash Morales on 07-20-2023 Lymphocytes/100 WBC Auto (Unsp spec) 19.9 % 19-41 [facility] Basophil percentageOrdered B y: Nash Morales on 07-20-2023 Basophils/100 WBC (Bld) 0.9 % 0-1 [facility] Bilirubin [Mass/Vol] 0.50 mg/dL 0.20-1.00 [facility] Comment on above: For patients on eltr ombopag therapy, use of Dimension [place] TBIL is not recommended. Chloride [Moles/Vol] 105 mmol/L 98-107 [facility] Cholesterol [Mass/Vol] 260 mg/dL <200 [facility] Comment on above: <200 mg/dL Desirable 200-240 mg/dL Borderline >240 mg/dL High Risk Eosinophils/100 WBC (Bld) 3.8 % 0-5 [facility] Glucose [Mass/Vol] 104 mg/dL 74-106 [facility] Comment on above: Fasting Glucose resu lt from 100 to 125 mg/dL suggests IMPAIRED HOMEOSTASIS per A.D.A. criteria. Hemoglobin (Bld) [Mass/Vol] 14.3 g/dL 13.0-16.5 [facility] Monocytes/100 WBC (Bld) 8.4 % 0-10 [facility] Neutrophils (Bld) [#/Vol] 4.6 10*3/uL 2.0-7.7 [facility] Neutrophils/100 WBC (Bld) 66.7 % 47-70 [facility] Potassium [Moles/Vol] 4.2 mmol/L 3.5-5.1 [facility] Protein [Mass/Vol] 7.2 g/dL 6.4-8.2 [facility] Sodium [Moles/Vol] 140 mmol/L 136-145 [facility] Triglyceride [Mass/Vol] 186 mg/dL <199 [facility] Comment on above: The drugs N-Acetylcy steine and Metamizole may falsely depress this assay.Serum Triglycerides Reference Interval Normal <150 mg/dL Borderline high 150 - 199 mg/dL High 200 - 499 mg/dL Very High > or = 500 mg/dL WBC (Bld) [#/Vol] 6.9 10*3/uL 4.4-11.0 [facility] Determination of erythrocyte mean corpuscular volume (MCV)Ordered By: Nash Morales on 07-20-2023 MCV (RBC) [Entitic vol] 96.7 fL 80-94 [facility] Erythrocyte distribution wid th ratioOrdered By: Nash Morales on 07-20-2023 Erythrocyte distribution width (RBC) [Ratio] 12.7 % 11.6-14.6 [facility] Erythrocyte distribution wid th standard deviationOrdered By: Nash Morales on 07-20-2023 Erythrocyte distribution width (RBC) [Entitic vol] 45.2 fL 35.1-43.9 [facility] Hematocrit Auto (Bld) [Volum e fraction]Ordered By: Nash Morales on 07-20-2023 Hematocrit (Bld) [Volume fraction] 43.7 % 40-54 [facility] Immature granulocytes/100 WB C Auto (Bld)Ordered By: Nash Morales on 07-20-2023 Immature granulocytes/100 WBC (Bld) 0.300 % 0.0-0.9 [facility] Comment on above: IG% - Immature Granu locytes (promyelocytes, myelocytes and metamyelocytes) > 1% indicates that a LEFT SHIFT is Present. Laboratory - Chemistry and C hemistry - challengeOrdered By: Nash Morales on 07-20-2023 Albumin/Globulin [Mass ratio] 0.9 {ratio} 0.9-2.4 [facility] ALP [Catalytic activity/Vol] 97 U/L 45-117 [facility] ALT [Catalytic activity/Vol] 24 U/L 16-61 [facility] Cholesterol in HDL [Mass/Vol] 42 mg/dL >40 [facility] Comment on above: The drugs N-Acetylcy steine and Metamizole may falsely depress this assay. Reference Range HDL <40 mg/dL Low HDL Cholesterol HDL >or= 60 mg/dL High HDL Cholesterol Cholesterol in LDL [Mass/Vol] 181 mg/dL 0-130 [facility] CO2 [Moles/Vol] 30.0 mmol/L 21.0-32.0 [facility] Globulin (S) [Mass/Vol] 3.8 g/dL 2.2-4.2 [facility] Urea nitrogen/Creatinine [Mass ratio] 13.7 mg/mg 10-20 [facility] Laboratory - Hematology and Cell countsOrdered By: Nash Morales on 07-20-2023 MCH (RBC) [Entitic mass] 31.6 pg 27.0-32.0 [facility] MCHC (RBC) [Mass/Vol] 32.7 g/dL 32-36 [facility] Nucleated RBC/100 WBC (Bld) [Ratio] 0 % 0-5 [facility] Platelet mean volume (Bld) [Entitic vol] 10.3 fL 6.2-12.0 [facility] Platelets (Bld) [#/Vol] 203 10*3/uL 150-450 [facility] No Panel InformationOrdered By: Nash Morales on 07-20-2023 Estimated GFR (MDRD) Amer 64 mL/min >60 [facility] [facility] Comment on above: GFR Calc Estimated GFR (MDRD) Non-Af Amer 53 mL/min >60 [facility] Comment on above: Non- GFR Calc Vitamin D 25-Hydroxy 19.3 ng/mL [facility] Comment on above: Vitamin D 25(OH) Sta tus Range Deficiency <20 ng/mL (50nmol/L) Insufficiency 20 - 30 ng/mL (50 - 75 nmol/L) Sufficiency 30 - 100 ng/mL (75 - 250 nmol/L) Toxicity >100 ng/mL (>250 nmol/L) VLDL Cholesterol 37 mg/dL 5-40 [facility] RBC Auto (Bld) [#/Vol]Ordere d By: Nash Morales on 07-20-2023 RBC (Bld) [#/Vol] 4.52 10*6/uL 4.6-6.2 [facility] Serum or plasma calcium jamie urement (mass/volume)Ordered By: Nash Morales on 07-20-2023 Calcium [Mass/Vol] 8.6 mg/dL 8.5-10.1 [facility] Serum or plasma creatinine m easurement (mass/volume)Ordered By: Nash Morales on 07-20-2023 Creatinine [Mass/Vol] 1.39 mg/dL 0.70-1.30 [facility] Comment on above: The validity of the calculated GFR & GFRAA in patients over 70 years has not been determined. Clinical correlation is essential. Serum or plasma urea nitroge n measurement (mass/volume)Ordered By: Nash Morales on 07-20-2023 Urea nitrogen [Mass/Vol] 19 mg/dL 7-18 [facility] Thin prep Papanicolaou smear with manual screeningOrdered By: Nash Morales on 07-20-2023 Thin prep Papanicolaou smear with manual screening 3.4 g/dL 3.2-5.0 [facility] Thin prep Papanicolaou smear with manual screening 13 U/L 15-37 [facility] Thin prep Papanicolaou smear with manual screening 5 5-15 [facility] Whole blood hemoglobin A1c/t otal hemoglobin ratio (mass fraction)Ordered By: Nash Morales on 07-20-2023 HbA1c (Bld) [Mass fraction] 6.2 % 3.8-5.6 [facility] Comment on above: Normal < 5.7 % Predi abetic 5.7 - 6.4 % Diabetic >or= 6.5 % Please note range changes. Serum or plasma uric acid me asurement (mass/volume)Ordered By: Ilya Crain on 07-13-2023 Urate [Mass/Vol] 8.8 mg/dL 3.5-7.2 [facility] Comment on above: The drugs N-Acetylcy steine and Metamizole may falsely depress this assay. Basophil percentageOrdered B y: Dorita Lr on 02-15-2023 Bilirubin [Mass/Vol] 0.90 mg/dL 0.20-1.00 [facility] Comment on above: For patients on eltr ombopag therapy, use of [employer] TBIL is not recommended. Cholesterol [Mass/Vol] 218 mg/dL <200 [facility] Comment on above: <200 mg/dL Desirable 200-240 mg/dL Borderline >240 mg/dL High Risk Protein [Mass/Vol] 8.1 g/dL 6.4-8.2 [facility] Triglyceride [Mass/Vol] 242 mg/dL <199 [facility] Comment on above: The drugs N-Acetylcy steine and Metamizole may falsely depress this assay.Serum Triglycerides Reference Interval Normal <150 mg/dL Borderline high 150 - 199 mg/dL High 200 - 499 mg/dL Very High > or = 500 mg/dL Direct bilirubinOrdered By: Dorita Lr on 02-15-2023 Bilirubin.direct [Mass/Vol] 0.23 mg/dL 0.00-0.30 [facility] Laboratory - Chemistry and C hemistry - challengeOrdered By: Dorita Lr on 02-15-2023 ALP [Catalytic activity/Vol] 106 U/L 45-117 [facility] ALT [Catalytic activity/Vol] 31 U/L 16-61 [facility] Globulin (S) [Mass/Vol] 4.2 g/dL 2.2-4.2 [facility] Serum or plasma albumin jamie urement (mass/volume)Ordered By: Dorita Lr on 02-15-2023 Albumin [Mass/Vol] 3.9 g/dL 3.2-5.0 [facility] Serum or plasma cholesterol in HDL measurement (mass/volume)Ordered By: Dorita Lr on 02-15-2023 Cholesterol in HDL [Mass/Vol] 43 mg/dL >40 [facility] Comment on above: The drugs N-Acetylcy steine and Metamizole may falsely depress this assay. Reference Range HDL <40 mg/dL Low HDL Cholesterol HDL >or= 60 mg/dL High HDL Cholesterol Serum or plasma cholesterol in VLDL measurement (mass/volume)Ordered By: Dorita Lr on 02-15-2023 Cholesterol in VLDL [Mass/Vol] 48 mg/dL 5-40 [facility] Serum or plasma low density lipoprotein (LDL) cholesterol measurement (mass/volume)Ordered By: Dorita Lr on 02-15-2023 Cholesterol in LDL [Mass/Vol] 127 mg/dL 0-130 [facility] Thin prep Papanicolaou smear with manual screeningOrdered By: Dorita Lr on 02-15-2023 Thin prep Papanicolaou smear with manual screening 20 U/L 15-37 [facility] Absolute lymphocyte countOrd ered By: Guillermina Barone on 09-06-2022 Lymphocytes Auto (Unsp spec) [#/Vol] 1.52 10*3/uL 0.83-4.51 [facility] Basophil percentageOrdered B y: Guillermina Barone on 09-06-2022 Basophils/100 WBC (Bld) 0.8 % 0-1 [facility] Chloride [Moles/Vol] 100 mmol/L 98-107 [facility] Eosinophils/100 WBC (Bld) 2.0 % 0-5 [facility] Glucose [Mass/Vol] 118 mg/dL 74-106 [facility] Comment on above: Fasting Glucose resu lt from 100 to 125 mg/dL suggests IMPAIRED HOMEOSTASIS per A.D.A. criteria. Lactate [Moles/Vol] 1.8 mmol/L 0.4-2.0 [facility] Neutrophils (Bld) [#/Vol] 6.4 10*3/uL 2.0-7.7 [facility] Neutrophils/100 WBC (Bld) 70.7 % 47-70 [facility] Potassium [Moles/Vol] 3.9 mmol/L 3.5-5.1 [facility] Sodium [Moles/Vol] 133 mmol/L 136-145 [facility] WBC (Bld) [#/Vol] 9.1 10*3/uL 4.4-11.0 [facility] Blood erythrocytes count (nu mber/volume)Ordered By: Guillermina Barone on 09-06-2022 RBC (Bld) [#/Vol] 3.97 10*6/uL 4.6-6.2 [facility] Blood hemoglobin measurement (mass/volume)Ordered By: Guillermina Barone on 09-06-2022 Hemoglobin (Bld) [Mass/Vol] 12.6 g/dL 13.0-16.5 [facility] Blood lymphocytes/100 leukoc ytesOrdered By: Guillermina Barone on 09-06-2022 Lymphocytes/100 WBC (Bld) 16.7 % 19-41 [facility] Blood monocytes/100 leukocyt esOrdered By: Guillermina Barone on 09-06-2022 Monocytes/100 WBC (Bld) 9.4 % 0-10 [facility] Blood platelet mean volumeOr dered By: Guillermina Barone on 09-06-2022 Platelet mean volume (Bld) [Entitic vol] 10.2 fL 6.2-12.0 [facility] Determination of erythrocyte mean corpuscular volume (MCV)Ordered By: Guillermina Barone on 09-06-2022 MCV (RBC) [Entitic vol] 98.0 fL 80-94 [facility] Hematocrit Auto (Bld) [Volum e fraction]Ordered By: Guillermina Barone on 09-06-2022 Hematocrit (Bld) [Volume fraction] 38.9 % 40-54 [facility] Laboratory - Chemistry and C hemistry - challengeOrdered By: Guillermina Barone on 09-06-2022 CO2 [Moles/Vol] 24.0 mmol/L 21.0-32.0 [facility] Urea nitrogen/Creatinine [Mass ratio] 21.5 mg/mg 10-20 [facility] Laboratory - Hematology and Cell countsOrdered By: Guillermina Barone on 09-06-2022 Erythrocyte distribution width (RBC) [Entitic vol] 44.5 fL 35.1-43.9 [facility] Erythrocyte distribution width (RBC) [Ratio] 12.4 % 11.6-14.6 [facility] Immature granulocytes/100 WBC (Bld) 0.400 % 0.0-0.9 [facility] Comment on above: IG% - Immature Granu locytes (promyelocytes, myelocytes and metamyelocytes) > 1% indicates that a LEFT SHIFT is Present. MCH (RBC) [Entitic mass] 31.7 pg 27.0-32.0 [facility] Nucleated RBC/100 WBC (Bld) [Ratio] 0 % 0-5 [facility] MCHC Auto (RBC) [Mass/Vol]Or dered By: Guillermina Barone on 09-06-2022 MCHC (RBC) [Mass/Vol] 32.4 g/dL 32-36 [facility] No Panel InformationOrdered By: Guillermina Barone on 09-06-2022 Estimated Creatinine Clearance Calc 35.57 ml/min [facility] Estimated GFR (MDRD) Amer 45 mL/min >60 [facility] Comment on above: GFR Calc Estimated GFR (MDRD) Non-Af Amer 37 mL/min >60 [facility] Comment on above: Non- GFR Calc Platelets bldOrdered By: Margaret Barone on 09-06-2022 Platelets (Bld) [#/Vol] 286 10*3/uL 150-450 [facility] Serum or plasma calcium jamie urement (mass/volume)Ordered By: Guillermina Barone on 09-06-2022 Calcium [Mass/Vol] 9.5 mg/dL 8.5-10.1 [facility] Serum or plasma creatinine m easurement (mass/volume)Ordered By: Guillermina Barone on 09-06-2022 Creatinine [Mass/Vol] 1.91 mg/dL 0.70-1.30 [facility] Comment on above: The validity of the calculated GFR & GFRAA in patients over 70 years has not been determined. Clinical correlation is essential. Serum or plasma urea nitroge n measurement (mass/volume)Ordered By: Guillermina Barone on 09-06-2022 Urea nitrogen [Mass/Vol] 41 mg/dL 7-18 [facility] Thin prep Papanicolaou smear with manual screeningOrdered By: Guillermina Barone on 09-06-2022 Thin prep Papanicolaou smear with manual screening 9 5-15 [facility] Absolute lymphocyte countOrd ered By: Sanjeev Buckley on 08-19-2022 Lymphocytes Auto (Unsp spec) [#/Vol] 1.33 10*3/uL 0.83-4.51 [facility] Basophil percentageOrdered B y: Sanjeev Buckley on 08-19-2022 Basophils/100 WBC (Bld) 1.0 % 0-1 [facility] Chloride [Moles/Vol] 103 mmol/L 98-107 [facility] Eosinophils/100 WBC (Bld) 4.0 % 0-5 [facility] Glucose [Mass/Vol] 127 mg/dL 74-106 [facility] Comment on above: Fasting Glucose resu lt greater than or equal to 126 mg/dL suggests DIABETES MELLITUS per A.D.A. criteria. Neutrophils (Bld) [#/Vol] 4.9 10*3/uL 2.0-7.7 [facility] Neutrophils/100 WBC (Bld) 67.6 % 47-70 [facility] Potassium [Moles/Vol] 4.1 mmol/L 3.5-5.1 [facility] Sodium [Moles/Vol] 138 mmol/L 136-145 [facility] WBC (Bld) [#/Vol] 7.3 10*3/uL 4.4-11.0 [facility] Blood erythrocytes count (nu mber/volume)Ordered By: Sanjeev Buckley on 08-19-2022 RBC (Bld) [#/Vol] 4.79 10*6/uL 4.6-6.2 [facility] Blood hemoglobin measurement (mass/volume)Ordered By: Sanjeev Buckley on 08-19-2022 Hemoglobin (Bld) [Mass/Vol] 15.2 g/dL 13.0-16.5 [facility] Blood lymphocytes/100 leukoc ytesOrdered By: Sanjeev Buckley on 08-19-2022 Lymphocytes/100 WBC (Bld) 18.3 % 19-41 [facility] Blood monocytes/100 leukocyt esOrdered By: Sanjeev Buckley on 08-19-2022 Monocytes/100 WBC (Bld) 8.8 % 0-10 [facility] Blood platelet mean volumeOr dered By: Sanjeev Buckley on 08-19-2022 Platelet mean volume (Bld) [Entitic vol] 10.2 fL 6.2-12.0 [facility] Determination of erythrocyte mean corpuscular volume (MCV)Ordered By: Sanjeev Buckley on 08-19-2022 MCV (RBC) [Entitic vol] 94.6 fL 80-94 [facility] Hematocrit Auto (Bld) [Volum e fraction]Ordered By: Sanjeev Buckley on 08-19-2022 Hematocrit (Bld) [Volume fraction] 45.3 % 40-54 [facility] - Chemistry and C hemistry - challengeOrdered By: Sanjeev Buckley on 08-19-2022 CO2 [Moles/Vol] 27.0 mmol/L 21.0-32.0 [facility] Urea nitrogen/Creatinine [Mass ratio] 13.4 mg/mg 10-20 [facility] - Hematology and Cell countsOrdered By: Sanjeev Buckley on 08-19-2022 Erythrocyte distribution width (RBC) [Entitic vol] 44.1 fL 35.1-43.9 [facility] Erythrocyte distribution width (RBC) [Ratio] 12.8 % 11.6-14.6 [facility] Immature granulocytes/100 WBC (Bld) 0.300 % 0.0-0.9 [facility] Comment on above: IG% - Immature Granu locytes (promyelocytes, myelocytes and metamyelocytes) > 1% indicates that a LEFT SHIFT is Present. MCH (RBC) [Entitic mass] 31.7 pg 27.0-32.0 [facility] Nucleated RBC/100 WBC (Bld) [Ratio] 0 % 0-5 [facility] MCHC Auto (RBC) [Mass/Vol]Or dered By: Sanjeev Buckley on 08-19-2022 MCHC (RBC) [Mass/Vol] 33.6 g/dL 32-36 [facility] No Panel InformationOrdered By: Sanjeev Buckley on 08-19-2022 Estimated GFR (MDRD) Amer 77 mL/min >60 [facility] Comment on above: GFR Calc Estimated GFR (MDRD) Non-Af Amer 64 mL/min >60 [facility] Comment on above: Non- GFR Calc Platelets bldOrdered By: Boy Buckley on 08-19-2022 Platelets (Bld) [#/Vol] 220 10*3/uL 150-450 [facility] Serum or plasma calcium jamie urement (mass/volume)Ordered By: Sanjeev Buckley on 08-19-2022 Calcium [Mass/Vol] 8.9 mg/dL 8.5-10.1 [facility] Serum or plasma creatinine m easurement (mass/volume)Ordered By: Sanjeev Buckley on 08-19-2022 Creatinine [Mass/Vol] 1.19 mg/dL 0.70-1.30 [facility] Comment on above: The validity of the calculated GFR & GFRAA in patients over 70 years has not been determined. Clinical correlation is essential. Serum or plasma urea nitroge n measurement (mass/volume)Ordered By: Sanjeev Buckley on 08-19-2022 Urea nitrogen [Mass/Vol] 16 mg/dL 7-18 [facility] Thin prep Papanicolaou smear with manual screeningOrdered By: Sanjeev Buckley on 08-19-2022 Thin prep Papanicolaou smear with manual screening 8 5-15 [facility] Whole blood hemoglobin A1c/t otal hemoglobin ratio (mass fraction)Ordered By: Sanjeev Buclkey on 08-19-2022 HbA1c (Bld) [Mass fraction] 6.4 % 3.8-5.6 [facility] Comment on above: Normal < 5.7 % Predi abetic 5.7 - 6.4 % Diabetic >or= 6.5 % Please note range changes. Whole blood hemoglobin A1c/t otal hemoglobin ratio (mass fraction)Ordered By: Toya Franco on 07-16-2022 HbA1c (Bld) [Mass fraction] 6.2 % 3.8-5.6 [facility] Comment on above: Normal < 5.7 % Predi abetic 5.7 - 6.4 % Diabetic >or= 6.5 % Please note range changes. Absolute lymphocyte countOrd ered By: Toya Franco on 07-08-2022 Lymphocytes Auto (Unsp spec) [#/Vol] 1.70 10*3/uL 0.83-4.51 [facility] Basophil percentageOrdered B y: Toya Franco on 07-08-2022 Basophils/100 WBC (Bld) 1.2 % 0-1 [facility] Bilirubin [Mass/Vol] 0.40 mg/dL 0.20-1.00 [facility] Comment on above: For patients on eltr ombopag therapy, use of [place] TBIL is not recommended. Chloride [Moles/Vol] 104 mmol/L 98-107 [facility] Eosinophils/100 WBC (Bld) 4.9 % 0-5 [facility] Glucose [Mass/Vol] 154 mg/dL 74-106 [facility] Comment on above: Fasting Glucose resu lt greater than or equal to 126 mg/dL suggests DIABETES MELLITUS per A.D.A. criteria. Neutrophils (Bld) [#/Vol] 4.9 10*3/uL 2.0-7.7 [facility] Neutrophils/100 WBC (Bld) 63.2 % 47-70 [facility] Potassium [Moles/Vol] 4.7 mmol/L 3.5-5.1 [facility] Comment on above: Slight Hemolysis, Re sult may be falsely increased. Protein [Mass/Vol] 7.4 g/dL 6.4-8.2 [facility] Sodium [Moles/Vol] 134 mmol/L 136-145 [facility] WBC (Bld) [#/Vol] 7.8 10*3/uL 4.4-11.0 [facility] Blood erythrocytes count (nu mber/volume)Ordered By: Toya Franco on 07-08-2022 RBC (Bld) [#/Vol] 4.66 10*6/uL 4.6-6.2 [facility] Blood hemoglobin measurement (mass/volume)Ordered By: Toya Franco on 07-08-2022 Hemoglobin (Bld) [Mass/Vol] 14.7 g/dL 13.0-16.5 [facility] Blood lymphocytes/100 leukoc ytesOrdered By: Toya Franco on 07-08-2022 Lymphocytes/100 WBC (Bld) 21.9 % 19-41 [facility] Blood monocytes/100 leukocyt esOrdered By: Toya Franco on 07-08-2022 Monocytes/100 WBC (Bld) 8.5 % 0-10 [facility] Blood platelet mean volumeOr dered By: Toya Franco on 07-08-2022 Platelet mean volume (Bld) [Entitic vol] 10.7 fL 6.2-12.0 [facility] Determination of erythrocyte mean corpuscular volume (MCV)Ordered By: Toya Franco on 07-08-2022 MCV (RBC) [Entitic vol] 98.7 fL 80-94 [facility] Hematocrit Auto (Bld) [Volum e fraction]Ordered By: Toya Franco on 07-08-2022 Hematocrit (Bld) [Volume fraction] 46.0 % 40-54 [facility] - Chemistry and C hemistry - challengeOrdered By: Toya Franco on 07-08-2022 ALP [Catalytic activity/Vol] 89 U/L 45-117 [facility] ALT [Catalytic activity/Vol] 51 U/L 16-61 [facility] CO2 [Moles/Vol] 26.0 mmol/L 21.0-32.0 [facility] Globulin (S) [Mass/Vol] 3.9 g/dL 2.2-4.2 [facility] Urea nitrogen/Creatinine [Mass ratio] 14.4 mg/mg 10-20 [facility] - Hematology and Cell countsOrdered By: Toya Franco on 07-08-2022 Erythrocyte distribution width (RBC) [Entitic vol] 46.4 fL 35.1-43.9 [facility] Erythrocyte distribution width (RBC) [Ratio] 12.9 % 11.6-14.6 [facility] Immature granulocytes/100 WBC (Bld) 0.300 % 0.0-0.9 [facility] Comment on above: IG% - Immature Granu locytes (promyelocytes, myelocytes and metamyelocytes) > 1% indicates that a LEFT SHIFT is Present. MCH (RBC) [Entitic mass] 31.5 pg 27.0-32.0 [facility] Nucleated RBC/100 WBC (Bld) [Ratio] 0 % 0-5 [facility] MCHC Auto (RBC) [Mass/Vol]Or dered By: Toya Franco on 07-08-2022 MCHC (RBC) [Mass/Vol] 32.0 g/dL 32-36 [facility] No Panel InformationOrdered By: Toya Franco on 07-08-2022 Estimated GFR (MDRD) Amer 90 mL/min >60 [facility] Comment on above: GFR Calc Estimated GFR (MDRD) Non-Af Amer 74 mL/min >60 [facility] Comment on above: Non- GFR Calc Platelets bldOrdered By: Alexandria Franco on 07-08-2022 Platelets (Bld) [#/Vol] 243 10*3/uL 150-450 [facility] Serum or plasma albumin jamie urement (mass/volume)Ordered By: Toya Franco on 07-08-2022 Albumin [Mass/Vol] 3.5 g/dL 3.2-5.0 [facility] Serum or plasma albumin/glob ulin mass ratioOrdered By: Toya Franco on 07-08-2022 Albumin/Globulin [Mass ratio] 0.9 {ratio} 0.9-2.4 [facility] Serum or plasma calcium jamie urement (mass/volume)Ordered By: Toya Franco on 07-08-2022 Calcium [Mass/Vol] 9.0 mg/dL 8.5-10.1 [facility] Serum or plasma creatinine m easurement (mass/volume)Ordered By: Toya Franco on 07-08-2022 Creatinine [Mass/Vol] 1.04 mg/dL 0.70-1.30 [facility] Comment on above: The validity of the calculated GFR & GFRAA in patients over 70 years has not been determined. Clinical correlation is essential. Serum or plasma urea nitroge n measurement (mass/volume)Ordered By: Toya Franco on 07-08-2022 Urea nitrogen [Mass/Vol] 15 mg/dL 7-18 [facility] Thin prep Papanicolaou smear with manual screeningOrdered By: Toya Franco on 07-08-2022 Thin prep Papanicolaou smear with manual screening 28 U/L 15-37 [facility] Comment on above: Slight Hemolysis, Re sult may be falsely increased. Thin prep Papanicolaou smear with manual screening 4 5-15 [facility] Basophil percentageOrdered B y: Dorita Lr on 06-03-2022 Bilirubin [Mass/Vol] 0.40 mg/dL 0.20-1.00 [facility] Comment on above: For patients on eltr ombopag therapy, use of [employer] TBIL is not recommended. Cholesterol [Mass/Vol] 216 mg/dL <200 [facility] Comment on above: <200 mg/dL Desirable 200-240 mg/dL Borderline >240 mg/dL High Risk Protein [Mass/Vol] 7.5 g/dL 6.4-8.2 [facility] Triglyceride [Mass/Vol] 233 mg/dL <199 [facility] Comment on above: The drugs N-Acetylcy steine and Metamizole may falsely depress this assay.Serum Triglycerides Reference Interval Normal <150 mg/dL Borderline high 150 - 199 mg/dL High 200 - 499 mg/dL Very High > or = 500 mg/dL Direct bilirubinOrdered By: Dorita Lr on 06-03-2022 Bilirubin.direct [Mass/Vol] 0.16 mg/dL 0.00-0.30 [facility] - Chemistry and C hemistry - challengeOrdered By: Dorita Lr on 06-03-2022 ALP [Catalytic activity/Vol] 94 U/L 45-117 [facility] ALT [Catalytic activity/Vol] 41 U/L 16-61 [facility] Globulin (S) [Mass/Vol] 4.0 g/dL 2.2-4.2 [facility] Serum or plasma albumin jamie urement (mass/volume)Ordered By: Dorita Lr on 06-03-2022 Albumin [Mass/Vol] 3.5 g/dL 3.2-5.0 [facility] Serum or plasma cholesterol in HDL measurement (mass/volume)Ordered By: Dorita Lr on 06-03-2022 Cholesterol in HDL [Mass/Vol] 36 mg/dL >40 [facility] Comment on above: The drugs N-Acetylcy steine and Metamizole may falsely depress this assay. Reference Range HDL <40 mg/dL Low HDL Cholesterol HDL >or= 60 mg/dL High HDL Cholesterol Serum or plasma cholesterol in VLDL measurement (mass/volume)Ordered By: Dorita Lr on 06-03-2022 Cholesterol in VLDL [Mass/Vol] 47 mg/dL 5-40 [facility] Serum or plasma low density lipoprotein (LDL) cholesterol measurement (mass/volume)Ordered By: Dorita Lr on 06-03-2022 Cholesterol in LDL [Mass/Vol] 133 mg/dL 0-130 [facility] Thin prep Papanicolaou smear with manual screeningOrdered By: Dorita Lr on 06-03-2022 Thin prep Papanicolaou smear with manual screening 22 U/L 15-37 [facility] Basophil percentageon 2021 Chloride [Moles/Vol] 103 mmol/L 98-107 [facility] Work Phone: Glucose [Mass/Vol] 105 mg/dL 74-106 [facility] Work Phone: Comment on above: Fasting Glucose resu lt from 100 to 125 mg/dL suggests IMPAIRED HOMEOSTASIS per A.D.A. criteria. Potassium [Moles/Vol] 3.6 mmol/L 3.5-5.1 [facility] Work Phone: Sodium [Moles/Vol] 138 mmol/L 136-145 [facility] Work Phone: Laboratory - Chemistry and C hemistry - challengeon 10-20-2021 CO2 [Moles/Vol] 30.0 mmol/L 21.0-32.0 [facility] Work Phone: Magnesium [Mass/Vol] 1.9 mg/dL 1.6-2.6 [facility] Work Phone: Urea nitrogen/Creatinine [Mass ratio] 17.6 mg/mg 10-20 [facility] Work Phone: No Panel Informationon 10-20 Estimated GFR (MDRD) Amer 73 mL/min >60 [facility] Work Phone: Comment on above: GFR Calc Estimated GFR (MDRD) Non-Af Amer 60 mL/min >60 [facility] Work Phone: Comment on above: Non- GFR Calc Thyroid Stimulating Hormone (TSH) 1.49 uIU/mL 0.358-3.74 [facility] Work Phone: Serum or plasma calcium jamie urement (mass/volume)on 10-20-2021 Calcium [Mass/Vol] 9.1 mg/dL 8.5-10.1 [facility] Work Phone: Serum or plasma creatinine m easurement (mass/volume)on 10-20-2021 Creatinine [Mass/Vol] 1.25 mg/dL 0.70-1.30 [facility] Work Phone: Comment on above: The validity of the calculated GFR & GFRAA in patients over 70 years has not been determined. Clinical correlation is essential. Serum or plasma urea nitroge n measurement (mass/volume)on 10-20-2021 Urea nitrogen [Mass/Vol] 22 mg/dL 7-18 [facility] Work Phone: Thin prep Papanicolaou smear with manual screeningon 10-20-2021 Thin prep Papanicolaou smear with manual screening 5 5-15 [facility] Work Phone: Basophil percentageon 2021 Bilirubin [Mass/Vol] 0.60 mg/dL 0.20-1.00 [facility] Work Phone: Comment on above: For patients on eltr ombopag therapy, use of [employer] TBIL is not recommended. Cholesterol [Mass/Vol] 242 mg/dL <200 [facility] Work Phone: Comment on above: <200 mg/dL Desirable 200-240 mg/dL Borderline >240 mg/dL High Risk Protein [Mass/Vol] 7.3 g/dL 6.4-8.2 [facility] Work Phone: [phone] Triglyceride [Mass/Vol] 168 mg/dL <199 [facility] Work Phone: [phone] Comment on above: The drugs N-Acetylcy steine and Metamizole may falsely depress this assay.Serum Triglycerides Reference Interval Normal <150 mg/dL Borderline high 150 - 199 mg/dL High 200 - 499 mg/dL Very High > or = 500 mg/dL Direct bilirubinon 2 Bilirubin.direct [Mass/Vol] 0.13 mg/dL 0.00-0.30 [facility] Work Phone: Laboratory - Chemistry and C hemistry - challengeon 10-12-2021 ALP [Catalytic activity/Vol] 71 U/L 45-117 [facility] Work Phone: ALT [Catalytic activity/Vol] 43 U/L 16-61 [facility] Work Phone: Globulin (S) [Mass/Vol] 4.0 g/dL 2.2-4.2 [facility] Work Phone: Serum or plasma albumin jamie urement (mass/volume)on 10-12-2021 Albumin [Mass/Vol] 3.3 g/dL 3.2-5.0 [facility] Work Phone: Serum or plasma cholesterol in HDL measurement (mass/volume)on 10-12-2021 Cholesterol in HDL [Mass/Vol] 34 mg/dL >40 [facility] Work Phone: Comment on above: The drugs N-Acetylcy steine and Metamizole may falsely depress this assay. Reference Range HDL <40 mg/dL Low HDL Cholesterol HDL >or= 60 mg/dL High HDL Cholesterol Serum or plasma cholesterol in VLDL measurement (mass/volume)on 10-12-2021 Cholesterol in VLDL [Mass/Vol] 34 mg/dL 5-40 [facility] Work Phone: Serum or plasma low density lipoprotein (LDL) cholesterol measurement (mass/volume)on 10-12-2021 Cholesterol in LDL [Mass/Vol] 174 mg/dL 0-130 [facility] Work Phone: Thin prep Papanicolaou smear with manual screeningon 10-12-2021 Thin prep Papanicolaou smear with manual screening 29 U/L 15-37 [facility] Work Phone: Vital Signs Date Time Vital Sign Value Performing Clinician Maria Eugenia campos 12-27-2024 12:56-0400 Body height 177.8 cm Nash Morales MD Work Phone: [facility] 12-27-2024 12:56-0400 Body mass index (BMI) [Ratio] 37 kg/m2 Nash Morales MD Work Phone: [facility] 12-27-2024 12:56-0400 Body weight 117.02 kg Nash Morales MD Work Phone: [facility] 12-27-2024 12:56-0400 Diastolic blood pressure 68 mm[Hg] Nash Morales MD Work Phone: [facility] 12-27-2024 12:56-0400 Heart rate 71 /min Nash Morales MD Work Phone: [facility] 12-27-2024 12:56-0400 Respiratory rate 20 /min Nash Morales MD Work Phone: [facility] 12-27-2024 12:56-0400 SaO2% (BldA) [Mass fraction] 97 % Nash Morales MD Work Phone: [facility] 12-27-2024 12:56-0400 Systolic blood pressure 136 mm[Hg] Nash Morales MD Work Phone: [facility] 12-20-2024 09:14-0400 Diastolic blood pressure 59 mm[Hg] Nash Morales MD Work Phone: [facility] 12-20-2024 09:14-0400 Heart rate 59 /min Nash Morales MD Work Phone: [facility] 12-20-2024 09:14-0400 Systolic blood pressure 126 mm[Hg] Nash Morales MD Work Phone: [facility] 12-20-2024 08:23-0400 Body temperature 98 [degF] Nash Morales MD Work Phone: [facility] 12-20-2024 08:23-0400 Respiratory rate 16 /min Nash Morales MD Work Phone: [facility] 12-20-2024 08:23-0400 SaO2% (BldA) [Mass fraction] 100 % Nash Morales MD Work Phone: [facility] 12-20-2024 03:10-0400 Body mass index (BMI) [Ratio] 37.9 kg/m2 Nash Morales MD Work Phone: [facility] 12-20-2024 03:10-0400 Body weight 120 kg Nash Morales MD Work Phone: 2(831)340-630578 [place] [address] 12-19-2024 14:25-0400 Body temperature 97.8 [degF] Nahs Morales MD Work Phone: 9(840)883-794879 [address] 12-19-2024 14:25-0400 Diastolic blood pressure 51 mm[Hg] Nash Morales MD Work Phone: 3(190)323-453378 [place] [address] 12-19-2024 14:25-0400 Heart rate 56 /min Nash Morales MD Work Phone: 1(929)307-198178 [place] [address] 12-19-2024 14:25-0400 Respiratory rate 17 /min Nash Morales MD Work Phone: 5(787)905-858378 [place] [address] 12-19-2024 14:25-0400 SaO2% (BldA) [Mass fraction] 99 % Nash Morales MD Work Phone: 8(177)530-081978 [place] [address] 12-19-2024 14:25-0400 Systolic blood pressure 124 mm[Hg] Nash Morales MD Work Phone: 6(025)924-893678 [place] [address] 12-19-2024 05:05-0400 Inhaled oxygen flow rate 2 L/min Nash Morales MD Work Phone: 5(887)636-207478 [place] [address] 12-19-2024 02:48-0400 Body mass index (BMI) [Ratio] 38 kg/m2 Nash Morales MD Work Phone: 2(543)527-485978 [place] [address] 12-19-2024 02:48-0400 Body weight 120.1 kg Nash Morales MD Work Phone: 7(694)494-361778 [place] [address] 12-18-2024 21:02-0400 Body height 177.8 cm Nash Morales MD Work Phone: 5(976)[phone] [place] [address] 08-30-2024 14:37-0400 Body height 177.8 cm Nash Morales MD Work Phone: [facility] 08-30-2024 14:37-0400 Body mass index (BMI) [Ratio] 36.7 kg/m2 Nash Morales MD Work Phone: [facility] 08-30-2024 14:37-0400 Body weight 116.11 kg Nash Morales MD Work Phone: [facility] 08-30-2024 14:37-0400 Diastolic blood pressure 70 mm[Hg] Nash Morales MD Work Phone: [facility] 08-30-2024 14:37-0400 Heart rate 68 /min Nash Morales MD Work Phone: [facility] 08-30-2024 14:37-0400 Respiratory rate 18 /min Nash Morales MD Work Phone: [facility] 08-30-2024 14:37-0400 Systolic blood pressure 110 mm[Hg] Nash Morales MD Work Phone: [facility] 05-28-2024 08:48-0400 Body mass index (BMI) [Ratio] 39.2 kg/m2 Nash Morales MD Work Phone: [facility] 05-28-2024 08:48-0400 Body temperature 97.6 [degF] Nash Morales MD Work Phone: [facility] 05-28-2024 08:48-0400 Body weight 123.83 kg Nash Morales MD Work Phone: [facility] 05-28-2024 08:48-0400 Diastolic blood pressure 57 mm[Hg] Nash Morales MD Work Phone: [facility] 05-28-2024 08:48-0400 Heart rate 73 /min Nash Morales MD Work Phone: [facility] 05-28-2024 08:48-0400 Respiratory rate 18 /min Nash Morales MD Work Phone: [facility] 05-28-2024 08:48-0400 SaO2% (BldA) [Mass fraction] 96 % Nash Morales MD Work Phone: [facility] 05-28-2024 08:48-0400 Systolic blood pressure 131 mm[Hg] Nash Morales MD Work Phone: [facility] 07-26-2023 07:57-0400 Body height 177.8 cm DO Toya Joan Work Phone: [facility] 07-26-2023 07:57-0400 Body mass index (BMI) [Ratio] 38.9 kg/m2 DO Toya Joan Work Phone: [facility] 07-26-2023 07:57-0400 Body temperature 98.4 [degF] DO Toya Joan Work Phone: [facility] 07-26-2023 07:57-0400 Body weight 122.92 kg DO Toya Joan Work Phone: [facility] 07-26-2023 07:57-0400 Diastolic blood pressure 71 mm[Hg] DO Toya Joan Work Phone: [facility] 07-26-2023 07:57-0400 Heart rate 74 /min DO Toya Joan Work Phone: [facility] 07-26-2023 07:57-0400 Respiratory rate 24 /min DO Toya Joan Work Phone: [facility] 07-26-2023 07:57-0400 SaO2% (BldA) [Mass fraction] 96 % DO Otya Joan Work Phone: [facility] 07-26-2023 07:57-0400 Systolic blood pressure 156 mm[Hg] DO Toya Joan Work Phone: [facility] 06-01-2023 14:17-0400 Body height 177.8 cm DO Toya Joan Work Phone: [facility] 06-01-2023 14:17-0400 Body mass index (BMI) [Ratio] 38.5 kg/m2 DO Toya Joan Work Phone: [facility] 06-01-2023 14:17-0400 Body weight 121.61 kg DO Toya Joan Work Phone: [facility] 02-23-2023 13:04-0500 Body height 177.8 cm DO Toya Joan Work Phone: [facility] 02-23-2023 13:04-0500 Body mass index (BMI) [Ratio] 38.1 kg/m2 DO Toya Joan Work Phone: [facility] 02-23-2023 13:04-0500 Body weight 120.65 kg DO Toyamillicent Maliknger Work Phone: [facility] 02-23-2023 13:04-0500 Diastolic blood pressure 72 mm[Hg] DO Toyamillicent Maliknger Work Phone: [facility] 02-23-2023 13:04-0500 Heart rate 69 /min DO Toyamillicent Maliknger Work Phone: [facility] 02-23-2023 13:04-0500 Respiratory rate 20 /min DO Toyamillicent Maliknger Work Phone: [facility] 02-23-2023 13:04-0500 SaO2% (BldA) [Mass fraction] 98 % DO Toya Joan Work Phone: [facility] 02-23-2023 13:04-0500 Systolic blood pressure 147 mm[Hg] DO Toya Joan Work Phone: [facility] 09-06-2022 17:32-0400 Body height 177.8 cm DO Toya Joan Work Phone: [facility] 09-06-2022 17:32-0400 Body mass index (BMI) [Ratio] 39.4 kg/m2 DO Toya Joan Work Phone: [facility] 09-06-2022 17:32-0400 Body temperature 97.8 [degF] DO Toya Joan Work Phone: [facility] 09-06-2022 17:32-0400 Body weight 124.73 kg DO Toya Joan Work Phone: [facility] 09-06-2022 17:32-0400 Diastolic blood pressure 78 mm[Hg] DO Toya Joan Work Phone: [facility] 09-06-2022 17:32-0400 Heart rate 75 /min DO Toya Joan Work Phone: [facility] 09-06-2022 17:32-0400 Respiratory rate 17 /min DO Toya Joan Work Phone: [facility] 09-06-2022 17:32-0400 SaO2% (BldA) [Mass fraction] 99 % DO Toya Joan Work Phone: [facility] 09-06-2022 17:32-0400 Systolic blood pressure 125 mm[Hg] DO Toya Joan Work Phone: [facility] 07-27-2022 13:31-0400 Body height 177.8 cm DO Toya Joan Work Phone: [facility] 07-27-2022 13:31-0400 Body mass index (BMI) [Ratio] 40.1 kg/m2 DO Toya Joan Work Phone: [facility] 07-27-2022 13:31-0400 Body temperature 97.8 [degF] DO Toya Joan Work Phone: [facility] 07-27-2022 13:31-0400 Body weight 127 kg DO Toya Joan Work Phone: [facility] 07-27-2022 13:31-0400 Diastolic blood pressure 79 mm[Hg] DO Toya Joan Work Phone: [facility] 07-27-2022 13:31-0400 Heart rate 78 /min DO Toya Joan Work Phone: [facility] 07-27-2022 13:31-0400 Respiratory rate 20 /min DO Toya Joan Work Phone: [facility] 07-27-2022 13:31-0400 SaO2% (BldA) [Mass fraction] 97 % DO Toya Joan Work Phone: [facility] 07-27-2022 13:31-0400 Systolic blood pressure 127 mm[Hg] DO Toya Joan Work Phone: [facility] 05-25-2022 13:00-0500 Body height 177.8 cm DO Toya Joan Work Phone: [facility] 05-25-2022 13:00-0500 Body mass index (BMI) [Ratio] 39.7 kg/m2 DO Toya Joan Work Phone: [facility] 05-25-2022 13:00-0500 Body weight 125.64 kg DO Toya Joan Work Phone: [facility] 05-25-2022 13:00-0500 Diastolic blood pressure 72 mm[Hg] DO Toya Joan Work Phone: [facility] 05-25-2022 13:00-0500 Heart rate 75 /min DO Toya Joan Work Phone: [facility] 05-25-2022 13:00-0500 Respiratory rate 18 /min DO Toya Joan Work Phone: [facility] 05-25-2022 13:00-0500 SaO2% (BldA) [Mass fraction] 100 % DO Toya Joan Work Phone: [facility] 05-25-2022 13:00-0500 Systolic blood pressure 135 mm[Hg] DO Toya Joan Work Phone: [facility] 11-05-2021 11:03-0400 Body height 177.[address] Adrian Beach Work Phone: [facility] Work Phone: 11-05-2021 11:03-0400 Body mass index (BMI) [Ratio] 40.4 kg/m2 Dr. Adrian Beach Work Phone: [facility] Work Phone: 11-05-2021 11:03-0400 Body temperature 98.7 [degF] Dr. Adrian Beach Work Phone: [facility] Work Phone: 11-05-2021 11:03-0400 Body weight 127.[address] Adrian Beach Work Phone: [facility] Work Phone: 11-05-2021 11:03-0400 Diastolic blood pressure 63 mm[Hg] Dr. dArian Beach Work Phone: [facility] Work Phone: 11-05-2021 11:03-0400 Heart rate 65 /min Dr. Adrian Beach Work Phone: [facility] Work Phone: 11-05-2021 11:03-0400 Respiratory rate 19 /min Dr. Adrian Beach Work Phone: [facility] Work Phone: 11-05-2021 11:03-0400 SaO2% (BldA) [Mass fraction] 95 % Dr. Adrian Beach Work Phone: [facility] Work Phone: 11-05-2021 11:03-0400 Systolic blood pressure 123 mm[Hg] Dr. Adrian Beach Work Phone: [facility] Work Phone: 10-20-2021 13:53-0400 Body height 177.[address] Adrian Beach Work Phone: [facility] Work Phone: 10-20-2021 13:53-0400 Body mass index (BMI) [Ratio] 40.4 kg/m2 Dr. Adrian Beach Work Phone: [facility] Work Phone: 10-20-2021 13:53-0400 Body weight 127.[address] Adrian Beach Work Phone: [facility] Work Phone: 10-20-2021 13:53-0400 Diastolic blood pressure 76 mm[Hg] Dr. Adrian Beach Work Phone: [facility] Work Phone: 10-20-2021 13:53-0400 Heart rate 66 /min Dr. Adrian Beach Work Phone: [facility] Work Phone: 10-20-2021 13:53-0400 Respiratory rate 16 /min Dr. Adrian Beach Work Phone: [facility] Work Phone: 10-20-2021 13:53-0400 SaO2% (BldA) [Mass fraction] 97 % Dr. Adrian Beach Work Phone: [facility] Work Phone: 10-20-2021 13:53-0400 Systolic blood pressure 127 mm[Hg] Dr. Adrian Beach Work Phone: [facility] Work Phone: 2021 13:17-0400 Body height 177.[address] Adrian Beach Work Phone: [facility] Work Phone: 2021 13:17-0400 Body mass index (BMI) [Ratio] 41.2 kg/m2 Dr. Adrian Beach Work Phone: [facility] Work Phone: 2021 13:17-0400 Body temperature 97.3 [degF] Dr. Adrian Beach Work Phone: [facility] Work Phone: 2021 13:17-0400 Body weight 130.[address] Adrian Beach Work Phone: [facility] Work Phone: 2021 13:17-0400 Diastolic blood pressure 69 mm[Hg] Dr. Adrian Beach Work Phone: [facility] Work Phone: 2021 13:17-0400 Heart rate 65 /min Dr. Adrian Beach Work Phone: [facility] Work Phone: 2021 13:17-0400 Respiratory rate 16 /min Dr. Adrian Beach Work Phone: [facility] Work Phone: 2021 13:17-0400 SaO2% (BldA) [Mass fraction] 96 % Dr. Adrian Beach Work Phone: [facility] Work Phone: 2021 13:17-0400 Systolic blood pressure 138 mm[Hg] Dr. dArian Beach Work Phone: [facility] Work Phone: Encounters Encounter Date Encounter Type Care Provider Facility Start: 12-27-2024 End: 12-27-2024 Patient encounter procedure Dorita FRIEND -[facility] Work Phone: Start: 12-27-2024 End: 12-27-2024 ambulatory [facility] Start: 12-20-2024 Non-patient / Non-visit Dr. Rei Martinez MD -[facility] Start: 12-20-2024 Non-patient / Non-visit Dr. Soheila Hodge MD -[facility] Work Phone: Start: 12-19-2024 ambulatory Soheila Hodge Facility :[facility] Start: 12-19-2024 End: 12-20-2024 Evaluation and management of inpatient Dr. Christian Solano MD -[facility] Work Phone: Start: 12-19-2024 Non-patient / Non-visit Dr. Christian velasco MD -[facility] Work Phone: Start: 12-19-2024 ambulatory Chalon Andrew Facility:[facility] Start: 12-19-2024 Non-patient / Non-visit [facility] Acevedo [facility] Start: 12-18-2024 ambulatory Soheila Baker Ayesha Facility :[facility] Start: 12-18-2024 Non-patient / Non-visit Dr. Soheila Hodge MD -[facility] Work Phone: Start: 12-03-2024 ambulatory Chalon Andrew Facility:[facility] Start: 08-30-2024 End: 08-30-2024 Patient encounter procedure Dorita FRIEND -[facility] Work Phone: Start: 08-30-2024 End: 08-30-2024 ambulatory Nash Morales MD Work Phone: [facility] Work Phone: Start: 05-28-2024 End: 05-28-2024 Patient encounter procedure Bessie RODRIGUEZ -[facility] Work Phone: Start: 05-28-2024 End: 05-28-2024 ambulatory Chalon Andrew Facility:[facility] Start: 02-24-2024 End: 02-24-2024 ambulatory Chalon Andrew Facility:[facility] Start: 02-01-2024 End: 02-01-2024 ambulatory Chalon Andrew Facility:[facility] Start: 07-26-2023 End: 07-26-2023 Patient encounter procedure DO Toya Franco Work Phone: [facility] Work Phone: Start: 07-20-2023 End: 07-20-2023 ambulatory DO Toya Franco Work Phone: [facility] Work Phone: Start: 07-20-2023 End: 07-20-2023 Patient encounter procedure DO Toya Franco Work Phone: [facility] [place] Work Phone: Start: 07-13-2023 End: 07-13-2023 ambulatory DO Toya Maliknger Work Phone: [facility] Work Phone: Start: 07-13-2023 End: 07-13-2023 Patient encounter procedure DO Toya Maliknger Work Phone: [facility] Work Phone: Start: 06-01-2023 End: 06-01-2023 Patient encounter procedure DO Toya Maliknger Work Phone: [facility] Work Phone: Start: 05-20-2023 End: 05-20-2023 ambulatory DO Toya Maliknger Work Phone: [facility] Work Phone: Start: 05-20-2023 End: 05-20-2023 Patient encounter procedure DO Toya Maliknger Work Phone: [facility] Work Phone: Start: 02-23-2023 End: 02-23-2023 Patient encounter procedure DO Toya Franco Work Phone: [facility] Work Phone: Start: 02-15-2023 End: 02-15-2023 ambulatory [facility] Work Phone: Start: 02-15-2023 End: 02-15-2023 Patient [address] [facility] Work Phone: Start: 11-10-2022 End: 11-10-2022 ambulatory DO Toya Franco Work Phone: [facility] Work Phone: Start: 11-10-2022 End: 11-10-2022 Patient encounter procedure DO Toya Franco Work Phone: [facility]-Outpatient Breast Imaging Work Phone: Start: 09-06-2022 End: 09-06-2022 Emergency department patient visit DO Toya Franco Work Phone: [facility]-Emergency Department Work Phone: Start: 08-19-2022 End: 08-19-2022 Non-patient / Non-visit DO Toya Franco Work Phone: [facility] Work Phone: Start: 08-19-2022 End: 08-19-2022 ambulatory DO Toya Franco Work Phone: [facility] Work Phone: Start: 08-19-2022 End: 08-19-2022 Patient encounter procedure DO Toya Franco Work Phone: [facility] Start: 07-27-2022 End: 07-27-2022 Patient encounter procedure DO Toya Franco Work Phone: [facility]-Pulmonary Medicine [facility] Start: 07-16-2022 End: 07-16-2022 ambulatory DO Toya Franco Work Phone: [facility] Work Phone: Start: 07-16-2022 End: 07-16-2022 Patient encounter procedure DO Toya Franco Work Phone: [facility] Start: 07-08-2022 End: 07-08-2022 ambulatory DO Toya Franco Work Phone: [facility] Work Phone: Start: 07-08-2022 End: 07-08-2022 Patient encounter procedure DO Toya Franco Work Phone: [facility] Start: 06-03-2022 End: 06-03-2022 ambulatory DO Toya Franco Work Phone: [facility] Work Phone: Start: 06-03-2022 End: 06-03-2022 Patient encounter procedure [facility] Start: 05-25-2022 End: 05-25-2022 Patient encounter procedure DO Toya Franco Work Phone: [facility] Start: 12-14-2021 Non-patient / Non-visit Dr. Jo Ann Beach Work Phone: [facility] Start: 12-14-2021 End: 12-14-[address] Adrian Beach Work Phone: [facility] Work Phone: Start: 12-14-2021 End: 12-14-[address] Adrian Beach [facility] Start: 11-05-2021 End: 11-05-[address] Adrian Beach [facility] Start: 10-20-2021 End: 10-20-[address] Adrian Beach Work Phone: [facility] Start: 10-16-2021 Non-patient / Non-visit Dr. Jo Ann Beach Work Phone: [facility] Start: 10-15-2021 End: 10-15-[address] Adrian Beach Work Phone: [facility]-Pulmonary Services/Neurology Start: 10-12-2021 End: 10-12-[address] Adrian Beach Work Phone: [facility] Start: 2021 End: [address] Adrian Beach Work Phone: [facility] [place] Procedures Date Procedure Procedure Detail Performing Clinician Start: 12-20-2024 Estimated creatinine clearance Nash Morales MD Work Phone: Start: 12-20-2024 Serum inorganic phos phate measurement Nash Morales MD Work Phone: Start: 12-19-2024 History of placement of stent for coronary artery disease History of coronary artery stent placement Dorita FRIEND Comment on above: PCI-RUPA proximal RCA w/ 3.5 x 16 Promus Synergy 02/10/18; [place] 3.0 X 12 mm RUPA to mid LAD 12/19/2024 Start: 12-19-2024 Estimated creatinine clearance Nash Morales MD Work Phone: Start: 12-18-2024 Plain chest X-ray Chano Morales MD Work Phone: Start: 05-20-2023 Plain x-ray of hand DO Toya Franco Work Phone: Start: 11-10-2022 Ultrasonography of breast DO Toya Franco Work Phone: Start: 11-10-2022 Bilateral mammography D O Toya Maliknger Work Phone: Start: 08-19-2022 MRI of lower [...] of Treatment Date Care Activity Detail Author Start: 02-26-2025 Hepatic function panel [facility] Start: 12-22-2024 Electrocardiographic procedure [facility] Start: 12-21-2024 Electrocardiographic procedure [facility] Start: 12-20-2024 Patient discharge [facility] Start: 12-20-2024 [facility] Start: 12-20-2024 End: 12-20-2024 Electrocardiographic procedure [facility] Start: 12-20-2024 Complete blood count [facility] Start: 12-20-2024 Serum inorganic phosphate measurement [facility] Start: 12-19-2024 Following clinical pathway protocol [facility] Start: 12-19-2024 Admission procedure [facility] Start: 12-19-2024 Ambulation without limitation [facility] Start: 12-19-2024 Dietary regime [facility] Start: 12-19-2024 End: 12-19-2024 Notification of physician [facility] Start: 12-19-2024 Patient education [facility] Start: 12-19-2024 End: 12-19-2024 [facility] Start: 12-19-2024 Cardiac monitoring [facility] Start: 12-19-2024 Cardiac rehabilitation - phase 1 [facility] Start: 12-19-2024 Cardiac rehabilitation - phase 2 [facility] Start: 12-19-2024 Patient discharge [facility] Start: 12-19-2024 Pulse taking [facility] Start: 12-19-2024 Catheterization of vein [place] Start: 12-19-2024 Notification of physician [facility] Start: 12-19-2024 Preoperative care [facility] Start: 12-19-2024 [facility] Start: 12-18-2024 Following clinical pathway protocol [facility] Start: 12-18-2024 Assessment of risk of venous thromboembolism [facility] Start: 12-18-2024 Inhalation therapy procedure [facility] Start: 12-18-2024 Insertion of catheter into peripheral vein [facility] Start: 12-18-2024 Introduction of urinary catheter [facility] Start: 12-18-2024 Measuring intake and output [facility] Start: 12-18-2024 Oxygen therapy [facility] Start: 12-18-2024 Providing care according to standard [facility] Start: 12-18-2024 Provision of activity privileges [facility] Start: 12-18-2024 Referral to security control room officer [facility] Start: 12-18-2024 Referral to service [facility] Start: 12-18-2024 Tobacco use cessation education [facility] Start: 12-18-2024 [facility] Start: 12-18-2024 Verification routine [facility] Start: 12-18-2024 Admission procedure [facility] Start: 12-18-2024 [facility] Alanine aminotransfe rase [Enzymatic activity/volume] in Serum or Plasma [facility] Albumin [Mass/volume ] in Serum or Plasma [facility] Alkaline phosphatase [Enzymatic activity/volume] in Serum or Plasma [facility] Anion gap in Serum or Plasma [facility] Anion gap in Serum or Plasma [facility] Anion gap in Serum or Plasma [facility] Bilirubin, total measurement [facility] BUN/Creatinine ratio [facility] BUN/Creatinine ratio [facility] BUN/Creatinine ratio [facility] Calcium [Mass/volume ] in Serum or Plasma [facility] Calcium [Mass/volume ] in Serum or Plasma [facility] Calcium [Mass/volume ] in Serum or Plasma [facility] Carbon dioxide, tota l [Moles/volume] in Central venous blood [facility] Carbon dioxide, tota l [Moles/volume] in Central venous blood [facility] Carbon dioxide, tota l [Moles/volume] in Central venous blood [facility] Creatinine [Mass/vol ume] in Serum or Plasma [facility] Creatinine [Mass/vol ume] in Serum or Plasma [facility] Creatinine [Mass/vol ume] in Serum or Plasma [facility] Erythrocyte mean cor puscular volume determination [facility] Erythrocyte mean cor puscular volume determination [facility] Erythrocyte mean cor puscular volume determination [facility] Glucose [Mass/volume ] in Serum or Plasma [facility] Glucose [Mass/volume ] in Serum or Plasma [facility] Glucose [Mass/volume ] in Serum or Plasma [facility] Hematocrit [Volume F raction] of Blood [facility] Hematocrit [Volume F raction] of Blood [facility] Hematocrit [Volume F raction] of Blood [facility] Hemoglobin [Mass/vol ume] in Blood [facility] Hemoglobin [Mass/vol ume] in Blood [facility] Hemoglobin [Mass/vol ume] in Blood [facility] Leukocytes [#/volume] in Blood [facility] Leukocytes [#/volume] in Blood [facility] Leukocytes [#/volume] in Blood [facility] Lipid 1996 panel - S ludin or Plasma [facility] Magnesium measurement [facility] Mean corpuscular hem oglobin concentration determination [facility] Mean corpuscular hem oglobin concentration determination [facility] Mean corpuscular hem oglobin concentration determination [facility] Mean corpuscular hem oglobin determination [facility] Mean corpuscular hem oglobin determination [facility] Mean corpuscular hem oglobin determination [facility] Measurement of renal function [facility] Measurement of renal function [facility] Measurement of renal function [facility] Measurement of respi ratory function [facility] Work Phone: Neutrophil count [facility] Neutrophil count [facility] Neutrophil count [facility] Neutrophil percent d ifferential count [facility] Neutrophil percent d ifferential count [facility] Neutrophil percent d ifferential count [facility] NM Heart Views W str ess and W radionuclide IV [facility] Work Phone: Patient Education ED Post Op Wou nd Check, Pain [facility] Work Phone: Patient referral [facility] Work Phone: Platelets [#/volume] in Blood [facility] Platelets [#/volume] in Blood [facility] Platelets [#/volume] in Blood [facility] Potassium measurement [facility] Potassium measurement [facility] Potassium measurement [facility] Red blood cell count [facility] Red blood cell count [facility] Red blood cell count [facility] Red cell distributio n width determination [facility] Red cell distributio n width determination [facility] Red cell distributio n width determination [facility] Serum chloride measurement [facility] Serum chloride measurement [facility] Serum chloride measurement [facility] Sodium measurement [facility] Sodium measurement [facility] Sodium measurement [facility] Total protein measurement [facility] Urea nitrogen [Mass/ volume] in Serum or Plasma [facility] Urea nitrogen [Mass/ volume] in Serum or Plasma [facility] Urea nitrogen [Mass/ volume] in Serum or Plasma [facility] US [facility] Work Phone: [facility] Payers Date Payer Category Payer Self-pay [id number] 2023 Medicare [id number] 2012 Unknown [id number] Medicare [id number] Unknown [id number] 2.16.8 [id number] Unknown [id number] 2.16.8 [id number] Unknown [id number] 2.16.8 [id number] Unknown [id number] 2.16.8 [id number] Unknown [id number] 2.16.8 [id number] Unknown [id number] 2.16.8 [id number] Unknown [id number] 2.16.8 [id number] Unknown [id number] 2.16.8 [id number] Unknown [id number] 2.16.8 [id number] Unknown [id number] 2.16.8 [id number] Unknown [id number] 2.16.8 [id number] Unknown [id number] 2.16.8 [id number] Social History Date Type Detail Facility Start: 2021 End: 06-01-2023 Tobacco smoking status NHIS Unknown if ever smoked [facility] Start: 1950 Sex Assigned At Male [facility] Start: 12-01-2023 End: 12-19-2024 Tobacco smoking status NHIS Ex-smoker (finding) [facility] Sex Male [facility] Medical Equipment Procedure Code Equipment Code Equipment Origin al Text Equipment Identifier Dates Drug-eluting coronary artery stent, [id number] lymer-coated ()[id number] FDA Start: 12-19-2024 Drug-eluting coronary artery stent, [id number] lymer-coated ()[id number] FDA Start: 12-19-2024 Goals Date Patient Goal Desired Activity /State Functional Status Date Assessment Result Facility 12-20-2024 Functional status [facility] Work Phone: 12-19-2024 Functional status [facility] Work Phone: Mental Status Date Assessment Result Facility 12-20-2024 Cognitive function Voice/Name [facility] Work Phone: 12-19-2024 Cognitive function Voice/Name [facility] Work Phone: Clinical Notes 02-10-2018 to 12-27-2024 Note Date & Type Note Facility 12-27-2024 Progress note [facility] 12-20-2024 Discharge summary Note Date/Time December 20, 2024 12:21pm [facility] Medical Records Department [address] [place] [address] Discharge Summary 12/20/24 1212 MR#: [id number] Acct: [id number] Name: SANJEEV FARMER Rep #:[id number] : 1950 74 From: Christian Solano MD PCP: Dr. Nash Morales MD Status:ADM IN Location: [place] [id number] Providers Date of Admission: 12/19/24 Primary Care Physician: Nash Morales MD Consultations 12/18/24 21:02 Consult: Cardiology Routine Consulting Provider: Bowen Story Reason for Consult: Chest Pain, ACS EMERGENT Consult: No MD Notified: Yes Date Notified: 12/18/24 Time Notified: 20:22 Method of Notification: Text Reason For Visit: CHEST PAIN/ACS Diagnosis Discharge Diagnosis (1) ACS (acute coronary syndrome): Status: Acute Code(s): I24.9 - Acute ischemic heart disease, unspecified (2) Essential (primary) hypertension: Status: Chronic Code(s): I10 - Essential (primary) hypertension (3) Hyperlipidemia: Status: Chronic Code(s): E78.5 - Hyperlipidemia, unspecified Qualifiers: Hyperlipidemia type: pure hypercholesterolemia Qualified Code(s): E78.00 - Pure hypercholesterolemia, unspecified (4) Sleep apnea with use of continuous positive airway pressure (CPAP): Status: Chronic Code(s): G47.30 - Sleep apnea, unspecified (5) Aortic valve stenosis: Status: Acute Code(s): I35.0 - Nonrheumatic aortic (valve) stenosis Qualifiers: Cardiac valve disease etiology: nonrheumatic Qualified Code(s): I35.0 -Nonrheumatic aortic (valve) stenosis Plan Patient is a 74-year-old gentleman with significant past medical history including CAD with previous PCI to an RCA lesion who presented with chest pain and was found to have elevated troponin consistent with acute non-STEMI. Treatment initiated per protocol consultation placed to cardiology 1. Acute non-STEMI ? Patient presented with chest pain with rise in his troponin. Consult placed to cardiology patient underwent left heart catheterization with PCI with RUPA to the LAD with plano balloon angioplasty of the origin of the diagonal 2. Subsequently started on guideline directed medical therapy 2. Coronary artery disease ? With previous PCI to an RCA lesion 3. Hypertension ? Blood pressure controlled, home medications continued with dose adjustment as needed 4. Obstructive sleep apnea ? Consistent use of PAP therapy encouraged 5. Class II obesity with a BMI of 38.0 ? Complicating care weight loss advised 6.Hyperglycemia ? Patient noted known diabetic glucose on admission was 150 hemoglobin A1c subsequently ordered came back at 6.2 7. Intertrigo ? Involving the axilla nystatin powder ordered 8. Dyslipidemia ? Patient apparently intolerant to statin therapy plan is for patient to follow-up with cardiology as outpatient to be be considered for PCSK9 inhibitor in the office 9.. DVT prophylaxis ? heparin Time spent in the patient's overall evaluation,decision-making process, review of diagnostic data, adjustment of management, discussion with other providers, nursing nursing and ancillary staff involved in patient's care documentation, 35 Minutes Medications at Discharge Home Medications aspirin 81 mg tablet,delayed release 81 mg PO DAILY #90 tabs 11/11/22 albuterol sulfate 90 mcg/actuation aerosol inhaler 2 puff inhalation Q4H PRN shortness of breath or wheezing #8.5 grams 06/26/24 losartan 100 mg tablet 100 mg PO DAILY #90 tabs 08/30/24 metoprolol tartrate 50 mg tablet 50 mg PO BID #180 tabs 08/30/24 furosemide 40 mg tablet 40 mg PO DAILY PRN swelling or weight gain #30 tabs 10/08/24 ticagrelor 90 mg tablet (Brilinta) 90 mg PO BID #180 tabs 12/20/24 Physical Exam Narrative GENERAL: cooperative HEENT: Atraumatic; normocephalic EYES; Anicteric, Normal Conjunctiva NECK; supple, normal thyroid, RESPIRATORY: Diminished to auscultation CARDIOVASCULAR: Regular S1 S2, GI: soft, normoactive bowel sounds, : No Renal angle tenderness; EXTREMITIES: No edema, no clubbing, MUSCULOSKELETAL: no muscle wasting NEURO: Awake; no lateralizing signs. SKIN: No Rash PSYCH; Flat affect Weight / BMI Weight Weight: 120 kg Body Mass Index (BMI) 37.9 ABG / Lab / Microbiology Data 12/20/24 05:36 12/20/24 05:36 Laboratory: Laboratory Results - last 24 hr 12/20/24 05:36: WBC 6.9, RBC 4.35 L, Hgb 13.8, Hct 40.3, MCV 92.6, MCH 31.7, MCHC 34.2, RDW Std Deviation 42.9, RDW Coeff of Daphnie 12.7, Plt Count 198, MPV 10.1, Immature Gran % (Auto) 0.300, Neut % (Auto) 64.8, Lymph % (Auto) 18.8 L, [place] % (Auto) 10.3 H, Eos % (Auto) 4.9, Baso % (Auto) 0.9, Absolute Neuts (auto) 4.5, Absolute Lymphs (auto) 1.30, Nucleated RBC % 0, Sodium 137, Potassium 4.3, Chloride 104, Carbon Dioxide 22.3, Anion Gap 11, BUN 11, Creatinine 1.14, Estim Creat Clear Calc 71.58, Est GFR (MDRD) Non-Af 67, BUN/Creatinine Ratio 9.5 L, Glucose 125 H, Calcium 8.7, Phosphorus 2.9, Magnesium 2.2, Total Bilirubin 0.50, AST 15, ALT 13, Alkaline Phosphatase 92, Total Protein 6.2, Albumin 3.6, Globulin 2.6, Albumin/Globulin Ratio 1.4 D/C Instructions Discharge Activity: Return to Normal Activity Call your doctor if you observe: Fever of 101 or Higher, Shortness of breath, Fainting spells and Chest pain DC O2, CPAP, BIPAP Needs Home O2 Discharge instructions: No Meaningful Use Info Meaningful Use Meaningful Use Diagnoses (Choose all that apply): AMI AMI/Post PCI/Angioplasty Aspirin given w/in 24hrs of arrival?: Yes ASA at discharge?: Yes Antiplatelet Therapy at Discharge:: Yes Statins at discharge?: No Reason statins not ordered:: Allergy Cristhian/ARB at discharge?: Yes Beta Jose G at discharge?: Yes Done w/ Acute VA measure.: Yes Documented LVEF (%): 60 Discharge Plan Admission Admit Date/Time: 12/19/24 15:51 Attending Provider: Christian Solano Primary Care Provider: Nash Morales Consulting Providers: Bowen Story; Soheila Hodge Discharge Orders/Prescriptions Prescriptions: New ticagrelor [Brilinta] 90 mg tablet 90 mg PO BID Qty: 180 1RF Continued metoprolol tartrate 50 mg tablet 50 mg PO BID Qty: 180 3RF losartan 100 mg tablet 100 mg PO DAILY Qty: 90 3RF aspirin 81 mg tablet,delayed release (DR/EC) 81 mg PO DAILY Qty: 90 5RF albuterol sulfate 90 mcg/actuation HFA aerosol inhaler 2 puff inhalation Q4H PRN (Reason: shortness of breath or wheezing) Qty: 8.5 3RF Rx Instructions: administer with spacer furosemide 40 mg tablet 40 mg PO DAILY PRN (Reason: swelling or weight gain) Qty: 30 11RF Referrals / Follow Up: Nash Morales MD [Primary Care Provider, Family Practice] Bowen Story MD [Med Staff - Active Staff, Cardiology] - Within 2 Weeks Disposition Disposition (needs filled in before D/C Order can be placed): Home, Self Care Charges/Coding Visit Charges Inpatient E&M: 27563 Disch Hosp >30min 12/20/24 1221 <Electronically signed by Christian Solano MD> Cosigner Signature (if applicable): CC: Dr. Nash Morales MD; Dr. Christian Solano MD~ Signed [facility] Work Phone: 1(485) 918-301210-02-2025 Discharge summary [facility] Medical Records Department [address] [place] [address] Discharge Summary 12/20/24 1212 MR#: [id number] Acct: [id number] Name: SANJEEV FARMER Rep #:[id number] : 1950 74 From: Christian Solano MD PCP: Dr. Nash Morales MD Status:ADM IN Location: [place] [address] Providers Date of Admission: 12/19/24 Primary Care Physician: Nash Morales MD Consultations 12/18/24 21:02 Consult: Cardiology Routine Consulting Provider: Bowen Story Reason for Consult: Chest Pain, ACS EMERGENT Consult: No MD Notified: Yes Date Notified: 12/18/24 Time Notified: 20:22 Method of Notification: Text Reason For Visit: CHEST PAIN/ACS Diagnosis Discharge Diagnosis (1) ACS (acute coronary syndrome): Status: Acute Code(s): I24.9 - Acute ischemic heart disease, unspecified (2) Essential (primary) hypertension: Status: Chronic Code(s): I10 - Essential (primary) hypertension (3) Hyperlipidemia: Status: Chronic Code(s): E78.5 - Hyperlipidemia, unspecified Qualifiers: Hyperlipidemia type: pure hypercholesterolemia Qualified Code(s): E78.00 - Pure hypercholesterolemia, unspecified (4) Sleep apnea with use of continuous positive airway pressure (CPAP): Status: Chronic Code(s): G47.30 - Sleep apnea, unspecified (5) Aortic valve stenosis: Status: Acute Code(s): I35.0 - Nonrheumatic aortic (valve) stenosis Qualifiers: Cardiac valve disease etiology: nonrheumatic Qualified Code(s): I35.0 - Nonrheumatic aortic (valve) stenosis Plan Patient is a 74-year-old gentleman with significant past medical history including CAD with previous PCI to an RCA lesion who presented with chest pain and was found to have elevated troponin consistent with acute non-STEMI. Treatment initiated per protocol consultation placed to cardiology 1. Acute non-STEMI ? Patient presented with chest pain with rise in his troponin. Consult placed to cardiology patientunderwent left heart catheterization with PCI with RUPA to the LAD with plano balloon angioplasty ofthe origin of the diagonal 2. Subsequently started on guideline directed medical therapy 2. Coronary artery disease ? With previous PCI to an RCA lesion 3. Hypertension ? Blood pressure controlled, home medications continued with dose adjustment as needed 4. Obstructive sleep apnea ? Consistent use of PAP therapy encouraged 5. Class II obesity with a BMI of 38.0 ? Complicating care weight loss advised 6.Hyperglycemia ? Patient noted known diabetic glucose on admission was 150 hemoglobin A1c subsequently ordered came back at 6.2 7. Intertrigo ? Involving the axilla nystatin powder ordered 8. Dyslipidemia ? Patient apparently intolerant to statin therapy plan is for patient to follow- up with cardiology as outpatient to be be considered for PCSK9 inhibitor in the office 9.. DVT prophylaxis ? heparin Time spent in the patient's overall evaluation,decision-making process, review of diagnostic data, adjustment of management, discussion with other providers, nursing nursing and ancillary staff involved in patient's care documentation, 35 Minutes Medications at Discharge Home Medications aspirin 81 mg tablet,delayed release 81 mg PO DAILY #90 tabs 11/11/22 albuterol sulfate 90 mcg/actuation aerosol inhaler 2 puff inhalation Q4H PRN shortness of breath orwheezing #8.5 grams 06/26/24 losartan 100 mg tablet 100 mg PO DAILY #90 tabs 08/30/24 metoprolol tartrate 50 mg tablet 50 mg PO BID #180 tabs 08/30/24 furosemide 40 mg tablet 40 mg PO DAILY PRN swelling or weight gain #30 tabs 10/08/24 ticagrelor 90 mg tablet (Brilinta) 90 mg PO BID #180 tabs 12/20/24 Physical Exam Narrative GENERAL: cooperative HEENT: Atraumatic; normocephalic EYES; Anicteric, Normal Conjunctiva NECK; supple, normal thyroid, RESPIRATORY: Diminished to auscultation CARDIOVASCULAR: Regular S1 S2, GI: soft, normoactive bowel sounds, : No Renal angle tenderness; EXTREMITIES: No edema, no clubbing, MUSCULOSKELETAL: no muscle wasting NEURO: Awake; no lateralizing signs. SKIN: No Rash PSYCH; Flat affect Weight / BMI Weight Weight: 120 kg Body Mass Index (BMI) 37.9 ABG / Lab / Microbiology Data 12/20/24 05:36 12/20/24 05:36 Laboratory: Laboratory Results - last 24 hr 12/20/24 05:36: WBC 6.9, RBC 4.35 L, Hgb 13.8, Hct 40.3, MCV 92.6, MCH 31.7, MCHC 34.2, RDW Std Deviation 42.9, RDW Coeff of Daphnie 12.7, Plt Count 198, MPV 10.1, Immature Gran % (Auto) 0.300, Neut % (Auto) 64.8, Lymph % (Auto) 18.8 L, [place] % (Auto) 10.3 H, Eos % (Auto) 4.9, Baso % (Auto) 0.9, Absolute Neuts (auto) 4.5, Absolute Lymphs (auto) 1.30, Nucleated RBC % 0, Sodium 137, Potassium 4.3, Chloride 104, Carbon Dioxide 22.3, Anion Gap 11, BUN 11, Creatinine 1.14, Estim Creat Clear Calc 71.58, Est GFR (MDRD) Non-Af 67, BUN/Creatinine Ratio 9.5 L, Glucose 125 H, Calcium 8.7, Phosphorus 2.9, Magnesium 2.2, Total Bilirubin 0.50, AST 15, ALT 13, Alkaline Phosphatase 92, Total Protein 6.2, Albumin 3.6, Globulin 2.6, Albumin/Globulin Ratio 1.4 D/C Instructions Discharge Activity: Return to Normal Activity Call your doctor if you observe: Fever of 101 or Higher, Shortness of breath, Fainting spells and Chest pain DC O2, CPAP, BIPAP Needs Home O2 Discharge instructions: No Meaningful Use Info Meaningful Use Meaningful Use Diagnoses (Choose all that apply): AMI AMI/Post PCI/Angioplasty Aspirin given w/in 24hrs of arrival?: Yes ASA at discharge?: Yes Antiplatelet Therapy at Discharge:: Yes Statins at discharge?: No Reason statins not ordered:: Allergy Cristhian/ARB at discharge?: Yes Beta Jose G at discharge?: Yes Done w/ Acute VA measure.: Yes Documented LVEF (%): 60 Discharge Plan Admission Admit Date/Time: 12/19/24 15:51 Attending Provider: Christian Solano Primary Care Provider: Nash Morales Consulting Providers: Bowen Story; Soheila Hodge Discharge Orders/Prescriptions Prescriptions: New ticagrelor [Brilinta] 90 mg tablet 90 mg PO BID Qty: 180 1RF Continued metoprolol tartrate 50 mg tablet 50 mg PO BID Qty: 180 3RF losartan 100 mg tablet 100 mg PO DAILY Qty: 90 3RF aspirin 81 mg tablet,delayed release (DR/EC) 81 mg PO DAILY Qty: 90 5RF albuterol sulfate 90 mcg/actuation HFA aerosol inhaler 2 puff inhalation Q4H PRN (Reason: shortness of breath or wheezing) Qty: 8.5 3RF Rx Instructions: administer with spacer furosemide 40 mg tablet 40 mg PO DAILY PRN (Reason: swelling or weight gain) Qty: 30 11RF Referrals / Follow Up: Nash Morales MD [Primary Care Provider, Family Practice] Bowen Story MD [Med Staff - Active Staff, Cardiology] - Within 2 Weeks Disposition Disposition (needs filled in before D/C Order can be placed): Home, Self Care Charges/Coding Visit Charges Inpatient E&M: 92465 Disch Hosp >30min 12/20/24 1221 Cosigner Signature (if applicable): CC: Dr. Nash Morales MD; Dr. Christian Solano MD~ Signed [facility]10-02-2025 [facility] Medical Records Department [address] [place] [address] Discharge Summary 12/20/24 1212 MR#: [id number] Acct: [id number] Name: SNAJEEV FARMER Rep #: [id number] : 1950 74 From: Christian Solano MD PCP: Dr. Nash Morales MD Status:ADM IN [facility] Prov[facility] Date of Admission: 12/19/24 Primary Care Physician: Nash Morales MD Consultations 12/18/24 21:02 Consult: Cardiology Routine Consulting Provider: Bowen Story Reason for Consult: Chest Pain, ACS EMERGENT Consult: No MD Notified: Yes Date Notified: 12/18/24 Time Notified: 20:22 Method of Notification: Text Reason For Visit: CHEST PAIN/ACS Diagnosis Discharge Diagnosis (1) ACS (acute coronary syndrome): Status: Acute Code(s): I24.9 - Acute ischemic heart disease, unspecified (2) Essential (primary) hypertension: Status: Chronic Code(s): I10 - Essential (primary) hypertension (3) Hyperlipidemia: Status: Chronic Code(s): E78.5 - Hyperlipidemia, unspecified Qualifiers: Hyperlipidemia type: pure hypercholesterolemia Qualified Code(s): E78.00 - Pure hypercholesterolemia, unspecified (4) Sleep apnea with use of continuous positive airway pressure (CPAP): Status: Chronic Code(s): G47.30 - Sleep apnea, unspecified (5) Aortic valve stenosis: Status: Acute Code(s): I35.0 - Nonrheumatic aortic (valve) stenosis Qualifiers: Cardiac valve disease etiology: nonrheumatic Qualified Code(s): I35.0 - Nonrheumatic aortic (valve) stenosis Plan Patient is a 74-year-old gentleman with significant past medical history including CAD with previous PCI to an RCA lesion who presented with chest pain and was found to have elevated troponin consistent with acute non-STEMI. Treatment initiated per protocol consultation placed to cardiology 1. Acute non-STEMI ??? Patient presented with chest pain with rise in his troponin. Consult placed to cardiology patient underwent left heart catheterization with PCI with RUPA to the LAD with plano balloon angioplasty of the origin of the diagonal 2. Subsequently started on guideline directed medical therapy 2. Coronary artery disease ??? With previous PCI to an RCA lesion 3. Hypertension ??? Blood pressure controlled, home medications continued with dose adjustment as needed 4. Obstructive sleep apnea ??? Consistent use of PAP therapy encouraged 5. Class II obesity with a BMI of 38.0 ??? Complicating care weight loss advised 6.Hyperglycemia ??? Patient noted known diabetic glucose on admission was 150 hemoglobin A1c subsequently ordered came back at 6.2 7. Intertrigo ??? Involving the axilla nystatin powder ordered 8. Dyslipidemia ??? Patient apparently intolerant to statin therapy plan is for patient to follow-up with cardiology as outpatient to be be considered for PCSK9 inhibitor in the office 9.. DVT prophylaxis ??? heparin Time spent in the patient's overall evaluation,decision-making process, review of diagnostic data, adjustment of management, discussion with other providers, nursing nursing and ancillary staff involved in patient's care documentation, 35 Minutes Medications at Discharge Home Medications aspirin 81 mg tablet,delayed release 81 mg PO DAILY #90 tabs 11/11/22 albuterol sulfate 90 mcg/actuation aerosol inhaler 2 puff inhalation Q4H PRN shortness of breath or wheezing #8.5 grams 06/26/24 losartan 100 mg tablet 100 mg PO DAILY #90 tabs 08/30/24 metoprolol tartrate 50 mg tablet 50 mg PO BID #180 tabs 08/30/24 furosemide 40 mg tablet 40 mg PO DAILY PRN swelling or weight gain #30 tabs 10/08/24 ticagrelor 90 mg tablet (Brilinta) 90 mg PO BID #180 tabs 12/20/24 Physical Exam Narrative GENERAL: cooperative HEENT: Atraumatic; normocephalic EYES; Anicteric, Normal Conjunctiva NECK; supple, normal thyroid, RESPIRATORY: Diminished to auscultation CARDIOVASCULAR: Regular S1 S2, GI: soft, normoactive bowel sounds, : No Renal angle tenderness; EXTREMITIES: No edema, no clubbing, MUSCULOSKELETAL: no muscle wasting NEURO: Awake; no lateralizing signs. SKIN: No Rash PSYCH; Flat affect Weight / BMI Weight Weight: 120 kg Body Mass Index (BMI) 37.9 ABG / Lab / Microbiology Data 12/20/24 05:36 12/20/24 05:36 Laboratory: Laboratory Results - last 24 hr 12/20/24 05:36: WBC 6.9, RBC 4.35 L, Hgb 13.8, Hct 40.3, MCV 92.6, MCH 31.7, MCHC 34.2, RDW Std Deviation 42.9, RDW Coeff of Daphnie 12.7, Plt Count 198, MPV 10.1, Immature Gran % (Auto) 0.300, Neut % (Auto) 64.8, Lymph % (Auto) 18.8 L, [place] % (Auto) 10.3 H, Eos % (Auto) 4.9, Baso % (Auto) 0.9, Absolute Neuts (auto) 4.5, Absolute Lymphs (auto) 1.30, Nucleated RBC % 0, Sodium 137, Potassium 4.3, Chloride 104, Carbon Dioxide 22.3, Anion Gap 11, BUN 11, Creatinine 1.14, Estim Creat Clear Calc 71.58, Est GFR (MDRD) Non- (more content not included)...[facility]10-02-2025 Progress note Author Rei Martinez [facility] Note Date/Time December 20, 2024 8: 10am [facility] Medical Records Department [address] [place] [address] Progress Note - Cardiology 12/20/24 08 MR#: [id number] Acct: [id number] Name: SANJEEV FARMER Rep #:[id number] : 1950 74 From: Rei Martinez MD PCP: Dr. Nash Morales MD Status:ADM IN Location: [place] [id number] Subjective Subjective Patient resting comfortably in the seated position in the chair. Denies any chest pain denies any issues with his wrist catheterization insertion site. Patient did have a couple of sinus pauses on his telemetry there were less than 3 seconds and occurred at 0400 hrs. this morning. The patient has a history of obstructive sleep apnea and has not been on his CPAP the last 2 months. Objective Data Vital Signs: Vital Signs Temp Pulse Resp BP Pulse Ox O2 Del Method O2 Flow Rate 98.1 F 62 16 123/54 H 99 Room Air 2 12/20/24 03:00 12/20/24 03:00 12/20/24 03:00 12/20/24 03:00 12/20/24 03:00 12/20/24 07:37 12/19/24 05:05 Oxygen Flow Rate (L/min) 2 Oxygen Delivery Method Room Air Weight: 264 lb 8.875 oz Body Mass Index (BMI) 37.9 Intake & Output: Intake and Output for Last 24 Hours 12/18/24 12/19/24 12/20/24 23:59 23:59 23:59 Intake Total 2446.97 / 2446.97 Balance 2446.97 / 2446.97 Lab / Micro Data Attestation: I reviewed the patient's lab results. 12/20/24 05:36 12/20/24 05:36 Labs: Laboratory Results - last 24 hr 12/20/24 05:36: WBC 6.9, RBC 4.35 L, Hgb 13.8, Hct 40.3, MCV 92.6, MCH 31.7, MCHC 34.2, RDW Std Deviation 42.9, RDW Coeff of Daphnie 12.7, Plt Count 198, MPV 10.1, Immature Gran % (Auto) 0.300, Neut % (Auto) 64.8, Lymph % (Auto) 18.8 L, [place] % (Auto) 10.3 H, Eos % (Auto) 4.9, Baso % (Auto) 0.9, Absolute Neuts (auto) 4.5, Absolute Lymphs (auto) 1.30, Nucleated RBC % 0, Sodium 137, Potassium 4.3, Chloride 104, Carbon Dioxide 22.3, Anion Gap 11, BUN 11, Creatinine 1.14, Estim Creat Clear Calc 71.58, Est GFR (MDRD) Non-Af 67, BUN/Creatinine Ratio 9.5 L, Glucose 125 H, Calcium 8.7, Phosphorus 2.9, Magnesium 2.2, Total Bilirubin 0.50, AST 15, ALT 13, Alkaline Phosphatase 92, Total Protein 6.2, Albumin 3.6, Globulin 2.6, Albumin/Globulin Ratio 1.4 Rhythm Strip Rhythm Strip: Sinus Rhythm Rate: 61 Cardiology Labs/Tests 12/20/24 05:36: WBC 6.9, RBC 4.35 L, Hgb 13.8, Hct 40.3, MCV 92.6, MCH 31.7, MCHC 34.2, Plt Count 198, MPV 10.1, Immature Gran % (Auto) 0.300, Neut % (Auto) 64.8, Lymph % (Auto) 18.8 L, [place] % (Auto) 10.3 H, Eos % (Auto) 4.9, Baso % (Auto) 0.9, Absolute Neuts (auto) 4.5, Nucleated RBC % 0, Sodium 137, Potassium 4.3, Chloride 104, Carbon Dioxide 22.3, Anion Gap 11, BUN 11, Creatinine 1.14, Est GFR (MDRD) Non-Af 67, BUN/Creatinine Ratio 9.5 L, Glucose 125 H, Calcium 8.7, Phosphorus 2.9, Magnesium 2.2, Total Bilirubin 0.50 Rhythm: EKG: ECHO: Stress Test: Cardiac Cath: PCI: CT Surgery: Holter monitor: EPS: PPM: CXR: Chest CT Scan: Radiography Diagnostic Testing: Radiology Impression Echocardiogram 12/18/24 21:02 Interpretation Summary Normal LV size. Left ventricular systolic function is normal. The left ventricular ejection fraction is 60 %. Mild concentric left ventricular hypertrophy. Stage 1 diastolic dysfunction. Moderate aortic stenosis. Mean aortic valve gradient 22 mmHg. Contrast injection was performed. Ordering Physician: Soheila Hodge Referring Physician: Nash Morales Performed By: Chayo Akbar, LOYD, RVT Physical Exam Const alert and oriented x3 HEENT normocephalic Eyes EOMs intact bilaterally Neck no JVD and no carotid bruits Chest inspection of chest normal Resp normal respiratory effort and clear to auscultation bilaterally Cardio Rate: regular rate Rhythm: regular rhythm Heart Sounds: S1 normal, S2 normal and murmur systolic III/ high-pitched holo left sternal border; Negative for click or gallop Peripheral Pulses: radial pulses present right 2+ GI soft to palpation Extremity no pedal edema Extremity Narrative: Normal sensation and perfusion to the right hand. Neuro Neuro Narrative: Alert and oriented x 3 Psych mental status grossly normal Assessment & Plan Assessment/Plan (1) ACS (acute coronary syndrome): PLAN: Patient presenting with acute coronary syndrome was found to have significant disease in the left anterior descending. He underwent stenting of the LAD with plano balloon angioplasty of the origin of the diagonal 2. He denies any recurrence of any symptoms. His wrist is healed well. Patient's secondary risk factors are being addressed. He needs to remain on his aspirin 81 mg and ticagrelor 90 mg twice daily for uninterrupted for a minimum of 6 months and preferably 1 year. The patient will follow-up in the [facility] with Dorita Lr in7 to 10 days. He was instructed to call for an appointment. (2) Essential (primary) hypertension: PLAN: Patient's blood pressure is well-controlled on his current meds. (3) Hyperlipidemia: QUALIFIERS: Hyperlipidemia type: pure hypercholesterolemia Qualified Code(s): E78.00 - Pure hypercholesterolemia, unspecified PLAN: Patient is intolerant to all statin therapy. Would recommend he be considered for PCSK9 inhibitor once he is evaluated in the office depending on financial access. (4) Sleep apnea with use of continuous positive airway pressure (CPAP): PLAN: Patient has not been utilizing his sleep apnea machine treatment. He did have 2 sinus pauses early this morning while he was sleeping consistent with obstructive sleep apnea. His heart rate otherwise has been within normal limitsnormal sinus rhythm on telemetry with a heart rate of 60 to 70 bpm. The patientis on metoprolol 50 mg twice daily which he is tolerating without incident. (5) Aortic valve stenosis: QUALIFIERS: Cardiac valve disease etiology: nonrheumatic Qualified Code(s): I35.0 - Nonrheumatic aortic (valve) stenosis PLAN: Patient has a murmur consistent with aortic stenosis heard along the left sternal border. He has an increased AP diameter makes it difficult to auscultate. His echocardiogram done this admission showed an ejection fraction of 60% with an aortic valve mean gradient of 22 mmHg. There is need to be followed up long-term. Further echocardiographic evaluationwill be dependent upon clinical presentation. PLAN: Plan 1. From a cardiovascular standpoint the patient can be discharged to home. 2. Patient is to continue dual antiplatelet therapy uninterrupted for 1 year preferably. 3. Patient should follow-up with the [facility] office in 7 to 10 dayshe has an appointment to see Dr. Story in February he should keep that appointment as well. 4. Patient will be followed up clinically for progression of his aortic valve disease. Further echocardiographic examination to be dependent upon his clinical presentation. Charges/Coding Visit Charges Inpatient E&M: 31668 Subs Hosp L2 12/20/24 0810 <Electronically signed by Rei Martinez MD> Cosigner Signature (if applicable): CC: ~ Signed [facility] Work Phone: 1(512) 819-505310-02-2025 Progress note [facility] Medical Records Department [address] [place] [address] Progress Note - Cardiology 12/20/24 0801 MR#: [id number] Acct: [id number] Name: SANJEEV FARMER Rep #:[id number] : 1950 74 From: Rei Martinez MD PCP: Dr. Nash Morales MD Status:ADM IN Location: [place] [address] Subjective Subjective Patient resting comfortably in the seated position in the chair. Denies any chest pain denies any issues with his wrist catheterization insertion site. Patient did have a couple of sinus pauses on his telemetry there were less than 3 seconds and occurred at 0400 hrs. this morning. The patient has a history of obstructive sleep apnea and has not beenon his CPAP the last 2 months. Objective Data Vital Signs: Vital Signs Temp Pulse Resp BP Pulse Ox O2 Del Method O2 Flow Rate 98.1 F 62 16 123/54 H 99 Room Air 2 12/20/24 03:00 12/20/24 03:00 12/20/24 03:00 12/20/24 03:00 12/20/24 03:00 12/20/24 07:37 12/19/24 05:05 Oxygen Flow Rate (L/min) 2 Oxygen Delivery Method Room Air Weight: 264 lb 8.875 oz Body Mass Index (BMI) 37.9 Intake & Output: Intake and Output for Last 24 Hours 12/18/24 12/19/24 12/20/24 23:59 23:59 23:59 Intake Total 2446.97 / 2446.97 Balance 2446.97 / 2446.97 Lab / Micro Data Attestation: I reviewed the patient's lab results. 12/20/24 05:36 12/20/24 05:36 Labs: Laboratory Results - last 24 hr 12/20/24 05:36: WBC 6.9, RBC 4.35 L, Hgb 13.8, Hct 40.3, MCV 92.6, MCH 31.7, MCHC 34.2, RDW Std Deviation 42.9, RDW Coeff of Daphnie 12.7, Plt Count 198, MPV 10.1, Immature Gran % (Auto) 0.300, Neut % (Auto) 64.8, Lymph % (Auto) 18.8 L, [place] % (Auto) 10.3 H, Eos % (Auto) 4.9, Baso % (Auto) 0.9, Absolute Neuts (auto) 4.5, Absolute Lymphs (auto) 1.30, Nucleated RBC % 0, Sodium 137, Potassium 4.3, Chloride 104, Carbon Dioxide 22.3, Anion Gap 11, BUN 11, Creatinine 1.14, Estim Creat Clear Calc 71.58, Est GFR (MDRD) Non-Af 67, BUN/Creatinine Ratio 9.5 L, Glucose 125 H, Calcium 8.7, Phosphorus 2.9, Magnesium 2.2, Total Bilirubin 0.50, AST 15, ALT 13, Alkaline Phosphatase 92, Total Protein 6.2, Albumin 3.6, Globulin 2.6, Albumin/Globulin Ratio 1.4 Rhythm Strip Rhythm Strip: Sinus Rhythm Rate: 61 Cardiology Labs/Tests 12/20/24 05:36: WBC 6.9, RBC 4.35 L, Hgb 13.8, Hct 40.3, MCV 92.6, MCH 31.7, MCHC 34.2, Plt Count 198, MPV 10.1, Immature Gran % (Auto) 0.300, Neut % (Auto) 64.8, Lymph % (Auto) 18.8 L, [place] % (Auto)10.3 H, Eos % (Auto) 4.9, Baso % (Auto) 0.9, Absolute Neuts (auto) 4.5, Nucleated RBC % 0, Sodium 137, Potassium 4.3, Chloride 104, Carbon Dioxide 22.3, Anion Gap 11, BUN 11, Creatinine 1.14, Est GFR(MDRD) Non-Af 67, BUN/Creatinine Ratio 9.5 L, Glucose 125 H, Calcium 8.7, Phosphorus 2.9, Magnesium2.2, Total Bilirubin 0.50 Rhythm: EKG: ECHO: Stress Test: Cardiac Cath: PCI: CT Surgery: Holter monitor: EPS: PPM: CXR: Chest CT Scan: Radiography Diagnostic Testing: Radiology Impression Echocardiogram 12/18/24 21:02 Interpretation Summary Normal LV size. Left ventricular systolic function is normal. The left ventricular ejection fraction is 60 %. Mild concentric left ventricular hypertrophy. Stage 1 diastolic dysfunction. Moderate aortic stenosis. Mean aortic valve gradient 22 mmHg. Contrast injection was performed. Ordering Physician: Soheila Hodge Referring Physician: Nash Morales Performed By: Chayo Akbar, LOYD, RVT Physical Exam Const alert and oriented x3 HEENT normocephalic Eyes EOMs intact bilaterally Neck no JVD and no carotid bruits Chest inspection of chest normal Resp normal respiratory effort and clear to auscultation bilaterally Cardio Rate: regular rate Rhythm: regular rhythm Heart Sounds: S1 normal, S2 normal and murmur systolic III/ high-pitched holo left sternal border; Negative for click or gallop Peripheral Pulses: radial pulses present right 2+ GI soft to palpation Extremity no pedal edema Extremity Narrative: Normal sensation and perfusion to the right hand. Neuro Neuro Narrative: Alert and oriented x 3 Psych mental status grossly normal Assessment & Plan Assessment/Plan (1) ACS (acute coronary syndrome): PLAN: Patient presenting with acute coronary syndrome was found to have significant disease in the left anterior descending. He underwent stenting of the LAD with plano balloon angioplasty of the origin of the diagonal 2. He denies any recurrence of any symptoms. His wrist is healed well. Patient's secondary risk factors are being addressed. He needs to remain on his aspirin 81 mg and ticagrelor 90 mg twice daily for uninterrupted for a minimum of 6 months and preferably 1 year. The patient will follow-up in the [facility] with Dorita Lr in7 to 10 days. He was instructed to call for an appointment. (2) Essential (primary) hypertension: PLAN: Patient's blood pressure is well-controlled on his current meds. (3) Hyperlipidemia: QUALIFIERS: Hyperlipidemia type: pure hypercholesterolemia Qualified Code(s): E78.00 - Pure hypercholesterolemia, unspecified PLAN: Patient is intolerant to all statin therapy. Would recommend he be considered for PCSK9 inhibitor once he is evaluated in the office depending on financial access. (4) Sleep apnea with use of continuous positive airway pressure (CPAP): PLAN: Patient has not been utilizing his sleep apnea machine treatment. He did have 2 sinus pauses early this morning while he was sleeping consistent with obstructive sleep apnea. His heart rate otherwise has been within normal limitsnormal sinus rhythm on telemetry with a heart rate of 60 to 70 bpm. The patientis on metoprolol 50 mg twice daily which he is tolerating without incident. (5) Aortic valve stenosis: QUALIFIERS: Cardiac valve disease etiology: nonrheumatic Qualified Code(s): I35.0 - Nonrheumatic aortic (valve) stenosis PLAN: Patient has a murmur consistent with aortic stenosis heard along the left sternal border. He has an increased AP diameter makes it difficult to auscultate. His echocardiogram done this admission showed an ejection fraction of 60% with an aortic valve mean gradient of 22 mmHg. There is need to be followed up long-term. Further echocardiographic evaluationwill be dependent upon clinical presentation. PLAN: Plan 1. From a cardiovascular standpoint the patient can be discharged to home. 2. Patient is to continue dual antiplatelet therapy uninterrupted for 1 year preferably. 3. Patient should follow-up with the [facility] office in 7 to 10 dayshe has an appointment to see Dr. Story in February he should keep that appointment as well. 4. Patient will be followed up clinically for progression of his aortic valve disease. Further echocardiographic examination to be dependent upon his clinical presentation. Charges/Coding Visit Charges Inpatient E&M: 48823 Subs Hosp L2 12/20/24 0810 Cosigner Signature (if applicable): CC: ~ Signed [facility]10-02-2025 Progress note Author Soheila Hodge [facility] Note Date/Time December 20, 2024 4: 18am [facility] Medical Records Department [address] [place] [address] Progress Note - Hospitalist 12/20/24417 MR#: [id number] Acct: [id number] Name: SANJEEV FARMER Rep #:[id number] : 1950 74 From: Soheila Hodge MD PCP: Dr. Nash Morales MD Status:ADM IN Location: [place] [address] Hospitalist Note Patient sleeping/asymptomatic, with noted 2.40 second pause with however a nonconducted beat, pending EKG. 12/20/24417 <Electronically signed by Soheila Hodge MD> Cosigner Signature (if applicable): CC: ~ Signed [facility] Work Phone: 1(336) 582-920710-02-[address] [facility] Medical Records Department [address] [place] [address] Progress Note - Hospitalist 12/20/24417 MR#: [id number] Acct: [id number] Name: SANJEEV FARMER Rep #:[id number] : 1950 74 From: Soheila Hodge MD PCP: Dr. Nash Morales MD Status:ADM IN Location: [place] [address] Hospitalist Note Patient sleeping/asymptomatic, with noted 2.40 second pause with however a nonconducted beat, pending EKG. 12/20/24417 Cosigner Signature (if applicable): CC: ~ Signed [facility]10-01-2025 Evaluation note* Diagnosis Onset Date Resolution Status Admit Date Aortic valve stenosis acute Dec 3:51pm Essential (primary) hypertension chronic December 19 3:51pm Hyperlipidemia chronic December 3:51pm Sleep apnea with use of continuous positive airway pressure (CPAP) chronic December 19 3:51pm ACS (acute coronary syndrome) resolved December 19 3:51pm Chest pain resolved December 19, 2 025 3:51pm Elevated troponin resolved December 19, 2024 3:51pm History of coronary artery stent placement December 19, 2024 resolved December 19, 2 025 3:51pm Aortic valve stenosis acute Dec aric2024 1:04pm LVH (left ventricular hypertrophy) acute December 27 1:04pm Venous insufficiency acute Octo 2024 1:04pm Atherosclerosis of coronary artery of [place] heart without angina pectoris chronic December 27, 2024 1:04pm Essential (primary) hypertension chronic December 27 1:04pm Hyperlipidemia chronic December 1:04pm History of coronary artery stent placement December 19, 2024 resolved December 27, 2 025 1:04pm [facility] [employer] [facility] Work Phone: 1(886) 926-271910-01-2025 Progress [facility] Date/Time December 19, 2024 11 :18am [facility] Medical Records Department [address] [place] [address] Progress Note - Hospitalist 12/19/24 1102 MR#: [id number] Acct: [id number] Name: SANJEEV FARMER Rep #:[id number] : 1950 74 From: Christian Solano MD PCP: Dr. Nash Morales MD Status:ADM IN Location: [place] [address] Reason for Visit Chief Complaint: Chest pain, dyspnea, diaphoresis. Subjective Subjective Patient is a 74-year-old gentleman with significant past medical history including CAD with previous PCI to an RCA lesion who presented with chest pain and was found to have elevated troponin consistent with acute non-STEMI. Treatment initiated per protocol consultation placed to cardiology Objective Data Objective Data Vital Signs: Vital Signs Temp Pulse Resp BP Pulse Ox O2 Del Method O2 Flow Rate 96.2 F L 61 18 127/53 H 98 Room Air 2 12/19/24 05:05 12/19/24 08:47 12/19/24 05:05 12/19/24 08:47 12/19/24 08:56 12/19/24 08:56 12/19/24 05:05 Oxygen Flow Rate (L/min) 2 Oxygen Delivery Method Room Air Weight: 120.1 kg Body Mass Index (BMI) 38.0 Intake & Output: Intake and Output for Last 24 Hours 12/17/24 12/18/24 12/19/24 23:59 23:59 23:59 Intake Total 646.97 / 646.97 Balance 646.97 / 646.97 Lab / Micro Data 12/19/24 03:12 12/19/24 03:12 Labs: Laboratory Results - last 24 hr 12/18/24 17:00: WBC 8.3, RBC 4.88, Hgb 15.4, Hct 44.1, MCV 90.4, MCH 31.6, MCHC 34.9, RDW Std Deviation 40.7, RDW Coeff of Daphnie 12.5, Plt Count 276, MPV 10.3, Immature Gran % (Auto) 0.200, Neut % (Auto) 58.2, Lymph % (Auto) 29.0, [place] % (Auto) 8.8, Eos % (Auto) 3.1, Baso % (Auto) 0.7, Absolute Neuts (auto) 4.8, Absolute Lymphs (auto) 2.40, Nucleated RBC % 0, Sodium 139, Potassium 4.5, Chloride 101, Carbon Dioxide 20.4 L, Anion Gap 17 H, BUN 15, Creatinine 1.30 H, Estim Creat Clear Calc 62.99, Est GFR (MDRD) Non-Af 57 L, BUN/Creatinine Ratio 11.2, Glucose 149 H, Calcium 9.3, Troponin T High Sens 22 12/18/24 19:00: Troponin T Hi Sens 2 Hr 46 H 12/18/24 20:19: WBC 9.1, RBC 4.79, Hgb 15.2, Hct 44.5, MCV 92.9, MCH 31.7, MCHC 34.2, RDW Std Deviation 42.5, RDW Coeff of Daphnie 12.5, Plt Count 236, MPV 11.4, Immature Gran % (Auto) 0.300, Neut % (Auto) 71.1 H, Lymph % (Auto) 18.0 L, [place] % (Auto) 7.8, Eos % (Auto) 1.9, Baso % (Auto) 0.9, Absolute Neuts (auto) 6.4, Absolute Lymphs (auto) 1.63, Nucleated RBC % 0, Platelet Estimate ADEQUATE, PT 13.2, INR 1.0, APTT 22.6 L, Magnesium 2.2, Troponin T Hi Sens 4Hr 69 H* 12/19/24 03:12: WBC 7.1, RBC 4.49 L, Hgb 14.1, Hct 41.9, MCV 93.3, MCH 31.4, MCHC 33.7, RDW Std Deviation 42.2, RDW Coeff of Daphnie 12.5, Plt Count 239, MPV 10.6, Immature Gran % (Auto) 0.300, Neut % (Auto) 56.6, Lymph % (Auto) 28.2, [place] % (Auto) 9.3, Eos % (Auto) 4.6, Baso % (Auto) 1.0, Absolute Neuts (auto) 4.0, Absolute Lymphs (auto) 2.01, Nucleated RBC % 0, APTT 82.4 H, Sodium 137, Potassium 4.1, Chloride 103, Carbon Dioxide 21.4, Anion Gap 13, BUN 13, Creatinine 1.12, Estim Creat Clear Calc 72.89, Est GFR (MDRD) Non-Af 68, BUN/Creatinine Ratio 11.7, Glucose 127 H, Hemoglobin A1c 6.2 H, Calcium 8.8, Total Bilirubin 0.36, AST 15, ALT 14, Alkaline Phosphatase 95, Total Protein 6.2, Albumin 3.5, Globulin 2.8, Albumin/Globulin Ratio 1.3, Triglycerides 147, Cholesterol 186, LDL Cholesterol, Calc 124, VLDL Cholesterol 29, HDL [id number] L, Cholesterol/HDL Ratio 5.67 Radiography Diagnostic Testing: Radiology Impression Chest X-Ray 12/18/24 17:06 IMPRESSION: No evidence of acute cardiopulmonary disease. Reading Location: [facility] Echocardiogram 12/18/24 21:02 Interpretation Summary Normal LV size. Left ventricular systolic function is normal. The left ventricular ejection fraction is 60 %. Mild concentric left ventricular hypertrophy. Stage 1 diastolic dysfunction. Moderate aortic stenosis. Mean aortic valve gradient 22 mmHg. Contrast injection was performed. Ordering Physician: Soheila Hodge Referring Physician: Nash Morales Performed By: Chayo Akbar, LOYD, RVT Physical Exam Narrative GENERAL: cooperative HEENT: Atraumatic; normocephalic EYES; Anicteric, Normal Conjunctiva NECK; supple, normal thyroid, RESPIRATORY: Diminished to auscultation CARDIOVASCULAR: Regular S1 S2, GI: soft, normoactive bowel sounds, : No Renal angle tenderness; EXTREMITIES: No edema, no clubbing, MUSCULOSKELETAL: no muscle wasting NEURO: Awake; no lateralizing signs. SKIN: No Rash PSYCH; Flat affect Assessment & Plan Assessment/Plan (1) ACS (acute coronary syndrome): (2) Elevated troponin: PLAN: Plan Patient is a 74-year-old gentleman with significant past medical history including CAD with previous PCI to an RCA lesion who presented with chest pain and was found to have elevated troponin consistent with acute non-STEMI. Treatment initiated per protocol consultation placed to cardiology 1. Acute non-STEMI ? Patient presented with chest pain with rise in his troponin. Consult placed to cardiology patient underwent left heart catheterization with PCI with RUPA to a single coronary artery. Subsequently started on guideline directed medical therapy 2. Coronary artery disease ? With previous PCI to an RCA lesion 3. Hypertension ? Blood pressure controlled, home medications continued with dose adjustment as needed 4. Obstructive sleep apnea ? Consistent use of PAP therapy encouraged 5. Class II obesity with a BMI of 38.0 ? Complicating care weight loss advised 6.Hyperglycemia ? Patient noted known diabetic glucose on admission was 150 hemoglobin A1c subsequently ordered came back at 6.2 7. Intertrigo ? Involving the axilla nystatin powder ordered 8. DVT prophylaxis ? heparin Time spent in the patient's overall evaluation,decision-making process, review of diagnostic data, adjustment of management, discussion with other providers, nursing nursing and ancillary staff involved in patient's care documentation, 50Minutes Charges/Coding Visit Charges Inpatient E&M: 59265 Subs Hosp L3 12/19/24 1118 <Electronically signed by Christian Solano MD> Cosigner Signature (if applicable): CC: ~ Signed [facility] Work Phone: [phone] 864-146810-01-2025 Consult note Author Bowen Story [facility] Note Date/Time December 19, 2024 10 :39am [facility] Medical Records Department [address] [place] [id number] Consultation - Cardiology 12/19/24 0715 MR#: [id number] Acct: [id number] Name: SANJEEV FARMER Rep #:[id number] : 1950 74 From: Bowen Story MD PCP: Dr. Nash Morales MD Status:ADM IN [facility] Assessment & Plan Assessment/Plan (1) ACS (acute coronary syndrome): PLAN: He does present with chest discomfort which is reminiscent of an acute coronary syndrome. His cardiac enzymes are minimally elevated at this time. Myrecommendations will be as follows: Aspirin, Intravenous heparin and discontinuing 2 hours prior to cardiac catheterization. Left heart catheterization this morning. There is benefits alternatives have been explained to him he understands and agrees to proceed. Continue beta-jose g. (2) History of coronary artery stent placement: PLAN: He does have a history of previous right coronary artery stenting in 2018. This will be reevaluated with a cardiac catheterization this morning. (3) Essential (primary) hypertension: PLAN: He does have a history of hypertension. His blood pressure appears to be under good control at this particular time I would not recommend that we make any major changes. (4) Hyperlipidemia: PLAN: He does have a history of hyperlipidemia. He has not tolerated the statins in the past. He may be a candidate for bempedoic acid and ezetimibe at discharge. Alternatively he may benefit from a PCSK9 inhibitor. Thank you for allowing me to participate in the care of your patient. Please don't hesitate to call if any issues arise. HPI Consult Data Date of Consult: 12/19/24 HPI Narrative HPI Narrative: SANJEEV FARMER, is a 74 M who presents with chest discomfort which developed after he had eaten his evening dinner. He tells me that he had a recurrence of the above the next day and it reminded him of his previous cardiac events and sohe presented to the emergency room. An EKG was done which demonstrated normal sinus rhythm and sinus bradycardia with no acute changes. You remember he had had presented to the hospital in January 2018 with nonexertional chest tightness which was nonradiating. He was evaluated and noted to have suspectedcoronary artery disease he underwent a cardiac catheterization which demonstrated an ejection fraction of 65%, angiographically normal left main coronary artery, left anterior descending artery with less than 30% stenosis, left circumflex artery with 30% stenosis in the proximal right coronary artery with 85% proximal stenosis, 30% mid stenosis, and distal 50% stenosis. He underwent angioplasty and stenting with a 3.5 x 16 mm Synergy stent. He has nothad any further chest pain since admission. He states hip pain with long distances. He acknowledges SOB with activity. He has also had some shortness ofbreath at rest but he has also gained some weight. Pt denies symptoms of palpitations, lightheadedness, dizziness, near syncopal or syncopal episodes. Pt denies claudication issues.Pt. denies orthopnea, PND, fever, chills, blood inurine, blood in stool, myalgia, or unexplainable fatigue. His physical exam today is unremarkable his blood pressure is under good control. [facility] Medical History Venous insufficiency Hyperlipidemia History of non-ST elevation myocardial infarction (NSTEMI) (02/08/18) Obesity (BMI 35.0-39.9 without comorbidity) Sleep apnea with use of continuous positive airway pressure (CPAP) Atherosclerosis of coronary artery of [place]am[place] heart without angina pectoris Essential (primary) hypertension Home Medications ?Medication ?Instructions ?Recorded ?Last Taken ?Type aspirin 81 mg tablet,delayed 81 mg PO DAILY #90 tabs 0 11/11/22 12/18/24 Rx release albuterol sulfate 90 mcg/actuation 2 puff inhalation Q 4H PRN 06/26/24 Unknown Rx aerosol inhaler shortness of breath or wheez ing #8.5 grams losartan 100 mg tablet 100 mg PO DAILY #90 tabs 03/1412/18/24 Rx metoprolol tartrate 50 mg tablet 50 mg PO BID #180 tab s 08/30/24 12/18/24 Rx furosemide 40 mg tablet 40 mg PO DAILY PRN swelling or 10/08/24 12/18/24 Rx weight gain #30 tabs Allergy/AdvReac Type Severity Reaction Status Date / Time animal dander Allergy Other Verified 12/18/24 16:51 atorvastatin (From Lipitor) AdvReac Intermediate myalgias Verified 12/18/24 16:51 rosuvastatin (From Crestor) AdvReac Intermediate myalgias Verified 12/18/24 16:51 simvastatin (From Zocor) AdvReac Intermediate myalgias Verified 12/18/24 16:51 Family History Father Parkinson disease Mother No problems noted. Surgical History History of total right knee replacement History of coronary artery stent placement (02/10/18) Social History household members: spouse Smoking Status: Former smoker alcohol intake: current alcohol intake frequency: a few times a week details: 1-2 drinks, occasionally 3, 2-3x/week substance use type: does not use ROS Constitutional Constitutional: Denies fever(s) or weight loss Eyes Eyes: Reports systems reviewed and no addt'l complaints, except as documented ENT HEENT: Reports systems reviewed and no addt'l complaints, except as documented Cardiovascular Cardiovascular: Reports chest pain at rest and dyspnea at rest; Denies chest pain with activity, dyspnea on exertion, edema, palpitations or paroxysmal nocturnal dyspnea Respiratory/Chest Respiratory/Chest: Denies dyspnea on exertion, productive cough, shortness of breath at rest or shortness of breath with exertion Gastrointestinal Gastrointestinal: Denies change in bowel habits, nausea, vomiting or weight changes Genitourinary Genitourinary: Denies difficulty urinating Musculoskeletal Musculoskeletal: Denies joint stiffness or muscle weakness Integumentary Integumentary: Denies lesions Neurologic Neurologic: Denies dizziness or syncope Psychiatric Psychiatric: Denies anxiety Endocrine Endocrinology: Denies excessive sweating or fatigue Hematologic/Lymphatic Hematologic/Lymphatic: Denies anemia Allergic/Immunologic Allergic/Immunologic: Denies seasonal rhinorrhea Physical Exam Const alert, oriented x3 and no apparent distress General Appearance: cooperative HEENT hearing grossly normal bilaterally Head and Scalp: atraumatic Eyes EOMs intact bilaterally Neck General: normal visual inspection Chest inspection of chest normal and palpation of chest normal Resp normal respiratory effort Auscultation: clear to auscultation bilaterally Cardio regular rate, regular rhythm, S1 normal heart sound and S2 normal heart sound Jugular Venous Distention: JVD GI normal to inspection, nondistended, normoactive bowel sounds Extremity normal capillary refill and no pedal edema Peripheral Pulses: Yes pulses 2+ throughout and femoral pulses present Skin no rashes or lesions noted Neuro oriented x3 and CN's II-XII intact bilaterally Psych Appearance: grossly normal and appropriate Objective Data Vital Signs: Vital Signs Temp Pulse Resp BP Pulse Ox O2 Del Method O2 Flow Rate 99 F 64 18 141/64 H 98 Nasal Cannula 2 12/18/24 21:20 12/18/24 22:16 12/18/24 21:20 12/18/24 22:16 12/19/24 01:24 12/19/24 03:25 12/19/24 03:25 Oxygen Flow Rate (L/min) 2 Oxygen Delivery Method Nasal Cannula Weight: 264 lb 12.403 oz Body Mass Index (BMI) 38.0 Intake & Output: Intake and Output for Last 24 Hours 12/17/24 12/18/24 12/19/24 23:59 23:59 23:59 Intake Total 595.54 / 595.54 Balance 595.54 / 595.54 Lab / Micro Data 12/19/24 03:12 12/19/24 03:12 Labs: Laboratory Results - last 24 hr 12/18/24 17:00: WBC 8.3, RBC 4.88, Hgb 15.4, Hct 44.1, MCV 90.4, MCH 31.6, MCHC 34.9, RDW Std Deviation 40.7, RDW Coeff of Daphnie 12.5, Plt Count 276, MPV 10.3, Immature Gran % (Auto) 0.200, Neut % (Auto) 58.2, Lymph % (Auto) 29.0, [place] % (Auto) 8.8, Eos % (Auto) 3.1, Baso % (Auto) 0.7, Absolute Neuts (auto) 4.8, Absolute Lymphs (auto) 2.40, Nucleated RBC % 0, Sodium 139, Potassium 4.5, Chloride 101, Carbon Dioxide 20.4 L, Anion Gap 17 H, BUN 15, Creatinine 1.30 H, Estim Creat Clear Calc 62.99, Est GFR (MDRD) Non-Af 57 L, BUN/Creatinine Ratio 11.2, Glucose 149 H, Calcium 9.3, Troponin T High Sens 22 12/18/24 19:00: Troponin T Hi Sens 2 Hr 46 H 12/18/24 20:19: WBC 9.1, RBC 4.79, Hgb 15.2, Hct 44.5, MCV 92.9, MCH 31.7, MCHC 34.2, RDW Std Deviation 42.5, RDW Coeff of Daphnie 12.5, Plt Count 236, MPV 11.4, Immature Gran % (Auto) 0.300, Neut % (Auto) 71.1 H, Lymph % (Auto) 18.0 L, [place] % (Auto) 7.8, Eos % (Auto) 1.9, Baso % (Auto) 0.9, Absolute Neuts (auto) 6.4, Absolute Lymphs (auto) 1.63, Nucleated RBC % 0, Platelet Estimate ADEQUATE, PT 13.2, INR 1.0, APTT 22.6 L, Magnesium 2.2, Troponin T Hi Sens 4Hr 69 H* 12/19/24 03:12: WBC 7.1, RBC 4.49 L, Hgb 14.1, Hct 41.9, MCV 93.3, MCH 31.4, MCHC 33.7, RDW Std Deviation 42.2, RDW Coeff of Daphnie 12.5, Plt Count 239, MPV 10.6, Immature Gran % (Auto) 0.300, Neut % (Auto) 56.6, Lymph % (Auto) 28.2, [place] % (Auto) 9.3, Eos % (Auto) 4.6, Baso % (Auto) 1.0, Absolute Neuts (auto) 4.0, Absolute Lymphs (auto) 2.01, Nucleated RBC % 0, APTT 82.4 H, Sodium 137, Potassium 4.1, Chloride 103, Carbon Dioxide 21.4, Anion Gap 13, BUN 13, Creatinine 1.12, Estim Creat Clear Calc 72.89, Est GFR (MDRD) Non-Af 68, BUN/Creatinine Ratio 11.7, Glucose 127 H, Hemoglobin A1c 6.2 H, Calcium 8.8, Total Bilirubin 0.36, AST 15, ALT 14, Alkaline Phosphatase 95, Total Protein 6.2, Albumin 3.5, Globulin 2.8, Albumin/Globulin Ratio 1.3, Triglycerides 147, Cholesterol 186, LDL Cholesterol, Calc 124, VLDL Cholesterol 29, HDL [id number] L, Cholesterol/HDL Ratio 5.67 Cardiology Labs/Tests 12/18/24 17:00: WBC 8.3, RBC 4.88, Hgb 15.4, Hct 44.1, MCV 90.4, MCH 31.6, MCHC 34.9, Plt Count 276, MPV 10.3, Immature Gran % (Auto) 0.200, Neut % (Auto) 58.2,Lymph % (Auto) 29.0, [place] % (Auto) 8.8, Eos % (Auto) 3.1, Baso % (Auto) 0.7, Absolute Neuts (auto) 4.8, Nucleated RBC % 0, Sodium 139, Potassium 4.5, Chloride 101, Carbon Dioxide 20.4 L, Anion Gap 17 H, BUN 15, Creatinine 1.30 H, Est GFR (MDRD) Non-Af 57 L, BUN/Creatinine Ratio 11.2, Glucose 149 H, Calcium 9.3 12/18/24 20:19: WBC 9.1, RBC 4.79, Hgb 15.2, Hct 44.5, MCV 92.9, MCH 31.7, MCHC 34.2, Plt Count 236, MPV 11.4, Immature Gran % (Auto) 0.300, Neut % (Auto) 71.1 H, Lymph % (Auto) 18.0 L, [place] % (Auto) 7.8, Eos % (Auto) 1.9, Baso % (Auto) 0.9, Absolute Neuts (auto) 6.4, Nucleated RBC % 0, PT 13.2, INR 1.0, APTT 22.6 L, Magnesium 2.2 12/19/24 03:12: WBC 7.1, RBC 4.49 L, Hgb 14.1, Hct 41.9, MCV 93.3, MCH 31.4, MCHC 33.7, Plt Count 239, MPV 10.6, Immature Gran % (Auto) 0.300, Neut % (Auto) 56.6, Lymph % (Auto) 28.2, [place] % (Auto) 9.3, Eos % (Auto) 4.6, Baso % (Auto) 1.0, Absolute Neuts (auto) 4.0, Nucleated RBC % 0, APTT 82.4 H, Sodium 137, Potassium 4.1, Chloride 103, Carbon Dioxide 21.4, Anion Gap 13, BUN 13, Creatinine 1.12, Est GFR (MDRD) Non-Af 68, BUN/Creatinine Ratio 11.7, Glucose 127 H, Hemoglobin A1c 6.2 H, Calcium 8.8, Total Bilirubin 0.36, Triglycerides 147, Cholesterol 186, VLDL Cholesterol 29, HDL Cholesterol 33 L, Cholesterol/HDLRatio 5.67 Rhythm: EKG: ECHO: Stress Test: Cardiac Cath: PCI: CT Surgery: Holter monitor: EPS: PPM: CXR: Chest CT Scan: Radiography Diagnostic Testing: Radiology Impression Chest X-Ray 12/18/24 17:06 IMPRESSION: No evidence of acute cardiopulmonary disease. Reading Location: [id number] Risk Score for UA/STEMI Assesmment (YES = 1) Risk Stratification Applicable: No 12/19/24 1039 <Electronically signed by Bowen Story MD> Cosigner Signature (if applicable): CC: Dr. Nash Morales MD~ Signed [facility] Work Phone: [phone] [facility] Medical Records Department [address] [place] [address] Progress Note - Hospitalist 12/19/24 1102 MR#: [id number] Acct: [id number] Name: SANJEEV FARMER Rep #:[id number] : 1950 74 From: Christian Solano MD PCP: Dr. Nash Morales MD Status:ADM IN Location: [place] [address] Reason for Visit Chief Complaint: Chest pain, dyspnea, diaphoresis. Subjective Subjective Patient is a 74-year-old gentleman with significant past medical history including CAD with previous PCI to an RCA lesion who presented with chest pain and was found to have elevated troponin consistent with acute non-STEMI. Treatment initiated per protocol consultation placed to cardiology Objective Data Objective Data Vital Signs: Vital Signs Temp Pulse Resp BP Pulse Ox O2 Del Method O2 Flow Rate 96.2 F L 61 18 127/53 H 98 Room Air 2 12/19/24 05:05 12/19/24 08:47 12/19/24 05:05 12/19/24 08:47 12/19/24 08:56 12/19/24 08:56 12/19/24 05:05 Oxygen Flow Rate (L/min) 2 Oxygen Delivery Method Room Air Weight: 120.1 kg Body Mass Index (BMI) 38.0 Intake & Output: Intake and Output for Last 24 Hours 12/17/24 12/18/24 12/19/24 23:59 23:59 23:59 Intake Total 646.97 / 646.97 Balance 646.97 / 646.97 Lab / Micro Data 12/19/24 03:12 12/19/24 03:12 Labs: Laboratory Results - last 24 hr 12/18/24 17:00: WBC 8.3, RBC 4.88, Hgb 15.4, Hct 44.1, MCV 90.4, MCH 31.6, MCHC 34.9, RDW Std Deviation 40.7, RDW Coeff of Daphnie 12.5, Plt Count 276, MPV 10.3, Immature Gran % (Auto) 0.200, Neut % (Auto) 58.2, Lymph % (Auto) 29.0, [place] % (Auto) 8.8, Eos % (Auto) 3.1, Baso % (Auto) 0.7, Absolute Neuts(auto) 4.8, Absolute Lymphs (auto) 2.40, Nucleated RBC % 0, Sodium 139, Potassium 4.5, Chloride 101, Carbon Dioxide 20.4 L, Anion Gap 17 H, BUN 15, Creatinine 1.30 H, Estim Creat Clear Calc 62.99, Est GFR (MDRD) Non-Af 57 L, BUN/Creatinine Ratio 11.2, Glucose 149 H, Calcium 9.3, Troponin T High Sens 22 12/18/24 19:00: Troponin T Hi Sens 2 Hr 46 H 12/18/24 20:19: WBC 9.1, RBC 4.79, Hgb 15.2, Hct 44.5, MCV 92.9, MCH 31.7, MCHC 34.2, RDW Std Deviation 42.5, RDW Coeff of Daphnie 12.5, Plt Count 236, MPV 11.4, Immature Gran % (Auto) 0.300, Neut % (Auto) 71.1 H, Lymph % (Auto) 18.0 L, [place] % (Auto) 7.8, Eos % (Auto) 1.9, Baso % (Auto) 0.9, Absolute Neuts (auto) 6.4, Absolute Lymphs (auto) 1.63, Nucleated RBC % 0, Platelet Estimate ADEQUATE, PT 13.2, INR 1.0, APTT 22.6 L, Magnesium 2.2, Troponin T Hi Sens 4Hr 69 H* 12/19/24 03:12: WBC 7.1, RBC 4.49 L, Hgb 14.1, Hct 41.9, MCV 93.3, MCH 31.4, MCHC 33.7, RDW Std Deviation 42.2, RDW Coeff of Daphnie 12.5, Plt Count 239, MPV 10.6, Immature Gran % (Auto) 0.300, Neut % (Auto) 56.6, Lymph % (Auto) 28.2, [place] % (Auto) 9.3, Eos % (Auto) 4.6, Baso % (Auto) 1.0, Absolute Neuts (auto) 4.0, Absolute Lymphs (auto) 2.01, Nucleated RBC % 0, APTT 82.4 H, Sodium 137, Potassium 4.1, Chloride 103, Carbon Dioxide 21.4, Anion Gap 13, BUN 13, Creatinine 1.12, Estim Creat Clear Calc 72.89, Est GFR (MDRD) Non-Af 68, BUN/Creatinine Ratio 11.7, Glucose 127 H, Hemoglobin A1c 6.2 H, Calcium 8.8, Total Bilirubin 0.36, AST 15, ALT 14, Alkaline Phosphatase 95, Total Protein 6.2, Albumin 3.5, Globulin 2.8, Albumin/Globulin Ratio 1.3, Triglycerides 147, Cholesterol 186, LDL Cholesterol, Calc 124, VLDL Cholesterol 29, HDL [id number] L, Cholesterol/HDL Ratio 5.67 Radiography Diagnostic Testing: Radiology Impression Chest X-Ray 12/18/24 17:06 IMPRESSION: No evidence of acute cardiopulmonary disease. Reading Location: [facility] Echocardiogram 12/18/24 21:02 Interpretation Summary Normal LV size. Left ventricular systolic function is normal. The left ventricular ejection fraction is 60 %. Mild concentric left ventricular hypertrophy. Stage 1 diastolic dysfunction. Moderate aortic stenosis. Mean aortic valve gradient 22 mmHg. Contrast injection was performed. Ordering Physician: Soheila Hodge Referring Physician: Nash Morales Performed By: Chayo Akbar, LOYD, RVT Physical Exam Narrative GENERAL: cooperative HEENT: Atraumatic; normocephalic EYES; Anicteric, Normal Conjunctiva NECK; supple, normal thyroid, RESPIRATORY: Diminished to auscultation CARDIOVASCULAR: Regular S1 S2, GI: soft, normoactive bowel sounds, : No Renal angle tenderness; EXTREMITIES: No edema, no clubbing, MUSCULOSKELETAL: no muscle wasting NEURO: Awake; no lateralizing signs. SKIN: No Rash PSYCH; Flat affect Assessment & Plan Assessment/Plan (1) ACS (acute coronary syndrome): (2) Elevated troponin: PLAN: Plan Patient is a 74-year-old gentleman with significant past medical history including CAD with previous PCI to an RCA lesion who presented with chest pain and was found to have elevated troponin consistent with acute non-STEMI. Treatment initiated per protocol consultation placed to cardiology 1. Acute non-STEMI ? Patient presented with chest pain with rise in his troponin. Consult placed to cardiology patientunderwent left heart catheterization with PCI with RUPA to a single coronary artery. Subsequently started on guideline directed medical therapy 2. Coronary artery disease ? With previous PCI to an RCA lesion 3. Hypertension ? Blood pressure controlled, home medications continued with dose adjustment as needed 4. Obstructive sleep apnea ? Consistent use of PAP therapy encouraged 5. Class II obesity with a BMI of 38.0 ? Complicating care weight loss advised 6.Hyperglycemia ? Patient noted known diabetic glucose on admission was 150 hemoglobin A1c subsequently ordered came back at 6.2 7. Intertrigo ? Involving the axilla nystatin powder ordered 8. DVT prophylaxis ? heparin Time spent in the patient's overall evaluation,decision-making process, review of diagnostic data, adjustment of management, discussion with other providers, nursing nursing and ancillary staff involved in patient's care documentation, 50Minutes Charges/Coding Visit Charges Inpatient E&M: 47917 Subs Hosp L3 12/19/24 1118 Cosigner Signature (if applicable): CC: ~ Signed [facility]10-01-[address] [facility] Medical Records Department [address] [place] [address] Consultation - Cardiology 12/19/24 0715 MR#: [id number] Acct: [id number] Name: SANJEEV FARMER Rep #:[id number] : 1950 74 From: Bowen Story MD PCP: Dr. Nash Morales MD Status:ADM IN O Location: [place] [address] Assessment & Plan Assessment/Plan (1) ACS (acute coronary syndrome): PLAN: He does present with chest discomfort which is reminiscent of an acute coronary syndrome. Hiscardiac enzymes are minimally elevated at this time. Myrecommendations will be as follows: Aspirin, Intravenous heparin and discontinuing 2 hours prior to cardiac catheterization. Left heart catheterization this morning. There is benefits alternatives have been explained to him he understands and agrees to proceed. Continue beta-jose g. (2) History of coronary artery stent placement: PLAN: He does have a history of previous right coronary artery stenting in 2018. This will be reevaluated with a cardiac catheterization this morning. (3) Essential (primary) hypertension: PLAN: He does have a history of hypertension. His blood pressure appears to be under good control at this particular time I would not recommend that we make any major changes. (4) Hyperlipidemia: PLAN: He does have a history of hyperlipidemia. He has not tolerated the statins in the past. He may be a candidate for bempedoic acid and ezetimibe at discharge. Alternatively he may benefit from a PCSK9 inhibitor. Thank you for allowing me to participate in the care of your patient. Please don't hesitate to callif any issues arise. HPI Consult Data Date of Consult: 12/19/24 HPI Narrative HPI Narrative: SANJEEV FARMER, is a 74 M who presents with chest discomfort which developed after he had eaten his evening dinner. He tells me that he had a recurrence of the above the next day and it reminded him of his previous cardiac events and sohe presented to the emergency room. An EKG was done which demonstrated normal sinus rhythm and sinus bradycardia with no acute changes. You remember he had had presented to the hospital in January 2018 with nonexertional chest tightness which was nonradiating. Hewas evaluated and noted to have suspectedcoronary artery disease he underwent a cardiac catheterization which demonstrated an ejection fraction of 65%, angiographically normal left main coronary artery, left anterior descending artery with less than 30% stenosis, left circumflex artery with 30% stenosis in the proximal right coronary artery with 85% proximal stenosis, 30% mid stenosis, and [id number]% stenosis. He underwent angioplasty and stenting with a 3.5 x 16 mm Synergy stent. He has nothadany further chest pain since admission. He states hip pain with long distances. He acknowledges SOBwith activity. He has also had some shortness ofbreath at rest but he has also gained some weight. Pt denies symptoms of palpitations, lightheadedness, dizziness, near syncopal or syncopal episodes. Pt denies claudication issues.Pt. denies orthopnea, PND, fever, chills, blood inurine, blood in stool, myalgia, or unexplainable fatigue. His physical exam today is unremarkable his blood pressure is under good control. [facility] Medical History Venous insufficiency Hyperlipidemia History of non-ST elevation myocardial infarction (NSTEMI) (02/08/18) Obesity (BMI 35.0-39.9 without comorbidity) Sleep apnea with use of continuous positive airway pressure (CPAP) Atherosclerosis of coronary artery of [place] heart without angina pectoris Essential (primary) hypertension Home Medications ?Medication ?Instructions ?Recorded ?Last Taken ?Type aspirin 81 mg tablet,delayed 81 mg PO DAILY #90 tabs 0 11/11/22 12/18/24 Rx release albuterol sulfate 90 mcg/actuation 2 puff inhalation Q 4H PRN 06/26/24 Unknown Rx aerosol inhaler shortness of breath or wheez ing #8.5 grams losartan 100 mg tablet 100 mg PO DAILY #90 tabs 03/1412/18/24 Rx metoprolol tartrate 50 mg tablet 50 mg PO BID #180 tab s 08/30/24 12/18/24 Rx furosemide 40 mg tablet 40 mg PO DAILY PRN swelling or 10/08/24 12/18/24 Rx weight gain #30 tabs Allergy/AdvReac Type Severity Reaction Status Date / Time animal dander Allergy Other Verified 12/18/24 16:51 atorvastatin (From Lipitor) AdvReac Intermediate myalgias Verified 12/18/24 16:51 rosuvastatin (From Crestor) AdvReac Intermediate myalgias Verified 12/18/24 16:51 simvastatin (From Zocor) AdvReac Intermediate myalgias Verified 12/18/24 16:51 Family History Father Parkinson disease Mother No problems noted. Surgical History History of total right knee replacement History of coronary artery stent placement (02/10/18) Social History household members: spouse Smoking Status: Former smoker alcohol intake: current alcohol intake frequency: a few times a week details: 1-2 drinks, occasionally 3, 2-3x/week substance use type: does not use ROS Constitutional Constitutional: Denies fever(s) or weight loss Eyes Eyes: Reports systems reviewed and no addt'l complaints, except as documented ENT HEENT: Reports systems reviewed and no addt'l complaints, except as documented Cardiovascular Cardiovascular: Reports chest pain at rest and dyspnea at rest; Denies chest pain with activity, dyspnea on exertion, edema, palpitations or paroxysmal nocturnal dyspnea Respiratory/Chest Respiratory/Chest: Denies dyspnea on exertion, productive cough, shortness of breath at rest or shortness of breath with exertion Gastrointestinal Gastrointestinal: Denies change in bowel habits, nausea, vomiting or weight changes Genitourinary Genitourinary: Denies difficulty urinating Musculoskeletal Musculoskeletal: Denies joint stiffness or muscle weakness Integumentary Integumentary: Denies lesions Neurologic Neurologic: Denies dizziness or syncope Psychiatric Psychiatric: Denies anxiety Endocrine Endocrinology: Denies excessive sweating or fatigue Hematologic/Lymphatic Hematologic/Lymphatic: Denies anemia Allergic/Immunologic Allergic/Immunologic: Denies seasonal rhinorrhea Physical Exam Const alert, oriented x3 and no apparent distress General Appearance: cooperative HEENT hearing grossly normal bilaterally Head and Scalp: atraumatic Eyes EOMs intact bilaterally Neck General: normal visual inspection Chest inspection of chest normal and palpation of chest normal Resp normal respiratory effort Auscultation: clear to auscultation bilaterally Cardio regular rate, regular rhythm, S1 normal heart sound and S2 normal heart sound Jugular Venous Distention: JVD GI normal to inspection, nondistended, normoactive bowel sounds Extremity normal capillary refill and no pedal edema Peripheral Pulses: Yes pulses 2+ throughout and femoral pulses present Skin no rashes or lesions noted Neuro oriented x3 and CN's II-XII intact bilaterally Psych Appearance: grossly normal and appropriate Objective Data Vital Signs: Vital Signs Temp Pulse Resp BP Pulse Ox O2 Del Method O2 Flow Rate 99 F 64 18 141/64 H 98 Nasal Cannula 2 12/18/24 21:20 12/18/24 22:16 12/18/24 21:20 12/18/24 22:16 12/19/24 01:24 12/19/24 03:12/19/24 03:25 Oxygen Flow Rate (L/min) 2 Oxygen Delivery Method Nasal Cannula Weight: 264 lb 12.403 oz Body Mass Index (BMI) 38.0 Intake & Output: Intake and Output for Last 24 Hours 12/17/24 12/18/24 12/19/24 23:59 23:59 23:59 Intake Total 595.54 / 595.54 Balance 595.54 / 595.54 Lab / Micro Data 12/19/24 03:12 12/19/24 03:12 Labs: Laboratory Results - last 24 hr 12/18/24 17:00: WBC 8.3, RBC 4.88, Hgb 15.4, Hct 44.1, MCV 90.4, MCH 31.6, MCHC 34.9, RDW Std Deviation 40.7, RDW Coeff of Daphnie 12.5, Plt Count 276, MPV 10.3, Immature Gran % (Auto) 0.200, Neut % (Auto) 58.2, Lymph % (Auto) 29.0, [place] % (Auto) 8.8, Eos % (Auto) 3.1, Baso % (Auto) 0.7, Absolute Neuts(auto) 4.8, Absolute Lymphs (auto) 2.40, Nucleated RBC % 0, Sodium 139, Potassium 4.5, Chloride 101, Carbon Dioxide 20.4 L, Anion Gap 17 H, BUN 15, Creatinine 1.30 H, Estim Creat Clear Calc 62.99, Est GFR (MDRD) Non-Af 57 L, BUN/Creatinine Ratio 11.2, Glucose 149 H, Calcium 9.3, Troponin T High Sens 22 12/18/24 19:00: Troponin T Hi Sens 2 Hr 46 H 12/18/24 20:19: WBC 9.1, RBC 4.79, Hgb 15.2, Hct 44.5, MCV 92.9, MCH 31.7, MCHC 34.2, RDW Std Deviation 42.5, RDW Coeff of Daphnie 12.5, Plt Count 236, MPV 11.4, Immature Gran % (Auto) 0.300, Neut % (Auto) 71.1 H, Lymph % (Auto) 18.0 L, [place] % (Auto) 7.8, Eos % (Auto) 1.9, Baso % (Auto) 0.9, Absolute Neuts (auto) 6.4, Absolute Lymphs (auto) 1.63, Nucleated RBC % 0, Platelet Estimate ADEQUATE, PT 13.2, INR 1.0, APTT 22.6 L, Magnesium 2.2, Troponin T Hi Sens 4Hr 69 H* 12/19/24 03:12: WBC 7.1, RBC 4.49 L, Hgb 14.1, Hct 41.9, MCV 93.3, MCH 31.4, MCHC 33.7, RDW Std Deviation 42.2, RDW Coeff of Daphnie 12.5, Plt Count 239, MPV 10.6, Immature Gran % (Auto) 0.300, Neut % (Auto) 56.6, Lymph % (Auto) 28.2, [place] % (Auto) 9.3, Eos % (Auto) 4.6, Baso % (Auto) 1.0, Absolute Neuts (auto) 4.0, Absolute Lymphs (auto) 2.01, Nucleated RBC % 0, APTT 82.4 H, Sodium 137, Potassium 4.1, Chloride 103, Carbon Dioxide 21.4, Anion Gap 13, BUN 13, Creatinine 1.12, Estim Creat Clear Calc 72.89, Est GFR (MDRD) Non-Af 68, BUN/Creatinine Ratio 11.7, Glucose 127 H, Hemoglobin A1c 6.2 H, Calcium 8.8, Total Bilirubin 0.36, AST 15, ALT 14, Alkaline Phosphatase 95, Total Protein 6.2, Albumin 3.5, Globulin 2.8, Albumin/Globulin Ratio 1.3, Triglycerides 147, Cholesterol 186, LDL Cholesterol, Calc 124, VLDL Cholesterol 29, HDL [id number] L, Cholesterol/HDL Ratio 5.67 Cardiology Labs/Tests 12/18/24 17:00: WBC 8.3, RBC 4.88, Hgb 15.4, Hct 44.1, MCV 90.4, MCH 31.6, MCHC 34.9, Plt Count 276, MPV 10.3, Immature Gran % (Auto) 0.200, Neut % (Auto) 58.2,Lymph % (Auto) 29.0, [place] % (Auto) 8.8,Eos % (Auto) 3.1, Baso % (Auto) 0.7, Absolute Neuts (auto) 4.8, Nucleated RBC % 0, Sodium 139, Potassium 4.5, Chloride 101, Carbon Dioxide 20.4 L, Anion Gap 17 H, BUN 15, Creatinine 1.30 H, Est GFR (MDRD) Non-Af 57 L, BUN/Creatinine Ratio 11.2, Glucose 149 H, Calcium 9.3 12/18/24 20:19: WBC 9.1, RBC 4.79, Hgb 15.2, Hct 44.5, MCV 92.9, MCH 31.7, MCHC 34.2, Plt Count 236, MPV 11.4, Immature Gran % (Auto) 0.300, Neut % (Auto) 71.1 H, Lymph % (Auto) 18.0 L, [place] % (Auto)7.8, Eos % (Auto) 1.9, Baso % (Auto) 0.9, Absolute Neuts (auto) 6.4, Nucleated RBC % 0, PT 13.2, INR 1.0, APTT 22.6 L, Magnesium 2.2 12/19/24 03:12: WBC 7.1, RBC 4.49 L, Hgb 14.1, Hct 41.9, MCV 93.3, MCH 31.4, MCHC 33.7, Plt Count 239, MPV 10.6, Immature Gran % (Auto) 0.300, Neut % (Auto) 56.6, Lymph % (Auto) 28.2, [place] % (Auto) 9.3, Eos % (Auto) 4.6, Baso % (Auto) 1.0, Absolute Neuts (auto) 4.0, Nucleated RBC % 0, APTT 82.4 H, Sodium 137, Potassium 4.1, Chloride 103, Carbon Dioxide 21.4, Anion Gap 13, BUN 13, Creatinine 1.12,Est GFR (MDRD) Non-Af 68, BUN/Creatinine Ratio 11.7, Glucose 127 H, Hemoglobin A1c 6.2 H, Calcium 8.8, Total Bilirubin 0.36, Triglycerides 147, Cholesterol 186, VLDL Cholesterol 29, HDL Cholesterol 33 L, Cholesterol/HDLRatio 5.67 Rhythm: EKG: ECHO: Stress Test: Cardiac Cath: PCI: CT Surgery: Holter monitor: EPS: PPM: CXR: Chest CT Scan: Radiography Diagnostic Testing: Radiology Impression Chest X-Ray 12/18/24 17:06 IMPRESSION: No evidence of acute cardiopulmonary disease. Reading Location: [facility] Risk Score for UA/STEMI Assesmment (YES = 1) Risk Stratification Applicable: No 12/19/24 1039 Cosigner Signature (if applicable): CC: Dr. Nash Morales MD~ Signed [facility]09-30-2025 History and physical note Author Soheila Hodge [facility] Note Date/Time December 18, 2024 9:02pm [facility] Medical Records Department [address] [place] [address] H&P Exam - Hospitalist 12/18/242018 MR#: [id number] Acct: [id number] Name: SANJEEV FARMER Rep #:[id number] : 1950 74 From: Soheila Hodge MD PCP: Dr. Nash Morales MD Status:ADM IN O Location: [place] [address] HPI - General General Date of Admission: 12/18/24 Date of Service: 12/18/24 Chief Complaint: Chest pain, dyspnea, diaphoresis. HPI Narrative The patient is a 74 y/o M w/ PMHx: CKD stage III per previous GFR trending, CAD s/p PCI RCA 2018, HTN, HLD, LARRY, Former tobacco use who presents to the [facility] ED on 12/18/2024 with history of chest pain with onset approximately 1 hour prior to ED arrival described as pressure-like sensation across the top of his chest with dyspepsia type sensation noted to been at rest when it started with onset of significant diaphoresis and dyspnea with no specific nausea or emesis prompting ED evaluation to be cautious. Patient was administered 2 baby aspirin prior to her ED arrival via self in addition to an additional 2 in the ED to total full-strength aspirin. Patient noted at its worst discomfort was 5 out of 10 in severity. He notes he is now currently chest pain-free. Patient reports that this was similar to his first NSTEMI presentation prior to his PCI intervention. Workup in the ED included T97.9, heart rate 72, BP 130/58, respiratory rate 16, 100% on room air with most recentrepeat vitals heart rate 57, BP 140/66, respiratory rate 18, 100% on room air, CBC with WBC 8.3, hemoglobin 15.4, platelet 276 without marked shift, BMP with carbon oxide 20.4, anion gap 17, BUN/Cr 15/1.30, GFR 57, glucose 149, troponin initial 22 with repeat delta 46, chest x-ray with no acute cardiopulmonary findings, EKG sinus rhythm with first-degree AV block with no acute evidence of ischemia with no significant change from EKG 08/2022. In the ED patient understood full-strength aspirin therapy and initiated on a heparin drip with a heparin bolus. [facility] Medical History Venous insufficiency Hyperlipidemia History of non-ST elevation myocardial infarction (NSTEMI) (02/08/18) Obesity (BMI 35.0-39.9 without comorbidity) Sleep apnea with use of continuous positive airway pressure (CPAP) Atherosclerosis of coronary artery of [place] heart without angina pectoris Essential (primary) hypertension Home Medications ?Medication ?Instructions ?Recorded ?Last Taken ?Type aspirin 81 mg tablet,delayed 81 mg PO DAILY #90 tabs 0 11/11/22 12/18/24 Rx release albuterol sulfate 90 mcg/actuation 2 puff inhalation Q 4H PRN 06/26/24 Unknown Rx aerosol inhaler shortness of breath or wheez ing #8.5 grams losartan 100 mg tablet 100 mg PO DAILY #90 tabs 03/14 Unknown Rx metoprolol tartrate 50 mg tablet 50 mg PO BID #180 tab s 08/30/24 12/18/24 Rx furosemide 40 mg tablet 40 mg PO DAILY PRN swelling or 10/08/24 12/18/24 Rx weight gain #30 tabs Allergy/AdvReac Type Severity Reaction Status Date / Time animal dander Allergy Other Verified 12/18/24 16:51 atorvastatin (From Lipitor) AdvReac Intermediate myalgias Verified 12/18/24 16:51 rosuvastatin (From Crestor) AdvReac Intermediate myalgias Verified 12/18/24 16:51 simvastatin (From Zocor) AdvReac Intermediate myalgias Verified 12/18/24 16:51 Family History Father Parkinson disease Mother No problems noted. Surgical History History of total right knee replacement History of coronary artery stent placement (02/10/18) Social History household members: spouse Smoking Status: Former smoker alcohol intake: current alcohol intake frequency: a few times a week details: 1-2 drinks, occasionally 3, 2-3x/week substance use type: does not use ROS ROS Narrative Admission Review of Systems: CONSTITUTIONAL: No weight loss, fever, chills, + weakness or fatigue. HEENT: Eyes: No visual loss, blurred vision, double vision or yellow sclerae. Ears, Nose, Throat: No hearing loss, sneezing, congestion, runny nose or sore throat. SKIN: No rash or itching, lesions, wounds. CARDIOVASCULAR: + Chest pain. No palpitations, increased edema, orthopnea, syncopal events. RESPIRATORY: + Dyspnea. No marked cough or sputum, wheezing, hemoptysis. GASTROINTESTINAL: + Dyspepsia. No anorexia, nausea, vomiting or diarrhea, abdominal pain, melena, BRBPR. GENITOURINARY: No dysuria, frequency, urgency or retention. NEUROLOGICAL: No headache, dizziness, syncope, paralysis, ataxia, numbness or tingling in the extremities, focal weakness, change in bowel or bladder control,seizure. MUSCULOSKELETAL: + muscle, back pain, joint pain or stiffness. HEMATOLOGIC: No anemia, bleeding or bruising. LYMPHATICS: No enlarged nodes. No history of splenectomy. PSYCHIATRIC: No history of depression or anxiety. ENDOCRINOLOGIC: + Diaphoresis. No cold or heat intolerance. No polyuria or polydipsia. ALLERGIES: No history of asthma, hives, eczema or rhinitis. Vital Signs Vital Signs Vital Signs: 12/18/24 16:42 12/18/24 16:54 12/18/24 17:41 Temperature 97.9 F Temperature Source Oral Pulse Rate 72 Respiratory Rate 16 Blood Pressure 138/58 H Blood Pressure Mean 84 Pulse Ox 100 100 Oxygen Delivery Method Room Air Room Air 12/18/24 18:00 12/18/24 19:00 12/18/24 20:00 Temperature Temperature Source Pulse Rate 70 60 57 L Respiratory Rate 16 18 18 Blood Pressure 117/55 L 121/61 H 148/66 H Blood Pressure Mean 75 81 93 Pulse Ox 100 99 100 Oxygen Delivery Method Room Air Room Air Room Air Weight Weight: 266 lb 5.094 oz Body Mass Index (BMI) 38.2 Physical Exam Narrative Physical Examination: General: Awake, alert, oriented x 3 and cooperative, seated upright in the ED bed, notes chest pain is resolved. Skin: Notable diffuse kaba with reporting that he is usually out in the sun approximate 30 minutes daily, normal turgor, no icterus, no cyanosis except occasional stage ecchymoses, abrasion, mild intertrigo in the armpit folds and notable bilateral lower extremity venous stasis skin changes. HEENT: AT/NC, EOMI, PERRLA, MMM, no carotid bruits or JVD noted. Lungs: CTA bilaterally, moderate effort, mild decrease BL bases, no rales, ronchi or wheezing. Heart: Regular rate and rhythm; no gallop, rub audible. Abdomen: Soft, obese, umbilical hernia evident, NTTP, ND, normal BS, no appreciated HSM. Extremities: No cyanosis, no clubbing, no significant distal edema, see skin. Neurological: Patient awake, alert, oriented as noted, cognitive function intact; pupils equally reactive to light and accommodation, cranial nerves grossly normal, moving all 4 extremities, no focal deficits, strength preserved. Psychiatric: Affect appears normal, no acute evidence of depressive or anxiety feelings. Results Lab / Micro Data 12/18/24 20:19 12/18/24 17:00 Labs: Laboratory Results - last 24 hr 12/18/24 17:00: WBC 8.3, RBC 4.88, Hgb 15.4, Hct 44.1, MCV 90.4, MCH 31.6, MCHC 34.9, RDW Std Deviation 40.7, RDW Coeff of Daphnie 12.5, Plt Count 276, MPV 10.3, Immature Gran % (Auto) 0.200, Neut % (Auto) 58.2, Lymph % (Auto) 29.0, [place] % (Auto) 8.8, Eos % (Auto) 3.1, Baso % (Auto) 0.7, Absolute Neuts (auto) 4.8, Absolute Lymphs (auto) 2.40, Nucleated RBC % 0, Sodium 139, Potassium 4.5, Chloride 101, Carbon Dioxide 20.4 L, Anion Gap 17 H, BUN 15, Creatinine 1.30 H, Estim Creat Clear Calc 62.99, Est GFR (MDRD) Non-Af 57 L, BUN/Creatinine Ratio 11.2, Glucose 149 H, Calcium 9.3, Troponin T High Sens 22 12/18/24 19:00: Troponin T Hi Sens 2 Hr 46 H Imaging Radiology Impression Chest X-Ray 12/18/24 17:06 IMPRESSION: No evidence of acute cardiopulmonary disease. Reading Location: [id number] Assessment & Plan Assessment/Plan (1) ACS (acute coronary syndrome): (2) Elevated troponin: PLAN: Plan The patient is a 74 y/o M w/ PMHx: CKD stage III per previous GFR trending, CAD s/p PCI RCA 2017, HTN, HLD, LARRY, Former tobacco use who presents to the [facility] ED on 12/18/2024 with history of chest pain with onset approximately 1 hour prior to ED arrival described as pressure-like sensation across the top of his chest with dyspepsia type sensation noted to been at rest when it started with onset of significant diaphoresis and dyspnea with no specific nausea or emesis prompting ED evaluation to be cautious. #1. Chest pain concerning for ACS with indeterminate cardiac enzyme of unclear significance: EKG in ED sinus rhythm with first-degree AV block with no acute evidence of ischemia, CXR w/ no acute cardiopulmonary findings, initial trop 22 with repeat delta 46. Will admit to PCU, maintain on monitored telemetry, continue to cycle cardiac enzymes, repeat EKG upon transition and as needed. Given significant underlying history, previous PCI and notable rise of second troponin thus will continue heparin drip initiated per the ED. ECHO requested. Cardiology consulted given initial strong concern for ACS. ASA, NG, morphine. #2. Hyperglycemia: No reported diabetic history, admission glucose 149, HgbA1c requested. #3. CAD: Status post previous PCI RCA 2017 3.5 x 16 Promus Synergy, most recentstress test noted 11/2021 with no inducible ischemia noted, continue aspirin, noted to be statin/Zetia intolerant as noted, continue metoprolol and losartan home regimen. #4. Chronic Kidney Disease Stage III, per previous GFR trend: Admission BUN/Cr 15/1.30, GFR 57, baseline renal function primarily 0.9-1.3, repeat BMP in AM. #5. Hypertension: Continue home regimen including metoprolol, losartan, amlodipine, PRN hydralazine. From records previously been on Lasix #6. Hyperlipidemia: Per most recent cardiology note 08/30/2024 patient is been intolerant to statins as well as Zetia, possibly may need to be considered outpatient per their note for KANIKA Patino as noted. #7. Chronic venous insufficiency: Encouraged continued compression stockings outpatient, noted to use as needed Lasix. #8. Former tobacco use: Encourage continued tobacco cessation. #9. Obesity: Weight loss and lifestyle changes encouraged. #10. LARRY: CPAP nightly. #11. Possible intertrigo: Noted irritation in the folds in the armpits, will initiate topical nystatin. #12. DVT prophylaxis: Will continue heparin drip as noted. #13. CODE status: Patient HCPOA and LW not in place but his present would be his medical decision maker if needed he notes. Discussed CODE status at length including difference between FULL code, DNR-CCA and DNR-CC status. Following discussions about the differences in these status, requested Full Codestatus. Charges/Coding Visit Charges Inpatient E&M: 07593 Init Hosp L3 12/18/242101 <Electronically signed by Soheila Hodge MD> Cosigner Signature (if applicable): CC: Dr. Soheila Hodge MD; Dr. Nash Morales MD~ Signed [facility] Work Phone: 1(387) 590-677809-30-2025 Discharge summary Author Darwin Arce [facility] Note Date/Time December 18, 2024 8:28pm [facility] Medical Records Department [address] [place] [address] Emergency Department Summary 12/18/24 MR#: [id number] Acct: [id number] Name: SANJEEV FARMER Rep #:[id number] : 1950 74 From: Darwin Arce MD PCP: Dr. Nash Morales MD Status:REG ER Location: ED HPI History of Present Illness Chief Complaint: Chest Pain Narrative Narrative: 74-year-old male past medical history of coronary artery disease, 1 stent placedat least [address] Pichardo presents with chest pain that began about an hour ago. He describes it more as a pressure sensation across the top of his chest, and indigestion type feeling as well. He was at rest when it started. He became very diaphoretic and short of breath. He denies any nausea or vomiting. No exacerbating or alleviating factors. He states he takes Lasix when he swells on occasion. He does not take a blood thinner but takes a daily aspirin/baby aspirin. [facility] Medical History Venous insufficiency Hyperlipidemia History of non-ST elevation myocardial infarction (NSTEMI) (02/08/18) Obesity (BMI 35.0-39.9 without comorbidity) Sleep apnea with use of continuous positive airway pressure (CPAP) Atherosclerosis of coronary artery of [place] heart without angina pectoris Essential (primary) hypertension Home Medications ?Medication ?Instructions ?Recorded ?Last Taken ?Type aspirin 81 mg tablet,delayed 81 mg PO DAILY #90 tabs 0 11/11/22 12/18/24 Rx release albuterol sulfate 90 mcg/actuation 2 puff inhalation Q 4H PRN 06/26/24 Unknown Rx aerosol inhaler shortness of breath or wheez ing #8.5 grams losartan 100 mg tablet 100 mg PO DAILY #90 tabs 03/14 Unknown Rx metoprolol tartrate 50 mg tablet 50 mg PO BID #180 tab s 08/30/24 12/18/24 Rx furosemide 40 mg tablet 40 mg PO DAILY PRN swelling or 10/08/24 12/18/24 Rx weight gain #30 tabs Allergy/AdvReac Type Severity Reaction Status Date / Time animal dander Allergy Other Verified 12/18/24 16:51 atorvastatin (From Lipitor) AdvReac Intermediate myalgias Verified 12/18/24 16:51 rosuvastatin (From Crestor) AdvReac Intermediate myalgias Verified 12/18/24 16:51 simvastatin (From Zocor) AdvReac Intermediate myalgias Verified 12/18/24 16:51 Family History Father Parkinson disease Surgical History History of total right knee replacement History of coronary artery stent placement (02/10/18) Social History (Updated 12/18/24 @ 20:[address] Soheila Hodge MD) household members: spouse Smoking Status: Former smoker alcohol intake: current substance use type: does not use ROS ROS ED ROS Narrative Review of systems positive for chest pressure across top of chest and indigestion type feeling. Positive diaphoresis. Positive shortness of breath. No nausea or vomiting. No recent leg swelling. No exacerbating or alleviating factors. EXAM Physical Exam Narrative Exam Narrative: Afebrile. Vital signs noted. Nontoxic-appearing. Cardiovascular examination feels regular rate and rhythm. Lungs are clear to auscultation bilaterally. Abdomen is soft and nontender with positive bowel sounds. No pedal edema. Const Vital Signs: 12/18/24 16:42 12/18/24 16:54 12/18/24 17:41 Temperature 97.9 F Temperature Source Oral Pulse Rate 72 Respiratory Rate 16 Blood Pressure 138/58 H Blood Pressure Mean 84 Pulse Ox 100 100 Oxygen Delivery Method Room Air Room Air 12/18/24 18:00 12/18/24 19:00 12/18/24 20:00 Temperature Temperature Source Pulse Rate 70 60 57 L Respiratory Rate 16 18 18 Blood Pressure 117/55 L 121/61 H 148/66 H Blood Pressure Mean 75 81 93 Pulse Ox 100 99 100 Oxygen Delivery Method Room Air Room Air Room Air MDM MDM MDM Narrative Medical decision making narrative: Differential diagnosis includes but not limited to ACS versus GERD versus pulmonary embolism versus pneumonia. I have low suspicion for pulmonary embolism because history and physical does not support this. EKG was obtained and interpreted by myself independently as sinus rhythm with first-degree AV block at [address] changes. No STEMI. No significant change fromEKG in August 2022. I reviewed his laboratory work and he has normal white count of 8.3 with hemoglobin 15.4, hematocrit 44.1, platelet count 276. BMP is significant for CO2 low at 20.4 which I think is nonspecific, creatinine slightly elevated at 1.3. Glucose is 149. Initial high-sensitivity troponin 22. I individually interpreted his chest x-ray and see no evidence of an acute process, no pneumonia, no pneumothorax. I reviewed the radiology report which confirms my independent interpretation. His 2-hour troponin elevated to 46. This is a positive delta troponin and I have Groening concern for ACS/non-STEMI. Upon repeat examination, he is pain-free. He took 2 baby aspirin prior to arrival and he was supplemented with 2 additional baby aspirin. He will be started on heparin with a heparin bolus for non-STEMI. I will discuss patient with the hospitalist for admission. I discussed the patient with Dr. Hodge who will place him in the PCU for observation. Patient is in stable condition and pain-free. History & Record Review Discussion w/independent historian: Patient Additional record(s) reviewed:: Prior labs Lab Data Attestation: I reviewed the patient's lab results. Labs: Laboratory Results - last 24 hr 12/18/24 12/18/24 17:00 19:00 WBC 8.3 RBC 4.88 Hgb 15.4 Hct 44.1 MCV 90.4 MCH 31.6 MCHC 34.9 RDW Std Deviation 40.7 RDW Coeff of Daphnie 12.5 Plt Count 276 MPV 10.3 Immature Gran % (Auto) 0.200 Neut % (Auto) 58.2 Lymph % (Auto) 29.0 [place] % (Auto) 8.8 Eos % (Auto) 3.1 Baso % (Auto) 0.7 Absolute Neuts (auto) 4.8 Absolute Lymphs (auto) 2.40 Nucleated RBC % 0 Sodium 139 Potassium 4.5 Chloride 101 Carbon Dioxide 20.4 L Anion Gap 17 H BUN 15 Creatinine 1.30 H Estim Creat Clear Calc 62.99 Est GFR (MDRD) Non-Af 57 L BUN/Creatinine Ratio 11.2 Glucose 149 H Calcium 9.3 Troponin T High Sens 22 Troponin T Hi Sens 2 Hr 46 H Radiography Chest X-Ray - ED: 1 View, Read by ED Physician, Read by Radiologist and No AcuteDisease Diagnostic Testing: Clinical Impression(s) from Imaging Studies Chest X-Ray 12/18/24 17:06 IMPRESSION: No evidence of acute cardiopulmonary disease. Reading Location: [facility] Management Discussion w/another healthcare provider: Hospitalist Discharge Plan Dx/Rx/DC Orders Clinical Impression: Chest pain, Elevated troponin, Hyperlipidemia, Essential (primary) hypertension, ACS (acute coronary syndrome) Disposition Disposition: Acute Care Hospital [facility] What to do if you have Problems For any increased pain, shortness of breath, bleeding, nausea or vomiting, chestpain, or any unexpected problems, contact your Primary Care Provider. Call [facility] ([phone]) or report to the closest Emergency Room. Call 911 if necessary. 12/18/242027 <Electronically signed by Darwin Arce MD> Cosigner Signature (if applicable): CC: Dr. Nash Morales MD ~ Signed [facility] Work Phone: [phone]) 928-509009-30-2025 History and physical note [facility] Medical Records Department [address] [place] [address] H&P Exam - Hospitalist 12/18/242018 MR#: [id number] Acct: [id number] Name: SANJEEV FARMER Rep #:[id number] : 1950 74 From: Soheila Hodge MD PCP: Dr. Nash Morales MD Status:ADM IN O Location: [place] [id number]- HPI - General General Date of Admission: 12/18/24 Date of Service: 12/18/24 Chief Complaint: Chest pain, dyspnea, diaphoresis. HPI Narrative The patient is a 74 y/o M w/ PMHx: CKD stage III per previous GFR trending, CAD s/p PCI RCA 2017, HTN, HLD, LARRY, Former tobacco use who presents to the [facility] ED on 12/18/2024 withhistory of chest pain with onset approximately 1 hour prior to ED arrival described as pressure-like sensation across the top of his chest with dyspepsia type sensation noted to been at rest when it started with onset of significant diaphoresis and dyspnea with no specific nausea or emesis prompting ED evaluation to be cautious. Patient was administered 2 baby aspirin prior to her ED arrival via self in addition to an additional 2 in the ED to total full-strength aspirin. Patient noted at its wo rst discomfort was 5 out of 10 in severity. He notes he is now currently chest pain-free. Patient reports that this was similar to his first NSTEMI presentation prior to his PCI intervention. Workup in the ED included T97.9, heart rate 72, BP 130/58, respiratory rate 16, 100% on room air with most r ecentrepeat vitals heart rate 57, BP 140/66, respiratory rate 18, 100% on room air, CBC with WBC 8.3, hemoglobin 15.4, platelet 276 without marked shift, BMP with carbon oxide 20.4, anion gap 17, BUN/Cr 15/1.30, GFR 57, glucose 149, troponin initial 22 with repeat delta 46, chest x-ray with no acute cardiopulmonary findings, EKG sinus rhythm with first-degree AV block with no acute evidence of ischemia with no significant change from EKG 08/2022. In the ED patient understood full-strength aspirin therapy and initiated on a heparin drip with a heparin bolus. [facility] Medical History Venous insufficiency Hyperlipidemia History of non-ST elevation myocardial infarction (NSTEMI) (02/08/18) Obesity (BMI 35.0-39.9 without comorbidity) Sleep apnea with use of continuous positive airway pressure (CPAP) Atherosclerosis of coronary artery of [place] heart without angina pectoris Essential (primary) hypertension Home Medications ?Medication ?Instructions ?Recorded ?Last Taken ?Type aspirin 81 mg tablet,delayed 81 mg PO DAILY #90 tabs 0 11/11/22 12/18/24 Rx release albuterol sulfate 90 mcg/actuation 2 puff inhalation Q 4H PRN 06/26/24 Unknown Rx aerosol inhaler shortness of breath or wheez ing #8.5 grams losartan 100 mg tablet 100 mg PO DAILY #90 tabs 03/14 Unknown Rx metoprolol tartrate 50 mg tablet 50 mg PO BID #180 tab s 08/30/24 12/18/24 Rx furosemide 40 mg tablet 40 mg PO DAILY PRN swelling or 10/08/24 12/18/24 Rx weight gain #30 tabs Allergy/AdvReac Type Severity Reaction Status Date / Time animal dander Allergy Other Verified 12/18/24 16:51 atorvastatin (From Lipitor) AdvReac Intermediate myalgias Verified 12/18/24 16:51 rosuvastatin (From Crestor) AdvReac Intermediate myalgias Verified 12/18/24 16:51 simvastatin (From Zocor) AdvReac Intermediate myalgias Verified 12/18/24 16:51 Family History Father Parkinson disease Mother No problems noted. Surgical History History of total right knee replacement History of coronary artery stent placement (02/10/18) Social History household members: spouse Smoking Status: Former smoker alcohol intake: current alcohol intake frequency: a few times a week details: 1-2 drinks, occasionally 3, 2-3x/week substance use type: does not use ROS ROS Narrative Admission Review of Systems: CONSTITUTIONAL: No weight loss, fever, chills, + weakness or fatigue. HEENT: Eyes: No visual loss, blurred vision, double vision or yellow sclerae. Ears, Nose, Throat: No hearing loss, sneezing, congestion, runny nose or sore throat. SKIN: No rash or itching, lesions, wounds. CARDIOVASCULAR: + Chest pain. No palpitations, increased edema, orthopnea, syncopal events. RESPIRATORY: + Dyspnea. No marked cough or sputum, wheezing, hemoptysis. GASTROINTESTINAL: + Dyspepsia. No anorexia, nausea, vomiting or diarrhea, abdominal pain, melena, BRBPR. GENITOURINARY: No dysuria, frequency, urgency or retention. NEUROLOGICAL: No headache, dizziness, syncope, paralysis, ataxia, numbness or tingling in the extremities, focal weakness, change in bowel or bladder control,seizure. MUSCULOSKELETAL: + muscle, back pain, joint pain or stiffness. HEMATOLOGIC: No anemia, bleeding or bruising. LYMPHATICS: No enlarged nodes. No history of splenectomy. PSYCHIATRIC: No history of depression or anxiety. ENDOCRINOLOGIC: + Diaphoresis. No cold or heat intolerance. No polyuria or polydipsia. ALLERGIES: No history of asthma, hives, eczema or rhinitis. Vital Signs Vital Signs Vital Signs: 12/18/24 16:42 12/18/24 16:54 12/18/24 17:41 Temperature 97.9 F Temperature Source Oral Pulse Rate 72 Respiratory Rate 16 Blood Pressure 138/58 H Blood Pressure Mean 84 Pulse Ox 100 100 Oxygen Delivery Method Room Air Room Air 12/18/24 18:00 12/18/24 19:00 12/18/24 20:00 Temperature Temperature Source Pulse Rate 70 60 57 L Respiratory Rate 16 18 18 Blood Pressure 117/55 L 121/61 H 148/66 H Blood Pressure Mean 75 81 93 Pulse Ox 100 99 100 Oxygen Delivery Method Room Air Room Air Room Air Weight Weight: 266 lb 5.094 oz Body Mass Index (BMI) 38.2 Physical Exam Narrative Physical Examination: General: Awake, alert, oriented x 3 and cooperative, seated upright in the ED bed, notes chest painis resolved. Skin: Notable diffuse kaba with reporting that he is usually out in the sun approximate 30 minutes daily, normal turgor, no icterus, no cyanosis except occasional stage ecchymoses, abrasion, mildintertrigo in the armpit folds and notable bilateral lower extremity venous stasis skin changes. HEENT: AT/NC, EOMI, PERRLA, MMM, no carotid bruits or JVD noted. Lungs: CTA bilaterally, moderate effort, mild decrease BL bases, no rales, ronchi or wheezing. Heart: Regular rate and rhythm; no gallop, rub audible. Abdomen: Soft, obese, umbilical hernia evident, NTTP, ND, normal BS, no appreciated HSM. Extremities: No cyanosis, no clubbing, no significant distal edema, see skin. Neurological: Patient awake, alert, oriented as noted, cognitive function intact; pupils equally reactive to light and accommodation, cranial nerves grossly normal, moving all 4 extremities, no focaldeficits, strength preserved. Psychiatric: Affect appears normal, no acute evidence of depressive or anxiety feelings. Results Lab / Micro Data 12/18/24 20:19 12/18/24 17:00 Labs: Laboratory Results - last 24 hr 12/18/24 17:00: WBC 8.3, RBC 4.88, Hgb 15.4, Hct 44.1, MCV 90.4, MCH 31.6, MCHC 34.9, RDW Std Deviation 40.7, RDW Coeff of Daphnie 12.5, Plt Count 276, MPV 10.3, Immature Gran % (Auto) 0.200, Neut % (Auto) 58.2, Lymph % (Auto) 29.0, [place] % (Auto) 8.8, Eos % (Auto) 3.1, Baso % (Auto) 0.7, Absolute Neuts(auto) 4.8, Absolute Lymphs (auto) 2.40, Nucleated RBC % 0, Sodium 139, Potassium 4.5, Chloride 101, Carbon Dioxide 20.4 L, Anion Gap 17 H, BUN 15, Creatinine 1.30 H, Estim Creat Clear Calc 62.99, Est GFR (MDRD) Non-Af 57 L, BUN/Creatinine Ratio 11.2, Glucose 149 H, Calcium 9.3, Troponin T High Sens 22 12/18/24 19:00: Troponin T Hi Sens 2 Hr 46 H Imaging Radiology Impression Chest X-Ray 12/18/24 17:06 IMPRESSION: No evidence of acute cardiopulmonary disease. Reading Location: [facility] Assessment & Plan Assessment/Plan (1) ACS (acute coronary syndrome): (2) Elevated troponin: PLAN: Plan The patient is a 74 y/o M w/ PMHx: CKD stage III per previous GFR trending, CAD s/p PCI RCA 2017, HTN, HLD, LARRY, Former tobacco use who presents to the [facility] ED on 12/18/2024 withhistory of chest pain with onset approximately 1 hour prior to ED arrival described as pressure-like sensation across the top of his chest with dyspepsia type sensation noted to been at rest when it started with onset of significant diaphoresis and dyspnea with no specific nausea or emesis prompting ED evaluation to be cautious. #1. Chest pain concerning for ACS with indeterminate cardiac enzyme of unclear significance: EKG inED sinus rhythm with first-degree AV block with no acute evidence of ischemia, CXR w/ no acute cardiopulmonary findings, initial trop 22 with repeat delta 46. Will admit to PCU, maintain on monitoredtelemetry, continue to cycle cardiac enzymes, repeat EKG upon transition and as needed. Given significant underlying history, previous PCI and notable rise of second troponin thus will continue heparin drip initiated per the ED. ECHO requested. Cardiology consulted given initial strong concern for ACS. ASA, NG, morphine. #2. Hyperglycemia: No reported diabetic history, admission glucose 149, HgbA1c requested. #3. CAD: Status post previous PCI RCA 2017 3.5 x 16 Promus Synergy, most recentstress test noted 11/2021 with no inducible ischemia noted, continue aspirin, noted to be statin/Zetia intolerant as noted, continue metoprolol and losartan home regimen. #4. Chronic Kidney Disease Stage III, per previous GFR trend: Admission BUN/Cr 15/1.30, GFR 57, baseline renal function primarily 0.9-1.3, repeat BMP in AM. #5. Hypertension: Continue home regimen including metoprolol, losartan, amlodipine, PRN hydralazine. From records previously been on Lasix #6. Hyperlipidemia: Per most recent cardiology note 08/30/2024 patient is been intolerant to statinsas well as Zetia, possibly may need to be considered outpatient per their note for KANIKA Patino as noted. #7. Chronic venous insufficiency: Encouraged continued compression stockings outpatient, noted to use as needed Lasix. #8. Former tobacco use: Encourage continued tobacco cessation. #9. Obesity: Weight loss and lifestyle changes encouraged. #10. LARRY: CPAP nightly. #11. Possible intertrigo: Noted irritation in the folds in the armpits, will initiate topical nystatin. #12. DVT prophylaxis: Will continue heparin drip as noted. #13. CODE status: Patient HCPOA and LW not in place but his present would be his medical decision maker if needed he notes. Discussed CODE status at length including difference between FULL code, DNR-CCA and DNR-CC status. Following discussions about the differences in these status, requested Full Codestatus. Charges/Coding Visit Charges Inpatient E&M: 99068 Init Hosp L3 12/18/242101 Cosigner Signature (if applicable): CC: Dr. Soheila Hodge MD; Dr. Nash Morales MD~ Signed [facility]09-30-2025 Discharge summary [facility] Medical Records Department [address] [place] [address] Emergency Department Summary 12/18/24 MR#: [id number] Acct: [id number] Name: SANJEEV FARMER Rep #:[id number] : 1950 74 From: Darwin Arce MD PCP: Dr. Nash Morales MD Status:REG ER Location: ED HPI History of Present Illness Chief Complaint: Chest Pain Narrative Narrative: 74-year-old male past medical history of coronary artery disease, 1 stent placedat least [address] Pichardo presents with chest pain that began about an hour ago. He describes it more as a pressure sensation across the top of his chest, and indigestion type feeling as well. He was at rest when it started. He became very diaphoretic and short of breath. He denies any nausea or vomiting. No exacerbating or alleviating factors. He states he takes Lasix when he swells on occasion. He does not take a blood thinner but takes a daily aspirin/baby aspirin. [facility] Medical History Venous insufficiency Hyperlipidemia History of non-ST elevation myocardial infarction (NSTEMI) (02/08/18) Obesity (BMI 35.0-39.9 without comorbidity) Sleep apnea with use of continuous positive airway pressure (CPAP) Atherosclerosis of coronary artery of [place] heart without angina pectoris Essential (primary) hypertension Home Medications ?Medication ?Instructions ?Recorded ?Last Taken ?Type aspirin 81 mg tablet,delayed 81 mg PO DAILY #90 tabs 0 11/11/22 12/18/24 Rx release albuterol sulfate 90 mcg/actuation 2 puff inhalation Q 4H PRN 06/26/24 Unknown Rx aerosol inhaler shortness of breath or wheez ing #8.5 grams losartan 100 mg tablet 100 mg PO DAILY #90 tabs 03/14 Unknown Rx metoprolol tartrate 50 mg tablet 50 mg PO BID #180 tab s 08/30/24 12/18/24 Rx furosemide 40 mg tablet 40 mg PO DAILY PRN swelling or 10/08/24 12/18/24 Rx weight gain #30 tabs Allergy/AdvReac Type Severity Reaction Status Date / Time animal dander Allergy Other Verified 12/18/24 16:51 atorvastatin (From Lipitor) AdvReac Intermediate myalgias Verified 12/18/24 16:51 rosuvastatin (From Crestor) AdvReac Intermediate myalgias Verified 12/18/24 16:51 simvastatin (From Zocor) AdvReac Intermediate myalgias Verified 12/18/24 16:51 Family History Father Parkinson disease Surgical History History of total right knee replacement History of coronary artery stent placement (02/10/18) Social History (Updated 12/18/24 @ 20:[address] Soheila Hodge MD) household members: spouse Smoking Status: Former smoker alcohol intake: current substance use type: does not use ROS ROS ED ROS Narrative Review of systems positive for chest pressure across top of chest and indigestion type feeling. Positive diaphoresis. Positive shortness of breath. No nausea or vomiting. No recent leg swelling. No exacerbating or alleviating factors. EXAM Physical Exam Narrative Exam Narrative: Afebrile. Vital signs noted. Nontoxic-appearing. Cardiovascular examination feels regular rate and rhythm. Lungs are clear to auscultation bilaterally. Abdomen is soft and nontender with positive bowel sounds. No pedal edema. Const Vital Signs: 12/18/24 16:42 12/18/24 16:54 12/18/24 17:41 Temperature 97.9 F Temperature Source Oral Pulse Rate 72 Respiratory Rate 16 Blood Pressure 138/58 H Blood Pressure Mean 84 Pulse Ox 100 100 Oxygen Delivery Method Room Air Room Air 12/18/24 18:00 12/18/24 19:00 12/18/24 20:00 Temperature Temperature Source Pulse Rate 70 60 57 L Respiratory Rate 16 18 18 Blood Pressure 117/55 L 121/61 H 148/66 H Blood Pressure Mean 75 81 93 Pulse Ox 100 99 100 Oxygen Delivery Method Room Air Room Air Room Air MDM MDM MDM Narrative Medical decision making narrative: Differential diagnosis includes but not limited to ACS versus GERD versus pulmonary embolism versuspneumonia. I have low suspicion for pulmonary embolism because history and physical does not support this. EKG was obtained and interpreted by myself independently as sinus rhythm with first-degree AV block at [address] changes. No STEMI. No significant change fromEKG in August 2022. I reviewed his laboratory work and he has normal white count of 8.3 with hemoglobin 15.4, hematocrit 44.1, platelet count 276. BMP is significant for CO2 low at 20.4 which I think is nonspecific, creatinine slightly elevated at 1.3. Glucose is 149. Initial high-sensitivity troponin 22. I individually interpreted his chest x-ray and see no evidence of an acute process, no pneumonia, no pneumothorax. I reviewed the radiology report which confirms my independent interpretation. His 2-hour troponin elevated to 46. This is a positive delta troponin and I have Groening concern for ACS/non-STEMI. Upon repeat examination, he is pain-free. He took 2 baby aspirin prior to arrival and he was supplemented with 2 additional baby aspirin. He will be started on heparin with a heparin bolus for non-STEMI. I will discuss patient with the hospitalist for admission. I discussed the patient with Dr. Hodge who will place him in the PCU for observation. Patient is in stable condition and pain-free. History & Record Review Discussion w/independent historian: Patient Additional record(s) reviewed:: Prior labs Lab Data Attestation: I reviewed the patient's lab results. Labs: Laboratory Results - last 24 hr 12/18/24 12/18/24 17:00 19:00 WBC 8.3 RBC 4.88 Hgb 15.4 Hct 44.1 MCV 90.4 MCH 31.6 MCHC 34.9 RDW Std Deviation 40.7 RDW Coeff of Daphnie 12.5 Plt Count 276 MPV 10.3 Immature Gran % (Auto) 0.200 Neut % (Auto) 58.2 Lymph % (Auto) 29.0 [place] % (Auto) 8.8 Eos % (Auto) 3.1 Baso % (Auto) 0.7 Absolute Neuts (auto) 4.8 Absolute Lymphs (auto) 2.40 Nucleated RBC % 0 Sodium 139 Potassium 4.5 Chloride 101 Carbon Dioxide 20.4 L Anion Gap 17 H BUN 15 Creatinine 1.30 H Estim Creat Clear Calc 62.99 Est GFR (MDRD) Non-Af 57 L BUN/Creatinine Ratio 11.2 Glucose 149 H Calcium 9.3 Troponin T High Sens 22 Troponin T Hi Sens 2 Hr 46 H Radiography Chest X-Ray - ED: 1 View, Read by ED Physician, Read by Radiologist and No AcuteDisease Diagnostic Testing: Clinical Impression(s) from Imaging Studies Chest X-Ray 12/18/24 17:06 IMPRESSION: No evidence of acute cardiopulmonary disease. Reading Location: [facility] Management Discussion w/another healthcare provider: Hospitalist Discharge Plan Dx/Rx/DC Orders Clinical Impression: Chest pain, Elevated troponin, Hyperlipidemia, Essential (primary) hypertension, ACS (acute coronary syndrome) Disposition Disposition: Acute Care Hospital [facility] What to do if you have Problems For any increased pain, shortness of breath, bleeding, nausea or vomiting, chestpain, or any unexpected problems, contact your Primary Care Provider. Call [facility] ([phone]) or report tothe closest Emergency Room. Call 911 if necessary. 12/18/242027 Cosigner Signature (if applicable): CC: Dr. Nash Morales MD ~ Signed [facility]09-30-2025 Radiology Diagnostic study note [facility] Imaging Services [address] [place] [address] Chest 1 View (Portable) MR#: [id number] Acct: [id number] Name: SANJEEV FARMER Rep #: [id number] : 1950 M 74 From: Julian Youssef MD PCP: Dr. Nash Morales MD Status: PRE ER Study:Chest 1 View (Portable) Date of Exam: 12/18/24 Exam# [id number] Ordering Dr: Darwin Arce MD PROCEDURE: CHEST 1 VIEW (PORTABLE) 12/18/2024 REASON FOR EXAM: CHEST PAIN TECHNIQUE: Frontal view of the chest. COMPARISON: 02/08/2018 FINDINGS: Lungs/Pleura: Clear. No pneumothorax or sizable pleural effusion. Heart/Mediastinum: Borderline enlarged. Aortic arch calcification. Bones/Soft tissues: Degenerative changes of the spine and AC joints. RAD/Chest 1 View (Portable) IMPRESSION: No evidence of acute cardiopulmonary disease. Reading Location: [id number] CC: Dr. Darwin Arce MD; Dr. Nash Morales MD ~ Ep Technologist: Signed [facility]06-12-2025 Evaluation note* Diagnosis Onset Date Resolution Status Admit Date Venous insufficiency acute August 30, 2024 2:01pm Atherosclerosis of coronary artery of [place] heart without angina pectoris chronic August 2:01pm Essential (primary) hypertension chronic August 30, 2024 2:01pm Hyperlipidemia chronic August 30, 2024 2:01pm History of coronary artery stent placement December 19, 2024 resolved August 30 2:01pm ACS (acute coronary syndrome) acute December 19 3:51pm Chest pain acute December 19, 2 025 3:51pm Elevated troponin acute December 19, 2024 3:51pm Essential (primary) hypertension chronic December 19 3:51pm Hyperlipidemia chronic December 3:51pm History of coronary artery stent placement December 19, 2024 resolved December 19, 2 025 3:51pm [facility] Work Phone: 1(161) 860-544006-12-2025 Evaluation note* Diagnosis Onset Date Resolution Status Admit Date Venous insufficiency acute August 30, 2024 2:01pm Atherosclerosis of coronary artery of [place] heart without angina pectoris chronic August 2:01pm Essential (primary) hypertension chronic August 30, 2024 2:01pm Hyperlipidemia chronic August 30, 2024 2:01pm History of coronary artery stent placement December 19, 2024 resolved August 30 2:01pm ACS (acute coronary syndrome) acute December 19 3:51pm Aortic valve stenosis acute Dec 3:51pm Chest pain acute December 19, 2 025 3:51pm Elevated troponin acute December 19, 2024 3:51pm Essential (primary) hypertension chronic December 19 3:51pm Hyperlipidemia chronic December 3:51pm Sleep apnea with use of continuous positive airway pressure (CPAP) chronic December 19 3:51pm History of coronary artery stent placement December 19, 2024 resolved December 19 2 025 3:51pm [facility] Work Phone: 1(594) 889-356406-12-2025 [facility] 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: No Accompanied by: Self Is patient [...] the past year?: Yes (fall-fell off toilet) [facility] Medical History Venous insufficiency Hyperlipidemia History of non-ST elevation myocardial infarction (NSTEMI) (02/08/18) Obesity (BMI 35.0-39.9 without comorbidity) Sleep apnea with use of continuous positive airway pressure (CPAP) Atherosclerosis of coronary artery of [place] heart without angina pectoris Essential (primary) hypertension [...] oriented x3, CN's II-XI intact bilaterally and movesall extremities Extremities Pulses: Normal: Right Posterior Tibial [...] monitoring was performed.? The maximum heart rate a ttained was 84 bpm which was 57% of [...] compared in the short axis vertical and ho rizontal long axis.? Gated images were also obtained. 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) Coding Level of Care Code Off vis,est,level 4 Diagnoses Atherosclerosis of [place] coronary artery of [place] heart without angina pectoris I25.10 Coronary Disease-Associated Artery/Lesion type: [place] artery History of coronary artery stent placement Z95.5 Essential (primary) hypertension I10 Hyperlipidemia E78.5 Venous insufficiency I87.2 Coding Level of Care Code Off vis,est,level 4 Diagnoses Atherosclerosis of [place] coronary artery of [place] heart without angina pectoris I25.10 Coronary Disease-Associated Artery/Lesion type: [place] artery History of coronary artery stent placement Z95.5 Essential (primary) hypertension I10 Hyperlipidemia E78.5 Venous insufficiency I87.2 Clinical Quality Measures Falls Risk Screening/Assistive Devices Have you fallen in the past year?: Yes (fall-fell off toilet) Cardiac Ejection fraction %: 55 08/30/24 1513 Kamari FRIEND> Date _ Dorita FRIEND Cosigner Signature: Date (if applicable) CC: Dr. Nash Morales MD ~ [facility] [id number] Progress note Author Dorita Lr [facility] Services Note Date/Time August 30, 2024 3:13 pm [facility] [address] [place] [address]. 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 Accompanied by: Self Is patient [...] pressure (CPAP) Atherosclerosis of coronary artery of [place] heart without angina pectoris Essential (primary) hypertension [...] flow: 3 Lesion Devices: Cavazos .014 [employer] [place]ight 190cm Medtronic 6 Fr HSII 100cm [...] Plan (1) Atherosclerosis of coronary artery of [place] heart without angina pectoris: Status: Chronic Qualifiers: Coronary Disease-Associated Artery/Lesion type: [place] artery QualifiedCode(s): I25.10 - Atherosclerotic heart disease of [place] coronary artery without angina pectoris Plan: Patient [...] Follow 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) Coding Level of Care Code Off vis,est,level 4 Diagnoses Atherosclerosis of [place] coronary artery of [place] heart without angina pectoris I25.10 Coronary Disease-Associated Artery/Lesion type: [place] artery History of coronary artery stent placement Z95.5 Essential (primary) hypertension I10 Hyperlipidemia E78.5 Venous insufficiency I87.2 Coding Level of Care Code Off vis,est,level 4 Diagnoses Atherosclerosis of [place] coronary artery of [place] heart without angina pectoris I25.10 Coronary Disease-Associated Artery/Lesion type: [place] artery History of coronary artery stent placement Z95.5 Essential (primary) hypertension I10 Hyperlipidemia E78.5 Venous insufficiency I87.2 Clinical Quality Measures Falls Risk Screening/Assistive Devices Have you fallen in the past year?: Yes (fall-fell off toilet) Cardiac Ejection fraction %: 55 08/30/24 1513 <Electronically signed by Dorita Laureano PA> Date _ Dorita Molina Signature: Date (if applicable) CC: Dr. Nash Morales MD ~ [facility] Work Phone: 1(256) 913-904703-10-2025 Evaluation note* Diagnosis Onset Date Resolution Status Admit Date Obesity (BMI 35.0-39.9 without comorbidity) chronic May 28, 2024 12:24pm LARRY (obstructive sleep apnea) chronic May 28, 2024 12:24pm Venous insufficiency acute August 30, 2024 2:01pm Atherosclerosis of coronary artery of [place] heart without angina pectoris chronic August 2:01pm Essential (primary) hypertension chronic August 30, 2024 2:01pm Hyperlipidemia chronic August 30, 2024 2:01pm History of coronary artery stent placement February 10, 2018 resolved August 30, 025 2:01pm [facility] Work Phone: [phone]) 805-659811-23-2018 Evaluation note* Diagnosis Onset Date Resolution Status Atherosclerosis of coronary artery of [place] heart without angina pectoris chronic Essential (primary) hypertension chronic Hyperlipidemia chronic History of coronary artery stent placement February 102017 resolved [facility] Work Phone: [phone]) 445-620711-23-2018 Evaluation note* Diagnosis Onset Date Resolution Status Atherosclerosis of coronary artery of [place] heart without angina pectoris chronic Essential (primary) hypertension chronic Hyperlipidemia chronic History of coronary artery stent placement February 102017 resolved LARRY (obstructive sleep apnea) acute Obesity (BMI 35.0-39.9 without comorbidity) chronic [facility] Work Phone: Consult note [facility] Note Date/Time December 19, 2024 10 :39am [facility] Medical Records Department [address] [place] [address] Consultation - Cardiology 12/19/24 0715 MR#: [id number] Acct: [id number] Name: SANJEEV FARMER Rep #:[id number] : 1950 74 From: Bowen Story MD PCP: Dr. Nash Morales MD Status:ADM IN O Location: [place] [address]- 1 Assessment & Plan Assessment/Plan (1) ACS (acute coronary syndrome): PLAN: He does present with chest discomfort which is reminiscent of an acute coronary syndrome. His cardiac enzymes are minimally elevated at this time. Myrecommendations will be as follows: Aspirin, Intravenous heparin and discontinuing 2 hours prior to cardiac catheterization. Left heart catheterization this morning. There is benefits alternatives have been explained to him he understands and agrees to proceed. Continue beta-jose g. (2) History of coronary artery stent placement: PLAN: He does have a history of previous right coronary artery stenting in 2018. This will be reevaluated with a cardiac catheterization this morning. (3) Essential (primary) hypertension: PLAN: He does have a history of hypertension. His blood pressure appears to be under good control at this particular time I would not recommend that we make any major changes. (4) Hyperlipidemia: PLAN: He does have a history of hyperlipidemia. He has not tolerated the statins in the past. He may be a candidate for bempedoic acid and ezetimibe at discharge. Alternatively he may benefit from a PCSK9 inhibitor. Thank you for allowing me to participate in the care of your patient. Please don't hesitate to call if any issues arise. HPI Consult Data Date of Consult: 12/19/24 HPI Narrative HPI Narrative: SANJEEV FARMER, is a 74 M who presents with chest discomfort which developed after he had eaten his evening dinner. He tells me that he had a recurrence of the above the next day and it reminded him of his previous cardiac events and sohe presented to the emergency room. An EKG was done which demonstrated normal sinus rhythm and sinus bradycardia with no acute changes. You remember he had had presented to the hospital in January 2018 with nonexertional chest tightness which was nonradiating. He was evaluated and noted to have suspectedcoronary artery disease he underwent a cardiac catheterization which demonstrated an ejection fraction of 65%, angiographically normal left main coronary artery, left anterior descending artery with less than 30% stenosis, left circumflex artery with 30% stenosis in the proximal right coronary artery with 85% proximal stenosis, 30% mid stenosis, and distal 50% stenosis. He underwent angioplasty and stenting with a 3.5 x 16 mm Synergy stent. He has nothad any further chest pain since admission. He states hip pain with long distances. He acknowledges SOB with activity. He has also had some shortness ofbreath at rest but he has also gained some weight. Pt denies symptoms of palpitations, lightheadedness, dizziness, near syncopal or syncopal episodes. Pt denies claudication issues.Pt. denies orthopnea, PND, fever, chills, blood inurine, blood in stool, myalgia, or unexplainable fatigue. His physical exam today is unremarkable his blood pressure is under good control. [facility] Medical History Venous insufficiency Hyperlipidemia History of non-ST elevation myocardial infarction (NSTEMI) (02/08/18) Obesity (BMI 35.0-39.9 without comorbidity) Sleep apnea with use of continuous positive airway pressure (CPAP) Atherosclerosis of coronary artery of [place] heart without angina pectoris Essential (primary) hypertension Home Medications ?Medication ?Instructions ?Recorded ?Last Taken ?Type aspirin 81 mg tablet,delayed 81 mg PO DAILY #90 tabs 0 11/11/22 12/18/24 Rx release albuterol sulfate 90 mcg/actuation 2 puff inhalation Q 4H PRN 06/26/24 Unknown Rx aerosol inhaler shortness of breath or wheez ing #8.5 grams losartan 100 mg tablet 100 mg PO DAILY #90 tabs 03/1412/18/24 Rx metoprolol tartrate 50 mg tablet 50 mg PO BID #180 tab s 08/30/24 12/18/24 Rx furosemide 40 mg tablet 40 mg PO DAILY PRN swelling or 10/08/24 12/18/24 Rx weight gain #30 tabs Allergy/AdvReac Type Severity Reaction Status Date / Time animal dander Allergy Other Verified 12/18/24 16:51 atorvastatin (From Lipitor) AdvReac Intermediate myalgias Verified 12/18/24 16:51 rosuvastatin (From Crestor) AdvReac Intermediate myalgias Verified 12/18/24 16:51 simvastatin (From Zocor) AdvReac Intermediate myalgias Verified 12/18/24 16:51 Family History Father Parkinson disease Mother No problems noted. Surgical History History of total right knee replacement History of coronary artery stent placement (02/10/18) Social History household members: spouse Smoking Status: Former smoker alcohol intake: current alcohol intake frequency: a few times a week details: 1-2 drinks, occasionally 3, 2-3x/week substance use type: does not use ROS Constitutional Constitutional: Denies fever(s) or weight loss Eyes Eyes: Reports systems reviewed and no addt'l complaints, except as documented ENT HEENT: Reports systems reviewed and no addt'l complaints, except as documented Cardiovascular Cardiovascular: Reports chest pain at rest and dyspnea at rest; Denies chest pain with activity, dyspnea on exertion, edema, palpitations or paroxysmal nocturnal dyspnea Respiratory/Chest Respiratory/Chest: Denies dyspnea on exertion, productive cough, shortness of breath at rest or shortness of breath with exertion Gastrointestinal Gastrointestinal: Denies change in bowel habits, nausea, vomiting or weight changes Genitourinary Genitourinary: Denies difficulty urinating Musculoskeletal Musculoskeletal: Denies joint stiffness or muscle weakness Integumentary Integumentary: Denies lesions Neurologic Neurologic: Denies dizziness or syncope Psychiatric Psychiatric: Denies anxiety Endocrine Endocrinology: Denies excessive sweating or fatigue Hematologic/Lymphatic Hematologic/Lymphatic: Denies anemia Allergic/Immunologic Allergic/Immunologic: Denies seasonal rhinorrhea Physical Exam Const alert, oriented x3 and no apparent distress General Appearance: cooperative HEENT hearing grossly normal bilaterally Head and Scalp: atraumatic Eyes EOMs intact bilaterally Neck General: normal visual inspection Chest inspection of chest normal and palpation of chest normal Resp normal respiratory effort Auscultation: clear to auscultation bilaterally Cardio regular rate, regular rhythm, S1 normal heart sound and S2 normal heart sound Jugular Venous Distention: JVD GI normal to inspection, nondistended, normoactive bowel sounds Extremity normal capillary refill and no pedal edema Peripheral Pulses: Yes pulses 2+ throughout and femoral pulses present Skin no rashes or lesions noted Neuro oriented x3 and CN's II-XII intact bilaterally Psych Appearance: grossly normal and appropriate Objective Data Vital Signs: Vital Signs Temp Pulse Resp BP Pulse Ox O2 Del Method O2 Flow Rate 99 F 64 18 141/64 H 98 Nasal Cannula 2 12/18/24 21:20 12/18/24 22:16 12/18/24 21:20 12/18/24 22:16 12/19/24 01:24 12/19/24 03:25 12/19/24 03:25 Oxygen Flow Rate (L/min) 2 Oxygen Delivery Method Nasal Cannula Weight: 264 lb 12.403 oz Body Mass Index (BMI) 38.0 Intake & Output: Intake and Output for Last 24 Hours 12/17/24 12/18/24 12/19/24 23:59 23:59 23:59 Intake Total 595.54 / 595.54 Balance 595.54 / 595.54 Lab / Micro Data 12/19/24 03:12 12/19/24 03:12 Labs: Laboratory Results - last 24 hr 12/18/24 17:00: WBC 8.3, RBC 4.88, Hgb 15.4, Hct 44.1, MCV 90.4, MCH 31.6, MCHC 34.9, RDW Std Deviation 40.7, RDW Coeff of Daphnie 12.5, Plt Count 276, MPV 10.3, Immature Gran % (Auto) 0.200, Neut % (Auto) 58.2, Lymph % (Auto) 29.0, [place] % (Auto) 8.8, Eos % (Auto) 3.1, Baso % (Auto) 0.7, Absolute Neuts (auto) 4.8, Absolute Lymphs (auto) 2.40, Nucleated RBC % 0, Sodium 139, Potassium 4.5, Chloride 101, Carbon Dioxide 20.4 L, Anion Gap 17 H, BUN 15, Creatinine 1.30 H, Estim Creat Clear Calc 62.99, Est GFR (MDRD) Non-Af 57 L, BUN/Creatinine Ratio 11.2, Glucose 149 H, Calcium 9.3, Troponin T High Sens 22 12/18/24 19:00: Troponin T Hi Sens 2 Hr 46 H 12/18/24 20:19: WBC 9.1, RBC 4.79, Hgb 15.2, Hct 44.5, MCV 92.9, MCH 31.7, MCHC 34.2, RDW Std Deviation 42.5, RDW Coeff of Daphnie 12.5, Plt Count 236, MPV 11.4, Immature Gran % (Auto) 0.300, Neut % (Auto) 71.1 H, Lymph % (Auto) 18.0 L, [place] % (Auto) 7.8, Eos % (Auto) 1.9, Baso % (Auto) 0.9, Absolute Neuts (auto) 6.4, Absolute Lymphs (auto) 1.63, Nucleated RBC % 0, Platelet Estimate ADEQUATE, PT 13.2, INR 1.0, APTT 22.6 L, Magnesium 2.2, Troponin T Hi Sens 4Hr 69 H* 12/19/24 03:12: WBC 7.1, RBC 4.49 L, Hgb 14.1, Hct 41.9, MCV 93.3, MCH 31.4, MCHC 33.7, RDW Std Deviation 42.2, RDW Coeff of Daphnie 12.5, Plt Count 239, MPV 10.6, Immature Gran % (Auto) 0.300, Neut % (Auto) 56.6, Lymph % (Auto) 28.2, [place] % (Auto) 9.3, Eos % (Auto) 4.6, Baso % (Auto) 1.0, Absolute Neuts (auto) 4.0, Absolute Lymphs (auto) 2.01, Nucleated RBC % 0, APTT 82.4 H, Sodium 137, Potassium 4.1, Chloride 103, Carbon Dioxide 21.4, Anion Gap 13, BUN 13, Creatinine 1.12, Estim Creat Clear Calc 72.89, Est GFR (MDRD) Non-Af 68, BUN/Creatinine Ratio 11.7, Glucose 127 H, Hemoglobin A1c 6.2 H, Calcium 8.8, Total Bilirubin 0.36, AST 15, ALT 14, Alkaline Phosphatase 95, Total Protein 6.2, Albumin 3.5, Globulin 2.8, Albumin/Globulin Ratio 1.3, Triglycerides 147, Cholesterol 186, LDL Cholesterol, Calc 124, VLDL Cholesterol 29, HDL [id number] L, Cholesterol/HDL Ratio 5.67 Cardiology Labs/Tests 12/18/24 17:00: WBC 8.3, RBC 4.88, Hgb 15.4, Hct 44.1, MCV 90.4, MCH 31.6, MCHC 34.9, Plt Count 276, MPV 10.3, Immature Gran % (Auto) 0.200, Neut % (Auto) 58.2,Lymph % (Auto) 29.0, [place] % (Auto) 8.8, Eos % (Auto) 3.1, Baso % (Auto) 0.7, Absolute Neuts (auto) 4.8, Nucleated RBC % 0, Sodium 139, Potassium 4.5, Chloride 101, Carbon Dioxide 20.4 L, Anion Gap 17 H, BUN 15, Creatinine 1.30 H, Est GFR (MDRD) Non-Af 57 L, BUN/Creatinine Ratio 11.2, Glucose 149 H, Calcium 9.3 12/18/24 20:19: WBC 9.1, RBC 4.79, Hgb 15.2, Hct 44.5, MCV 92.9, MCH 31.7, MCHC 34.2, Plt Count 236, MPV 11.4, Immature Gran % (Auto) 0.300, Neut % (Auto) 71.1 H, Lymph % (Auto) 18.0 L, [place] % (Auto) 7.8, Eos % (Auto) 1.9, Baso % (Auto) 0.9, Absolute Neuts (auto) 6.4, Nucleated RBC % 0, PT 13.2, INR 1.0, APTT 22.6 L, Magnesium 2.2 12/19/24 03:12: WBC 7.1, RBC 4.49 L, Hgb 14.1, Hct 41.9, MCV 93.3, MCH 31.4, MCHC 33.7, Plt Count 239, MPV 10.6, Immature Gran % (Auto) 0.300, Neut % (Auto) 56.6, Lymph % (Auto) 28.2, [place] % (Auto) 9.3, Eos % (Auto) 4.6, Baso % (Auto) 1.0, Absolute Neuts (auto) 4.0, Nucleated RBC % 0, APTT 82.4 H, Sodium 137, Potassium 4.1, Chloride 103, Carbon Dioxide 21.4, Anion Gap 13, BUN 13, Creatinine 1.12, Est GFR (MDRD) Non-Af 68, BUN/Creatinine Ratio 11.7, Glucose 127 H, Hemoglobin A1c 6.2 H, Calcium 8.8, Total Bilirubin 0.36, Triglycerides 147, Cholesterol 186, VLDL Cholesterol 29, HDL Cholesterol 33 L, Cholesterol/HDLRatio 5.67 Rhythm: EKG: ECHO: Stress Test: Cardiac Cath: PCI: CT Surgery: Holter monitor: EPS: PPM: CXR: Chest CT Scan: Radiography Diagnostic Testing: Radiology Impression Chest X-Ray 12/18/24 17:06 IMPRESSION: No evidence of acute cardiopulmonary disease. Reading Location: [id number] Risk Score for UA/STEMI Assesmment (YES = 1) Risk Stratification Applicable: No 12/19/24 1039 <Electronically signed by Bowen Story MD> Cosigner Signature (if applicable): CC: Dr. Nash Morales MD~ Signed [facility] Work Phone: evaluation note* Diagnosis Onset Date Resolution Status Dyspnea acute Obesity (BMI 35.0-39.9 without comorbidity) chronic Sleep apnea with use of cont inuous positive airway pressure (CPAP) chronic [facility] Work Phone: evaluation note* Diagnosis Onset Date Resolution Status Dyspnea acute Obesity (BMI 35.0-39.9 without comorbidity) chronic Sleep apnea with use of cont inuous positive airway pressure (CPAP) chronic Dyspnea acute Essential (primary) hypertension chronic Hyperlipidemia chronic History of coronary artery stent placement February 102017 resolved [facility] Work Phone: evaluation note* Diagnosis Onset Date Resolution Status Dyspnea acute Obesity (BMI 35.0-39.9 without comorbidity) chronic Sleep apnea with use of cont inuous positive airway pressure (CPAP) chronic Dyspnea acute Essential (primary) hypertension chronic Hyperlipidemia chronic History of coronary artery stent placement February 102017 resolved Dyspnea acute LARRY (obstructive sleep apnea) acute Obesity (BMI 35.0-39.9 without comorbidity) chronic [facility] Work Phone: evaluation note* Diagnosis Onset Date Resolution Status LARRY (obstructive sleep apnea) acute Obesity (BMI 35.0-39.9 without comorbidity) chronic [facility] Work Phone: evaluation noteNo assessment information available [facility] Work Phone: evaluation note* Diagnosis Onset Date Resolution Status Gout acute Trigger finger of left hand acute Gout acute Trigger finger of left hand acute [facility] Work Phone: Evaluation note* Diagnosis Onset Date Resolution Status Gout acute Trigger finger of left hand acute Gout acute Trigger finger of left hand acute Obesity (BMI 35.0-39.9 without comorbidity) chronic LARRY (obstructive sleep apnea) chronic [facility] Work Phone: History and physical note Author Soheila Hodge [facility] Note Date/Time December 18, 2024 9:02pm [facility] Medical Records Department [address] [place] [address] H&P Exam - Hospitalist 12/18/242018 MR#: [id number] Acct: [id number] Name: SANJEEV FARMER Rep #:[id number] : 1950 74 From: Soheila Hodge MD PCP: Dr. Nash Morales MD Status:ADM IN O Location: [place] [address] HPI - General General Date of Admission: 12/18/24 Date of Service: 12/18/24 Chief Complaint: Chest pain, dyspnea, diaphoresis. HPI Narrative The patient is a 74 y/o M w/ PMHx: CKD stage III per previous GFR trending, CAD s/p PCI RCA 2017, HTN, HLD, LARRY, Former tobacco use who presents to the [facility] ED on 12/18/2024 with history of chest pain with onset approximately 1 hour prior to ED arrival described as pressure-like sensation across the top of his chest with dyspepsia type sensation noted to been at rest when it started with onset of significant diaphoresis and dyspnea with no specific nausea or emesis prompting ED evaluation to be cautious. Patient was administered 2 baby aspirin prior to her ED arrival via self in addition to an additional 2 in the ED to total full-strength aspirin. Patient noted at its worst discomfort was 5 out of 10 in severity. He notes he is now currently chest pain-free. Patient reports that this was similar to his first NSTEMI presentation prior to his PCI intervention. Workup in the ED included T97.9, heart rate 72, BP 130/58, respiratory rate 16, 100% on room air with most recentrepeat vitals heart rate 57, BP 140/66, respiratory rate 18, 100% on room air, CBC with WBC 8.3, hemoglobin 15.4, platelet 276 without marked shift, BMP with carbon oxide 20.4, anion gap 17, BUN/Cr 15/1.30, GFR 57, glucose 149, troponin initial 22 with repeat delta 46, chest x-ray with no acute cardiopulmonary findings, EKG sinus rhythm with first-degree AV block with no acute evidence of ischemia with no significant change from EKG 08/2022. In the ED patient understood full-strength aspirin therapy and initiated on a heparin drip with a heparin bolus. [facility] Medical History Venous insufficiency Hyperlipidemia History of non-ST elevation myocardial infarction (NSTEMI) (02/08/18) Obesity (BMI 35.0-39.9 without comorbidity) Sleep apnea with use of continuous positive airway pressure (CPAP) Atherosclerosis of coronary artery of [place] heart without angina pectoris Essential (primary) hypertension Home Medications ?Medication ?Instructions ?Recorded ?Last Taken ?Type aspirin 81 mg tablet,delayed 81 mg PO DAILY #90 tabs 0 11/11/22 12/18/24 Rx release albuterol sulfate 90 mcg/actuation 2 puff inhalation Q 4H PRN 06/26/24 Unknown Rx aerosol inhaler shortness of breath or wheez ing #8.5 grams losartan 100 mg tablet 100 mg PO DAILY #90 tabs 03/14 Unknown Rx metoprolol tartrate 50 mg tablet 50 mg PO BID #180 tab s 08/30/24 12/18/24 Rx furosemide 40 mg tablet 40 mg PO DAILY PRN swelling or 10/08/24 12/18/24 Rx weight gain #30 tabs Allergy/AdvReac Type Severity Reaction Status Date / Time animal dander Allergy Other Verified 12/18/24 16:51 atorvastatin (From Lipitor) AdvReac Intermediate myalgias Verified 12/18/24 16:51 rosuvastatin (From Crestor) AdvReac Intermediate myalgias Verified 12/18/24 16:51 simvastatin (From Zocor) AdvReac Intermediate myalgias Verified 12/18/24 16:51 Family History Father Parkinson disease Mother No problems noted. Surgical History History of total right knee replacement History of coronary artery stent placement (02/10/18) Social History household members: spouse Smoking Status: Former smoker alcohol intake: current alcohol intake frequency: a few times a week details: 1-2 drinks, occasionally 3, 2-3x/week substance use type: does not use ROS ROS Narrative Admission Review of Systems: CONSTITUTIONAL: No weight loss, fever, chills, + weakness or fatigue. HEENT: Eyes: No visual loss, blurred vision, double vision or yellow sclerae. Ears, Nose, Throat: No hearing loss, sneezing, congestion, runny nose or sore throat. SKIN: No rash or itching, lesions, wounds. CARDIOVASCULAR: + Chest pain. No palpitations, increased edema, orthopnea, syncopal events. RESPIRATORY: + Dyspnea. No marked cough or sputum, wheezing, hemoptysis. GASTROINTESTINAL: + Dyspepsia. No anorexia, nausea, vomiting or diarrhea, abdominal pain, melena, BRBPR. GENITOURINARY: No dysuria, frequency, urgency or retention. NEUROLOGICAL: No headache, dizziness, syncope, paralysis, ataxia, numbness or tingling in the extremities, focal weakness, change in bowel or bladder control,seizure. MUSCULOSKELETAL: + muscle, back pain, joint pain or stiffness. HEMATOLOGIC: No anemia, bleeding or bruising. LYMPHATICS: No enlarged nodes. No history of splenectomy. PSYCHIATRIC: No history of depression or anxiety. ENDOCRINOLOGIC: + Diaphoresis. No cold or heat intolerance. No polyuria or polydipsia. ALLERGIES: No history of asthma, hives, eczema or rhinitis. Vital Signs Vital Signs Vital Signs: 12/18/24 16:42 12/18/24 16:54 12/18/24 17:41 Temperature 97.9 F Temperature Source Oral Pulse Rate 72 Respiratory Rate 16 Blood Pressure 138/58 H Blood Pressure Mean 84 Pulse Ox 100 100 Oxygen Delivery Method Room Air Room Air 12/18/24 18:00 12/18/24 19:00 12/18/24 20:00 Temperature Temperature Source Pulse Rate 70 60 57 L Respiratory Rate 16 18 18 Blood Pressure 117/55 L 121/61 H 148/66 H Blood Pressure Mean 75 81 93 Pulse Ox 100 99 100 Oxygen Delivery Method Room Air Room Air Room Air Weight Weight: 266 lb 5.094 oz Body Mass Index (BMI) 38.2 Physical Exam Narrative Physical Examination: General: Awake, alert, oriented x 3 and cooperative, seated upright in the ED bed, notes chest pain is resolved. Skin: Notable diffuse kaba with reporting that he is usually out in the sun approximate 30 minutes daily, normal turgor, no icterus, no cyanosis except occasional stage ecchymoses, abrasion, mild intertrigo in the armpit folds and notable bilateral lower extremity venous stasis skin changes. HEENT: AT/NC, EOMI, PERRLA, MMM, no carotid bruits or JVD noted. Lungs: CTA bilaterally, moderate effort, mild decrease BL bases, no rales, ronchi or wheezing. Heart: Regular rate and rhythm; no gallop, rub audible. Abdomen: Soft, obese, umbilical hernia evident, NTTP, ND, normal BS, no appreciated HSM. Extremities: No cyanosis, no clubbing, no significant distal edema, see skin. Neurological: Patient awake, alert, oriented as noted, cognitive function intact; pupils equally reactive to light and accommodation, cranial nerves grossly normal, moving all 4 extremities, no focal deficits, strength preserved. Psychiatric: Affect appears normal, no acute evidence of depressive or anxiety feelings. Results Lab / Micro Data 12/18/24 20:19 12/18/24 17:00 Labs: Laboratory Results - last 24 hr 12/18/24 17:00: WBC 8.3, RBC 4.88, Hgb 15.4, Hct 44.1, MCV 90.4, MCH 31.6, MCHC 34.9, RDW Std Deviation 40.7, RDW Coeff of Daphnie 12.5, Plt Count 276, MPV 10.3, Immature Gran % (Auto) 0.200, Neut % (Auto) 58.2, Lymph % (Auto) 29.0, [place] % (Auto) 8.8, Eos % (Auto) 3.1, Baso % (Auto) 0.7, Absolute Neuts (auto) 4.8, Absolute Lymphs (auto) 2.40, Nucleated RBC % 0, Sodium 139, Potassium 4.5, Chloride 101, Carbon Dioxide 20.4 L, Anion Gap 17 H, BUN 15, Creatinine 1.30 H, Estim Creat Clear Calc 62.99, Est GFR (MDRD) Non-Af 57 L, BUN/Creatinine Ratio 11.2, Glucose 149 H, Calcium 9.3, Troponin T High Sens 22 12/18/24 19:00: Troponin T Hi Sens 2 Hr 46 H Imaging Radiology Impression Chest X-Ray 12/18/24 17:06 IMPRESSION: No evidence of acute cardiopulmonary disease. Reading Location: [id number] Assessment & Plan Assessment/Plan (1) ACS (acute coronary syndrome): (2) Elevated troponin: PLAN: Plan The patient is a 74 y/o M w/ PMHx: CKD stage III per previous GFR trending, CAD s/p PCI RCA 2017, HTN, HLD, LARRY, Former tobacco use who presents to the [facility] ED on 12/18/2024 with history of chest pain with onset approximately 1 hour prior to ED arrival described as pressure-like sensation across the top of his chest with dyspepsia type sensation noted to been at rest when it started with onset of significant diaphoresis and dyspnea with no specific nausea or emesis prompting ED evaluation to be cautious. #1. Chest pain concerning for ACS with indeterminate cardiac enzyme of unclear significance: EKG in ED sinus rhythm with first-degree AV block with no acute evidence of ischemia, CXR w/ no acute cardiopulmonary findings, initial trop 22 with repeat delta 46. Will admit to PCU, maintain on monitored telemetry, continue to cycle cardiac enzymes, repeat EKG upon transition and as needed. Given significant underlying history, previous PCI and notable rise of second troponin thus will continue heparin drip initiated per the ED. ECHO requested. Cardiology consulted given initial strong concern for ACS. ASA, NG, morphine. #2. Hyperglycemia: No reported diabetic history, admission glucose 149, HgbA1c requested. #3. CAD: Status post previous PCI RCA 2017 3.5 x 16 Promus Synergy, most recentstress test noted 11/2021 with no inducible ischemia noted, continue aspirin, noted to be statin/Zetia intolerant as noted, continue metoprolol and losartan home regimen. #4. Chronic Kidney Disease Stage III, per previous GFR trend: Admission BUN/Cr 15/1.30, GFR 57, baseline renal function primarily 0.9-1.3, repeat BMP in AM. #5. Hypertension: Continue home regimen including metoprolol, losartan, amlodipine, PRN hydralazine. From records previously been on Lasix #6. Hyperlipidemia: Per most recent cardiology note 08/30/2024 patient is been intolerant to statins as well as Zetia, possibly may need to be considered outpatient per their note for KANIKA Patino as noted. #7. Chronic venous insufficiency: Encouraged continued compression stockings outpatient, noted to use as needed Lasix. #8. Former tobacco use: Encourage continued tobacco cessation. #9. Obesity: Weight loss and lifestyle changes encouraged. #10. LARRY: CPAP nightly. #11. Possible intertrigo: Noted irritation in the folds in the armpits, will initiate topical nystatin. #12. DVT prophylaxis: Will continue heparin drip as noted. #13. CODE status: Patient HCPOA and LW not in place but his present would be his medical decision maker if needed he notes. Discussed CODE status at length including difference between FULL code, DNR-CCA and DNR-CC status. Following discussions about the differences in these status, requested Full Codestatus. Charges/Coding Visit Charges Inpatient E&M: 76030 Init Hosp L3 12/18/242101 <Electronically signed by Soheila Hodge MD> Cosigner Signature (if applicable): CC: Dr. Soheila Hodge MD; Dr. Nash Morales MD~ Signed [facility] Work Phone: Progress note Author Christian Fitchfahad [facility] Note Date/Time December 19, 2024 11 :18am [facility] Medical Records Department [address] [place] [address] Progress Note - Hospitalist 12/19/24 1102 MR#: [id number] Acct: [id number] Name: SANJEEV FARMER Rep #:[id number] : 1950 74 From: Christian Solano MD PCP: Dr. Nash Morales MD Status:ADM IN O Location: [facility] [id number] Reason for Visit Chief Complaint: Chest pain, dyspnea, diaphoresis. Subjective Subjective Patient is a 74-year-old gentleman with significant past medical history including CAD with previous PCI to an RCA lesion who presented with chest pain and was found to have elevated troponin consistent with acute non-STEMI. Treatment initiated per protocol consultation placed to cardiology Objective Data Objective Data Vital Signs: Vital Signs Temp Pulse Resp BP Pulse Ox O2 Del Method O2 Flow Rate 96.2 F L 61 18 127/53 H 98 Room Air 2 12/19/24 05:05 12/19/24 08:47 12/19/24 05:05 12/19/24 08:47 12/19/24 08:56 12/19/24 08:56 12/19/24 05:05 Oxygen Flow Rate (L/min) 2 Oxygen Delivery Method Room Air Weight: 120.1 kg Body Mass Index (BMI) 38.0 Intake & Output: Intake and Output for Last 24 Hours 12/17/24 12/18/24 12/19/24 23:59 23:59 23:59 Intake Total 646.97 / 646.97 Balance 646.97 / 646.97 Lab / Micro Data 12/19/24 03:12 12/19/24 03:12 Labs: Laboratory Results - last 24 hr 12/18/24 17:00: WBC 8.3, RBC 4.88, Hgb 15.4, Hct 44.1, MCV 90.4, MCH 31.6, MCHC 34.9, RDW Std Deviation 40.7, RDW Coeff of Daphnie 12.5, Plt Count 276, MPV 10.3, Immature Gran % (Auto) 0.200, Neut % (Auto) 58.2, Lymph % (Auto) 29.0, [place] % (Auto) 8.8, Eos % (Auto) 3.1, Baso % (Auto) 0.7, Absolute Neuts (auto) 4.8, Absolute Lymphs (auto) 2.40, Nucleated RBC % 0, Sodium 139, Potassium 4.5, Chloride 101, Carbon Dioxide 20.4 L, Anion Gap 17 H, BUN 15, Creatinine 1.30 H, Estim Creat Clear Calc 62.99, Est GFR (MDRD) Non-Af 57 L, BUN/Creatinine Ratio 11.2, Glucose 149 H, Calcium 9.3, Troponin T High Sens 22 12/18/24 19:00: Troponin T Hi Sens 2 Hr 46 H 12/18/24 20:19: WBC 9.1, RBC 4.79, Hgb 15.2, Hct 44.5, MCV 92.9, MCH 31.7, MCHC 34.2, RDW Std Deviation 42.5, RDW Coeff of Daphnie 12.5, Plt Count 236, MPV 11.4, Immature Gran % (Auto) 0.300, Neut % (Auto) 71.1 H, Lymph % (Auto) 18.0 L, [place] % (Auto) 7.8, Eos % (Auto) 1.9, Baso % (Auto) 0.9, Absolute Neuts (auto) 6.4, Absolute Lymphs (auto) 1.63, Nucleated RBC % 0, Platelet Estimate ADEQUATE, PT 13.2, INR 1.0, APTT 22.6 L, Magnesium 2.2, Troponin T Hi Sens 4Hr 69 H* 12/19/24 03:12: WBC 7.1, RBC 4.49 L, Hgb 14.1, Hct 41.9, MCV 93.3, MCH 31.4, MCHC 33.7, RDW Std Deviation 42.2, RDW Coeff of Daphnie 12.5, Plt Count 239, MPV 10.6, Immature Gran % (Auto) 0.300, Neut % (Auto) 56.6, Lymph % (Auto) 28.2, [place] % (Auto) 9.3, Eos % (Auto) 4.6, Baso % (Auto) 1.0, Absolute Neuts (auto) 4.0, Absolute Lymphs (auto) 2.01, Nucleated RBC % 0, APTT 82.4 H, Sodium 137, Potassium 4.1, Chloride 103, Carbon Dioxide 21.4, Anion Gap 13, BUN 13, Creatinine 1.12, Estim Creat Clear Calc 72.89, Est GFR (MDRD) Non-Af 68, BUN/Creatinine Ratio 11.7, Glucose 127 H, Hemoglobin A1c 6.2 H, Calcium 8.8, Total Bilirubin 0.36, AST 15, ALT 14, Alkaline Phosphatase 95, Total Protein 6.2, Albumin 3.5, Globulin 2.8, Albumin/Globulin Ratio 1.3, Triglycerides 147, Cholesterol 186, LDL Cholesterol, Calc 124, VLDL Cholesterol 29, HDL [id number] L, Cholesterol/HDL Ratio 5.67 Radiography Diagnostic Testing: Radiology Impression Chest X-Ray 12/18/24 17:06 IMPRESSION: No evidence of acute cardiopulmonary disease. Reading Location: [id number] Echocardiogram 12/18/24 21:02 Interpretation Summary Normal LV size. Left ventricular systolic function is normal. The left ventricular ejection fraction is 60 %. Mild concentric left ventricular hypertrophy. Stage 1 diastolic dysfunction. Moderate aortic stenosis. Mean aortic valve gradient 22 mmHg. Contrast injection was performed. Ordering Physician: Soheila Hodge Referring Physician: Nash Morales Performed By: Chayo Akbar, RDCS, RVT Physical Exam Narrative GENERAL: cooperative HEENT: Atraumatic; normocephalic EYES; Anicteric, Normal Conjunctiva NECK; supple, normal thyroid, RESPIRATORY: Diminished to auscultation CARDIOVASCULAR: Regular S1 S2, GI: soft, normoactive bowel sounds, : No Renal angle tenderness; EXTREMITIES: No edema, no clubbing, MUSCULOSKELETAL: no muscle wasting NEURO: Awake; no lateralizing signs. SKIN: No Rash PSYCH; Flat affect Assessment & Plan Assessment/Plan (1) ACS (acute coronary syndrome): (2) Elevated troponin: PLAN: Plan Patient is a 74-year-old gentleman with significant past medical history including CAD with previous PCI to an RCA lesion who presented with chest pain and was found to have elevated troponin consistent with acute non-STEMI. Treatment initiated per protocol consultation placed to cardiology 1. Acute non-STEMI ? Patient presented with chest pain with rise in his troponin. Consult placed to cardiology patient underwent left heart catheterization with PCI with RUPA to a single coronary artery. Subsequently started on guideline directed medical therapy 2. Coronary artery disease ? With previous PCI to an RCA lesion 3. Hypertension ? Blood pressure controlled, home medications continued with dose adjustment as needed 4. Obstructive sleep apnea ? Consistent use of PAP therapy encouraged 5. Class II obesity with a BMI of 38.0 ? Complicating care weight loss advised 6.Hyperglycemia ? Patient noted known diabetic glucose on admission was 150 hemoglobin A1c subsequently ordered came back at 6.2 7. Intertrigo ? Involving the axilla nystatin powder ordered 8. DVT prophylaxis ? heparin Time spent in the patient's overall evaluation,decision-making process, review of diagnostic data, adjustment of management, discussion with other providers, nursing nursing and ancillary staff involved in patient's care documentation, 50Minutes Charges/Coding Visit Charges Inpatient E&M: 42200 Subs Hosp L3 12/19/24 1118 <Electronically signed by Christian Solano MD> Cosigner Signature (if applicable): CC: ~ Signed [facility] Work Phone: Progress note Author Dorita Lr [facility] Note Date/Time December 27, 2024 1: 55pm [facility] [address] [place] [address] OFFICE VISIT Date of Service: 12/27/24 MR#: [id number] Acct: [id number] Name: SANJEEV FARMER Rep #: [id number] : 1950 Provider: [facility] Age/Sex: 74/M Location: [facility] Status: Signed HPI HPI History of Present Illness Details: The patient is a 74-year-old male with CAD s/p RCA stenting in 2017 and LAD 2024, HTN, HLD, and LARRY, presenting for follow-up after a recent hospitalizationfor NSTEMI. On 12/19/2024, he developed chest discomfort after dinner, described as similar to his prior angina. He also experienced mild SOB and diaphoresis. He took 2 aspirin and was brought to the ED. He denies using nitroglycerin, as he does nothave any at home. He also reports experiencing similar, milder episodes of chestdiscomfort in the week prior to his hospitalization, which he initially attributed to indigestion. At the hospital, serial troponins were elevated (22, 46, and 69). Cardiac catheterization revealed an EF of 55%, 80% proximal and 70% mid LAD lesions, and30?40% in-stent restenosis in the RCA. He underwent LAD stenting and PTCA of theosteal D2. Echocardiogram showed normal LV systolic function (EF 60%), mild concentric LVH, stage 1 diastolic dysfunction, and moderate aortic stenosis. He was discharged on Brilinta, metoprolol, losartan, and aspirin. Since discharge, he reports feeling well and has not experienced further chest pain or SOB. He has resumed exercise at the [facility], attending 3 times per week. Heexpresses interest in cardiac rehab and is awaiting a call to begin the program. He reports difficulty tolerating statins in the past (Lipitor, Crestor, Zocor) due to myalgias. He has previously tried Zetia, but his LDL remained above target. He is not currently taking any lipid-lowering therapy. He is currently taking Brilinta, metoprolol, losartan, aspirin, and furosemide as needed for lower extremity edema. He recently filled a 3-month supply of Brilinta for $137 and is able to continue it. He denies any current lower extremity edema. He is interested in weight loss and asks about diet pills. He reports difficultylosing weight despite not eating sweets or junk food. He drinks 3?4 glasses of water daily and has a yogurt with grapes, strawberries, and unsalted nuts for breakfast. He drinks V8 juice daily and asks if this is acceptable. He denies using nicotine or chewing tobacco. He drinks alcohol in moderation. 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 Crimping Required: No Accompanied by: Is patient in pain?: No Allergies animal dander Allergy (Verified 12/27/24 13:10) Other atorvastatin (From Lipitor) Adverse Reaction (Intermediate, Verified 12/27/24 13:10) myalgias rosuvastatin (From Crestor) Adverse Reaction (Intermediate, Verified 12/27/24 13:10) myalgias simvastatin (From Zocor) Adverse Reaction (Intermediate, Verified 12/27/24 13:10) myalgias Medications ?Medication ?Instructions ?Recorded ?Confirmed ?Type aspirin 81 mg tablet,delayed 81 mg PO DAILY heart heal #90 11/11/22 12/27/24 Rx release tabs albuterol sulfate 90 mcg/actuation 2 puff inhalation Q 4H PRN 06/26/24 12/27/24 Rx aerosol inhaler shortness of breath or wheez ing #8.5 grams losartan 100 mg tablet 100 mg PO DAILY blood pressu re #90 08/30/24 12/27/24 Rx tabs metoprolol tartrate 50 mg tablet 50 mg PO BID blood pr essure #180 08/30/24 12/27/24 Rx tabs furosemide 40 mg tablet 40 mg PO DAILY PRN swelling or 10/08/24 12/27/24 Rx weight gain #30 tabs evolocumab 140 mg/mL subcutaneous 140 mg subcut Q2W #2 mL 12/27/24 12/27/24 Rx syringe (Repatha Syringe) nitroglycerin 0.4 mg sublingual 0.4 mg sublingual Q5-1 5M PRN chest 12/27/24 12/27/24 Rx tablet (Nitrostat) pain #25 tabs ticagrelor 90 mg tablet (Brilinta) 90 mg PO BID #180 t abs 12/27/24 12/27/24 Rx Ejection fraction %: 55 Have you fallen in the past year?: Yes Nurse's Note: Pt has had a runny nose since he was hospitalized last week. His states he was good up until Tuesday, and he started sleeping more. [facility] Medical History (Updated 12/27/24 @ 14:00 by Dorita FRIEND, PA) LVH (left ventricular hypertrophy) Venous insufficiency Hyperlipidemia History of non-ST elevation myocardial infarction (NSTEMI) (02/08/18) Obesity (BMI 35.0-39.9 without comorbidity) Sleep apnea with use of continuous positive airway pressure (CPAP) Atherosclerosis of coronary artery of [place] heart without angina pectoris Essential (primary) hypertension Surgical History History of total right knee replacement History of coronary artery stent placement (12/19/24) Family History Father Parkinson disease Mother No problems noted. Social History household members: spouse Smoking Status: Former smoker alcohol intake: current alcohol intake frequency: a few times a week details: 1-2 drinks, occasionally 3, 2-3x/week substance use type: does not use ROS Const Const: Negative for fatigue, weakness or headache(s) Eyes Eyes: Negative for change in vision ENT ENT: Negative for headache(s), dizziness, Nosebleed/epistaxis or balance problems Cardio Chest Pain: No Palpitations: No Edema: None Resp Respiratory: Negative for SOB with activity GI GI: Negative nausea, vomiting, heartburn or bright, red blood in stools : Negative for hematuria Musc Musc: Negative for balance problems Neuro Neuro: Negative for dizziness, lightheadedness, syncope, headache(s) or weakness Endo Endo: Negative for fatigue [...] rate Rhythm: regular rhythm Heart sounds: S1 normal, S2 normal and murmur; Negative rub or gallop Murmur: Grade 2/6, soft and mid systolic GI GI: normal to inspection, soft, no [...] normal affect Supplemental Info Supplemental Information Echocardiogram 12/2024 Normal LV size. Left ventricular systolic function is normal. The left ventricular ejection fraction is 60 %. Mild concentric left ventricular hypertrophy. Stage 1 diastolic dysfunction. Moderate aortic stenosis. Mean aortic valve gradient 22 mmHg. Contrast injection was performed. CARDIAC CATHETERIZATION/INTERVENTION 02/10/2018 CONCLUSIONS Normal LV size, [...] flow: 3 Lesion Devices: Cavazos .014 [employer] [place] Straight 190cm Flash Networkstronic 6 Fr HSII 100cm Guide Catheter Jason Sci EMERGE MR 2.00x12 BALLOON Jason Sci Synergy MR RUPA 3.50x16 Jason Sci NC EMERGE MR 3.75x08 BALLOON ECHOCARDIOGRAM 02/08/2018 Interpretation Summary Normal LV size. Moderate concentric left ventricular hypertrophy. Left ventricular systolic function is normal. The estimated ejection fraction is 60 %. Stage 1 diastolic dysfunction. Contrast injection was performed. Assessment and Plan Assessment and Plan (1) Atherosclerosis of coronary artery of [place] heart without angina pectoris: Status: Chronic Qualifiers: Coronary Disease-Associated Artery/Lesion type: [place] artery QualifiedCode(s): I25.10 - Atherosclerotic heart disease of [place] coronary artery without angina pectoris (2) History of coronary artery stent placement: Status: Resolved Comment: PCI-RUPA proximal RCA w/ 3.5 x 16 Promus Synergy 02/10/18; [place] 3.0 X 12mm RUPA to mid LAD 12/19/2024 (3) Essential (primary) hypertension: Status: Chronic (4) Hyperlipidemia: Status: Chronic Qualifiers: Hyperlipidemia type: pure hypercholesterolemia Qualified Code(s): E78.00 - Pure hypercholesterolemia, unspecified (5) Venous insufficiency: Status: Acute (6) Aortic valve stenosis: Status: Acute Qualifiers: Cardiac valve disease etiology: nonrheumatic Qualified Code(s): I35.0 - Nonrheumatic aortic (valve) stenosis (7) LVH (left ventricular hypertrophy): Status: Acute Orders: Orders Liver Profile 02/26/25 E78.00 - Pure hypercholesterolemia, unspecified, I25.10 - Atherosclerotic heart disease of [place] coronary artery without angina pectoris, Z95.5 - Presence of coronary angioplasty implant and graft Lipid Profile 02/26/25 E78.00 - Pure hypercholesterolemia, unspecified, I25.10 - Atherosclerotic heart disease of [place] coronary artery without angina pectoris, Z95.5 - Presence of coronary angioplasty implant and graft Medications: New evolocumab (Repatha Syringe) 140 mg subcut Q2W 2 mL 11RF evolocumab (Repatha Syringe) 140 mg subcut Q2W 2 mL 11RF nitroglycerin (Nitrostat) do not exceed 3 doses per episode 0.4 mg sublingual Q5-15M PRN 25 tabs 3RF chest pain Refilled ticagrelor (Brilinta) 90 mg PO BID 180 tabs 3RF Plan 1. CAD (coronary artery disease): - Recent presentation with chest discomfort; cardiac catheterization demonstrated significant lesions in the left anterior descending artery and diagonal branch. Stents placed to the LAD and angioplasty performed to the ostial diagonal vessel. - Echocardiogram revealed preserved systolic function (EF ~60%), no new wall motion abnormalities. - No ongoing chest pain or dyspnea reported; introduced sublingual nitroglycerinfor acute episodes. - Continuing dual antiplatelet therapy with Brilinta 90 mg twice daily for one year and aspirin indefinitely. - Maintaining metoprolol and losartan. Furosemide reserved for fluid retention. - Referred and cleared for cardiac rehabilitation to monitor symptoms and exercise tolerance. - Advising follow-up with cardiology (Dr. Story) on February 26, along with repeat lipid panel evaluation. 2. Presence of coronary angioplasty implant and graft: - See "CAD (coronary artery disease)" above for treatment/management plan. 3. Essential (primary) hypertension: - Currently controlled on metoprolol and losartan without reported side effects. - Will continue to monitor blood pressure in cardiac rehab and routine follow-upvisits. 4. Hyperlipidemia: - LDL currently 124 mg/dL; goal <55 mg/dL given cardiac history. - Intolerance to multiple statins due to myalgias; prior trial of Zetia with suboptimal response. - Initiated Repatha (evolocumab) subcutaneous injection every 2 weeks; prior authorization in process through pharmacy. - Recommended dietary modifications emphasizing whole foods, limiting processed items, adopting a Mediterranean-style diet including lean proteins, fruits, vegetables, and healthy fats. - Repeat lipid panel in approximately two months, coordinating with Fred cardiology appointment. 5. Nonrheumatic aortic (valve) stenosis: - Echocardiogram demonstrates moderate aortic stenosis. - No acute interventions indicated; will continue routine surveillance. 6. Left ventricular hypertrophy: - Echocardiogram shows mild concentric LVH. - No additional specific therapy indicated at this time; monitoring through routine cardiac evaluations. 7. Obstructive sleep apnea (adult) (pediatric): Plan Details Follow Up: 12/27/24 (keep as is) Coding Level of Care Code Off vis,est,level 4 Diagnoses Atherosclerosis of [place] coronary artery of [place] heart without angina pectoris I25.10 Coronary Disease-Associated Artery/Lesion type: [place] artery History of coronary artery stent placement Z95.5 Essential (primary) hypertension I10 Pure hypercholesterolemia E78.00 Hyperlipidemia type: pure hypercholesterolemia Venous insufficiency I87.2 Nonrheumatic aortic valve stenosis I35.0 Cardiac valve disease etiology: nonrheumatic LVH (left ventricular hypertrophy) I51.7 Coding Level of Care Code Off vis,est,level 4 Diagnoses Atherosclerosis of [place] coronary artery of [place] heart without angina pectoris I25.10 Coronary Disease-Associated Artery/Lesion type: [place] artery History of coronary artery stent placement Z95.5 Essential (primary) hypertension I10 Pure hypercholesterolemia E78.00 Hyperlipidemia type: pure hypercholesterolemia Venous insufficiency I87.2 Nonrheumatic aortic valve stenosis I35.0 Cardiac valve disease etiology: nonrheumatic LVH (left ventricular hypertrophy) I51.7 Clinical Quality Measures Falls Risk Screening/Assistive Devices Have you fallen in the past year?: Yes Cardiac Ejection fraction %: 55 12/27/24 1401 <Electronically signed by Dorita Rodriguez> Date _ Dorita FRIEND Cosigner Signature: Date (if applicable) CC: Dr. Nash Morales MD ~ [facility] Work Phone: Reason for referral (narrative)No reason for referral information [facility]Prov[facility] Work Phone: Chief Complaint and Reason for [...] Visit Atherosclerosis of c oronary artery of [place] heart without angina pectoris Essential (primary) hypertension Hyperlipidemia History of coronary artery stent placement Chief Complaint 6 M FU INT LABS EORDER Reason for Visit Atherosclerosis of c oronary artery of [place] heart without angina pectoris Essential (primary) hypertension Hyperlipidemia History of coronary artery stent placement Chief Complaint 6 M FU INT LABS EORDER EORDER Reason for Visit Atherosclerosis of c oronary artery of [place] heart without angina pectoris Essential (primary) hypertension Hyperlipidemia History of coronary artery stent placement Chief Complaint 6 M FU INT LABS EORDER EORDER 6 M FU RIGHT KNEE MARIE Reason for Visit Atherosclerosis of c oronary artery of [place] heart without angina pectoris Essential (primary) hypertension [...] Visit Atherosclerosis of c oronary artery of [place] heart without angina pectoris Essential (primary) hypertension [...] 2:0 1pm Atherosclerosis of coronary artery of [place] heart without angina pectoris August 30, 2024 2:01pm Essential (primary) hypertension August 302024 2:01pm Hyperlipidemia August 30, 2024 2:01 pm History of coronary artery stent placeme nt August 30, 2024 2:01pm Chief Complaint Admit Date 6 M FU August 30, 2024 2:01 pm CHEST PAIN/ACS December 18, 2024 8:21pm CHEST PAIN/ACS December 19, 2024 11 :02am CHEST PAIN/ACS December 19, 2024 3: 51pm Reason for Visit Admit Date Venous insufficiency August 30, 2024 2:0 1pm Atherosclerosis of coronary artery of [place] heart without angina pectoris August 30, 2024 2:01pm Essential (primary) hypertension August 302024 2:01pm Hyperlipidemia August 30, 2024 2:01 pm History of coronary artery stent placeme nt August 30, 2024 2:01pm ACS (acute coronary syndrome) December 3:51pm Chest pain December 19, 2024 3: 51pm Elevated troponin December 19, 2024 3: 51pm Essential (primary) hypertension December 19, 2024 3:51pm Hyperlipidemia December 19, 2024 3: 51pm History of coronary artery stent placeme nt December 19, 2024 3:51pm Chief Complaint Admit Date 6 M FU August 30, 2024 2:01 pm CHEST PAIN/ACS December 18, 2024 8:21pm CHEST PAIN/ACS December 19, 2024 11 :02am CHEST PAIN/ACS December 19, 2024 3: 51pm CHEST PAIN/ACS December 20, 2024 4: 18am CHEST PAIN/ACS December 20, 2024 8: 01am Reason for Visit Admit Date Venous insufficiency August 30, 2024 2:0 1pm Atherosclerosis of coronary artery of [place] heart without angina pectoris August 30, 2024 2:01pm Essential (primary) hypertension August 302024 2:01pm Hyperlipidemia August 30, 2024 2:01 pm History of coronary artery stent placeme nt August 30, 2024 2:01pm ACS (acute coronary syndrome) December 3:51pm Aortic valve stenosis December 19, 2024 3:51pm Chest pain December 19, 2024 3: 51pm Elevated troponin December 19, 2024 3: 51pm Essential (primary) hypertension December 19, 2024 3:51pm Hyperlipidemia December 19, 2024 3: 51pm Sleep apnea with use of cont inuous positive airway pressure (CPAP) December 19, 2024 3:51pm History of coronary artery stent placeme nt December 19, 2024 3:51pm Chief Complaint Admit Date CHEST PAIN/ACS December 18, 2024 8:21pm CHEST PAIN/ACS December 19, 2024 11 :02am CHEST PAIN/ACS December 19, 2024 3: 51pm CHEST PAIN/ACS December 20, 2024 4: 18am CHEST PAIN/ACS December 20, 2024 8: 01am S/P HOSP, 12/20/24 STENT December 27 1:04pm Reason for Visit Admit Date Aortic valve stenosis December 19, 2024 3:51pm Essential (primary) hypertension December 19, 2024 3:51pm Hyperlipidemia December 19, 2024 3: 51pm Sleep apnea with use of cont inuous positive airway pressure (CPAP) December 19, 2024 3:51pm ACS (acute coronary syndrome) December 3:51pm Chest pain December 19, 2024 3: 51pm Elevated troponin December 19, 2024 3: 51pm History of coronary artery stent placeme nt December 19, 2024 3:51pm Aortic valve stenosis December 27, 2024 1:04pm LVH (left ventricular hypertrophy) Octob er 2024 1:04pm Venous insufficiency December 27, 2024 1 :04pm Atherosclerosis of coronary artery of [place] heart without angina pectoris December 27, 2024 1:04pm Essential (primary) hypertension December 27, 2024 1:04pm Hyperlipidemia December 27, 2024 1: 04pm History of coronary artery stent placeme nt December 27, 2024 1:04pm Advance Directives Advance Directive Response Recorded Date/ Time Living Will No March 23 9 11:10am Power of Target Aircraft Technician Yes March 23 019 11:10am Advance Directive Response Recorded Date/ Time Living Will No September 06, 2022 6:33pm Power of Target Aircraft Technician No September 06 6:33pm Advance Directive Response Recorded Date/ Time Living Will No September 06, 2022 5:33pm Power of Target Aircraft Technician No September 06 5:33pm Advance Directive Response Recorded Date/ Time Living Will No September 06, 2022 6:33pm Do you have a Healthcare Power of Target Aircraft Technician? No September 06, 2022 6:33pm Advance Directive Response Recorded Date/ Time Do you have a Healthcare Power of Target Aircraft Technician? No December 18, 2024 9:02pm Summary Purpose Family History No Family History [...] Beach MD Family Provider Active Toya Franco , DO Primary Care Provider Active Team Status: Inactive Member Role Status Dates Toya Franco , DO Primary Care Provider, Referring Provider Active Dorita FRIEND, PA Attending Provider Active Team Status: Inactive Member Role Status Dates Toya Franco , DO Primary Care Provider Active Dorita FRIEND, PA Attending Provider, Referr ing Provider Active Team Status: Inactive Member Role Status Dates Toya Franco , DO Primary Care Provi dragan, Attending Provider, Referring Provider Active Team Status: Inactive Member Role Status Dates Toya Franco , DO Primary Care Provider, Referring Provider Active Dr. Gamal Jiang , DO Attending Provider Active Team Status: Inactive Member Role Status Dates Toya Franco , DO Primary Care Provider Active Dr. Rei Fernandez , Attending Provider, Referring Provider Active Team Status: Active Member Role Status Dates Toya Franco DO Primary Care Provider Active Dr. Javi Dooley MD Attending Provider Active Dr. Rei Fernandez , Referring Provider Active Team Status: Inactive Member Role Status Dates Toya Franco , Primary Care Provider Active Dr. Guillermina Barone MD Attending Provider, Emergency Provider Active Team Status: Inactive Member Role Status Dates Nash Morales MD Attending Provider, Referring Provide r Active Toya Franco DO Primary Care Provider Active Team Status: Active Member Role Status Dates Dr. Adrian Beach MD Family Provider Active Nash Morales MD Primary Care Provider Active Team Status: Inactive Member Role Status Dates Toya Franco , Primary Care Provider, Referring Provider Active Dr. Ilya Crain , Attending Provider Active Team Status: Inactive Member Role Status Dates Nash Morales MD Primary Care Provide r, Attending Provider, Referring Provider Active Team Status: Inactive Member Role Status Dates Toya Franco , Referring Provider Active Bessie Quinones TEST BORER, TEST BORER-C Attending Provider Active Nash Morales MD Primary Care Provider Active Team Status: Inactive Member Role Status Hilario Morales MD Primary Care Provider, Attending Prov ider Active Team Status: Inactive Member Role Status Hilario Morales MD Primary Care Provider Active St art: May 28, 2024 End: May 28, 2024 Nash Morales MD Referring Provider Active Start : May 28, 2024 End: May 28, 2024 Bessie Quinones TEST BORER, TEST BORER-C Attending Provider Active Start: May 28, 2024 End: May 28, 2024 Team Status: Inactive Member Role Status Hilario Morales MD Primary Care Provider Active St art: August 30, 2024 End: August 30, 2024 Nash Morales MD Referring Provider Active Start : August 30, 2024 End: August 30, 2024 Dorita Lr PA, PA Attending Provider Active Start: August 30, 2024 End: August 30, 2024 Team Status: Active Member Role/Relationship Status Dates Nash Morales MD Primary care physician Active Team Status: Inactive Member Role/Relationship Status Dates Nash Morales MD Primary care physician Active S tart: August 30, 2024 End: August 30, 2024 Nash Morales MD Referring Provider Active Start : August 30, 2024 End: August 30, 2024 [facility] Attending physician Active Start: August 30, 2024 End: August 30, 2024 Team Status: Active Member Role/Relationship Status Dates Nash Morales MD Primary care physician Active S tart: December 18, 2024 Darwin Arce MD Emergency Department Physician Active Start: December 18, 2024 Dr. Soheila Hodge MD Admitting physician Active Start: December 18, 2024 Dr. Soheila Hodge MD Attending physician Active Start: December 18, 2024 Dr. Soheila Hodge MD Nurse Practitioner Active Start: December 18, 2024 Dr. Bowen Story MD Nurse Practitioner Active S tart: December 18, 2024 Team Status: Active Member Role/Relationship Status Dates Nash Morales MD Primary care physician Active S tart: December 19, 2024 Dr. Bowen Story MD Attending physician Active Start: December 19, 2024 Team Status: Active Member Role/Relationship Status Dates Nash Morales MD Primary care physician Active S tart: December 19, 2024 Darwin Arce MD Emergency Department Physician Activ e Start: December 19, 2024 Dr. Soheila Hodge MD Admitting physician Active Start: December 19, 2024 Dr. Soheila Hodge MD Nurse Practitioner Active Start: December 19, 2024 Dr. Bowen Story MD Nurse Practitioner Active S tart: December 19, 2024 Dr. Christian Solano MD Attending physician Active Start: December 19, 2024 Dr. Christian Solano MD Nurse Practitioner Active Start: December 19, 2024 Team Status: Active Member Role/Relationship Status Dates Nash Morales MD Primary care physician Active S tart: December 19, 2024 Darwin Arce MD Emergency Department Physician Activ e Start: December 19, 2024 Dr. Soheila Hodge MD Admitting physician Active Start: December 19, 2024 Dr. Soheila Hodge MD Nurse Practitioner Active Start: December 19, 2024 Dr. Bowen Story MD Nurse Practitioner Active S tart: December 19, 2024 Dr. Christian Solano MD Attending physician Active Start: December 19, 2024 Team Status: Inactive Member Role/Relationship Status Dates Nash Morales MD Primary care physician Active S tart: December 19, 2024 End: December 20, 2024 Darwin Arce MD Emergency Department Physician Activ e Start: December 19, 2024 End: December 20, 2024 Dr. Soheila Hodge MD Admitting physician Active Start: December 19, 2024 End: December 20, 2024 Dr. Soheila Hodge MD Nurse Practitioner Active Start: December 19, 2024 End: December 20, 2024 Dr. Bowen Story MD Nurse Practitioner Active S tart: December 19, 2024 End: December 20, 2024 Dr. Christian Solano MD Attending physician Active Start: December 19, 2024 End: December 20, 2024 Team Status: Active Member Role/Relationship Status Dates Nash Morales MD Primary care physician Active S tart: December 20, 2024 Darwin Arce MD Emergency Department Physician Activ e Start: December 20, 2024 Dr. Soheila Hodge MD Admitting physician Active Start: December 20, 2024 Dr. Soheila Hodge MD Attending physician Active Start: December 20, 2024 Dr. Soheila Hodge MD Nurse Practitioner Active Start: December 20, 2024 Dr. Bowen Story MD Nurse Practitioner Active S tart: December 20, 2024 Dr. Christian Solano MD Nurse Practitioner Active Start: December 20, 2024 Team Status: Active Member Role/Relationship Status Dates Nash Morales MD Primary care physician Active S tart: December 20, 2024 Darwin Arce MD Emergency Department Physician Activ e Start: December 20, 2024 Dr. Soheila Hodge MD Admitting physician Active Start: December 20, 2024 Dr. Soheila Hodge MD Nurse Practitioner Active Start: December 20, 2024 Dr. Bowen Story MD Nurse Practitioner Active S tart: December 20, 2024 Dr. Christian Solano MD Nurse Practitioner Active Start: December 20, 2024 Dr. Rei Martinez MD Attending physician Active Start: December 20, 2024 Team Status: Active Member Role/Relationship Status Dates Nash Morales MD Primary care physician Active S tart: December 18, 2024 Darwin Arce MD Emergency Department Physician Active Start: December 18, 2024 Dr. Soheila Hodge MD Admitting physician Active Start: December 18, 2024 Dr. Soheila Hodge MD Attending physician Active Start: December 18, 2024 Dr. Soheila Hodge MD Nurse Practitioner Active Start: December 18, 2024 Dr. Bowen Story MD Nurse Practitioner Active S tart: December 18, 2024 Team Status: Active Member Role/Relationship Status Dates Nash Morales MD Primary care physician Active S tart: December 19, 2024 Dr. Bowen Story MD Attending physician Active Start: December 19, 2024 Team Status: Active Member Role/Relationship Status Dates Nash Morales MD Primary care physician Active S tart: December 19, 2024 Darwin Arce MD Emergency Department Physician Activ e Start: December 19, 2024 Dr. Soheila Hodge MD Admitting physician Active Start: December 19, 2024 Dr. Soheila Hodge MD Nurse Practitioner Active Start: December 19, 2024 Dr. Bowen Story MD Nurse Practitioner Active S tart: December 19, 2024 Dr. Christian Solano MD Attending physician Active Start: December 19, 2024 Dr. Christian Solano MD Nurse Practitioner Active Start: December 19, 2024 Team Status: Inactive Member Role/Relationship Status Dates Nash Morales MD Primary care physician Active S tart: December 19, 2024 End: December 20, 2024 Darwin Arce MD Emergency Department Physician Activ e Start: December 19, 2024 End: December 20, 2024 Dr. Soheila Hodge MD Admitting physician Active Start: December 19, 2024 End: December 20, 2024 Dr. Soheila Hodge MD Nurse Practitioner Active Start: December 19, 2024 End: December 20, 2024 Dr. Bowen Story MD Nurse Practitioner Active S tart: December 19, 2024 End: December 20, 2024 Dr. Christian Solano MD Attending physician Active Start: December 19, 2024 End: December 20, 2024 Team Status: Active Member Role/Relationship Status Dates Nash Morales MD Primary care physician Active S tart: December 20, 2024 Darwin Arce MD Emergency Department Physician Activ e Start: December 20, 2024 Dr. Soheila Hodge MD Admitting physician Active Start: December 20, 2024 Dr. Soheila Hodge MD Attending physician Active Start: December 20, 2024 Dr. Soheila Hodge MD Nurse Practitioner Active Start: December 20, 2024 Dr. Bowen Story MD Nurse Practitioner Active S tart: December 20, 2024 Dr. Christian Solano MD Nurse Practitioner Active Start: December 20, 2024 Team Status: Active Member Role/Relationship Status Dates Nash Morales MD Primary care physician Active S tart: December 20, 2024 Darwin Arce MD Emergency Department Physician Activ e Start: December 20, 2024 Dr. Soheila Hodge MD Admitting physician Active Start: December 20, 2024 Dr. Soheila Hodge MD Nurse Practitioner Active Start: December 20, 2024 Dr. Bowen Story MD Nurse Practitioner Active S tart: December 20, 2024 Dr. Christian Solano MD Nurse Practitioner Active Start: December 20, 2024 Dr. Rei Martinez MD Attending physician Active Start: December 20, 2024 Team Status: Inactive Member Role/Relationship Status Dates Nash Morales MD Primary care physician Active S tart: December 27, 2024 End: December 27, 2024 Nash Morales MD Referring Provider Active Start : December 27, 2024 End: December 27, 2024 Dorita FRIEND, PA Attending physician Active Start: December 27, 2024 End: December 27, 2024 (unrecognized sect ion and content) No Status Records Found INFORMATION SOURCE (unrecogn ized section and content) DATE CREATED AUTHOR 01/01/2025 [place] FOR RECORDS PERTAINING TO PATIENTS WHO ARE [...] BE BASED ON THE PRIMARY CLINICAL RECORDS. [employer] provides no warranty or guarantee of the accuracy or completeness of information in this document.
[2025-01-04 14:14] VITALS: BP 122/52; BP 122/54; PULSE 54; O2SAT 100; BMI 37.0
[2025-01-04 14:55] VITALS: BP 122/52; BMI 37.0
[2025-01-04 15:00] VITALS: BP 122/52
== END | disposition home or self-care (01) ==
LOC: CR 13:43
PROVIDERS: PCP Family Medicine; Referring Provider Specialist; Visit Provider Specialist
DX: I25.10 Atherosclerotic heart disease of native coronary artery without angina pectoris (principal); I24.9 Acute ischemic heart disease, unspecified; R79.89 Other specified abnormal findings of blood chemistry; I10 Essential (primary) hypertension; E78.5 Hyperlipidemia, unspecified; Z95.5 Presence of coronary angioplasty implant and graft

== ENCOUNTER → 2025-02-21 | Outpatient (CLI) | payer MEDICARE, SELFPAY ==
[2025-01-04 14:55] VITALS: BMI 37.0
[2025-02-21 13:32] LABS: AST(SGOT) 13 U/L (<=37); Alanine Aminotransfer ALT/SGPT 12 U/L (<=46); Albumin, Serum 4.1 g/dL (3.4-4.8); Alkaline Phosphatase 94 U/L (40-129); Bilirubin, Direct 0.23 mg/dL (0.00-0.30); Cholesterol 229 mg/dL (<=200); Globulin 3.2 g/dL (2.2-4.2); Low Density Lipoprotein Calc. 161 mg/dL; Triglycerides 174 mg/dL; Very Low Density Lipoprotein 35 mg/dL (5-40); cholesterol:hdl ratio screen 6.33
== END | disposition home or self-care (01) ==
LOC: MTLAB 09:20
PROVIDERS: PCP Family Medicine; Referring Provider Physician Assistant Medical; Visit Provider Physician Assistant Medical
DX: I25.10 Atherosclerotic heart disease of native coronary artery without angina pectoris (principal); E78.00 Pure hypercholesterolemia, unspecified; Z95.5 Presence of coronary angioplasty implant and graft
CPT/HCPCS: 36415; 80061; 80076